=== PATIENT | male | born 1970 | race Caucasian/White ===

== ENCOUNTER 2017-11-04 09:53 | Inpatient (IN) | payer BC ==
--- OUTSIDE RECORDS SUMMARY | 2017-11-04 09:56 | XMS REPORT | Clinical Summary ---
:1970 Author Organization [facility] Address [address] [place] [address] Care Team Providers Name Role Phone Asked, No Pcp Primary Care Provider Unavailable Allergies Active Allergy Reactions Severity Noted Date Comments No Known Drug Allergies 12/23/2016 Current Medications Prescription Sig. Disp. Refills Start Date End Date Status esomeprazole (NexIUM) Take 1 capsule 30 capsule 11 11/14/2016 11/15/19 Active 40 MG (40 mg total) 18 capsuleIndications: by mouth Gastroesophageal daily. reflux disease without esophagitis esomeprazole (NexIUM) Take 30 mg by 11/04/19 Discontinued 20 MG capsule mouth every 17 morning. betamethasone Apply 1 07/23/2016 11/06/19 Discontinued dipropionate topically as 17 (DIPROLENE) 0.05 % needed. ointment traMADol (ULTRAM) 50 Take 50 mg by 0 08/19/2016 11/06/19 Discontinued mg tablet mouth as 17 needed. esomeprazole (NexIUM) Take 40 mg by 12/24/19 Discontinued 40 MG capsule mouth daily 17 before breakfast. aspirin (ECOTRIN) 325 Take 1 tablet 60 tablet 0 11/05/2016 12/06/19 MG enteric coated (325 mg total) 17 tablet by mouth 2 (two) times a day for 30 days. oxyCODone-acetaminoph Take 1 tablet 80 tablet 0 11/05/2016 11/27/19 en (PERCOCET) 5-325 by mouth every 17 mg per tablet 4 (four) hours as needed for moderate pain for up to 21 days. Max Daily Amount: 6 tablets oxyCODone (OxyCONTIN) Take 1 tablet 11/05/2016 11/16/19 10 mg tablet,oral (10 mg total) 17 only,ext.rel.12 hr ER by mouth every tablet 12 (twelve) hours for 10 days. Max Daily Amount: 20 mg Active Problems Problem Noted Date Status post total replacement of left hip 12/23/2016 Left hip pain 12/23/2016 Osteoarthritis of left hip 11/03/2016 Hip pain, left 10/03/2016 Hip pain, chronic 10/03/2016 Primary osteoarthritis of left hip 10/03/2016 Chronic pancreatitis 04/13/2016 Last Assessment & Plan: He has a history of pancreatitis with associated chronic pain, but no stigmata of chronic pancreatitis. Prior MRI and EUS was unrevealing. He does continue to have some intermittent LUQ pain. Will start tramadol for pain. Continue low fat diet Diverticulitis large intestine w/o perforation or abscess w/o bleeding 2015 Last Assessment & Plan: Mild uncomplicated diverticulitis on imaging. I explained that he should increase fiber in his diet. Further, he takes daily NSAIDS, which may be a contributing factor. Will start tramadol as an alternative for pain. He may benefit from low dose TCA in the future Encounters Date Type Specialty Care Team Description 10/02/2017 Office Visit Cardiology Cheng Camara Precordial pain ( Primary Dx); MD Mello Palpitations 09/18/2017 Telephone Cardiology Alphonse, Capo Ulloa RN (requesting earlier appointment for c/o chest pain) 07/07/2017 Hospital Radiology Charlie Cabral Status post total replacement of left hip; Encounter Kae LORENZO MD Left hip pain 07/07/2017 Ancillary Orders Orthopedic Surgery Charlie Cabral Status post total replacement of left hip; Kae LORENZO MD Left hip pain 07/05/2017 Lab Lab Charlie Cabral Left hip pain Kae LORENZO MD 07/05/2017 Office Visit Orthopedic Surgery Charlie Cabral Status post total replacement of left hip (Primary Dx); Kae LORENZO MD Left hip pain 07/05/2017 Procedure Pass Radiology 06/23/2017 [facility] Gastroenterology [place], Chronic hip pain, Encounter Jose Elias Quiroga MD unspecified laterality (Primary Dx) 06/23/2017 Anesthesia Event Gastroenterology Gaetano Haywood MD 06/23/2017 Procedure Pass Gastroenterology 06/23/2017 Surgery Gastroenterology [place], PANCREACTIC EUS Jose Elias Quiroga MD 06/06/2017 Telephone Gastroenterology Bryanna Ayon MA 06/06/2017 Telephone Gastroenterology Bryanna Ayon MA 06/02/2017 Telephone Gastroenterology Bryanna Ayon MA 06/01/2017 Lab Lab [place], Jose Elias Quiroga MD 06/01/2017 Lab Lab [place], Chronic pancreatitis, unspecified pancreatitis type; Jose Elias Quiroga MD Epigastric pain 06/01/2017 Office Visit Gastroenterology [place], Other chronic pancreatitis (Primary Dx); Jose Elias Quiroga MD Generalized abdominal pain; Gastroesophageal reflux disease, esophagitis presence not specified 06/01/2017 Orders Only Gastroenterology [place], Chronic pancreatitis, unspecified pancreatitis type (Primary Dx); ROBERTO Gould Epigastric pain 05/19/2017 Office Visit Orthopedic Surgery Charlie Cabral Status post total replacement of left hip (Primary Dx); Kae LORENZO MD Primary osteoarthritis of left hip 01/23/2017 Hospital Procedural Cardiology Cheng Camara Other chest pain Encounter MD Mello 01/23/2017 Office Visit Cardiology Cheng Camara Other chest pain MD Mello (Primary Dx) 12/23/2016 Office Visit Orthopedic Surgery Broderick Dunn Status post total replacement of left hip (Primary Dx); Left hip pain Charlie Cabral II, MD 12/02/2016 Telephone Gastroenterology Bryanna Ayon MA 11/18/2016 Office Visit Orthopedic Surgery Charlie Cabral Pain of left hip joint Kae LORENZO MD (Primary Dx) 11/14/2016 Telephone Gastroenterology Kate Garza MA 11/14/2016 Orders Only Gastroenterology George Garza MA reflux disease without esophagitis (Primary Dx) 11/03/2016 Hospital Orthopedic Surgery Charlie Cabral - Encounter Kae LORENZO MD 11/05/2016 11/03/2016 Procedure Pass Orthopedic Surgery 11/03/2016 Surgery Orthopedic Surgery Charlie Cabral HARDWARE REMOVAL WITH Kae LORENZO MD POSTERIOR TOTAL HIP ARTHROPLASTY 10/31/2016 Anesthesia Event Orthopedic Surgery Stephanie Fuchs, DIEGO after 11/03/2016 Family History Medical History Relation Name Comments Aneurysm Father Heart disease Father Heart failure Father No Known Problems Mother Relation Name Status Comments Brother Alive avm malformation Father Mother Alive Social History Tobacco Use Types Packs/Day Years Used Date Former Smoker Cigarettes 2.5 25 Quit: 2006 Smokeless Tobacco: Former User Alcohol Use Drinks/Week oz/Week Comments No Sex Assigned at Date Recorded Not on file Last Filed Vital Signs Vital Sign Reading Time Taken Blood Pressure 132/75 10/02/2017 11:46 AM CDT Pulse 67 10/02/2017 11:46 AM CDT Temperature 37 C (98.6 F) 06/23/2017 11:05 AM 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 Respiratory Rate 16 10/02/2017 11:46 AM CDT Oxygen Saturation 98% 06/23/2017 11:40 AM 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 Inhaled Oxygen Concentration - - Weight 94.3 kg (208 lb) 10/02/2017 11:46 AM CDT Height 167.6 cm (5' 6") 10/02/2017 11:46 AM CDT Body Mass Index 33.57 10/02/2017 11:46 AM CDT Plan of Treatment Date Type Specialty Care Team Description 11/17/2017 Office Visit Orthopedic Surgery Charlie Cabral II, MD [address] [id number] Health Maintenance Due Date Last Done Comments INFLUENZA VACCINE 01/31/2018 Implants Implanted Type 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 Research 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 Device Expiration Model / Identifier Date Serial / Lot Shell Actblr Sector W/ Gription 52mm [place] - [id number] Hip Joint Left: DEPUY 06/01/2026 [id number] / Implanted: Qty: 1 on 11/03/2016 by Charlie Cabral II, MD Implants Hip ORTHO-KNEES / [id number] Altrex Poly Acet 36mm X 52mm Neutral Liner - [id number] [id number] IMPLANT Left: DEPUY 07/02/2021 1221 36 [id number] / Implanted: Qty: 1 on 11/03/2016 by Charlie Cabral II, MD DEVICES Hip ORTHOPAEDICS, / INC [id number] [place] Hip System Femoral Stems Size 5 [place] Standard Offset 06/15 Taper - [id number] [id number] IMPLANT Left: DEPUY 08/30/2026 1570 01 110 / Implanted: Qty: 1 on 11/03/2016 by Charlie Cabral II, MD DEVICES Hip ORTHOPAED[employer] [id number] [place] Fracture System Biolox Delta Ceramic Femoral Heads Size 36 +1.5 Mm Articul/Delio 06/15 Taper Ceramic Femoral Heads - [id number] [id number] IMPLANT Left: DEPUY 08/30/2021 1365 36 310 / Implanted: Qty: 1 on 11/03/2016 by Charlie Cabral II, MD DEVICES Hip [employer]OP[employer] [id number] Procedures Procedure Name Priority Date/Time Associated Comments Diagnosis PANCREACTIC EUS 06/23/2017 10:00 Pancreatitis, AM 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 recurrent KS ARTHROCENTESIS Routine 06/13/2017 8:33 Status post total Results for this ASPIR&/INJ MAJOR AM 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 replacement of left procedure are in JT/BURSA W/O US hip the results section. ANESTHESIA INTUBATION Routine 11/03/2016 12:58 PM CDT Procedure Note - Kady Kinsey MD - 11/03/2016 12:13 PM CDT Airway Performed by: KADY KINSEY Authorized by: KADY KINSEY Location: OR Urgency: Elective Difficult Airway: No Anesthesiologist: KADY KINSEY Performed by: anesthesiologist Preoxygenated with 100% O2: Yes C-spine Precautions Maintained Throughout: Yes Mask Ventilation: Difficult mask (Long honeycutt) Final Airway Type: Endotracheal airway Final Endotracheal Airway: ETT Technique Used: Direct laryngoscopy Insertion Site: Oral Blade Type: Weir Laryngoscope Blade/Videolaryngoscope Blade Size: 2 ETT Size (mm): 8.0 Measured from: Lips ETT to Lips (cm): 22 Placement Verified by: CO2 detection, direct visualization and equal breath sounds Laryngoscopic view: Grade IIa - partial view of glottis Rapid Sequence Induction (RSI): No Modified RSI: Yes Number of Attempts at Approach: 1 Difficult mask ventilation. Patient with a long honeycutt. OPA and Tegaderms placed in the honeycutt to make a better mask seal but still difficult to mask. Intubated easily. Atraumatic. Teeth intact. HARDWARE REMOVAL WITH 11/03/2016 12:45 PM CDT LEFT HIP OSTEOARTHRITIS POSTERIOR TOTAL HIP M16.12 ARTHROPLASTY Case Notes EST 2 HRS, DEPUY, @1323 DR CABRAL CHG PROC AND EQUIPMENT 11/02/16TW Special Needs EST 2 HRS, DEPUY PEG BOARD, SYNTHES, DYNAMIC HIP SCREW SET KS AN SPINAL BLOCK POST-OP PAIN Routine 11/03/2016 11:44 AM CDT Procedure Note - Kady Kinsey MD - 11/03/2016 11:42 AM CDT Spinal Block Performed by: KADY KINSEY Authorized by: KADY KINSEY Patient Location: Pre-op Start Time: 11/03/2016 11:37 AM End Time: 11/03/2016 11:39 AM Reason for Block: at surgeon's request, post-op pain management Staff: Anesthesiologist: KADY KINSEY Performed by: Anesthesiologist patient identified, IV checked, site and side verified, risks and benefits discussed, procedure verified, surgical consent complete, patient position confirmed, monitors and equipment checked and pre-op evaluation complete TIme Out Performed: 11/03/2016 11:33 AM Spinal Block: Patient Position: Sitting Prep: ChloraPrep Monitoring: Blood pressure monitoring, continuous pulse oximetry and heart rate Approach: Midline Interspace: L4-5 Injection Technique: Single injection Needle: Needle Type: Quincke Needle Gauge: 22 G Catheter Type: Closed end Assessment: Coagulation status: Coagulation status verified Block assessment: No apparent complications and patient tolerated procedure well Notes: One pass. CSF aspirated before and after a painless injection. after 11/03/2016 Results Lipid panel (10/02/2017 12:09 PM) Component Value Ref Range Cholesterol, total 216 (H) <200 mg/dL HDL cholesterol 54 >40 mg/dL Triglycerides 68 <150 mg/dL LDL cholesterol calculated 146 (H) mg/dL (calc) Comment: Reference range: <100 Desirable range <100 mg/dL for patients with CHD or diabetes and <70 mg/dL for diabetic patients with known heart disease. LDL-C is now calculated using the Tino calculation, which is a validated novel method providing better accuracy than the Friedewald equation in the estimation of LDL-C. Christian DEAL et al. CRESCENCIO. 2013;310(19): 5746-1852 (http://education.[employer].com/faq/RJB022) Cholesterol/HDL ratio 4.0 <5.0 (calc) Non-HDL cholesterol 162 (H) <130 mg/dL (calc) Comment: For patients with diabetes plus 1 major ASCVD risk factor, treating to a non-HDL-C goal of <100 mg/dL (LDL-C of <70 mg/dL) is considered a therapeutic option. Specimen Performing Laboratory [facility] Narrative FASTING:YES FASTING: YES ECG 12 lead (10/02/2017 11:48 AM) Component Value Ref Range Ventricular rate 68 Atrial rate 68 KS interval 148 QRSD interval 72 QT interval 390 QTC interval 414 P axis 1 38 QRS axis 1 66 T wave axis 56 EKG impression Normal sinus rhythm-Early repolarization-Normal ECG-No previous ECGs available- Specimen Performing Laboratory [facility] MUSE [address] [place] [address] MRI Lower Extremity Joint Wo Contrast Left (07/07/2017 12:12 PM) Specimen Performing Laboratory [facility] [address] [place] [address] Narrative EXAMINATION:MRI LOWER EXTREMITY JOINT WO CONTRAST LEFT CLINICAL HISTORY:Z96.642 Presence of left artificial hip joint, M25.552 Pain in left hip, left hip pain TECHNIQUE: Multiplanar, multisequence MR imaging examination of the lefthip obtained without contrast. Metal suppression protocol utilized. COMPARISON:Radiograph, 07/05/2017 IMPRESSION: 1.Left hip arthroplasty appears satisfactory positioned. No joint effusion is identified. Visualized portions of the joint capsule appear intact. 2.No cystic masses or pseudotumors are identified. 3.The visualized gluteal tendons appear intact, and there is no evidence of bursitis. 4.Moderate fatty atrophy posteriorly of the vastus lateralis muscle belly partially visualized. Remaining visualized muscle groups are well-maintained. 5.Visualized portions of the sciatic nerves well-maintained. Distal colonic diverticulosis partially visualized. 6.Marrow signal show no evidence of acute fracture. [facility]-[id number] Procedure Note Interface, Radiology Results Incoming - 07/07/2017 12:28 PM 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 EXAMINATION: MRI LOWER EXTREMITY JOINT WO CONTRAST LEFT CLINICAL HISTORY: Z96.642 Presence of left artificial hip joint, M25.552 Pain in left hip, left hip pain TECHNIQUE: Multiplanar, multisequence MR imaging examination of the left hip obtained without contrast. Metal suppression protocol utilized. COMPARISON: Radiograph, 07/05/2017 IMPRESSION: 1. Left hip arthroplasty appears satisfactory positioned. No joint effusion is identified. Visualized portions of the joint capsule appear intact. 2. No cystic masses or pseudotumors are identified. 3. The visualized gluteal tendons appear intact, and there is no evidence of bursitis. 4. Moderate fatty atrophy posteriorly of the vastus lateralis muscle belly partially visualized. Remaining visualized muscle groups are well-maintained. 5. Visualized portions of the sciatic nerves well-maintained. Distal colonic diverticulosis partially visualized. 6. Marrow signal show no evidence of acute fracture. [facility]-[id number] Sedimentation rate (07/05/2017 11:17 AM) Component Value Ref Range Sedimentation rate 2 < OR=15 mm/h Specimen Performing Laboratory [facility] C-reactive protein (07/05/2017 11:17 AM) Component Value Ref Range CRP 2.5 <8.0 mg/L Specimen Performing Laboratory [facility] Large Joint Arthrocentesis (06/13/2017 8:33 AM) Yaneth Cabral II, MD 06/13/20178:33 AM Large Joint Arthrocentesis Supporting Documentation Indications: pain Procedure Details Ultrasound guided: no Platelet Rich Plasma Used: no PRP UsedLocation: hip - L greater trochanteric bursa Left side: Needle size: 25 G Approach: lateral Left hip medications administered: 3 mL lidocaine 10 mg/mL (1 %); 6 mg betamethasone acetate & sodium phosphate 6 mg/mL Patient tolerance: patient tolerated the procedure well with no immediate complications Pancreatic elastase, fecal (06/01/2017 10:32 AM) Component Value Ref Range Pancreatic Elastase-1 TNP Comment: * Test not performed.* * No suitable specimen received. * Specimen Performing Laboratory [facility] CBC with platelet and differential (06/01/2017 10:32 AM)Only the most recent of3 resultswithin the time period is included. Component Value Ref Range WBC 7.7 3.8 - 10.8 Thousand/uL RBC 5.01 4.20 - 5.80 Million/uL HGB 15.0 13.2 - 17.1 g/dL HCT 44.8 38.5 - 50.0 % MCV 89.4 80.0 - 100.0 fL MCH 29.9 27.0 - 33.0 pg MCHC 33.5 32.0 - 36.0 g/dL RDW 13.0 11.0 - 15.0 % Platelet count 226 140 - 400 Thousand/uL MPV 10.9 7.5 - 12.5 fL Neutrophils, absolute 4,289 1,500 - 7,800 cells/uL Lymphocytes, absolute 2,633 850 - 3,900 cells/uL Monocytes, absolute 554 200 - 950 cells/uL Eosinophils, absolute 185 15 - 500 cells/uL Basophils, absolute 39 0 - 200 cells/uL Neutrophils 55.7 % Lymphocytes 34.2 % Monocytes 7.2 % Eosinophils 2.4 % Basophils + RC 0.5 % Specimen Performing Laboratory [facility] Lipase level (06/01/2017 10:32 AM) Component Value Ref Range Lipase 43 7 - 60 U/L Specimen Performing Laboratory [facility] Amylase level (06/01/2017 10:32 AM) Component Value Ref Range Amylase 38 21 - 101 U/L Specimen Performing Laboratory [facility] Comprehensive metabolic panel (06/01/2017 10:32 AM) Component Value Ref Range Glucose 99 65 - 99 mg/dL Comment: Fasting reference interval BUN, whole blood 14 7 - 25 mg/dL Creatinine 0.95 0.60 - 1.35 mg/dL EGFR Non-Afr. Egyptian 94 > OR=60 mL/min/1.73m2 EGFR 109 > OR=60 mL/min/1.73m2 BUN/creatinine ratio NOT APPLICABLE 6 - 22 (calc) Sodium 144 135 - 146 mmol/L Potassium 4.7 3.5 - 5.3 mmol/L Chloride 107 98 - 110 mmol/L CO2 29 20 - 31 mmol/L Calcium 9.8 8.6 - 10.3 mg/dL Protein 7.2 6.1 - 8.1 g/dL Albumin, S 4.3 3.6 - 5.1 g/dL Globulin, total 2.9 1.9 - 3.7 g/dL (calc) Albumin/globulin ratio 1.5 1.0 - 2.5 (calc) Total bilirubin 0.6 0.2 - 1.2 mg/dL Alkaline phosphatase 60 40 - 115 U/L AST 24 10 - 40 U/L ALT 27 9 - 46 U/L Specimen Performing Laboratory [facility] XR Hip 2-3 View Left (05/19/2017 3:57 PM)Only the most recent of3 resultswithin the time period is included. Specimen Performing Laboratory [facility] [address] [place] [address] Narrative Standard components spanning a screw holes which had begun to fill in significantly from a lateral sideplate and cross screws.No evidence of subsidence, loosening. Cv cta coronary arteries w contrast (01/23/2017 3:09 PM) Specimen Performing Laboratory [facility] [address] [place] [address] Narrative Nuclear Cardiology and Cardiac CT [address] [place] [address] CTA Coronary Arteries Report Pat.Name:PABLO HASTINGS Pat.ID:[id number] St.Date: 01/23/2017 Refer.MD:CHENG CAMARA MD Exam Time: 3:09:00 PMStudy Type:CTA Coronary Arteries Height:66inBSA: 1.94 m2 DOBAge:1970,46YSex: MALE BP:119/64 Nuclear Tech:FABIAN Agee(N)(CT) CPT - 4: CCTA w Thoracic Aorta (NonCongenital) [id number] Nuclear Event ID:[id number] Order ID:[id number] Reason for Study:Chest Pain Procedures:CT Prospective (phases) SUMMARY: Technique: IV contrast was administered and sequential 0.[address] cuts [facility]. Post-processing and 3D reconstruction were done using the [employer] workstation. Interactive image viewing and volumetric display and analysis were also performed. 3D coronary artery calcium scoring was done in accordance with a standardized protocol. CTA RESULTS Left Main: A normal sized5.2 mm artery which arises normally from the left sinus of Valsalva and divides into the left anterior descending and circumflex coronary arteries. No significant atherosclerotic plaque is present. Left anterior descending (LAD): A normal sized 4.1mm artery which wraps around the apex and gives off two diagonal branches. No significant atherosclerotic plaque is present. The first diagonal is a 2.6 mm trifurcating artery which has no significant atherosclerotic plaque. The second diagonal is a 1.5 mm artery which has no significant atherosclerotic plaque. Left circumflex: A normal sized 4.0 mm dominant artery which gives off two major obtuse marginal arteries before becoming the posterior descending artery. No significant atherosclerotic plaque is present. The first obtuse marginal is a 2.4 mm artery which has no significant atherosclerotic plaque. The second obtuse marginal is a 2.2 mm artery which has no significant atherosclerotic plaque. The posterior descending is a 2.5 mm artery which has no significant atherosclerotic plaque. Right coronary artery: A normal sized 2.8 mm non-dominant artery which arises normally from the right sinus of Valsalva and gives off several right ventricular branches.No significant atherosclerotic plaque is present. Ramus: None. Stents: None. Bypass Grafts: None. Pulmonary Arteries: Normal pulmonary artery sizes with no proximal thrombus identified. Left Atrial and Pulmonary Vein(PV) Dimensions: Left atrial size (A-P diameter) 3.2 cm. Normal PV anatomy Left superior PV17 mm. Left inferior PV17 mm. Right superior PV17 mm. Right inferior PV16 mm. There is no evidence of the left atrial appendage clot. Left Ventricular Valve Morphology/Function: LV septal wall thickness 10.0 mm. Aortic valve is tri-leaflet and there is no evidence of regurgitation. Mitral valve is normal without significant stenosis. Thoracic Aortic Dimensions: No aortic aneurysm or dissection is seen. Aortic root: 3.7 cm. Sinotubular junction 2.8 cm. Mid ascending thoracic aorta 3.3 cm. Descending thoracic aorta 2.2 cm. Pericardium: No pericardial effusion or pericardial thickening. Non-Cardiac Findings: Several small simple liver cysts. CONCLUSION CT coronary angiography shows no significant coronary artery atherosclerosis or coronary artery stenosis. Normal PV anatomy. There is no evidence of left atrial appendage thrombus. STUDY QUALITY The study quality is excellent. COMMENTS: None. The above report was based on a dedicated Cardiovascular CTA Protocol and interpreted by a Delivery Table Feeder.Should a more comprehensive assessment of non-cardiovascular findings be desired, please consult a radiologist.These images are available in the [facility] [employer] PACS system. Signed 01/23/2017 04:49 PM Cheng Camara MD Procedure Note Interface, Radiology Results In - 01/23/2017 4:49 PM CDT Nuclear Cardiology and Cardiac CT [address], [address], [place] [address] CTA Coronary Arteries Report Pat.Name: PABLO HASTINGS.ID: [id number] .Date: 01/23/2017 Refer.MD: CHENG CAMARA MD Exam Time: 3:09:00 PM Study Type:CTA Coronary Arteries Height: 66in BSA: 1.94 m2 Age: 4 1970,46Y Sex: MALE BP: 119/64 Nuclear Tech:FABIAN Agee(N)(CT) CPT - 4: CCTA w Thoracic Aorta (NonCongenital) [id number] Nuclear Event ID:[id number] Order ID: [id number] Reason for Study:Chest Pain Procedures:CT Prospective (phases) SUMMARY: Technique: IV contrast was administered and sequential 0.[address] cuts were obtained through the chest using the Siemens Somatom Force CT scanner. Post-processing and 3D reconstruction were done using the [employer] workstation. Interactive image viewing and volumetric display and analysis were also performed. 3D coronary artery calcium scoring was done in accordance with a standardized protocol. CTA RESULTS Left Main: A normal sized 5.2 mm artery which arises normally from the left sinus of Valsalva and divides into the left anterior descending and circumflex coronary arteries. No significant atherosclerotic plaque is present. Left anterior descending (LAD): A normal sized 4.1mm artery which wraps around the apex and gives off two diagonal branches. No significant atherosclerotic plaque is present. The first diagonal is a 2.6 mm trifurcating artery which has no significant atherosclerotic plaque. The second diagonal is a 1.5 mm artery which has no significant atherosclerotic plaque. Left circumflex: A normal sized 4.0 mm dominant artery which gives off two major obtuse marginal arteries before becoming the posterior descending artery. No significant atherosclerotic plaque is present. The first obtuse marginal is a 2.4 mm artery which has no significant atherosclerotic plaque. The second obtuse marginal is a 2.2 mm artery which has no significant atherosclerotic plaque. The posterior descending is a 2.5 mm artery which has no significant atherosclerotic plaque. Right coronary artery: A normal sized 2.8 mm non-dominant artery which arises normally from the right sinus of Valsalva and gives off several right ventricular branches. No significant atherosclerotic plaque is present. Ramus: None. Stents: None. Bypass Grafts: None. Pulmonary Arteries: Normal pulmonary artery sizes with no proximal thrombus identified. Left Atrial and Pulmonary Vein (PV) Dimensions: Left atrial size (A-P diameter) 3.2 cm. Normal PV anatomy Left superior PV17 mm. Left inferior PV17 mm. Right superior PV17 mm. Right inferior PV16 mm. There is no evidence of the left atrial appendage clot. Left Ventricular Valve Morphology/Function: LV septal wall thickness 10.0 mm. Aortic valve is tri-leaflet and there is no evidence of regurgitation. Mitral valve is normal without significant stenosis. Thoracic Aortic Dimensions: No aortic aneurysm or dissection is seen. Aortic root: 3.7 cm. Sinotubular junction 2.8 cm. Mid ascending thoracic aorta 3.3 cm. Descending thoracic aorta 2.2 cm. Pericardium: No pericardial effusion or pericardial thickening. Non-Cardiac Findings: Several small simple liver cysts. CONCLUSION CT coronary angiography shows no significant coronary artery atherosclerosis or coronary artery stenosis. Normal PV anatomy. There is no evidence of left atrial appendage thrombus. STUDY QUALITY The study quality is excellent. COMMENTS: None. The above report was based on a dedicated Cardiovascular CTA Protocol and interpreted by a Delivery Table Feeder. Should a more comprehensive assessment of non-cardiovascular findings be desired, please consult a radiologist. These images are available in the [facility] Smart [employer] PACS system. Signed 01/23/2017 04:49 PM Cheng Camara MD Estimated GFR (01/23/2017 3:01 PM)Only the most recent of2 resultswithin the time period is included. Component Value Ref Range GFR Non Af Amer >90 mL/min/1.73 m2 GFR Af Amer >90 mL/min/1.73 m2 Comment: Chronic kidney disease: <60 mL/min/1.73m2 Kidney failure: <15 mL/min/1.73m2 The estimated GFR is calculated from the IDMS-traceable Modification of Diet in Renal Disease Equation. The accuracy of the calculation is poor when the creatinine is normal. Calculated values >90 mL/min/1.73m2 are not reported. This equation has not been validated in children (<18 years), women, the elderly (>70 years), or ethnic groups other than Caucasians and Americans. Specimen Performing Laboratory Plasma specimen [facility] DEPARTMENT OF PATHOLOGY AND GENOMIC MEDICINE [address] [place] [id number] Creatinine level (01/23/2017 3:01 PM) Component Value Ref Range Creatinine 0.8Comment: Testing performed on the ISTAT instrument by 0.7 - 1.2 mg/dL RN Tech [id number] Specimen Performing Laboratory Plasma specimen [facility] DEPARTMENT OF PATHOLOGY AND GENOMIC MEDICINE [address] [place] [id number] Basic metabolic panel (11/04/2016 4:00 AM) Component Value Ref Range Sodium 141 135 - 148 mEq/L Potassium 4.3 3.5 - 5.0 mEq/L Chloride 103 98 - 112 mEq/L CO2 24 24 - 31 mEq/L Anion gap 14 7 - 15 mEq/L Comment: Starting from October , anion gap calculation no longer incorporates potassium. Please note the change. BUN 17 6 - 20 mg/dL Creatinine 0.8 0.7 - 1.2 mg/dL Glucose 147 (H) 65 - 99 mg/dL Calcium 8.3 8.3 - 10.2 mg/dL Specimen Performing Laboratory Plasma specimen [facility] DEPARTMENT OF PATHOLOGY AND [address] [address] XR Pelvis 1 Or 2 Vw (11/03/2016 4:23 PM)Only the most recent of2 resultswithin the time period is included. Specimen Performing Laboratory [facility] [address] [place] [id number] Narrative EXAMINATION:XR PELVIS 1 OR 2 VW CLINICAL HISTORY:Post operative COMPARISON:November 03, 2016 at 1443 hours TECHNIQUE: A single portable view of the pelvis was performed in the AP projection. FINDINGS: Satisfactory placement of a bipolar left hip arthroplasty is demonstrated with congruence of the prosthesis components and anatomic alignment. A soft tissue drainage catheter is seen about the hip. Postoperative air is noted in the soft tissues about the hip. IMPRESSION: Satisfactory ORIF of the hip. Note is made of slight thinning of the lateral cortex of the subtrochanteric diaphysis is noted. [id number] Procedure Note Interface, Radiology Results Incoming - 11/03/2016 4:31 PM CDT EXAMINATION: XR PELVIS 1 OR 2 VW CLINICAL HISTORY: Post operative COMPARISON: November 03, 2016 at 1443 hours TECHNIQUE: A single portable view of the pelvis was performed in the AP projection. FINDINGS: Satisfactory placement of a bipolar left hip arthroplasty is demonstrated with congruence of the prosthesis components and anatomic alignment. A soft tissue drainage catheter is seen about the hip. Postoperative air is noted in the soft tissues about the hip. IMPRESSION: Satisfactory ORIF of the hip. Note is made of slight thinning of the lateral cortex of the subtrochanteric diaphysis is noted. [facility]-[id number] POC glucose (11/03/2016 3:59 PM)Only the most recent of2 resultswithin the time period is included. Component Value Ref Range POC glucose 117 (H) 65 - 99 mg/dL Comment: [facility] Notified RN Meter ID: [id number] Employment Law Attorney: Norman Kern Specimen Performing Laboratory [facility] DEPARTMENT OF PATHOLOGY AND GENOMIC MEDICINE [address] [place] [id number] Surgical pathology request (11/03/2016 3:35 PM) Component Value Ref Range Surgical pathology report See link below for PDF Lab Report Specimen Performing Laboratory [facility] DEPARTMENT OF PATHOLOGY AND GENOMIC MEDICINE [address] [place] [id number] after 11/03/2016 Insurance Payer Benefit Plan / Group Subscriber ID Type Phone Address BCBS BCBS CHOICE PPO/FEDERAL EMPL PPO xxxxxxxxxxxx PPO Home: [address] [phone] [place] [phone] SANDEEP HASTINGS Personal/Family Self 1970 Home: [address] [facility] [phone] [place] [phone]
[2017-11-04] MEDS ORDERED: MORPHINE 4 MG/ML SYR ONE ×2 (10:34→12:22)
[2017-11-04] MEDS ORDERED: ONDANSETRON 4 MG/2 ML VIAL ONE ×2 (10:34→14:27)
[2017-11-04] MEDS ORDERED: NA CHLORIDE 0.9% 1,000 ML ONE ×2 (10:34→12:59)
[2017-11-04 11:07] LABS: Absolute Lymphocytes (CBC) 1.6 K/uL (0.7-4.9); Absolute Monocytes 1.7 K/uL (0.1-1.3); Absolute Neutrophil 11.5 K/uL (1.8-8.0); Basophils % 0.3 % (0-1.3); Hematocrit 45.8 % (39.6-49.0); Lymphocytes % 10.7 % (15.3-44.8); MCH 30.3 pg (27.0-35.0); MCV 92.1 fL (80-100); MPV 8.6 fL (7.6-11.3); Monocytes % 11.6 % (3.3-12.3); RBC Red Blood Cell Count 4.97 M/uL (4.33-5.43)
[2017-11-04 11:12] LABS: Urine Blood NEGATIVE (NEG); Urine Glucose NEGATIVE (NEG); Urine Protein TRACE (NEG)
[2017-11-04 11:13] LABS: Bicarbonate 28 mEq/L (21-31); Glucose Level 93 mg/dL (65-120); Potassium 3.8 mEq/L (3.6-5.0); Sodium Level 135 mEq/L (135-145)
[2017-11-04 11:14] LABS: BUN Blood Urea Nitrogen 12 mg/dL (6-20)
--- NOTE | 2017-11-04 12:26 | RAD REPORT ---
EXAM DESCRIPTION: CT - Abdomen Pelvis W Contrast - 11/04/2017 11:45 am CLINICAL HISTORY: Abdominal pain/lower abdominal pain COMPARISON: 2015 TECHNIQUE: Computed axial tomography of the abdomen pelvis was obtained. 100 cc Isovue-300 was admin istered intravenously. Oral contrast was not requested which limits evaluation of bowel. All CT scans are performed using dose optimization technique as appropriate and may include automated exposure control or mA/KV adjustment according to patient size. FINDINGS: Small hepatic cysts are present. The gallbladder has been removed. Spleen, pancreas, adrenal and kidneys appear unremarkable. Mild to moderate stranding is present adjacent to the sigmoid colon. Small diverticulum is seen. Free air is not noted. An abscess is not seen. Small amount of ascites is present. Small umbilical hernia is noted. IMPRESSION: Mild to moderate sigmoid diverticulitis
--- NOTE | 2017-11-04 12:46 | ER ---
Nurse's Notes [facility] Name: Damian Lee Age: 46 yrs Sex: Male : 1970 Arrival Date: 11/04/2017 Time: 09:54 Bed 19 Private MD: Diagnosis: Diverticulitis of intestine, part unspecified, without perforation or abscess without bleeding Presentation: 11/04 10:15 Presenting complaint: Patient states: "I've had diverticulitis before and I feel the aa5 same way I did when I had it". Pt c/o lower abd pain. Pt denies N/V/D, denies blood in stool. Transition of care: patient was not received from another setting of care. Onset of symptoms was November 02, 2017. Initial Sepsis Screen: Does the patient meet any 2 criteria? No. Patient's initial sepsis screen is negative. Does the patient have a suspected source of infection? No. Patient's initial sepsis screen is negative. Care prior to arrival: None. 10:15 Method Of Arrival: Ambulatory aa5 10:15 Acuity: SAMI 3 aa5 Historical: - Allergies: 10:17 No Known Allergies; aa5 - PMHx: 10:17 High Cholesterol; aa5 - PSHx: 10:17 Cholecystectomy; pancreatic stent; left hip surgery; aa5 - Immunization history:: Adult Immunizations unknown. - Social history:: Smoking status: Patient/guardian denies using tobacco. Screenin:45 Abuse screen: Denies threats or abuse. Denies injuries from another. Nutritional jl7 screening: No deficits noted. Tuberculosis screening: No symptoms or risk factors identified. Fall Risk IV access (20 points). Assessment: 10:30 General: Appears in no apparent distress. uncomfortable, Behavior is calm, cooperative, jl7 appropriate for age. Pain: Complains of pain in left lower quadrant Pain does not radiate. Pain currently is 7 out of 10 on a pain scale. Quality of pain is described as squeezing, Pain began 1 day ago. Is continuous. Neuro: Level of Consciousness is awake, alert, obeys commands, Oriented to person, place, time, situation. Cardiovascular: Patient's skin is warm and dry. Respiratory: Airway is patent Respiratory effort is even, unlabored, Respiratory pattern is regular, symmetrical. GI: Abdomen is round non-distended. : No signs and/or symptoms were reported regarding the genitourinary system. EENT: No signs and/or symptoms were reported regarding the EENT system. Derm: Skin is pink, warm \\T\\ dry. Musculoskeletal: No signs and/or symptoms reported regarding the musculoskeletal system. 11:24 Reassessment: Pt reports decreased pain at this time, rated 5/10. jl7 12:20 Reassessment: Pt c/o of increased pain, rated 7/1, requesting pain meds at this time. jl7 Provider notified, see MAR for orders. 13:20 Reassessment: Patient and/or family updated on plan of care and expected duration. Pain jl7 level reassessed. Patient is alert, oriented x 3, equal unlabored respirations, skin warm/dry/pink. 13:20 Reassessment: Pt reports nausea prior to medication administration. Provider notified, jl7 see MAR for orders. 14:20 Reassessment: pt reports "The pain is getting pretty bad." Provider notified, see MAR jl7 for orders. Vital Signs: 10:17 BP 117 / 78; Pulse 88; Resp 16 S; Temp 98.7(TE); Pulse Ox 98% on R/A; Weight 88.45 kg aa5 (R); Height 5 ft. 6 in. (167.64 cm) (R); 10:45 BP 116 / 66; Pulse 80; Resp 16; Pulse Ox 98% ; Pain 7/10; jl7 11:25 BP 115 / 68; Pulse 82; Resp 16; Pulse Ox 100% ; Pain 5/10; jl7 12:20 BP 107 / 67; Pulse 77; Resp 16; Pulse Ox 96% ; Pain 7/10; jl7 13:20 BP 117 / 71; Pulse 76; Resp 16; Pulse Ox 98% ; jl7 14:20 BP 120 / 70; Pulse 78; Resp 16; Pulse Ox 99% ; Pain 7/10; jl7 10:17 Body Mass Index 31.47 (88.45 kg, 167.64 cm) aa5 ED Course: 09:54 Patient arrived in ED. sb2 10:15 Leila Cardona FNP-C [facility] kb 10:15 Ashkan Greenwood MD is Attending Physician. kb 10:16 Triage completed. aa5 10:16 Arm band placed on. aa5 10:28 Radiology exam delayed due to lab results not completed at this time. (BUN/Creatinine). vr 10:29 Linden Lyman, RN is Primary Nurse. jl7 10:45 Patient has correct armband on for positive identification. Bed in low position. Call [facility] light in reach. Side rails up X 1. Pulse ox on. NIBP on. Warm blanket given. 10:45 Initial lab(s) drawn, by me, sent to lab. Inserted saline lock: 20 gauge in right jl7 antecubital area, using aseptic technique. Blood collected. 11:45 CT Abd/Pelvis - W/Contrast In Process Unspecified. EDMS 11:46 CT completed. Patient tolerated procedure well. Patient moved back from CT. bq 12:46 Demetri Evans DO is Hospitalizing Provider. kb 14:47 No provider procedures requiring assistance completed. Patient admitted, IV remains in jl7 place. intact, No redness/swelling at site. Administered Medications: 10:52 Drug: NS 0.9% 1000 ml Route: IV; Rate: 1000 ml; Site: right antecubital; jl7 12:00 Follow up: IV Status: Completed infusion jl7 10:53 Drug: Zofran 4 mg Route: IVP; Site: right antecubital; jl7 11:24 Follow up: Response: No adverse reaction; Nausea is decreased jl7 10:55 Drug: morphine 4 mg Route: IVP; Site: right antecubital; jl7 11:24 Follow up: Response: No adverse reaction; Pain is decreased jl7 12:25 Drug: morphine 4 mg Route: IVP; Site: right antecubital; jl7 13:00 Follow up: Response: No adverse reaction; Pain is decreased jl7 12:45 CANCELLED (Duplicate Order): NS 0.9% 1000 ml IV at 125 ml/hr continuous kb 13:05 Drug: NS 0.9% 1000 ml Route: IV; Rate: 100 ml/hr; Site: right antecubital; jl7 13:06 Drug: Cipro 400 mg Volume: 200 ml; Route: IVPB; Infused Over: 60 mins; Site: right jl7 antecubital; 14:10 Follow up: Response: No adverse reaction; IV Status: Completed infusion jl7 13:07 Drug: Flagyl 500 mg Volume: 100 ml; Route: IVPB; Rate: 200 ml/hr; Infused Over: 30 jl7 mins; Site: right antecubital; 13:45 Follow up: IV Status: Completed infusion jl7 14:19 Drug: fentaNYL (PF) 50 mcg Route: IVP; Site: right antecubital; jl7 14:36 Follow up: Response: No adverse reaction; Pain is decreased jl7 14:25 Drug: Zofran 4 mg Route: IVP; Site: right antecubital; jl7 14:36 Follow up: Response: No adverse reaction; Nausea is decreased jl7 Outcome: 12:46 Decision to Hospitalize by Provider. kb 14:47 Admitted to Tele accompanied by tech, via wheelchair, room 217, with chart, Report jl7 called to MAT [place] 14:47 Condition: stable 14:47 Discharge instructions given to patient, Instructed on the need for admit, Demonstrated understanding of instructions. 15:09 Patient left the ED. jl7 Signatures: Dispatcher [employer] EDMS Leila Cardona, ADRI-C CONCR[employer]E [employer]-CkJaney Benitez Audri, RN RN aa5 Alisia Perez Jahala, RN RN jl7 Ansley Barajas sb2 Corrections: (The following items were deleted from the chart) 10:18 10:17 BP 117 / 78; Pulse 88bpm; Resp 16bpm; Spontaneous; Pulse Ox 98% RA; Temp 98.7F aa5 Temporal; aa5 14:35 14:00 Zofran 4 mg IVP in right antecubital jl7 jl7
--- NOTE | 2017-11-04 12:47 | EDPHYS ---
Physician Documentation [facility] Name: Damian Lee Age: 46 yrs Sex: Male : 1970 Arrival Date: 11/04/2017 Time: 09:54 Bed 19 Private MD: ED Physician Ashkan Greenwood HPI: 11/04 10:21 This 46 yrs old Male presents to ER via Ambulatory with complaints of kb DIVERTICULITIS. 10:21 The patient presents with abdominal pain in the left lower quadrant. Onset: The kb symptoms/episode began/occurred yesterday. The symptoms do not radiate. Associated signs and symptoms: Pertinent positives: nausea. The symptoms are described as achy. The symptoms are described as constant. Modifying factors: The symptoms are alleviated by nothing, the symptoms are aggravated by pressure. Severity of pain: At its worst the pain was moderate in the emergency department the pain is unchanged. The patient has experienced similar episodes in the past, a few times, and the symptoms today are exactly the same, to previous diverticulitis. The patient has not recently seen a physician. Historical: - Allergies: 10:17 No Known Allergies; aa5 - PMHx: 10:17 High Cholesterol; aa5 - PSHx: 10:17 Cholecystectomy; pancreatic stent; left hip surgery; aa5 - Immunization history:: Adult Immunizations unknown. - Social history:: Smoking status: Patient/guardian denies using tobacco. ROS: 10:21 Constitutional: Negative for fever, chills, and weight loss, Cardiovascular: Negative kb for chest pain, palpitations, and edema, Respiratory: Negative for shortness of breath, cough, wheezing, and pleuritic chest pain, Back: Negative for injury and pain, : Negative for injury, bleeding, discharge, and swelling, MS/Extremity: Negative for injury and deformity, Skin: Negative for injury, rash, and discoloration, Neuro: Negative for headache, weakness, numbness, tingling, and seizure. 10:21 Abdomen/GI: Positive for abdominal pain, nausea, Negative for vomiting, diarrhea, constipation, abdominal cramps, abdominal distension, anorexia. Exam: 10:20 Constitutional: This is a well developed, well nourished patient who is awake, alert, kb and in no acute distress. Head/Face: Normocephalic, atraumatic. Neck: Trachea midline, no thyromegaly or masses palpated, and no cervical lymphadenopathy. Supple, full range of motion without nuchal rigidity, or vertebral point tenderness. No Meningismus. Chest/axilla: Normal chest wall appearance and motion. Nontender with no deformity. No lesions are appreciated. Cardiovascular: Regular rate and rhythm with a normal S1 and S2. No gallops, murmurs, or rubs. Normal PMI, no JVD. No pulse deficits. Respiratory: Lungs have equal breath sounds bilaterally, clear to auscultation and percussion. No rales, rhonchi or wheezes noted. No increased work of breathing, no retractions or nasal flaring. Back: No spinal tenderness. No costovertebral tenderness. Full range of motion. Skin: Warm, dry with normal turgor. Normal color with no rashes, no lesions, and no evidence of cellulitis. MS/ Extremity: Pulses equal, no cyanosis. Neurovascular intact. Full, normal range of motion. Neuro: Awake and alert, GCS 15, oriented to person, place, time, and situation. Cranial nerves II-XII grossly intact. Motor strength 5/5 in all extremities. Sensory grossly intact. Cerebellar exam normal. Normal gait. 10:20 Abdomen/GI: Inspection: abdomen appears normal, Bowel sounds: normal, in all quadrants, Palpation: soft, in all quadrants, mild abdominal tenderness, in all quadrants, moderate abdominal tenderness, in the left lower quadrant. Vital Signs: 10:17 BP 117 / 78; Pulse 88; Resp 16 S; Temp 98.7(TE); Pulse Ox 98% on R/A; Weight 88.45 kg aa5 (R); Height 5 ft. 6 in. (167.64 cm) (R); 10:45 BP 116 / 66; Pulse 80; Resp 16; Pulse Ox 98% ; Pain 7/10; jl7 11:25 BP 115 / 68; Pulse 82; Resp 16; Pulse Ox 100% ; Pain 5/10; jl7 12:20 BP 107 / 67; Pulse 77; Resp 16; Pulse Ox 96% ; Pain 7/10; jl7 13:20 BP 117 / 71; Pulse 76; Resp 16; Pulse Ox 98% ; jl7 14:20 BP 120 / 70; Pulse 78; Resp 16; Pulse Ox 99% ; Pain 7/10; jl7 10:17 Body Mass Index 31.47 (88.45 kg, 167.64 cm) aa5 MDM: 10:18 Patient medically screened. 10:20 Data reviewed: vital signs, nurses notes. Data interpreted: Pulse oximetry: on room air kb is 98 %. Interpretation: normal. 12:35 Counseling: I had a detailed discussion with the patient and/or guardian regarding: the historical points, exam findings, and any diagnostic results supporting the discharge/admit diagnosis, lab results, radiology results, the need for further work-up and treatment in the hospital. 12:45 Physician consultation: was contacted at 12:45, regarding admission, to the medical/surgical unit. patient's condition, and will see patient in ED, shortly, Dr Cintron. 11/04 10:20 Order name: Basic Metabolic Panel; Complete Time: 11:18 kb 11/04 10:20 Order name: CBC with Diff; Complete Time: 11:13 kb 11/04 10:20 Order name: Creatinine for Radiology; Complete Time: 11:18 kb 11/04 10:20 Order name: CT Abd/Pelvis - W/Contrast; Complete Time: 12:29 kb 11/04 11:02 Order name: Urine Dipstick--Ancillary (enter results); Complete Time: 11:13 eb 11/04 10:20 Order name: IV Saline Lock; Complete Time: 11:03 kb 11/04 10:20 Order name: Labs collected and sent; Complete Time: 11:03 kb 11/04 10:20 Order name: Urine Dipstick-Ancillary (obtain specimen); Complete Time: 11:03 kb Administered Medications: 10:52 Drug: NS 0.9% 1000 ml Route: IV; Rate: 1000 ml; Site: right antecubital; jl7 12:00 Follow up: IV Status: Completed infusion jl7 10:53 Drug: Zofran 4 mg Route: IVP; Site: right antecubital; jl7 11:24 Follow up: Response: No adverse reaction; Nausea is decreased jl7 10:55 Drug: morphine 4 mg Route: IVP; Site: right antecubital; jl7 11:24 Follow up: Response: No adverse reaction; Pain is decreased jl7 12:25 Drug: morphine 4 mg Route: IVP; Site: right antecubital; jl7 13:00 Follow up: Response: No adverse reaction; Pain is decreased jl7 12:45 CANCELLED (Duplicate Order): NS 0.9% 1000 ml IV at 125 ml/hr continuous kb 13:05 Drug: NS 0.9% 1000 ml Route: IV; Rate: 100 ml/hr; Site: right antecubital; jl7 13:06 Drug: Cipro 400 mg Volume: 200 ml; Route: IVPB; Infused Over: 60 mins; Site: right jl7 antecubital; 14:10 Follow up: Response: No adverse reaction; IV Status: Completed infusion jl7 13:07 Drug: Flagyl 500 mg Volume: 100 ml; Route: IVPB; Rate: 200 ml/hr; Infused Over: 30 jl7 mins; Site: right antecubital; 13:45 Follow up: IV Status: Completed infusion jl7 14:19 Drug: fentaNYL (PF) 50 mcg Route: IVP; Site: right antecubital; jl7 14:36 Follow up: Response: No adverse reaction; Pain is decreased jl7 14:25 Drug: Zofran 4 mg Route: IVP; Site: right antecubital; jl7 14:36 Follow up: Response: No adverse reaction; Nausea is decreased jl7 Disposition: 18:09 Co-signature as Attending Physician, Ashkan Greenwood MD. rn Disposition: 11/04/17 12:46 Hospitalization ordered by Demetri Evans for Inpatient Admission. Preliminary diagnosis is Diverticulitis of intestine, part unspecified, without perforation or abscess without bleeding. - Bed requested for Telemetry/MedSurg (Inpatient). - Status is Inpatient Admission. jl7 - Condition is Stable. - Problem is new. - Symptoms are unchanged. UTI on Admission? No Signatures: Dispatcher [employer] EDTN Leila Cardona, [employer]C [employer]-Ckb Ashkan Greenwood MD MD rn Calderon, Audri RN RN aa5 Linden Lyman RN RN jl7 Stacey Burgos Corrections: (The following items were deleted from the chart) 12:45 12:45 NS 0.9% 1000 ml IV at 125 ml/hr continuous ordered. kb kb 12:47 12:46 Hospitalization Ordered by Demetri Evans DO for Inpatient Admission. Preliminary eb diagnosis is Diverticulitis of intestine, part unspecified, without perforation or abscess without bleeding. Bed requested for Telemetry/MedSurg (Inpatient). Status is Inpatient Admission. Condition is Stable. Problem is new. Symptoms are unchanged. UTI on Admission? No. kb 12:47 12:47 11/04/2017 12:46 Hospitalization Ordered by Demetri Evans DO for Inpatient eb Admission. Preliminary diagnosis is Diverticulitis of intestine, part unspecified, without perforation or abscess without bleeding. Bed requested for Telemetry/MedSurg (Inpatient). Status is Inpatient Admission. Condition is Stable. Problem is new. Symptoms are unchanged. UTI on Admission? No. eb 13:46 12:47 11/04/2017 12:46 Hospitalization Ordered by Demetri Evans DO for Inpatient eb Admission. Preliminary diagnosis is Diverticulitis of intestine, part unspecified, without perforation or abscess without bleeding. Bed requested for Telemetry/MedSurg (Inpatient). Status is Inpatient Admission. Condition is Stable. Problem is new. Symptoms are unchanged. UTI on Admission? No. eb 15:09 13:46 11/04/2017 12:46 Hospitalization Ordered by Demetri Evans DO for Inpatient jl7 Admission. Preliminary diagnosis is Diverticulitis of intestine, part unspecified, without perforation or abscess without bleeding. Bed requested for Telemetry/MedSurg (Inpatient). Status is Inpatient Admission. Condition is Stable. Problem is new. Symptoms are unchanged. UTI on Admission? No. eb
[2017-11-04] MEDS ORDERED: METRONIDAZOLE 500mg IVPB 500 MG/100 ML BAG IV ONE (12:59)
[2017-11-04] MEDS ORDERED: CIPROFLOXACIN 400mg IV 400 MG/200 ML BAG IV ONE (12:59)
[2017-11-04] MEDS ORDERED: FENTANYL CITR 100 MCG/2 ML ONE (14:17)
[2017-11-04] MEDS ORDERED: ACETAMINOPHEN 500 MG TAB PO PRN (14:59)
[2017-11-04] MEDS ORDERED: Morphine 2 MG/2 ML SYR IV PRN (14:59)
[2017-11-04 15:20] VITALS: O2SAT 99
[2017-11-04 15:40] VITALS: BMI 31.4
[2017-11-04] MEDS: METRONIDAZOLE 500mg IVPB 500 MG/100 ML BAG IV SCH (17:01)
[2017-11-04] MEDS: NA CHLORIDE 0.9% 1,000 ML IV SCH (17:01)
[2017-11-04] MEDS: ENOXAPARIN 40 MG/0.4 ML SQ SCH (17:02)
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
[2017-11-04] MEDS: FENTANYL CITR 100 MCG/2 ML IV PRN ×2 (18:23→22:16)
[2017-11-04] MEDS: CIPROFLOXACIN 400mg IV 400 MG/200 ML BAG IV SCH (20:04)
[2017-11-04] MEDS: ONDANSETRON 4 MG/2 ML VIAL IV PRN (22:19)
[2017-11-05] MEDS: METRONIDAZOLE 500mg IVPB 500 MG/100 ML BAG IV SCH ×3 (00:20→17:41)
[2017-11-05] MEDS: NA CHLORIDE 0.9% 1,000 ML IV SCH ×3 (00:21→20:41)
[2017-11-05] MEDS: FENTANYL CITR 100 MCG/2 ML IV PRN ×4 (04:13→23:39)
[2017-11-05 06:00] LABS: Absolute Lymphocytes (CBC) 1.6 K/uL (0.7-4.9); Absolute Monocytes 1.3 K/uL (0.1-1.3); Absolute Neutrophil 7.1 K/uL (1.8-8.0); Basophils % 0.3 % (0-1.3); Eosinophils % 1.3 % (0-4.4); Lymphocytes % 16.2 % (15.3-44.8); MCH 31.6 pg (27.0-35.0); MCV 91.5 fL (80-100); MPV 8.8 fL (7.6-11.3); Monocytes % 12.7 % (3.3-12.3); RBC Red Blood Cell Count 4.59 M/uL (4.33-5.43)
[2017-11-05 06:06] LABS: Bilirubin Total 0.7 mg/dL (0.3-1.2); Potassium 3.9 mEq/L (3.6-5.0); Protein, Total 5.5 g/dL (6.0-8.3)
[2017-11-05 06:53] LABS: Urine Appearance CLEAR; Urine Bilirubin NEGATIVE (NEG); Urine Blood NEGATIVE (NEG); Urine Color YELLOW; Urine Glucose NEGATIVE (NEG); Urine Protein NEGATIVE (NEG); Urine Specific Gravity 1.015 (1.005-1.030); Urine Urobilinogen 0.2 mg/dL (0.2-1.0)
[2017-11-05 06:54] LABS: Urine Microscopic Reflex NO UMIC
[2017-11-05] MEDS ORDERED: HOME MED 1 EA UNK (Esomeprazole Mag Trihydrate [Nexium] 40 MG) PO SCH (09:00)
[2017-11-05] MEDS: ASPIRIN EC 81 MG TAB PO SCH (09:04)
[2017-11-05] MEDS: PANTOPRAZOLE 40MG TABLET PO SCH (09:04)
[2017-11-05] MEDS: ENOXAPARIN 40 MG/0.4 ML SQ SCH (09:04)
[2017-11-05] MEDS: CIPROFLOXACIN 400mg IV 400 MG/200 ML BAG IV SCH ×2 (09:05→20:38)
[2017-11-05] MEDS: ONDANSETRON 4 MG/2 ML VIAL IV PRN ×2 (09:16→22:36)
--- NOTE | 2017-11-05 13:32 | P.PN ---
Subjective Date of Service: 11/05/17 Chief Complaint: abdominal pain Subjective: Improving Review of Systems 10-point ROS is otherwise unremarkable Physical Examination - Vital Signs Temperature: 98.1 F Blood Pressure: 124/57 Pulse: 72 Respirations: 18 Pulse Ox (%): 97 - Physical Exam General: Alert, In no apparent distress, Oriented x3 HEENT: Atraumatic, Normocephalic, PERRLA Respiratory: Clear to auscultation bilaterally, Normal air movement Cardiovascular: No edema, Normal pulses, Regular rate/rhythm, Normal S1 S2 Gastrointestinal: Normal bowel sounds, Soft and benign, Non-distended, W/out hepatosplenomegaly, No ascites, No tenderness, No masses, No rebound, No guarding Musculoskeletal: No clubbing, No swelling, No contractures, No erythema, No tenderness, No warmth Assessment And Plan - Current Problems (Diagnosis) (1) Acute diverticulitis Current Visit: Yes Status: Acute Plan: symptom improving continue IV hydration clear liquid diet continue on IV metronidazole + ciprofloxacin pain control with IV fentanyl, will add po norco at this time anti emetics prn Discharge Plan: Home Plan to discharge in: 24 Hours Physician Review: Patient Assessed, Agree with Above Assessment and Plan Time Spent Managing PTS Care (In Minutes): 25
[2017-11-06] MEDS: METRONIDAZOLE 500mg IVPB 500 MG/100 ML BAG IV SCH ×3 (00:35→16:27)
[2017-11-06] MEDS: NA CHLORIDE 0.9% 1,000 ML IV SCH ×2 (05:56→16:27)
[2017-11-06] MEDS: ASPIRIN EC 81 MG TAB PO SCH (09:10)
[2017-11-06] MEDS: ENOXAPARIN 40 MG/0.4 ML SQ SCH (09:10)
[2017-11-06] MEDS: PANTOPRAZOLE 40MG TABLET PO SCH (09:10)
[2017-11-06] MEDS: CIPROFLOXACIN 400mg IV 400 MG/200 ML BAG IV SCH ×2 (09:10→20:53)
[2017-11-06] MEDS: FENTANYL CITR 100 MCG/2 ML IV PRN ×2 (09:14→13:37)
[2017-11-06] MEDS: ONDANSETRON 4 MG/2 ML VIAL IV PRN (12:50)
[2017-11-06] MEDS ORDERED: ONDANSETRON 4 MG/2 ML VIAL IV PRN (16:34)
--- NOTE | 2017-11-06 17:27 | P.PN ---
Subjective Date of Service: 11/06/17 Primary Care Provider: Dr. Chatman Chief Complaint: abdominal pain Subjective: Improving (Patient appears improved. Less nausea and vomiting. No significant abdominal pain.) Physical Examination - Vital Signs Temperature: 98.0 F Blood Pressure: 120/63 Pulse: 64 Respirations: 16 Pulse Ox (%): 99 - Physical Exam General: Alert, In no apparent distress, Oriented x3, Cooperative HEENT: Atraumatic Neck: Supple Respiratory: Clear to auscultation bilaterally, Normal air movement Cardiovascular: Normal pulses, Regular rate/rhythm Gastrointestinal: Normal bowel sounds, Soft and benign, Non-distended, No masses , No rebound, No guarding, Tenderness (Minimal pain to the left side.) Musculoskeletal: No erythema, No tenderness, No warmth Integumentary: No tenderness/swelling, No erythema, No warmth, No cyanosis Neurological: Normal speech, Normal strength at 5/5 x4 extr, Normal tone, Normal affect Lymphatics: No axilla or inguinal lymphadenopathy - Studies Medications List Reviewed: Yes Assessment & Plan - Problems (Diagnosis) (1) Diverticulitis Current Visit: Yes Status: Acute Plan: CT scan reviewed. Overall improved. Will advance diet. Will continue with IV antibiotic therapy. Will ambulate patient. Anticipate possible discharge tomorrow if improved. Will recheck lab in the morning. (2) Abdominal pain Current Visit: Yes Status: Acute Plan: Continue with above plan of care. Qualifiers: Abdominal location: left lower quadrant Qualified Code(s): R10.32 - Left lower quadrant pain (3) Nausea and vomiting Current Visit: Yes Status: Acute Plan: Continue with medication. Qualifiers: Vomiting type: unspecified Vomiting Intractability: unspecified Qualified Code(s): R11.2 - Nausea with vomiting, unspecified Discharge Plan: Home Plan to discharge in: 24 Hours Time Spent Managing Pts Care (In Minutes): 55
[2017-11-07] MEDS: METRONIDAZOLE 500mg IVPB 500 MG/100 ML BAG IV SCH ×2 (00:59→08:17)
[2017-11-07] MEDS: NA CHLORIDE 0.9% 1,000 ML IV SCH (03:00)
[2017-11-07 05:07] LABS: Absolute Lymphocytes (CBC) 1.9 K/uL (0.7-4.9); Absolute Monocytes 1.1 K/uL (0.1-1.3); Absolute Neutrophil 5.6 K/uL (1.8-8.0); Basophils % 0.8 % (0-1.3); Eosinophils % 2.7 % (0-4.4); Hematocrit 46.6 % (39.6-49.0); Lymphocytes % 21.2 % (15.3-44.8); MCH 30.2 pg (27.0-35.0); MCV 92.7 fL (80-100); MPV 9.1 fL (7.6-11.3); Monocytes % 12.8 % (3.3-12.3); RBC Red Blood Cell Count 5.02 M/uL (4.33-5.43)
[2017-11-07 05:22] LABS: Magnesium 1.8 mg/dL (1.8-2.5); Potassium 4.4 mEq/L (3.6-5.0)
[2017-11-07] MEDS: PANTOPRAZOLE 40MG TABLET PO SCH (08:17)
[2017-11-07] MEDS: ASPIRIN EC 81 MG TAB PO SCH (08:17)
[2017-11-07] MEDS: ENOXAPARIN 40 MG/0.4 ML SQ SCH (08:17)
[2017-11-07 08:31] VITALS: BP 120/56; TEMP 97.7
[2017-11-07] MEDS: CIPROFLOXACIN 400mg IV 400 MG/200 ML BAG IV SCH (09:00)
--- NOTE | 2017-11-07 09:43 | P.DS ---
Admission Date: 11/04/17 Discharge Date: 11/07/17 Primary Care Provider: Dr. Chatman Disposition: ROUTINE DISCHARGE Discharge Condition: GOOD Reason for Admission: abdominal pain Procedures: CT Scan: FINDINGS: Small hepatic cysts are present. The gallbladder has been removed. Spleen, pancreas, adrenal and kidneys appear unremarkable. Mild to moderate stranding is present adjacent to the sigmoid colon. Small diverticulum is seen. Free air is not noted. An abscess is not seen. Small amount of ascites is present. Small umbilical hernia is noted. IMPRESSION: Mild to moderate sigmoid diverticulitis - Problems (1) Diverticulitis Current Visit: Yes Status: Acute (2) Abdominal pain Current Visit: Yes Status: Acute Qualifiers: Abdominal location: left lower quadrant Qualified Code(s): R10.32 - Left lower quadrant pain (3) Nausea and vomiting Current Visit: Yes Status: Acute Qualifiers: Vomiting type: unspecified Vomiting Intractability: unspecified Qualified Code(s): R11.2 - Nausea with vomiting, unspecified (4) GERD (gastroesophageal reflux disease) Current Visit: Yes Status: Chronic Qualifiers: Esophagitis presence: esophagitis presence not specified Qualified Code(s) : K21.9 - Gastro-esophageal reflux disease without esophagitis Brief History of Present Illness: 46 yo CM presented to the ER with abdominal pain, nausea and vomiting. Patient was evaluated in the ER and founbd to have sigmoid diverticulitis. He was admitted for treatment. Hospital Course: Patient presented with abdominal pain. Patient found to have sigmoid diverticulitis. Patient with history diverticulitis in the past. The patient was treated with IV antibiotic therapy. His condition improved. Patient was able to tolerate his diet at discharge. Patient without any significant abdominal pain, nausea or vomiting at discharge. At discharge he will continue with Cipro 500 mg 1 pill twice daily and Flagyl 5 mg 1 pill 3 times a day for 7 more days. Recommendation is for the patient to follow up with GI in 2-4 weeks. Patient will require colonoscopy in 4-6 weeks. Education on diverticulitis will be provided. Patient will continue with a diverticular diet. Patient has GERD. Patient will continue with Nexium as prescribed. Vital Signs/Physical Exam: Temp Pulse Resp BP Pulse Ox 97.7 F 74 16 120/56 L 98 11/07/17 08:00 11/07/17 08:00 11/07/17 08:00 11/07/17 08:00 11/07/17 08:00 General: Alert, In no apparent distress, Oriented x3, Cooperative HEENT: Atraumatic, Normocephalic, PERRLA, Mucous membr. moist/pink Neck: Supple, No Thyromegaly Respiratory: Clear to auscultation bilaterally, Normal air movement Cardiovascular: Normal pulses, Regular rate/rhythm Gastrointestinal: Normal bowel sounds, Soft and benign, Non-distended, No tenderness, No masses, No rebound, No guarding Musculoskeletal: No erythema, No tenderness, No warmth Integumentary: No tenderness/swelling, No erythema, No warmth, No cyanosis Neurological: Normal speech, Normal strength at 5/5 x4 extr, Normal tone, Normal affect Lymphatics: No axilla or inguinal lymphadenopathy Laboratory Data at Discharge: WBC 9.0 K/uL (4.3-10.9) 11/07/17 04:16 Hgb 15.2 g/dL (13.6-17.9) 11/07/17 04:16 Hct 46.6 % (39.6-49.0) 11/07/17 04:16 Plt Count 221 K/uL (152-406) 11/07/17 04:16 Sodium 142 mEq/L (135-145) 11/07/17 04:16 Potassium 4.4 mEq/L (3.6-5.0) 11/07/17 04:16 BUN 5 mg/dL (6-20) L 11/07/17 04:16 Creatinine 1.00 mg/dL (0.61-1.24) 11/07/17 04:16 Glucose 98 mg/dL (65-120) 11/07/17 04:16 Magnesium 1.8 mg/dL (1.8-2.5) 11/07/17 04:16 Total Bilirubin 0.7 mg/dL (0.3-1.2) 11/05/17 05:00 AST 23 IU/L (10-42) 11/05/17 05:00 ALT 18 IU/L (10-60) 11/05/17 05:00 Alkaline Phosphatase 39 IU/L (42-121) L 11/05/17 05:00 Home Medications: Aspirin [Aspir-Low] 81 mg PO DAILY 04/16/16 Esomeprazole Mag Trihydrate [Nexium] 40 mg PO DAILY 04/16/16 Ondansetron HCl [Zofran] 4 mg PO QID PRN #20 tablet 04/18/16 Ciprofloxacin HCl [Cipro 500 MG Tablet] 500 mg PO BID #14 tab 11/07/17 Metronidazole [Flagyl] 500 mg PO Q8H #21 tablet 11/07/17 New Medications: Ciprofloxacin HCl [Cipro 500 MG Tablet] 500 mg PO BID #14 tab Metronidazole [Flagyl] 500 mg PO Q8H #21 tablet Patient Discharge Instructions: 1. Patient will need a follow up with his PCP in 1 week to follow up this hospitalization. 2. Patient presented with abdominal pain. Patient found to have sigmoid diverticulitis. Patient with history diverticulitis in the past. Patient was treated. At discharge he is without any significant pain, nausea or vomiting. He is tolerating his diet. At discharge he will continue with Cipro 500 mg 1 pill twice daily and Flagyl 5 mg 1 pill 3 times a day for 7 more days. Recommendation is for the patient to follow up with GI in 2-4 weeks. Patient will require colonoscopy in 4-6 weeks. Education on diverticulitis will be provided. Patient will continue with a diverticular diet. 3. Patient has GERD. Patient will continue with Nexium as prescribed. Diet: Diverticular diet Activity: Ad alfred Time spent managing pt's care (in minutes): 55
== END 2017-11-07 11:27 | disposition home or self-care (01) | DRG 392 ==
LOC: ER 09:53 → ERHOLD 12:47 → 2ND 14:27
PROVIDERS: ADMIT Internal Medicine; ATTEND Internal Medicine
DX: K57.32 Diverticulitis of large intestine without perforation or abscess without bleeding (principal); K21.9 Gastro-esophageal reflux disease without esophagitis
CPT/HCPCS: 36415; 74177; 80048; 80053; 81003; 83735; 85025; 87493; 96361; 96365; 96375; 99285; J0744; J1650; J2405; J3010; J7030; Q9967

== ENCOUNTER 2018-02-04 14:14 | Emergency (ER) | payer BC ==
--- OUTSIDE RECORDS SUMMARY | 2018-02-04 14:17 | XMS REPORT | Clinical Summary ---
:1970 Author Organization [facility] Address [address] [place] [address] Care Team Providers Name Role Phone Asked, No Pcp Primary Care Provider Unavailable Allergies Active Allergy Reactions Severity Noted Date Comments No Known Drug Allergies 12/23/2016 Current Medications Prescription Sig. Disp. Refills Start Date End Date Status esomeprazole (NexIUM) Take 1 capsule 30 capsule 11 11/14/2016 11/14/2017 40 MG (40 mg total) capsuleIndications: by mouth Gastroesophageal reflux daily. disease without esophagitis Active Problems Problem Noted Date Status post [...] Care Team Description 10/02/2017 Office Visit Cardiology [place], Precordial pain (Primary Dx); Jose Shaffer MD 09/18/2017 Telephone Cardiology Alphonse, Capo (requesting MAT Ulloa earlier appointment for c/o chest pain) 07/07/2017 Hospital Encounter Radiology AshleyCharlie salcedo Status post total replacement of left hip; Kae LORENZO MD Left hip pain 07/07/2017 Ancillary Orders Orthopedic Surgery Ashley, Charlie Status post total replacement of left hip; Kae LORENZO MD Left hip pain 07/05/2017 Lab Lab Ashley Charlie Left hip pain Kae LORENZO MD 07/05/2017 Office Visit Orthopedic Surgery Ashley, Charlie Status post total replacement of left hip (Primary Dx); Kae LORENZO MD Left hip pain 07/05/2017 Procedure Pass Radiology 06/23/2017 Hospital Encounter Gastroenterology [place], Chronic hip pain, Jose Elias Quiroga MD unspecified laterality (Primary Dx) 06/23/2017 Anesthesia Event Gastroenterology Gaetano Haywood MD 06/23/2017 Procedure Pass Gastroenterology 06/23/2017 Surgery Gastroenterology [place], PANCREACTIC EUS Jose Elias Quiroga MD 06/06/2017 Telephone Gastroenterology Bryanna Ayon MA 06/06/2017 Telephone Gastroenterology Bryanna Ayon MA 06/02/2017 Telephone Gastroenterology Bryanna Ayon MA 06/01/2017 Lab Lab Jose Elias Yates MD 06/01/2017 Lab Lab [place] Chronic pancreatitis, unspecified pancreatitis type; Jose Elias Quiroga MD Epigastric pain 06/01/2017 Office Visit Gastroenterology [place], Other chronic pancreatitis (Primary Dx); Jose Elias Quiroga MD Generalized abdominal pain; Gastroesophageal reflux disease, esophagitis presence not specified 06/01/2017 Orders Only Gastroenterology [place], Chronic pancreatitis, unspecified pancreatitis type (Primary Dx); ROBERTO Gould Epigastric pain 05/19/2017 Office Visit Orthopedic Surgery Ashley Charlie Status post total replacement of left hip (Primary Dx); Kae LORENZO MD Primary osteoarthritis of left hip after 02/03/2017 Family History Medical History Relation Name Comments [...] 37 C (98.6 F) 06/23/2017 11:05 AM HAIR COLORIST Respiratory Rate 16 10/02/2017 11:46 AM CDT Oxygen Saturation 98% 06/23/2017 11:40 AM HAIR COLORIST Inhaled Oxygen Concentration - - Weight 94.3 kg (208 lb) 10/02/2017 11:46 AM CDT Height 167.6 cm (5' 6") 10/02/2017 11:46 AM CDT Body Mass Index 33.57 10/02/2017 11:46 AM CDT Plan of Treatment Health Maintenance Due Date Last Done Comments INFLUENZA VACCINE 01/31/2018 Implants Implanted Type 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 Device Expiration Model / Identifier Date Serial / Lot Shell Actblr Sector W/ Gription 52mm [place] - [id number] Hip Joint Left: DEPUY 06/01/2026 [id number] / Implanted: Qty: 1 on 11/03/2016 by Charlie Ramirez II, MD Implants Hip ORTHO-KNEES / [id number] Altrex Poly Acet 36mm X 52mm Neutral Liner - [id number] [id number] IMPLANT Left: DEPUY 07/02/2021 [id number] 36 052 / Implanted: Qty: 1 on 11/03/2016 by Charlie Ramirez II, MD DEVICES Hip ORTHOPAEDICS, / INC [id number] [place] Hip System Femoral Stems Size 5 [place] Standard Offset 06/15 Taper - [id number] [id number] IMPLANT Left: DEPUY 08/30/2026 1570 01 110 / Implanted: Qty: 1 on 11/03/2016 by Charlie Ramirez II, MD DEVICES Hip ORTHOPAEDICS, / INC [id number] [place] Fracture System Biolox Delta Ceramic Femoral Heads Size 36 +1.5 Mm Articul/Delio 14 Taper Ceramic Femoral Heads - [id number] [id number] IMPLANT Left: DEPUY 08/30/2021 1365 36 310 / Implanted: Qty: 1 on 11/03/2016 by Charlie Ramirez II, MD DEVICES Hip ORTHOPAED[employer] [id number] Procedures Procedure Name Priority Date/Time Associated Diagnosis Comments LIPID PANEL Routine 10/02/2017 12:09 Precordial pain Results for this PM CDT Palpitations procedure are in the results section. ECG 12-LEAD Routine 10/02/2017 11:48 Precordial pain Results for this AM CDT procedure are in the results section. MRI LOWER EXTREMITY Routine 07/07/2017 12:12 Status post total Results for this JOINT WO CONTRAST LEFT PM HAIR COLORIST replacement of left procedure are in hip the results Left hip pain section. C-REACTIVE PROTEIN Routine 07/05/2017 11:17 Left hip pain Results for this AM HAIR COLORIST procedure are in the results section. SEDIMENTATION RATE Routine 07/05/2017 11:17 Left hip pain Results for this AM HAIR COLORIST procedure are in the results section. US UPPER GI TRACT, 06/23/2017 10:00 Pancreatitis, ENDOSCOPIC AM HAIR COLORIST recurrent AL ARTHROCENTESIS Routine 06/13/2017 8:33 Status post total Results for this ASPIR&/INJ MAJOR AM HAIR COLORIST replacement of left procedure are in JT/BURSA W/O US hip the results section. COMPREHENSIVE Routine 06/01/2017 10:32 Chronic pancreatitis, Results for this METABOLIC PANEL AM HAIR COLORIST unspecified procedure are in pancreatitis type the results Epigastric pain section. CBC WITH PLATELET AND Routine 06/01/2017 10:32 Chronic pancreatitis, Results for this DIFFERENTIAL AM HAIR COLORIST unspecified procedure are in pancreatitis type the results Epigastric pain section. LIPASE LEVEL Routine 06/01/2017 10:32 Chronic pancreatitis, Results for this AM HAIR COLORIST unspecified procedure are in pancreatitis type the results Epigastric pain section. AMYLASE LEVEL Routine 06/01/2017 10:32 Chronic pancreatitis, Results for this AM HAIR COLORIST unspecified procedure are in pancreatitis type the results Epigastric pain section. PANCREATIC ELASTASE, Routine 06/01/2017 10:32 Chronic pancreatitis, Results for this FECAL AM HAIR COLORIST unspecified procedure are in pancreatitis type the results Epigastric pain section. XR HIP 2-3 VIEWS LEFT Routine 05/19/2017 3:57 Status post total Results for this PM HAIR COLORIST replacement of left procedure are in hip the results Primary section. osteoarthritis of left hip after 02/03/2017 Results Lipid panel (10/02/2017 12:09 PM) Cholesterol, total 216 (H) <200 mg/dL [facility] [place] HDL cholesterol 54 >40 mg/dL [facility] [place] Triglycerides 68 <150 mg/dL [facility] [place] LDL cholesterol 146 (H) mg/dL (calc) [facility] calculated Comment: [place] Reference range: <100 Desirable range <100 mg/dL for patients with CHD or diabetes and <70 mg/dL for diabetic patients with known heart disease. LDL-C is now calculated using the Tino calculation, which is a validated novel method providing better accuracy than the Friedewald equation in the estimation of LDL-C. Christian DEAL et al. CRESCENCIO. 2013;310(19): 0012-4131 (http://education.ShinyByte/faq/LCM992) Cholesterol/HDL ratio 4.0 <5.0 (calc) [facility] [place] Non-HDL cholesterol 162 (H) <130 mg/dL [facility] Comment: (calc) [place] For patients with diabetes plus 1 major ASCVD risk factor, treating to a non-HDL-C goal of <100 mg/dL (LDL-C of <70 mg/dL) is considered a therapeutic option. Specimen Blood Narrative Performed At FASTING:YES [facility] FASTING: YES Resulting Agency Comment Performing Organization Information: Site ID: [id number] Name: [facility] Address: [address] [place] [phone] Director: Ai Warren MD Performing Organization Address [facility] Phone Number [employer] [place] [phone] ECG 12 lead (10/02/2017 11:48 AM) Ventricular rate 68 [facility] Atrial rate 68 [facility] AL interval 148 [facility] QRSD interval 72 [facility] QT interval 390 [facility] QTC interval 414 [facility] P axis 1 38 [facility] QRS axis 1 66 [facility] T wave axis 56 [facility] EKG impression Normal sinus rhythm-Early H MUSE repolarization-Normal ECG-No previous ECGs available- Performing Organization Address [facility]ori Phone Number [employer] [address] [place] [address] MRI Lower Extremity Joint Wo Contrast Left (07/07/2017 12:12 PM) Narrative Performed At EXAMINATION:MRI LOWER EXTREMITY JOINT WO CONTRAST LEFT [facility] CLINICAL HISTORY:Z96.642 Presence of left artificial hip [...] signal show no evidence of acute fracture. [id number] Procedure Note Interface, Radiology Results Incoming - 07/07/2017 12:28 PM HAIR COLORIST EXAMINATION: MRI LOWER EXTREMITY JOINT WO CONTRAST [...] signal show no evidence of acute fracture. [facility]-[id number] Performing Organization Address City/State/Zipcode Phone Number [facility] [address] [place] [address] Sedimentation rate (07/05/2017 11:17 AM) Sedimentation rate 2 < OR=15 mm/h [facility] [place] Specimen Blood Resulting Agency Comment Performing Organization Information: Site ID: [id number] Name: [facility] Address: [address] [place] [phone] Director: Ai Warren MD Performing Organization Address City/State/Zipcode Phone Number [employer] [address] [place] [address] C-reactive protein (07/05/2017 11:17 AM) CRP 2.5 <8.0 mg/L [facility] [place] Specimen Blood Resulting Agency Comment Performing Organization Information: Site ID: RGA [facility]: [facility] Address: [address] [place] [phone] Director: Ai Warren MD Performing Organization Address [facility]ercori Phone Number [employer] [address] [address] Large Joint Arthrocentesis (06/13/2017 8:33 AM) Narrative Performed At Charlie Ramirez II, MD 06/13/20178:33 AM Large Joint Arthrocentesis [...] complications Pancreatic elastase, fecal (06/01/2017 10:32 AM) Pancreatic Elastase-1 TNP [facility] Comment: [facility] * Test not performed.* * No suitable specimen received. * Specimen Stool Resulting Agency Comment Performing Organization Information: Site ID: [id number] Name: [employer] [employer] [facility], Address: [address] [place] [phone] Director: Jeovany Mackay MD,PhD Performing Organization Address [facility]/Zipcode Phone Number [employer] [address] [place] [address] [facility] CBC with platelet and differential (06/01/2017 10:32 AM) WBC 7.7 3.8 - 10.8 Thousand/uL [facility] [place] RBC 5.01 4.20 - 5.80 Million/uL [facility] [place] HGB 15.0 13.2 - 17.1 g/dL [facility] [place] HCT 44.8 38.5 - 50.0 % [facility] [place] MCV 89.4 80.0 - 100.0 fL [facility] [place] MCH 29.9 27.0 - 33.0 pg [facility] [place] MCHC 33.5 32.0 - 36.0 g/dL [facility] [place] RDW 13.0 11.0 - 15.0 % [facility] [place] Platelet count 226 140 - 400 Thousand/uL [facility] [employer] [place] MPV 10.9 7.5 - 12.5 fL [facility] [place] Neutrophils, absolute 4,289 1,500 - 7,800 cells/uL [facility] [place] Lymphocytes, absolute 2,633 850 - 3,900 cells/uL [facility] [place] Monocytes, absolute 554 200 - 950 cells/uL [facility] [place] Eosinophils, absolute 185 15 - 500 cells/uL [facility] [place] Basophils, absolute 39 0 - 200 cells/uL [facility] [place] Neutrophils 55.7 % [facility] [place] Lymphocytes 34.2 % [facility] [place] Monocytes 7.2 % [facility] [place] Eosinophils 2.4 % [facility] [place] Basophils + RC 0.5 % [facility] [place] Specimen Blood Resulting Agency Comment Performing Organization Information: Site ID: [id number] Name: [facility] Address: [address] [place] [phone] Director: Ai Warren MD Performing Organization Address [facility] Centercode Phone Number [employer] [address] [address] Lipase level (06/01/2017 10:32 AM) Lipase 43 7 - 60 U/L [facility] [place] Specimen Blood Resulting Agency Comment Performing Organization Information: Site ID: [facility] Name: [facility] Address: [address] [place] [phone] Director: Ai Warren MD Performing Organization Address [facility] Centercode Phone Number [employer] [address] [address] Amylase level (06/01/2017 10:32 AM) Amylase 38 21 - 101 U/L [facility] [place] Specimen Blood Resulting Agency Comment Performing Organization Information: Site ID: [id number] Name: [facility] Address: [address] [place] [phone] Director: Ai Warren MD Performing Organization Address City/[facility]/Zipcode Phone Number [employer] [place] [address] [place] [address] [phone] Comprehensive metabolic panel (06/01/2017 10:32 AM) Glucose 99 65 - 99 mg/dL [facility] Comment: [place] Fasting reference interval BUN, whole blood 14 7 - 25 mg/dL [facility] [place] Creatinine 0.95 0.60 - 1.35 mg/dL [facility] [place] EGFR Non-Afr. Nicaraguan 94 > OR=60 [facility] mL/min/1.73m2 [place] EGFR 109 > OR=60 [facility] mL/min/1.73m2 [place] BUN/creatinine ratio NOT APPLICABLE 6 - 22 (calc) [facility] [place] Sodium 144 135 - 146 mmol/L [facility] [place] Potassium 4.7 3.5 - 5.3 mmol/L [facility] [place] Chloride 107 98 - 110 mmol/L [facility] [place] CO2 29 20 - 31 mmol/L [facility] [place] Calcium 9.8 8.6 - 10.3 mg/dL [facility] [place] Protein 7.2 6.1 - 8.1 g/dL [facility] [place] Albumin, S 4.3 3.6 - 5.1 g/dL [facility] [place] Globulin, total 2.9 1.9 - 3.7 g/dL [facility] (calc) [place] Albumin/globulin ratio 1.5 1.0 - 2.5 (calc) [facility] [place] Total bilirubin 0.6 0.2 - 1.2 mg/dL [facility] [place] Alkaline phosphatase 60 40 - 115 U/L [facility] [place] AST 24 10 - 40 U/L [facility] [place] ALT 27 9 - 46 U/L [facility] [place] Specimen Blood Resulting Agency Comment Performing Organization Information: Site ID: [id number] Name: [facility] Address: [address] [place] [phone] Director: Ai Warren MD Performing Organization Address City/[facility]/Zipcode Phone Number [employer] [place] [address] [place] [phone] XR Hip 2-3 View Left (05/19/2017 3:57 PM) Narrative Performed At Standard components spanning a screw holes which had begun to fill in [facility] significantly from a lateral sideplate and cross screws.No evidence of subsidence, loosening. Performing Organization Address City/State/[facility]ori Phone Number [facility] [address] [place] [address] after 02/03/2017 Insurance Payer Benefit Plan / Group Subscriber ID Type Phone Address BCBS BCBS CHOICE PPO/FEDERAL EMPL PPO xxxxxxxxxxxx PPO Home: [address] [phone] [place] [phone] SANDEEP LEE Personal/Family Self 1970 Home: [address] [facility] [phone] [place] [phone]
--- OUTSIDE RECORDS SUMMARY | 2018-02-04 14:18 | XMS REPORT | Summary of Care ---
:1970 Author Organization [facility] Address [id number] [place] [phone]- Encounter HQ Babarr_norma(FIN) [id number] Date(s): 08/21/16 - 08/23/16 [facility] [id number] [place] [phone] Discharge Disposition: Home or Self Care Attending Physician: Enriqueta Mascorro MD Admitting Physician: Enriqueta Mascorro MD Vital Signs Most recent to oldest 1 2 3 [Reference Range]: Height 167.64 cm (08/17/16 9:14 PM) Temperature Oral [96.4-99.1 98.0 DegF 97.9 DegF 98.1 DegF DegF] (08/23/16 8:06 AM) (08/23/16 4:23 AM) (08/23/16 12:11 AM) Blood Pressure [90-140/60-90 103/68 mmHg 100/62 mmHg 108/71 mmHg mmHg] (08/23/16 8:06 AM) (08/23/16 4:23 AM) (08/23/16 12:11 AM) Respiratory Rate [14-20 BRMIN] 16 BRMIN 16 BRMIN 16 BRMIN (08/23/16 8:06 AM) (08/23/16 4:23 AM) (08/23/16 12:11 AM) Peripheral Pulse Rate [60-100 55 bpm 57 bpm 64 bpm bpm] *LOW* *LOW* (08/23/16 12:11 AM) (08/23/16 8:06 AM) (08/23/16 4:23 AM) Weight 84.727 kg (08/17/16 9:14 PM) Body Mass Index 30.15 m2 (08/17/16 9:14 PM) Problem List Condition Effective Dates Status Health Status Informant Chronic pancreatitis(Confirmed) Resolved Diverticulitis(Confirmed) Resolved Hyperlipidemia(Confirmed) Resolved Allergies, Adverse Reactions, Alerts Substance Reaction Severity Status NKDA NKA Active NKA Medications acetaminophen 650 mg, 2 tab, Route: PO, Drug form: TAB, Q4H, kg, PRN Pain 1-3/Temp > 100.4 F, Start date: 08/17/16 20:23:00 LAUNDRY TECH, Duration: 30 day, Stop date: 09/16/16 20:22: 00 CDT Notes: Do not exceed 4 gm/day. (Same as: Tylenol) Start Date: 08/17/16 Stop Date: 08/23/16 Status: Discontinuedaspirin 81 mg, 1 tab, Route: PO, Drug form: ECTAB, Q24H, kg, Start date: 08/17/16 21:00: 00 LAUNDRY TECH, Duration: 30day, Stop date: 09/15/16 21:00:00 CDT Notes: Do not crush or chew.(Same As: Ecotrin) Start Date: 08/17/16 Stop Date: 08/23/16 Status: DiscontinuedAtivan 4 mg, 2 mL, Route: IV, Drug form: INJ, ONCE, Dosing Weight 84.727, kg, PRN Procedure, Priority: STAT, Start date: 08/19/16 15:20:00 LAUNDRY TECH Notes: (Same as: Ativan) Start Date: 08/19/16 Stop Date: 08/19/16 Status: CompletedAtivan 2 mg, 1 mL, Route: IVP, Drug form: INJ, ONCE, Dosing Weight 84.727, kg, PRN Anxiety, Start date: 08/18/16 10:55:00 LAUNDRY TECH Notes: (Same as: Ativan) Start Date: 08/18/16 Stop Date: 08/18/16 Status: CompletedAtivan 4 mg, 2 mL, Route: IVP, Drug form: INJ, ONCE, Dosing Weight 84.727, kg, PRN Anxiety, Start date: 08/20/16 12:21:00 LAUNDRY TECH Notes: (Same as: Ativan) Start Date: 08/20/16 Stop Date: 08/20/16 Status: Completedesomeprazole 40 mg, Route: PO, Drug form: ECCAP, Daily, Dosing Weight 84.727, kg, Start date : 08/18/16 9:00:00 LAUNDRY TECH, Duration: 30 day, Stop date: 09/16/16 9:00:00 CDT Start Date: 08/18/16 Stop Date: 08/18/16 Status: Deletedesomeprazole 40 mg oral delayed release capsule 40 mg=1 cap, PO, Daily, # 30 cap, 0 Refill(s) Start Date: 08/17/16 Status: OrderedketOROLAC 15 mg/mL injectable solution 15 mg, 1 mL, Route: IVP, Drug form: INJ, ONCE, Dosing Weight 84.727, kg, Start date: 08/22/16 11:32:00 LAUNDRY TECH, Stop date: 08/22/16 11:32:00 LAUNDRY TECH Notes: (Same as:Toradol) IV bolus must be given >15 seconds. Give IM administration slowly and deeply into the muscle. Not for use > 4 days. Start Date: 08/22/16 Stop Date: 08/22/16 Status: CompletedketOROLAC 15 mg/mL injectable solution 15 mg, 1 mL, Route: IM, Drug form: INJ, ONCE, Dosing Weight 84.727, kg, Priority : NOW, Start date: 08/21/16 14:54:00 LAUNDRY TECH, Stop date: 08/21/16 14:54:00 LAUNDRY TECH Notes: (Same as:Toradol) IV bolus must be given >15 seconds. Give IM administration slowly and deeply into the muscle. Not for use > 4 days. Start Date: 08/21/16 Stop Date: 08/21/16 Status: Completedmorphine Sulfate 2 mg, 1 mL, Route: IVP, Drug form: INJ, ONCE, Dosing Weight 84.727, kg, Start date: 08/22/16 20:57:00 LAUNDRY TECH, Stop date: 08/22/16 20:57:00 LAUNDRY TECH Notes: (Same as:MORPhine Sulfate) Start Date: 08/22/16 Stop Date: 08/22/16 Status: Completedondansetron 4 mg, 2 mL, Route: IVP, Drug form: INJ, Q6H, kg, PRN Nausea & Vomiting, Start date: 08/17/16 20:23:00 LAUNDRY TECH, Duration: 30 day, Stop date: 09/16/16 20:22: 00 CDT Notes: (Same as: Zofran) MEDICATION WASTE Product Size: 4 mgProduct Wasted: ___ mg Start Date: 08/17/16 Stop Date: 08/23/16 Status: DiscontinuedProtonix 40 mg, 1 tab, Route: PO, Drug form: ECTAB, Daily, Start date: 08/18/16 9:00:00 LAUNDRY TECH, Duration: 30 day, Stop date: 09/16/16 9:00:00 CDT Notes: Tablet should not be chewed or crushed.(Same as: Protonix) Start Date: 08/18/16 Stop Date: 08/23/16 Status: Discontinuedsodium chloride 0.9% 1000 ml INJ 1,000 mL 1,000 mL, Rate: 100 ml/hr, Infuse over: 10 hr, Route: IV, Total Volume: 1,000, Start date: 08/17/16 20:28:00 LAUNDRY TECH, Duration: 30 day, Stop date: 09/16/16 20:27: 00 CDT Start Date: 08/17/16 Stop Date: 08/23/16 Status: Discontinuedtramadol 50 mg oral tablet 50 mg=1 tab, PO, Q8H, PRN Pain, # 60 tab, 0 Refill(s) Start Date: 08/17/16 Stop Date: 09/06/16 Status: Orderedtramadol 50 mg oral tablet 50 mg, 1 tab, Route: PO, Drug form: TAB, Q8H, Dosing Weight 84.727, kg, PRN Pain Score 4-6, Start date: 08/18/16 2:40:00 LAUNDRY TECH, Duration: 30 day, Stop date: 09/17/16 2:39:00 CDT Notes: Not to exceed 400mg/day. (Same As: Ultram) Start Date: 08/18/16 Stop Date: 08/23/16 Status: DiscontinuedTylenol with Codeine #3 oral tablet 1 tab, Route: PO, Drug Form: TAB, kg, Q4H, PRN Pain Score 4-6, Start date: 08/17 20:23:00 LAUNDRY TECH, Duration: 30 day, Stop date: 09/16/16 20:22:00 CDT Notes: Do not exceed 4gm/day of acetaminophen. (Same as: Tylenol with Codeine # 3) Start Date: 08/17/16 Stop Date: 08/23/16 Status: DiscontinuedVitamin B-12 100 mcg oral tablet 100 microgram=1 tab, PO, Daily, # 30 tab, 0 Refill(s) Start Date: 08/20/16 Status: OrderedVitamin B12 1,000 microgram, 1 mL, Route: IM, Drug form: INJ, ONCE, Dosing Weight 84.727, kg , Priority: STAT, Start date: 08/20/16 8:38:00 LAUNDRY TECH, Stop date: 08/20/16 8:38:00 LAUNDRY TECH Notes: (Same As: Vitamin B12) Start Date: 08/20/16 Stop Date: 08/20/16 Status: Completed Results ELECTROLYTES Most recent to oldest [Reference Range]: 1 2 3 Sodium Lvl [135-145 mEq/L] 144 mEq/L (08/19/16 3:07 PM) Potassium Lvl [3.5-5.1 mEq/L] 3.9 mEq/L (08/19/16 3:07 PM) Chloride Lvl [95-109 mEq/L] 110 mEq/L *HI* (08/19/16 3:07 PM) CO2 [24-32 mEq/L] 30 mEq/L (08/19/16 3:07 PM) AGAP [10.0-20.0 mEq/L] 7.9 mEq/L *LOW* (08/19/16 3:07 PM) CHEM PANEL Most recent to oldest [Reference Range]: 1 2 3 Creatinine Lvl [0.50-1.40 mg/dL] 0.88 mg/dL (08/19/16 3:07 PM) eGFR 102 mL/min/1.73m2 1 *NA* (08/19/16 3:07 PM) BUN [7-22 mg/dL] 8 mg/dL (08/19/16 3:07 PM) Glucose Lvl [70-99 mg/dL] 92 mg/dL (08/19/16 3:07 PM) Calcium Lvl [8.5-10.5 mg/dL] 8.2 mg/dL *LOW* (08/19/16 3:07 PM) Ammonia [<=45.0 uMol/L] 17.0 uMol/L (08/19/16 3:07 PM) 1Result Comment: The eGFR is calculated using the CKD-EPI formula. In most young , healthy individualsthe eGFR will be >90 mL/min/1.73m2. The eGFR declines with age. An eGFR of 60-89 may be normal in some populations, particularly the elderly, for whom the CKD-EPI formula has not been extensively validated. Use of the eGFR is not recommended in the following populations: Individuals with unstable creatinine concentrations, including patients and those with serious co-morbid conditions. Patients with extremes in muscle mass or diet. The data above are obtained from the National Kidney Disease Education Program ( NKDEP) which additionally recommends that when the eGFR is used in patients with extremes of body mass index for purposesof drug dosing, the eGFR should be multiplied by the estimated BMI.CARDIAC ENZYMES Most recent to oldest 1 2 3 [Reference Range]: Total CK [12-191 unit/L] 161 unit/L 200 unit/L 185 unit/L (08/18/16 7:07 AM) *HI* (08/17/16 9:19 PM) (08/18/16 1:13 AM) CK MB [0.5-3.6 ng/mL] 2.4 ng/mL 2.9 ng/mL 2.9 ng/mL (08/18/16 7:07 AM) (08/18/16 1:13 AM) (08/17/16 9:19 PM) CK MB Index [0.0-2.5] 1.5 1.4 1.6 (08/18/16 7:07 AM) (08/18/16 1:13 AM) (08/17/16 9:19 PM) Troponin-I [0.00-0.40 ng/mL] <0.02 ng/mL <0.02 ng/mL <0.02 ng/mL (08/18/16 7:07 AM) (08/18/16 1:13 AM) (08/17/16 9:19 PM) SPECIAL CHEMISTRY Most recent to oldest [Reference Range]: 1 2 3 Hgb A1C [<=5.6 %] 5.6 % (08/20/16 2:12 PM) ANEMIA STUDY Most recent to oldest [Reference Range]: 1 2 3 Vitamin B12 Lvl [254-1320 pg/mL] 297 pg/mL (08/19/16 4:05 AM) Folate Lvl [>=3.0 ng/mL] 12.3 ng/mL (08/20/16 2:12 PM) METAL Most recent to oldest [Reference Range]: 1 2 3 Copper Lvl [72-166 ug/dl] 86 ug/dl 1 *NA* (08/20/16 2:12 PM) 1Result Comment: Detection Limit=5 Performed At: [facility] [id number] Lopezobey Mead MD Ph:[id number] FLUIDS Most recent to oldest [Reference Range]: 1 2 3 Glucose CSF [45-80 mg/dL] 49 mg/dL (08/22/16 1:05 PM) Protein CSF [15-45 mg/dL] 51 mg/dL *HI* (08/22/16 1:05 PM) LDH CSF 27 unit/L *NA* (08/22/16 1:05 PM) Tube Num CSF 3 *NA* (08/22/16 1:05 PM) Color CSF [Colorless] Colorless (08/22/16 1:05 PM) Clarity CSF [Clear] Clear (08/22/16 1:05 PM) Supernat CSF [Colorless] Colorless (08/22/16 1:05 PM) RBC CSF [0-0 /mm3] 643 /mm3 *HI* (08/22/16 1:05 PM) WBC CSF [0-5 /mm3] 1 /mm3 (08/22/16 1:05 PM) IMMUNOLOGY Most recent to oldest [Reference 1 2 3 Range]: Treponemal Scr [Non Reactive] Non Reactive *NA* (08/20/16 2:12 PM) RPR [Non Reactive] Non Reactive (08/19/16 3:07 PM) VDRL Scr CSF [Non Reactive] Non Reactive (08/22/16 1:05 PM) KADY [Negative] Negative (08/20/16 2:12 PM) HIV 1/2 Ab [Negative] Negative *NA* (08/19/16 3:07 PM) Homocyst Tot [3.7-13.9 uMol/L] 5.3 uMol/L (08/20/16 2:12 PM) ACHr Binding Ab [0.00-0.24 nMol/L] <0.03 nMol/L 1 *NA* (08/20/16 2:12 PM) ACHr Block Ab [0-25 %] 16 % 2 *NA* (08/20/16 2:12 PM) ACHr Mod Ab [0-20 %] <12 % 3 *NA* (08/20/16 2:12 PM) Albumin % [55.8-66.1 REL %] 61.2 REL % (08/20/16 2:12 PM) Alpha 1 % [2.8-4.9 REL %] 3.6 REL % (08/20/16 2:12 PM) Alpha 2 % [7.0-11.9 REL %] 8.2 REL % (08/20/16 2:12 PM) Beta % [7.8-13.7 REL %] 11.5 REL % (08/20/16 2:12 PM) Gamma % [11.1-18.7 REL %] 15.5 REL % (08/20/16 2:12 PM) Albumin (SPE) [3.57-5.55 g/dL] 4.22 g/dL (08/20/16 2:12 PM) Alpha 1 Glob [0.18-0.41 g/dL] 0.25 g/dL (08/20/16 2:12 PM) Alpha 2 Glob [0.45-1.00 g/dL] 0.57 g/dL (08/20/16 2:12 PM) Beta Glob [0.50-1.15 g/dL] 0.79 g/dL (08/20/16 2:12 PM) Gamma Glob [0.71-1.57 g/dL] 1.07 g/dL (08/20/16 2:12 PM) Tot Prot (SPE) [6.4-8.4 g/dL] 6.9 g/dL (08/20/16 2:12 PM) SPE Interp Total protein and serum albumin levels are within reference ranges. All globulin fractions are present in a normal distribution. No monoclonal proteins are identified. Serum capillary electrophoresis is without significant abnormalities. Interpretation performed at [facility]. *NA* (08/20/16 2:12 PM) IgG Lvl CSF [2.0-4.0 mg/dL] 3.5 mg/dL (08/22/16 1:05 PM) IgG (CPE) [694-1618 mg/dL] 1020 mg/dL (08/22/16 1:05 PM) Alb CSF (CPE) [14.0-25.0 mg/dL] 33.4 mg/dL *HI* (08/22/16 1:05 PM) Alb (CPE) [3400.0-5000.0 mg/dL] 4100.0 mg/dL (08/22/16 1:05 PM) IgG Index [0.3-0.7 mg/dL] 0.4 mg/dL (08/22/16 1:05 PM) PE Interp CSF CSF protein electrophoresis did not reveal evidence of an oligoclonal process in the MEDICAL DEVICE. The CSF IgG index is within the reference range indicating that there is no elevation in intracerebral IgG synt hesis. The CSF/serum albumin ratio is elevated that is most likely due to blood admixture to CSF specimen (the CSF RBC count is 643/ mm3). The electronic medical record has been reviewed for relevant history. I have personally reviewed the test results and concur with the resident's interpretation. CPT: 25022-FS *NA* (08/22/16 1:05 PM) Description CSF The gel demonstrates appropriate resolution of the main protein bands. The gamma region shows continuous distribution of proteins both in the CSF and in the serum. No oligoclonal bands are detected. *NA* (08/22/16 1:05 PM) 1Result Comment: Negative: 0.00 - 0.24 Borderline: 0.25 - 0.40 Positive: > 0.40 Performed At: [facility] [id number] John Mead MD Ph:[phone] Comment: Negative: 0 - 25 Borderline: 26 - 30 Positive: >30 Results for this test are for research purposes only by the assay's manager country. The performance characteristics of this product have not been established. Results should not be used as a diagnostic procedure without confirmation of the diagnosis by another medically established diagnostic product or procedure. Performed At: [facility] [id number] John Mead MD Ph:[phone] Comment: Negative: <21 Equivocal: 21 - 25 Positive: >25 The assay is linear between values of 12 and 64. Those <12 and >64 are reported as such. No single value for ACR-modulating antibody should be used as a sole basis for diagnosis or response to therapy. Performed At: [address] [id number] John Mead MD Ph:[phone] Most recent to oldest [Reference Range]: 1 2 3 WBC [3.7-10.4 K/CMM] 6.5 K/CMM (08/19/16 3:07 PM) RBC [4.70-6.10 M/CMM] 4.76 M/CMM (08/19/16 3:07 PM) Hgb [14.0-18.0 g/dL] 14.8 g/dL (08/19/16 3:07 PM) Hct [42.0-54.0 %] 42.8 % (08/19/16 3:07 PM) MCV [80.0-94.0 fL] 89.8 fL (08/19/16 3:07 PM) MCH [27.0-31.0 pg] 31.2 pg *HI* (08/19/16 3:07 PM) MCHC [32.0-36.0 g/dL] 34.7 g/dL (08/19/16 3:07 PM) RDW [11.5-14.5 %] 14.5 % (08/19/16 3:07 PM) Platelet [133-450 K/CMM] 191 K/CMM (08/19/16 3:07 PM) MPV [7.4-10.4 fL] 8.5 fL (08/19/16 3:07 PM) Segs [45.0-75.0 %] 55.4 % (08/19/16 3:07 PM) Lymphocytes [20.0-40.0 %] 32.7 % (08/19/16 3:07 PM) Monocytes [2.0-12.0 %] 9.1 % (08/19/16 3:07 PM) Eosinophils [0.0-4.0 %] 2.2 % (08/19/16 3:07 PM) Basophils [0.0-1.0 %] 0.6 % (08/19/16 3:07 PM) Segs-Bands # [1.5-8.1 K/CMM] 3.6 K/CMM (08/19/16 3:07 PM) Lymphocytes # [1.0-5.5 K/CMM] 2.1 K/CMM (08/19/16 3:07 PM) Monocytes # [0.0-0.8 K/CMM] 0.6 K/CMM (08/19/16 3:07 PM) Eosinophils # [0.0-0.5 K/CMM] 0.1 K/CMM (08/19/16 3:07 PM) PT [12.0-14.7 seconds] 12.4 seconds (08/22/16 3:53 AM) INR [0.85-1.17] 0.91 (08/22/16 3:53 AM) PTT [22.9-35.8 seconds] 30.5 seconds (08/22/16 3:53 AM) FUNGAL - SEROLOGY Most recent to oldest [Reference Range]: 1 2 3 Crypto Ag CSF [Negative] Negative (08/22/16 1:05 PM) VIRAL - SEROLOGY Most recent to oldest [Reference Range]: 1 2 3 Enterovirus PCR CSF [Negative] Negative (08/22/16 1:05 PM) Immunizations No data available for this section Procedures Procedure Date Related Diagnosis Body Site Amputation of finger Appendectomy Arthroscopic primary reduction and fixation of fracture of neck of femur using dynamic hip screw Cholecystectomy Complete excision of salivary gland Social History Social History Type Response Substance Abuse Use: Past. Type: Amphetamines. Recreational Drug Route: Inhaled, Intravenous, Oral. Alcohol Past, Type Beer, Wine, Liquor. Frequency: Daily. Smoking Status Former smoker; Type: Cigarettes; Tobacco use per day: 40; Number of years: 25; Exposure to Tobacco Smoke None; Cigarette Smoking Last 365 Days No; Reg Smoking Cessation Counseling Yes Assessment and Plan Extracted from: Title: Teleneurology Progress Note Author: Carmelo Abarca MD Date: 08/23/16 TELENEUROLOGY PROGRESS NOTE Brief HPI: Patient is a 45 yr old with a past medical history sig for chronic pancreatitis, HLD who p/w 2 week hx of fatigue, slurring of speech and dizziness , told to report to ED, work up thus far neg with neg MRI, carotid u/s and TTE. WHile PT was walking with Physical therapy noted to have some gait ataxia, hence neurology was consulted. He notes that ~2weeks ago he developed gait was wobbly, felt weak ev erwhere, no fevers or chilles, did fall a few times but no head trauma. He had a sig BRAVO a week ago but not significally, no nausea or vomiting. NO recent travel or vomiting. SUBJECTIVE: No sig issues overnight He feels much better today OBJECTIVE: MEDICATIONS: Scheduled Meds (2): 08/17/16 21:00 aspirin 81 mg PO Q24H 08/18/16 9:00 pantoprazole (Protonix) 40 mg PO Daily Unscheduled Meds: None PRN Meds (4): 08/17/16 20:23 acetaminophen-codeine (Tylenol with Codeine #3 oral tablet) 1 tab PO Q4H 08/17/16 20:23 acetaminophen 650 mg PO Q4H 08/17/16 20:23 ondansetron 4 mg IVP Q6H 08/18/16 2:40 tramadol (tramadol 50 mg oral tablet) 50 mg PO Q8H One Time Meds (1): 08/20/16 8:38 (Completed) cyanocobalamin (Vitamin B12) 1,000 microgram IM ONCE Continuous Infusions (1): 08/17/16 20:28 sodium chloride 0.9% 1000 ml INJ 1 PHYSICAL EXAM: Vitals Tmp(F) Tmp(C) Ttype BP MAP Pulse RR SpO2 FIO2 ETCO2 08/23 08:06 98.0 36.67 oral 103/68 80 55 16 96 --- --- 08/23 04:23 97.9 36.61 oral 100/62 75 57 16 96 --- --- 08/23 00:11 98.1 36.72 oral 108/71 83 64 16 96 --- --- 08/22 20:27 98.5 36.94 oral 118/75 89 59 16 96 --- --- 08/22 15:29 97.8 36.56 oral 116/72 86 53 16 97 --- --- 24 Hr Tmax: 98.5F (36.94c) at 08/22 20:27 24 Hr Tmin: 97.8F (36.56c) at 15:29 36 Hr Tmax: 98.5F (36.94c) at 08/22 20:27 36 Hr Tmin: 97.8F (36.56c) at 15:29 Vital Signs are the last 5 in the past 48 hours. Weights are the last 5 in 60 days, plus initial. GENERAL: NAD NEURO: AAO x 3 , speech is fluent, able to repeat, follow commands and name, speech slightly dysarthric EOMI, VFFTC, Fac sym, no nystagmus Motor - RUE 5/5 RLE 5/5 LUE 4+/5 LLE 4-/5 Sensation- decreased on left Coordination: questioable left FTN ataxia? Gait: cautious wide based, can stand without issues. +ve romberg, cannot do tandem walk LABS: 08/22 1305 Glucose CSF 49 Protein CSF 51 H Tube Num CSF 3 Color CSF Colorless Clarity CSF Clear Supernat CSF Colorless WBC CSF 1 RBC CSF 643 H LDH CSF 27 Enterovirus PCR CSF Negative 08/22 0353 PT 12.4 INR 0.91 PTT 30.5 08/20 1412 Copper Lvl 86 KADY Negative WORK-UP: Brain MRI: Unremarkable noncontrast MRI of the brain. Brain MRI w/o Contrast: 1. Mild to moderate motion artifact. 2. Mild diffuse cerebral atrophy. 3. No abnormal enhancement or focal lesion. MRA of head and neck: 1. Mild to moderate motion artifact. 2. No significant carotid artery or vertebral artery stenosis is suspected after accounting for limitations. Follow-up CTA could be obtained if clinically indicated. 1. Mild peripheral vascular irregularity and attenuation throughout the [place] likely related to a combination of small vessel occlusive change and artifact. 2. Small 1.5 cm aneurysm suspected projecting inferiorly from the distal supraclinoid portion of the left internal carotid artery. 3. Small focal step-off within the mid to distal basilar artery most likely represents motion artifact although aneurysm is difficult to exclude with certainty. Follow-up CTA is recommended for better characterization. C-Spinal MRI: 1. Degenerative changes of the cervical spine with severe left facet arthrosis and severe left neural foraminal narrowing at C2-C3. 2. C3-C4 mild left neural foraminal narrowing. 3. No significant spinal canal stenosis throughout the cervical spine. Caortid US: 1. RIGHT: ICA stenosis <50% by velocity criteria. 1. LEFT: ICA stenosis <50% by velocity criteria. TTE: 1) Global left ventricular wall motion and contractility are within normal limits. 2) The LV ejection fraction is estimated at 55%-60%. 3) Normal left ventricular diastolic filling is observed. ASSESSMENT: 45 y/o WM hx of psoriasis/Pancreatitis/remote hx of durg and alcohol abuse who presents with subacute generalized weakness/Ataxia. Etiology undetermined at this time RECOMMENDATIONS: --Laboratory work up thus far negative, LP also unremarkable, stable to be d/c with outpatient follow up --will sign off at this time, please call with ? Refer to Dr. Charlie Mercedes For Follow Up [facility] Neurology [id number] [facility] [place] [address] Thank you for allowing me to participate in the care of this patient. Please feel free to call with questions. Carmelo Abarca MD [facility] Call Center: [phone] Extracted from: Title: Teleneurology Consultation--ROUTINE Author: Carmelo Abarca MD Date: TELEMEDICINE NEUROLOGY - ROUTINE CONSULTATION Date of Consult: 08/19/16 CC: Gait Ataxia HISTORY OF PRESENT ILLNESS: Patient is a 45 yr old with a past medical history sig for chronic pancreatitis, HLD who p/w 2 week hx of fatigue, slurring of speech and dizziness , told to report to ED, work up thus far neg with neg MRI, carotid u/s and TTE. WHile PT was walking with Physical therapy noted to have some gait ataxia, hence neurology was consulted. He notes that ~2weeks ago he developed gait was wobbly, felt weak ev erwhere, no fevers or chilles, did fall a few times but no head trauma. He had a sig BRAVO a week ago but not significally, no nausea or vomiting. NO recent travel or vomiting. 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 Slurring of speech comes and goes and pt feels that he feels his memory is off and has word finding difficulty. PAST MEDICAL HISTORY: as above PAST SURGICAL HISTORY: [place] SOCIAL HISTORY: prior etoh,smoking and drugs nothing active HOME MEDS: Nexium Tramadol IN-PATIENT MEDS: Scheduled Meds (2): 08/17/16 21:00 aspirin 81 mg PO Q24H 08/18/16 9:00 pantoprazole (Protonix) 40 mg PO Daily Unscheduled Meds: None PRN Meds (4): 08/17/16 20:23 acetaminophen-codeine (Tylenol with Codeine #3 oral tablet) 1 tab PO Q4H 08/17/16 20:23 acetaminophen 650 mg PO Q4H 08/17/16 20:23 ondansetron 4 mg IVP Q6H 08/18/16 2:40 tramadol (tramadol 50 mg oral tablet) 50 mg PO Q8H One Time Meds: None Continuous Infusions (1): 08/17/16 20:28 sodium chloride 0.9% 1000 ml PHYSICAL EXAM: Vitals Tmp(F) Tmp(C) Ttype BP MAP Pulse RR SpO2 FIO2 ETCO2 08/19 08:30 98.1 36.72 oral 118/75 89 59 18 96 --- --- 08/19 03:56 98.1 36.72 oral 113/73 --- 59 18 96 --- --- 08/18 22:43 98.2 36.78 oral 105/67 --- 80 18 96 --- --- 08/18 19:00 97.5 36.39 oral 106/72 --- 72 18 96 --- --- 08/18 14:52 98.2 36.78 oral 114/69 --- 63 -- 97 --- --- 24 Hr Tmax: 98.2F (36.78c) at 08/18 22:43 24 Hr Tmin: 97.5F (36.39c) at 19:00 36 Hr Tmax: 98.2F (36.78c) at 08/18 22:43 36 Hr Tmin: 97.5F (36.39c) at 19:00 Vital Signs are the last 5 in the past 48 hours. Weights are the last 5 in 60 days, plus initial. NEURO: AAO x 3 , speech is fluent, able to repeat, follow commands and name EOMI, VFFTC, Face=, sensation intact, no nystagmus Motor - RUE 5/5 RLE 5/5 LUE 5/5 LLE 5/5--mild tremors in UE when arms extended , ? asterexis Sensation- intact to light touch Coordination: Normal FTN , no obvious limb ataxia Gait: cautious but not ataxic, can stand without issues. LABS: 36hr Labs 08/19 0405 TSH 0.713 08/18 0707 Total CK 161 CK MB 2.4 CK MB Index 1.5 Troponin-I <0.02 08/18 0113 Troponin-I <0.02 Total CK 200 H CK MB 2.9 CK MB Index 1.4 08/17 2119 Total CK 185 CK MB 2.9 CK MB Index 1.6 Vitamin B12 Lvl 297 DIAGNOSTIC TESTS: MRI Brain: normal Carotid U/S: neg TTE: unremarkable ASSESSMENT: 45 yr old p/w fatigue, and generalized weakness, and gait ataxic. PLAN --mri-c spine w/o contrast. --check rpr, ammonia level, cbc, check chem 7 , UA --replete b12 --if work up neg, then can d/c tomorrow with outpatient follow up Thank you for allowing me to participate in the care of this patient. Please feel free to call with questions. Carmelo Abarca MD [employer] [facility] Call Center: [phone] Extracted from: Title: Clinical Document Author: Jose Bello MD Date: 08/17/16 History and Physical Attending: Mary Guerrero MD Service: Internal Medicine Code status: None Specified=FULL CODE Reason for Admission: CP Working DRG: None Documented Isolation: None Documented Consulting Physicians: (none on file) CC: Feeling awful HPI: This is a 45-year-old man with above past medical history presents from [facility] with 2 week history of generalized weakness, fatigue, and slurred speech. Symptoms have been getting progressively worse. He has had dizziness and lightheadedness but no vertigo. Denies any numbness/tingling. Patient was supposed to see his bi analyst but his bi analyst recommended he go to the ER since sympt oms were worsening and he cannot be seen sooner in the office. Patient has sharp left-sided chest pain which has been ongoing for the past couple years, no recent change. He had a pharmacologic stress test about 4 months ago at [facility]. PMHx: Chronic pancreatitis Hyperlipidemia (no longer requiring medication) PSHx: Appendectomy Cholecystectomy FHx: multiple members on both side of the family with CAD SHx: Former alcohol, tobacco, polysubstance use, quit in 2006 Meds: See medicine reconciliation Medication List Active Medications No Active Medications Found Medications Inactivated in the Last 72 Hours No medications found. Allergies: NKDA ROS: See HPI. All other systems reviewed by myself are negative unless noted above. Physical Exam: Vitals Tmp(F) Pulse BP RR SpO2 FIO2 (no data in last 48 hours) 24 Hr Tmax: No Data Available Vital Signs are the last 5 in the past 48 hours. General: NAD, nontoxic appearing HEENT: NCAT, PERRL, MMM, oropharynx is clear, no LAD, no thyromegaly, no facial droop Cardiovascular: RRR, S1S2, no murmurs/rubs/gallops, 2+ bilateral carotid pulses Respiratory: good respiratory effort, CTAB Abdomen: soft, +BS, NT/ND Extremities: no b/l LE edema Skin: inspection of entire body (excluding genital and sacral/buttock regions) is unremarkable, head and 4 extremities palpated and unremarkable Neurologic: AAOx3, comprehension and speech intact, CN III-XII intact, sensation is intact and symmetric to light touch in all extremities, bilateral rapid alternating movement/ finger to nose/heel to pickering intact Musculoskeletal: 5 out of 5 strength in all extremities Psych: appropriate affect Rectal/: deferred Labs (outside ER): CBC is unremarkable CMP is unremarkable UA is unremarkable Influenza A and B negative Micro: none Imaging (outside ER): CXR: No acute cardiopulmonary abnormality CT brain: No acute intracranial abnormality EKG: Sinus bradycardia, no major ST abnormalities I reviewed all resulted labs, radiology, and any old records that are pertinent. Assessment and Plan: This is a 45-year-old man who presents with progressively worsening generalized weakness, fatigue, lightheadedness/dizziness. CT brain negative and he does not have any other focal neurologic symptoms. He was bradycardic at [facility] which may be the cause of his symptoms. #Possible symptomatic bradycardia: Cardiology consult, aspirin, trend cardiac enzymes, EKG reviewed, telemetry; will also obtain orthostatics in case this is a volume depletion issue Prophylaxis: SCDs Diet: heart healthy
--- OUTSIDE RECORDS SUMMARY | 2018-02-04 14:18 | XMS REPORT | Continuity of Care Document ---
:1970 Author Organization Interface Problems Problem Status Onset Classification Date Comments Source Date Reported GENERALIZED Active 08/17/19 [facility] WEAKNESS, FATIGUE 17 Charanjit CP Active 08/17/19 [facility] [place] GENERALIZED Active 08/17/19 [facility] WEAKNESS, 17 [place] FATIGUE, ATAXIA GENERALIZED Active 08/17/19 [facility] WEAKNESS, 17 [place] FATIGUE, ATAXIA Chronic Resolved Problem 09/08/2016 [facility] pancreatitis Chloé,M H Chloé Diverticulitis Resolved Problem 09/08/2016 [facility] ChloéM H Chloé Hyperlipidemia Resolved Problem 09/08/2016 [facility] Chloé,M H Chloé WEAKNESS Active [facility] [place] OTHER FATIGUE Active [facility] Charanjit ATAXIA, Active [facility] UNSPECIFIED Charanjit Medications Medication Details Route Status Patient Ordering Order Source Instructions Provider Date Morphine 2 mg, 1 mL, Inactive 08/23/ MH Route: IVP, Drug 2016 [place] form: INJ, ONCE, Dosing Weight 84.727, kg, Start date: 08/22/16 20:57:00 DRUGLESS DOCTOR, Stop date: 08/22/16 20:57:00 CSTNotes: (Same as:MORPhine Sulfate) ketOROLAC 15 15 mg, 1 mL, Inactive MH mg/mL Route: IVP, Drug 2016 [place] injectable form: INJ, ONCE, solution Dosing Weight 84.727, kg, Start date: 08/22/16 11:32:00 DRUGLESS DOCTOR, Stop date: 08/22/16 11:32:00 CSTNotes: (Same as:Toradol) IV bolus must be given >15 seconds. Give IM administration slowly and deeply into the muscle. Not for use > 4 days. ketOROLAC 15 15 mg, 1 mL, Inactive 08/21/ MH mg/mL Route: IM, Drug 2016 [place] injectable form: INJ, ONCE, solution Dosing Weight 84.727, kg, Priority: NOW, Start date: 08/21/16 14:54:00 DRUGLESS DOCTOR, Stop date: 08/21/16 14:54:00 CSTNotes: (Same as:Toradol) IV bolus must be given >15 seconds. Give IM administration slowly and deeply into the muscle. Not for use > 4 days. Ativan 4 mg, 2 mL, Inactive Route: IVP, Drug 2016 [place] form: INJ, ONCE, Dosing Weight 84.727, kg, PRN Anxiety, Start date: 08/20/16 12:21:00 CSTNotes: (Same as: Ativan) Vitamin B-12 100 microgram=1 Active 100 mcg oral tab, PO, Daily, 2016 [place] tablet # 30 tab, 0 Refill(s) Vitamin B12 1,000 microgram, Inactive 1 mL, Route: IM, 2016 [place] Drug form: INJ, ONCE, Dosing Weight 84.727, kg, Priority: STAT, Start date: 08/20/16 8:38:00 DRUGLESS DOCTOR, Stop date: 08/20/16 8:38:00 CSTNotes: (Same As: Vitamin B12) Ativan 4 mg, 2 mL, Inactive Route: IV, Drug 2016 [place] form: INJ, ONCE, Dosing Weight 84.727, kg, PRN Procedure, Priority: STAT, Start date: 08/19/16 15:20:00 CSTNotes: (Same as: Ativan) Ativan 2 mg, 1 mL, Inactive Route: IVP, Drug 2016 [place] form: INJ, ONCE, Dosing Weight 84.727, kg, PRN Anxiety, Start date: 08/18/16 10:55:00 CSTNotes: (Same as: Ativan) Protonix 40 mg, 1 tab, No Longer Route: PO, Drug Active 2016 [place] form: ECTAB, Daily, Start date: 08/18/16 9:00:00 DRUGLESS DOCTOR, Duration: 30 day, Stop date: 09/16/16 9:00:00 CDTNotes: Tablet should not be chewed or crushed. (Same as: Protonix) Esomeprazole 40 mg, Route: Inactive PO, Drug form: 2016 [place] ECCAP, Daily, Dosing Weight 84.727, kg, Start date: 08/18/16 9:00:00 DRUGLESS DOCTOR, Duration: 30 day, Stop date: 09/16/16 9:00:00 CDT tramadol 50 mg, 1 tab, No Longer hydrochloride Route: PO, Drug Active 2016 [place] 50 MG Oral form: TAB, Q8H, Tablet Dosing Weight 84.727, kg, PRN Pain Score 4-6, Start date: 08/18/16 2:40:00 DRUGLESS DOCTOR, Duration: 30 day, Stop date: 09/17/16 2:39:00 CDTNotes: Not to exceed 400mg/day. (Same As: Ultram) tramadol 50 mg=1 tab, PO, Active hydrochloride Q8H, PRN Pain, # 2017 [place] 50 MG Oral 60 tab, 0 Tablet Refill(s) Esomeprazole 40 40 mg=1 cap, PO, Active MG Enteric Daily, # 30 cap, 2017 [place] Coated Capsule 0 Refill(s) Aspirin 81 mg, 1 tab, No Longer Route: PO, Drug Active 2016 [place] form: ECTAB, Q24H, kg, Start date: 08/17/16 21:00:00 DRUGLESS DOCTOR, Duration: 30 day, Stop date: 09/15/16 21:00:00 CDTNotes: Do not crush or chew. (Same As: Ecotrin) sodium chloride 1,000 mL, Rate: No Longer 0.9% 1000 ml 100 ml/hr, Active 2016 [place] INJ 1,000 mL Infuse over: 10 hr, Route: IV, Total Volume: 1,000, Start date: 08/17/16 20:28:00 DRUGLESS DOCTOR, Duration: 30 day, Stop date: 09/16/16 20:27:00 CDT Ondansetron 4 mg, 2 mL, No Longer Route: IVP, Drug Active 2016 [place] form: INJ, Q6H, kg, PRN Nausea & Vomiting, Start date: 08/17/16 20:23:00 DRUGLESS DOCTOR, Duration: 30 day, Stop date: 09/16/16 20:22:00 CDTNotes: (Same as: Zofran) MEDICATION WASTE Product Size: 4 mg Product Wasted: ___ mg Acetaminophen 650 mg, 2 tab, No Longer Route: PO, Drug Active 2016 [place] form: TAB, Q4H, kg, PRN Pain 1-3/Temp > 100.4 F, Start date: 08/17/16 20:23:00 DRUGLESS DOCTOR, Duration: 30 day, Stop date: 09/16/16 20:22:00 CDTNotes: Do not exceed 4 gm/day. (Same as: Tylenol) Acetaminophen 1 tab, Route: No Longer 300 MG / PO, Drug Form: Active 2016 [place] Codeine TAB, kg, Q4H, Phosphate 30 MG PRN Pain Score Oral Tablet 4-6, Start date: [Tylenol with 08/17/16 Codeine #3] 20:23:00 DRUGLESS DOCTOR, Duration: 30 day, Stop date: 09/16/16 20:22:00 CDTNotes: Do not exceed 4gm/day of acetaminophen. (Same as: Tylenol with Codeine # 3) Allergies, Adverse Reactions, Alerts Substance Category Reaction Severity Reaction Status Date Comments Source type Reported NKDA Assertion NKA, NKA Drug Active [facility] allergy [place] Immunizations Immunization Date Given Site Status Last Updated Comments Source Results Order Name Results Value Reference Date Interpretation Comments Source Range Brain/Neck Brain/Neck CTA NECK AND BRAIN WITH CONTRAST 09/05 - [facility] CTA CTA /2016 - [place] INDICATION: Gait disturbance ct dose dlp 599.17 Read by: Rashawn Choi MD Dictated Date/time: 09/05/16 16:07 Electronically Signed by: Rashawn Choi MD 09/05/16 16:23 FINAL REPORT COMPARISON: MRA neck and brain 08/20/2016 TECHNIQUE: CTA of the neck and brain was performed after administration of intravenous contrast. Coronal, sagittal, and 3-D reformatted images were utilized. DISCUSSION: CTA NECK: Measurement of potential stenosis is performed according to NASCET criteria. The bilateral common carotid arteries, bifurcations, and internal carotid arteries appear widely patent. There is no measurable stenosis of the bilateral ICAs. The bilateral vertebral arteries are patent. CTA BRAIN: The bilateral internal carotid arteries are patent. The bilateral anterior and middle cerebral arteries are patent. The vertebrobasilar arteries and bilateral posterior cerebral arteries are patent. Normal variant anatomy: An anterior communicating artery is present. A hypoplastic posterior communicating artery is present on the right side. No aneurysms or vascular malformations are identified. IMPRESSION: Stenosis of the extracranial internal carotid arteries is categorized and reported according to NASCET criteria: Less than 50% stenosis (0-49%) 50-69% stenosis Greater than 70% stenosis (including 70-99%) 1. Less than 50% stenosis of the bilateral extracranial internal carotid arteries. The bilateral vertebral arteries are patent. 2. Unremarkable CTA of the [place]. No cerebral aneurysms are identified. The aneurysms described in the preceding MRA, were probably artifactual, related to extensive motion artifact in that study. SL:16 BODY FLUIDS RBC CSF 643 /mm3 0 - 03 08/22 [place] BODY FLUIDS Color CSF Colorless Colorless 08/22 [place] (08/22/16 1:05 PM) BODY FLUIDS WBC CSF 1 /mm3 0 - 53 08/22 [place] BODY FLUIDS Clarity CSF Clear Clear 08/22 [place] (08/22/16 1:05 PM) BODY FLUIDS Supernat CSF Colorless Colorless 08/22 [place] (08/22/16 1:05 PM) BODY FLUIDS Tube Num CSF 3 08/22 [place] BODY FLUIDS LDH CSF 27 unit/L 08/22 [place] BODY FLUIDS Protein CSF 51 mg/dL 15 - 45 08/22 [place] BODY FLUIDS Glucose CSF 49 mg/dL 45 - 80 08/22 [place] FUNGAL - Crypto Ag Negative Negative 08/22 SEROLOGY CSF [place] (08/22/16 1:05 PM) IMMUNOLOGY VDRL Scr CSF Non Reactive Non 08/22 Reactive [place] (08/22/16 1:05 PM) IMMUNOLOGY Alb (CPE) 4100.0 3400.0 - 08/22 mg/dL 5000.0 [place] IMMUNOLOGY IgG Lvl CSF 3.5 mg/dL 2.0 - 4.0 08/22 [place] IMMUNOLOGY IgG Index 0.4 mg/dL 0.3 - 0.7 08/22 [place] IMMUNOLOGY IgG (CPE) 1020 mg/dL 694 - 1618 08/22 [place] IMMUNOLOGY Alb CSF 33.4 mg/dL 14.0 - 08/22 MH (CPE) 25.0 [place] IMMUNOLOGY Description The gel 08/22 CSF demonstrat [place] es appropriat e resolution of the main protein bands. The gamma region shows continuous distributi on of proteins both in the CSF and in the serum. No oligoclona l bands are detected. IMMUNOLOGY PE Interp CSF 08/22 CSF protein /2016 [place] electropho resis did not reveal evidence of an oligoclona l process in the SIGHTER. The CSF IgG index is within the reference range indicating that there is no elevation in intracereb ral IgG synthesis. The CSF/serum albumin ratio is elevated that is most likely due to blood admixture to CSF specimen (the CSF RBC count is 643/ mm3). The electronic medical record has been reviewed for relevant history.I have personally reviewed the test results and concur with the resident's interpreta tion.CPT: 57520-CJ VIRAL - Enterovirus Negative Negative 08/22 SEROLOGY PCR [place] (08/22/16 1:05 PM) Spine Spine lumbar Patient Name: PABLO HASTINGS 08/22 - [facility] lumbar puncture w - Charanjit puncture w fluoro DX : 1970; Age: 45 years y/o Male fluoro DX MR: [id number] Read by: Fredi Mayo MD Dictated Date/time: 08/22/16 13:32 Electronically Signed by: Fredi Mayo MD 08/22/16 13:36 FINAL REPORT PROCEDURE: Fluoroscopically guided lumbar puncture. PHYSICIAN PROVIDING SERVICE: Fredi Mayo M.D. HISTORY: 72-year-old male with slurred speech, dizziness, and gait ataxia. Memory changes. CONSENT: The procedure, risks, benefits and alternatives were discussed with the patient and written informed consent was obtained. TECHNIQUE: Preliminary fluoroscopy of the lumbar region was performed. A suitable location at L4-L5 was chosen. A generous portion of the lumbar region was prepped with Betadine and draped. The procedure was performed under local anesthesia utilizing 1% lidocaine. A 20-gauge spinal needle was advanced into the l umbar spinal canal under fluoroscopic guidance at the L4-L5 level. An opening pressure was measured. The opening pressure was estimated to be 15 centimeters of water. This was estimated by adding the l evel of the manometry tube reading to the length of the needle. Next, 4 tubes of clear CSF were withdrawn (approximately 25 mL of CSF total). The samples were sent to the laboratory. The needle was then removed without difficulty. The fluoroscopy time was: 0.9 minutes. Dose, 36.2 mGy The patient tolerated the procedure well and suffered no immediate complications. IMPRESSION: Fluoroscopically guided lumbar puncture. SL: [id number] HEMATOLOGY aPTT 30.5 s 22.9 - 08/22 MH 35.8 /2017 [place] HEMATOLOGY PROTIME 12.4 s 12.0 - 08/22 MH 14.7 /2016 [place] HEMATOLOGY INR 0.91 0.85 - 08/22 MH 1.17 [place] ANEMIA Folate Lvl 12.3 ng/mL >=3.0 08/20 STUDY ng/mL /2016 [place] IMMUNOLOGY KADY Negative Negative 08/20 [place] (08/20/16 2:12 PM) IMMUNOLOGY Homocyst Tot 5.3 umol/L 3.7 - 13.9 08/20 [place] IMMUNOLOGY ACHr Mod Ab null 0 - 20 08/20 Result Comment: Negative: <21 MH Equivocal: 21 - 25 [place] Positive: >25 The assay is linear between values of 12 and 64. Those <12 and >64 are reported as such. No single value for ACR-modulating antibody should be used as a sole basis for diagnosis or response to therapy. Performed At: [address] [id number] John Mead MD Ph:[phone] IMMUNOLOGY ACHr Block 16 % 0 - 25 08/20 Result Comment: Negative: 0 - 25 MH Ab /2016 Borderline: 26 - 30 [place] Positive: >30 Results for this test are for research purposes only by the assay's assistant program manager. The performance characteristics of this product have not been established. Results should not be used as a diagnostic procedure without confirmation of the diagnosis by another medically established diagnostic product or procedure. Performed At: [address] [id number] John Mead MD Ph:[phone] IMMUNOLOGY ACHr Binding null 0.00 - 08/20 Result Comment: Negative: 0.00 - 0.24 MH Ab 0.24 Borderline: 0.25 - 0.40 [place] Positive: > 0.40 Performed At: [address] [id number] John Mead MD Ph:[phone] IMMUNOLOGY Beta % 11.5 REL % 7.8 - 13.7 02 MH /2016 [place] IMMUNOLOGY Alpha 1 % 3.6 REL % 2.8 - 4.9 02 MH /2016 [place] IMMUNOLOGY Alpha 2 % 8.2 REL % 7.0 - 11.9 08/20 MH /2016 [place] IMMUNOLOGY Alpha 2 Glob 0.57 g/dL 0.45 - 02 MH 1.00 [place] IMMUNOLOGY Alpha 1 Glob 0.25 g/dL 0.18 - 02 MH 0.41 /2017 [place] IMMUNOLOGY Albumin 4.22 g/dL 3.57 - 02 MH (SPE) 5.55 /2017 [place] IMMUNOLOGY Gamma % 15.5 REL % 11.1 - 02 MH 18.7 /2016 [place] IMMUNOLOGY Tot Prot 6.9 g/dL 6.4 - 8.4 08/20 MH (SPE) /2016 [place] IMMUNOLOGY Gamma Glob 1.07 g/dL 0.71 - 08/20 MH 1.57 [place] IMMUNOLOGY Beta Glob 0.79 g/dL 0.50 - 08/20 MH 1.15 [place] IMMUNOLOGY SPE Interp Total 08/20 MH protein /2016 [place] and serum albumin levels are within reference ranges. All globulin fractions are present in a normal distributi on. No monoclonal proteins are identified . Serum capillary electropho resis is without significan t abnormalit ies.Interp retation performed at [facility]. IMMUNOLOGY Albumin % 61.2 REL % 55.8 - 08/20 MH 66.1 [place] IMMUNOLOGY Treponemal Non Reactive Non 08/20 Scr Reactive [place] *NA* (08/20/16 2:12 PM) METAL Copper Lvl 86 ug/dl 72 - 166 08/20 Result Comment: Detection Limit=5 Performed At: [facility] [address] [id number] John Mead MD Ph:[phone] SPECIAL Hgb A1C 5.6 % <=5.6 % 08/20 CHEMISTRY [place] Brain w/wo Brain w/wo Patient Name: PABLO HASTINGS 08/20 - [facility] contrast contrast MRI /2016 - [place] MRI : 1970; Age: 45 years y/o Male MR: [id number] Read by: Xavier Britt MD Dictated Date/time: 08/20/16 15:40 Electronically Signed by: Xavier Britt MD 08/20/16 15:47 FINAL REPORT Study: Brain w/wo contrast MRI 08/20/2016 12:17 PM DRUGLESS DOCTOR Ordering Physician: Mary Guerrero MD Clinical Indication: Absent reflexes. Generalized weakness. Comparison: None TECHNIQUE: TECHNIQUE: Precontrast and postcontrast MRI of the brain was performed on a 1.5 Angela magnet in order to complement the recent precontrast examination. Contrast: Omniscan 16 mL FINDINGS: Mild to moderate motion artifact. Mild diffuse age-appropriate cerebral atrophy is present similar to the precontrast images. The postcontrast images demonstrate no abnormal enhancement. IMPRESSION: 1. Mild to moderate motion artifact. 2. Mild diffuse cerebral atrophy. 3. No abnormal enhancement or focal lesion. SL: TPAINTER-PC Brain wo Brain wo Study: Brain wo contrast MRA 08/20/2016 12:23 PM DRUGLESS DOCTOR - [facility] contrast contrast MRA /2016 - [place] MRA Patient Name: PABLO HASTINGS MR: [id number] Read by: Xavier Britt MD Dictated Date/time: 08/20/16 15:47 : 1970; Age: 45 years y/o Male Electronically Signed by: Xavier Britt MD 08/20/16 15:56 FINAL REPORT Ordering Physician: Mary Guerrero MD Clinical Indication: Generalized weakness. Absent reflexes. Comparison: None Technique: Magnetic resonance angiography of the [place] was performed without contrast. Three-dimensional rotational images were also prepared. FINDINGS: 1. Mild to moderate motion artifact. 2. Mild peripheral vascular attenuation and irregularity throughout the [place] likely represents a combination of motion artifact and small vessel occlusive change. ANTERIOR CIRCULATION: INTERNAL CAROTID ARTERIES: No focal stenosis. A tiny 1.5 mm inferiorly projecting aneurysm is suspected involving the distal supraclinoid portion of the left internal carotid artery. MIDDLE CEREBRAL ARTERIES: No focal stenosis or aneurysm in the M1 and M2 segments. The peripheral MCA branches appear normal. ANTERIOR CEREBRAL ARTERIES: No focal stenosis or aneurysm. Normal anterior communicating artery. POSTERIOR CIRCULATION: VERTEBROBASILAR SYSTEM: No focal stenosis in the basilar artery. A focal step-off within the mid to distal basilar artery most likely represents motion artifact although an aneurysm is difficult to exclude certainty. POSTERIOR CEREBRAL ARTERIES: No focal stenosis or aneurysm. SUPERIOR CEREBELLAR ARTERIES: Normal in appearance. AICA: Normal in appearance. PICA: Normal in appearance. IMPRESSION: 1. Mild peripheral vascular irregularity and attenuation throughout the [place] likely related to a combination [...] Follow-up CTA is recommended for better characterization. Neck wo Neck wo Study: Neck wo contrast MRA 08/20/2016 12:17 PM DRUGLESS DOCTOR 08/20 - [facility] contrast contrast MRA /2016 - [place] MRA Patient Name: PABLO HASTINGS MR: [id number] Read by: Xavier Britt MD Dictated Date/time: 08/20/16 15:35 : 1970; Age: 45 years y/o Male Electronically Signed by: Xavier Britt MD 08/20/16 15:40 FINAL REPORT Ordering Physician: Mary Guerrero MD Clinical Indication: Generalized weakness. Headache. Follow-up carotid ultrasound. Comparison: None TECHNIQUE: Magnetic resonance angiography of the neck was performed without contrast. Three-dimensional rotational images were also prepared. MRA NECK Mild to moderate motion artifact. Aortic arch and great vessel origins: Not visualized. Brachiocephalic trunk: Not visualized. Subclavian arteries: Poorly visualized. Right carotid artery: No significant stenosis within the right common carotid artery. Decreased signal seen at the origin of the right internal carotid artery most likely representing flow artifact and motion artifact. The extracranial portion of the right internal carotid artery is normal. Left carotid artery: No significant stenosis within the left common carotid artery. Decreased signal seen at the origin of the left internal carotid artery most likely representing flow artifact and mot ion artifact. The extracranial portion of the left internal carotid artery is normal. Vertebral arteries: The origins are never well-visualized. The visualized portions of the remaining vertebral arteries are normal after accounting for artifact present. Any reported ICA stenosis directly references the distal internal carotid diameter as the denominator for stenosis measurement. IMPRESSION: 1. Mild to moderate motion artifact. 2. No significant carotid artery or vertebral artery stenosis is suspected after accounting for limitations. Follow-up CTA could be obtained if clinically indicated. SL: TPAINTER- CHEM PANEL Ammonia 17.0 <=45.0 08/19 umol/L uMol/L /2016 [place] ELECTROLYTE AGAP 7.9 meq/L 10.0 - 08/19 S 20.0 [place] ELECTROLYTE eGFR 102 08/19 Result Comment: The eGFR is calculated using the CKD-EPI formula. In most young, healthy individuals the eGFR will be > 90 mL/min/1.73m2. The eGFR declines with age. An eGFR of 60-89 may be normal in S mL/min/1.7 /2016 some populations, particularly the elderly, for whom the CKD-EPI formula has not been extensively validated. Use of the eGFR is not recommended in the following populations: [address] Individuals with unstable creatinine concentrations, including patients and those with serious co-morbid conditions. Patients with extremes in muscle mass or diet. The data above are obtained from the National Kidney Disease Education Program (NKDEP) which additionally recommends that when the eGFR is used in patients with extremes of body mass index for purposes of drug dosing, the eGFR should be multiplied by the estimated BMI. ELECTROLYTE Calcium Lvl 8.2 mg/dL 8.5 - 10.5 08/19 S [place] ELECTROLYTE CO2 30 meq/L 24 - 32 08/19 S [place] ELECTROLYTE Potassium 3.9 meq/L 3.5 - 5.1 08/19 S Lvl [place] ELECTROLYTE Creatinine 0.88 mg/dL 0.50 - 08/19 S Lvl 1.40 [place] ELECTROLYTE BUN 8 mg/dL 7 - 22 08/19 S [place] ELECTROLYTE Glucose Lvl 92 mg/dL 70 - 99 08/19 S [place] ELECTROLYTE Chloride Lvl 110 meq/L 95 - 109 08/19 S [place] ELECTROLYTE Sodium Lvl 144 meq/L 135 - 145 08/19 S [place] HEMATOLOGY Platelet 191 K/CMM 133 - 450 08/19 [place] HEMATOLOGY RDW 14.5 % 11.5 - 08/19 MH 14.5 [place] HEMATOLOGY MCHC 34.7 g/dL 32.0 - 08/19 MH 36.0 [place] HEMATOLOGY MCH 31.2 pg 27.0 - 08/19 MH 31.0 [place] HEMATOLOGY MCV 89.8 fL 80.0 - 08/19 MH 94.0 [place] HEMATOLOGY Hct 42.8 % 42.0 - 08/19 MH 54.0 [place] HEMATOLOGY Hgb 14.8 g/dL 14.0 - 08/19 MH 18.0 [place] HEMATOLOGY RBC X 10x6 4.76 M/CMM 4.70 - 08/19 MH 6.10 [place] HEMATOLOGY WBC X 10x3 6.5 K/CMM 3.7 - 10.4 08/19 [place] HEMATOLOGY MPV 8.5 fL 7.4 - 10.4 08/19 [place] HEMATOLOGY Segs 55.4 % 45.0 - 08/19 MH 75.0 [place] HEMATOLOGY Segs-Bands # 3.6 K/CMM 1.5 - 8.1 08/19 [place] HEMATOLOGY Basophils 0.6 % 0.0 - 1.0 08/19 [place] HEMATOLOGY Eosinophils 2.2 % 0.0 - 4.0 08/19 [place] HEMATOLOGY Monocytes 9.1 % 2.0 - 12.0 08/19 [place] HEMATOLOGY Lymphocytes 32.7 % 20.0 - 08/19 MH 40.0 [place] HEMATOLOGY Eosinophils 0.1 K/CMM 0.0 - 0.5 08/19 [place] HEMATOLOGY Monocytes # 0.6 K/CMM 0.0 - 0.8 08/19 [place] HEMATOLOGY Lymphocytes 2.1 K/CMM 1.0 - 5.5 08/19 [place] IMMUNOLOGY HIV 1/2 Ab Negative Negative 08/19 [place] *NA* (08/19/16 3:07 PM) IMMUNOLOGY RPR Non Reactive Non 08/19 MH Reactive [place] (08/19/16 3:07 PM) Spine Spine Study: Spine cervical wo contrast MRI 08/19 - [facility] cervical wo cervical wo - [place] contrast contrast MRI MRI Clinical Indication: Weakness Read by: Kimani Cortés MD Dictated Date/time: 08/20/16 08:09 Electronically Signed by: Kimani Cortés MD 08/20/16 08:12 FINAL REPORT Comparison: None TECHNIQUE: Multiplanar, multisequence magnetic resonance imaging of the cervical spine was performed without the administration of intravenous gadolinium contrast. FINDINGS: There is normal alignment of the cervical spine. No focal marrow signal abnormality is present. The prevertebral soft tissues, atlanto-dental interspace , and craniocervical junction are within normal li mits. The visualized brainstem region is unremarkable. The cervical spinal cord is normal in size and signal. The discs are desiccated throughout the cervical spine. DISC SPACES: C2-C3: Negative for significant disc bulge or protrusion. Severe left facet arthrosis is seen. There is severe left neural foraminal narrowing without spinal canal stenosis. C3-C4: Small circumferential disc osteophyte complex is seen. Mild left facet arthrosis is present. There is mild left neural foraminal narrowing without spinal canal stenosis. C4-C5: Negative for significant disc bulge or protrusion. Facets are intact. There is no spinal canal stenosis or neural foraminal narrowing. C5-C6: Small circumferential disc osteophyte complex is seen. Facets are intact. There is no spinal canal stenosis or neural foraminal narrowing. C6-C7: 3 mm diffuse disc bulge is seen. Facets are intact. There is no spinal canal stenosis or neural foraminal narrowing. C7-T1: Negative for significant disc bulge or protrusion. Mild left facet arthrosis is seen. There is no spinal canal stenosis or neural foraminal narrowing. IMPRESSION: 1. Degenerative changes of the cervical spine with severe left facet arthrosis and severe left neural foraminal narrowing at C2-C3. 2. C3-C4 mild left neural foraminal narrowing. 3. No significant spinal canal stenosis throughout the cervical spine. SL: [id number] ANEMIA Vitamin B12 297 pg/mL 254 - 1320 08/19 STUDY Lvl /2017 [place] CARDIAC CK MB 2.4 ng/mL 0.5 - 3.6 08/18 ENZYMES /2016 [place] CARDIAC Troponin-I null 0.00 - 08/18 MH ENZYMES 0.40 /2017 [place] CARDIAC Total CK 161 unit/L 12 - 191 08/18 ENZYMES /2016 [place] CARDIAC CK-MB INDEX 1.5 0.0 - 2.5 08/18 ENZYMES /2016 [place] Brain wo Brain wo Patient Name: PABLO HASTINGS 08/18 - [facility] contrast contrast MRI /2016 - [place] MRI : 1970; Age: 45 years y/o Male MR: [id number] Read by: Diego Galicia MD Dictated Date/time: 08/18/16 13:56 Electronically Signed by: Diego Galicia MD 08/18/16 14:01 FINAL REPORT Study: Brain wo contrast MRI 08/18/2016 10:13 AM DRUGLESS DOCTOR Ordering Physician: Mary Guerrero MD Clinical Indication: Altered mental status; Comparison: None TECHNIQUE: Multiplanar MRI of the brain is performed on a 1.5 Angela magnet. Contrast: None. FINDINGS: BRAIN PARENCHYMA: No abnormal signal identified on diffusion-weighted imaging to suggest an acute infarction. No abnormal areas of signal intensity identified about the brain. No extra-axial fluid collection, mass effect or shift. CEREBELLOPONTINE REGIONS AND SKULL BASE: The craniocervical junction, skull base and pituitary gland are unremarkable. Cerebellar pontine angles unremarkable bilaterally. VENTRICLES: The ventricles and sulci are within normal limits for the patient's age. VESSELS: Normal flow voids identified in the major vessels at the base of the brain. ORBITS, VISUALIZED PARANASAL SINUSES AND MASTOIDS: The visualized orbits and paranasal sinuses are unremarkable. The mastoid air cells are clear. IMPRESSION: Unremarkable noncontrast MRI of the brain. SL: [id number] Carotid Carotid Patient Name: PABLO HASTINGS 08/18 - [facility] artery artery /2016 - Charanjit Doppler Doppler : 1970; Age: 45 years Male bilat US bilat US MR: [id number] Read by: Edenilson Davila MD Dictated Date/time: 08/18/16 12:58 Electronically Signed by: Edenilson Davila MD 08/18/16 13:01 FINAL REPORT Study: Carotid artery Doppler bilat US 08/18/2016 10:02 AM [facility]UGLESS DOCTOR Clinical Indication: Carotid artery stenosis or occl wo/ stroke. Lightheadedness. COMPARISON: None TECHNIQUE: Rajput-scale, color Doppler and spectral Doppler of the carotid arteries was performed. Any reported ICA stenoses indirectly reference the distal internal carotid diameter as the denominator for the sten osis measurement, utilizing consensus panel criteria. FINDINGS: RIGHT: No significant plaque. ICA PSV 106 cm/sec CCA PSV 89 cm/sec ICA/CCA ratio 1.19 Vertebral flow is antegrade. External carotid artery is patent. LEFT: No significant plaque. ICA PSV 120 cm/sec CCA PSV 126 cm/sec ICA/CCA ratio 0.95 Vertebral flow is antegrade. External carotid artery is patent. IMPRESSION: 1. RIGHT: ICA stenosis <50% by velocity criteria. 1. LEFT: ICA stenosis <50% by velocity criteria. Consensus panel Doppler US criteria for diagnosis of ICA stenosis: Stenosis (%) ICA PSV (cm/sec) ICA/CCA ratio -- <50 <125 <2.0 50-69 125-230 2.0-4.0 >70 but less than >230 >4.0 near occlusion Near occlusion High, low, or Variable undetectable SL: MAGALY CARDIAC CK MB 2.9 ng/mL 0.5 - 3.6 08/18 [facility] [place] CARDIAC Troponin-I null 0.00 - 08/18 ENZYMES 0.40 [place] CARDIAC Total CK 200 unit/L 08/18 [facility] [place] CARDIAC CK-MB INDEX 1.4 0.0 - 2.5 08/18 EN[facility] [place] CARDIAC CK MB 2.9 ng/mL 0.5 - 3.6 08/18 EN[facility] [place] CARDIAC Troponin-I null 0.00 - 08/18 ENZYMES 0.40 [place] CARDIAC Total CK 185 unit/L 12 - 08/18 ENZYM[facility] [place] CARDIAC CK-MB INDEX 1.6 0.0 - 2.5 08/18 [facility] [place] Vital Signs Vital Sign Value Date Comments Source Heart Rate 55 08/23/2016 [facility] Respitory Rate 16 08/23/2016 [facility] Systolic (mm Hg) 103 08/23/2016 [facility] Diastolic (mm Hg) 68 08/23/2016 [facility] Temperature Oral (F) 98.0 F 08/23/2016 [facility] Systolic (mm Hg) 100 08/23/2016 [facility] Diastolic (mm Hg) 62 08/23/2016 [facility] Heart Rate 57 08/23/2016 [facility] Temperature Oral (F) 97.9 F 08/23/2016 [facility] Respitory Rate 16 08/23/2016 [facility] Heart Rate 64 08/23/2016 [facility] Temperature Oral (F) 98.1 F 08/23/2016 [facility] Systolic (mm Hg) 108 08/23/2016 [facility] Diastolic (mm Hg) 71 08/23/2016 [facility] Respitory Rate 16 08/23/2016 [facility] BMI Calculated 30.15 08/18/2016 [facility] Weight 84.727 08/18/2016 [facility] Height 167.64 cm 08/18/2016 [facility] Encounters Location Location Encounter Encounter Reason Attending ADM DC Status Source Details Type Number For Provider Date Date Visit [facility] Inpatient [id number] Enriqueta 08/21 08/23 Charanjit Mascorro /2016 [facility] [id number] Angela Chris 09/05 09/06 [facility]2016 [facility] Procedures Procedure Code Date Perfomer Comments Source [facility] of [id number] [id number] [facility] Arthroscopic primary [id number] [facility] reduction and [place] fixation of fracture of neck of femur using dynamic hip screw Cholecystectomy [id number] [facility] Complete excision of [id number] [facility] salivary gland [place] Amputation of finger [id number] [facility] Appendectomy [id number] [facility] Arthroscopic primary [id number] [facility] reduction and fixation of fracture of neck of femur using dynamic hip screw Cholecystectomy [id number] [facility] Complete excision of [id number] [facility] salivary gland
--- OUTSIDE RECORDS SUMMARY | 2018-02-04 14:18 | XMS REPORT | Summary of Care ---
:1970 Author Organization [facility] [place] Address [address], [place] [address]- Encounter HQ Devinntr_norma(FIN) [id number] Date(s): 09/05/16 - 09/05/16 [facility] [address], [address] [place] [address]- [phone] Discharge Disposition: Home or Self Care Attending Physician: Angela Perez MD Vital Signs No data available for this section Problem List Condition Effective Dates Status Health Status Informant Chronic pancreatitis(Confirmed) Resolved Diverticulitis(Confirmed) Resolved Hyperlipidemia(Confirmed) Resolved Allergies, Adverse Reactions, Alerts Substance Reaction Severity Status NKDA NKA Active NKA Medications No data available for this section Results No data available for this section Immunizations No data available for this section [...] Smoking Cessation Counseling Yes Assessment and Plan No data available for this section
[2018-02-04] MEDS ORDERED: ONDANSETRON 4 MG/2 ML VIAL ONE (15:01)
[2018-02-04] MEDS ORDERED: NA CHLORIDE 0.9% 1,000 ML ONE (15:01)
[2018-02-04] MEDS ORDERED: METRONIDAZOLE 500mg IVPB 500 MG/100 ML BAG IV ONE (15:09)
[2018-02-04] MEDS ORDERED: HYDROMORPHONE HCL 1 MG/ML INJ ONE ×2 (15:09→17:29)
[2018-02-04 15:11] LABS: Absolute Lymphocytes (CBC) 1.6 K/uL (0.7-4.9); Absolute Monocytes 1.3 K/uL (0.1-1.3); Absolute Neutrophil 8.5 K/uL (1.8-8.0); Basophils % 0.4 % (0-1.3); Eosinophils % 1.2 % (0-4.4); Hematocrit 49.1 % (39.6-49.0); Lymphocytes % 14.1 % (15.3-44.8); MCH 29.7 pg (27.0-35.0); MCV 89.9 fL (80-100); MPV 9.3 fL (7.6-11.3); Monocytes % 11.3 % (3.3-12.3); RBC Red Blood Cell Count 5.46 M/uL (4.33-5.43)
[2018-02-04 15:23] LABS: Albumin 3.3 g/dL (3.4-5.0); Bilirubin Direct 0.2 mg/dL (0-0.2); Bilirubin Total 0.7 mg/dL (0.2-1.0); Potassium 3.8 mmol/L (3.5-5.1); Protein, Total 6.4 g/dL (6.4-8.2)
[2018-02-04 16:19] LABS: Urine Blood NEGATIVE (NEG); Urine Glucose NEGATIVE (NEG); Urine Protein NEGATIVE (NEG); Urine pH 6.5 (5.0-7.0)
[2018-02-04 16:26] LABS: Urine Bacteria <20 /HPF (NONE SEEN); Urine Culture Reflex Order NOT NEEDED; Urine RBC <5 /HPF (NONE SEEN)
--- NOTE | 2018-02-04 16:51 | RAD REPORT ---
EXAM DESCRIPTION: CT - Abdomen Pelvis W Contrast - 02/04/2018 4:43 pm CLINICAL HISTORY: Abdominal pain. For 3 days. Nausea COMPARISON: October 2017 TECHNIQUE: Computed axial tomography of the abdomen and pelvis was obtained. 100 cc Isovue-300 is ad ministered intravenously. Oral contrast was given. All CT scans are performed using dose optimization technique as appropriate and may include automated exposure control or mA/KV adjustment according to patient size. FINDINGS: Small hepatic cysts are present. The gallbladder has been removed Spleen, pancreas, adrenals and kidneys appear unremarkable. Diverticula stem from the colon. Mild stranding is present adjacent to the sigmoid colon. An abscess is not noted. Small left inguinal hernia contains fat. A small umbilical hernia is present IMPRESSION: Mild sigmoid diverticulitis
--- NOTE | 2018-02-04 17:09 | ER ---
Nurse's Notes [facility] Name: Damian Lee Age: 47 yrs Sex: Male : 1970 Arrival Date: 02/04/2018 Time: 14:17 Bed 30 Private MD: Diagnosis: Abdominal tenderness;Diverticular disease of intestine;Diverticulitis of large intestine without perforation or abscess without bleeding-mild sigmoid Presentation: 02/04 14:18 Presenting complaint: Patient states: Abdominal pain for the past 3 days. He spoke with aj1 his doctor and got a Rx for antibiotics but the pain has only got worse. Reports nausea. Denies V/D. Denies fever. Transition of care: patient was not received from another setting of care. Onset of symptoms was February 01, 2018. Risk Assessment: Do you want to hurt yourself or someone else? Patient reports no desire to harm self or others. Initial Sepsis Screen: Does the patient meet any 2 criteria? No. Patient's initial sepsis screen is negative. Does the patient have a suspected source of infection? No. Patient's initial sepsis screen is negative. Care prior to arrival: None. 14:18 Method Of Arrival: [place] [facility] [place] 14:18 Acuity: SAMI 3 aj1 Triage Assessment: 14:22 General: Appears in no apparent distress. uncomfortable, Behavior is calm, cooperative, aj1 appropriate for age. Pain: Complains of pain in suprapubic area and right lower quadrant Pain does not radiate. Pain currently is 10 out of 10 on a pain scale. Neuro: Level of Consciousness is awake, alert, obeys commands. Cardiovascular: Patient's skin is warm and dry. Respiratory: Airway is patent Respiratory effort is even, unlabored, Respiratory pattern is regular, symmetrical. GI: Abdomen is non-distended, Reports lower abdominal pain, nausea, Patient currently denies diarrhea, vomiting. Historical: - Allergies: 14:22 No Known Allergies; aj1 - Home Meds: 14:22 Nexium 40 mg Oral cpDR 1 cap once daily [Active]; aj1 - PMHx: 14:22 High Cholesterol; Diverticulitis; chronic pancreatitis; aj1 - PSHx: 14:22 Cholecystectomy; Appendectomy; saliva gland surgery; left hip replacement; aj1 - Immunization history:: Flu vaccine status is unknown. - Social history:: Smoking status: Patient/guardian denies using tobacco. - Ebola Screening: : Patient denies travel to an Ebola-affected area in the 21 days before illness onset. - Family history:: not pertinent. Screenin:49 Abuse screen: Denies threats or abuse. Denies injuries from another. Nutritional ch screening: No deficits noted. Tuberculosis screening: No symptoms or risk factors identified. Fall Risk None identified. Assessment: 14:49 Reassessment: Patient appears in no apparent distress at this time. Patient and/or ch family updated on plan of care and expected duration. Pain level reassessed. Patient is alert, oriented x 3, equal unlabored respirations, skin warm/dry/pink. General: Appears in no apparent distress. uncomfortable. Pain: Complains of pain in suprapubic area, right lower quadrant and left lower quadrant Pain currently is 9 out of 10 on a pain scale. Pain began gradually. Neuro: No deficits noted. Cardiovascular: No deficits noted. Respiratory: Airway is patent Respiratory effort is even, unlabored, Breath sounds are clear bilaterally. GI: Abdomen is round non-distended, Bowel sounds present X 4 quads. hyperactive in abdomen diffusely Abd is soft X 4 quads Abdomen is tender to palpation in right lower quadrant, left lower quadrant and abdomen diffusely Reports lower abdominal pain, constipation, diarrhea, nausea. : No signs and/or symptoms were reported regarding the genitourinary system. Derm: Skin is pink, warm \T\ dry. 17:08 Reassessment: Patient appears in no apparent distress at this time. Patient and/or mg2 family updated on plan of care and expected duration. Pain level reassessed. Patient is alert, oriented x 3, equal unlabored respirations, skin warm/dry/pink. 17:29 Reassessment: patient is for discharge but he is still on antibiotic. mg2 Vital Signs: 14:22 BP 117 / 84; Pulse 80; Resp 18; Temp 98.6; Pulse Ox 95% on R/A; Weight 88.45 kg (R); aj1 Height 5 ft. 6 in. (167.64 cm) (R); Pain 10/10; 15:34 BP 117 / 71; Pulse 68; Resp 18; Pulse Ox 100% on R/A; mg2 17:07 BP 119 / 64; Pulse 62; Resp 18; Pulse Ox 100% on R/A; Pain 3/10; mg2 14:22 Body Mass Index 31.47 (88.45 kg, 167.64 cm) aj1 ED Course: 14:17 Patient arrived in ED. mr 14:20 Triage completed. aj1 14:22 Arm band placed on Patient placed in an exam room. aj1 14:38 Bryanna Fernandez, MAT is Primary Nurse. ch 14:43 Malachi Rosenberg MD is Attending Physician. don 14:49 Patient has correct armband on for positive identification. Placed in gown. Bed in low ch position. Call light in reach. Side rails up X 1. Adult w/ patient. Pulse ox on. NIBP on. Warm blanket given. 14:49 No provider procedures requiring assistance completed. Inserted saline lock: 18 gauge ch in left forearm, using aseptic technique. Blood collected. 16:42 CT completed. Patient moved to CT via wheelchair. Patient moved back from CT. cw1 16:43 CT Abd/Pelvis - W/Contrast In Process Unspecified. EDMS 17:08 Elissa Gilman MD is Referral Physician. don 17:55 IV discontinued, intact, bleeding controlled, No redness/swelling at site. Pressure mg2 dressing applied. Administered Medications: 15:02 Drug: NS 0.9% 1000 ml Route: IV; Rate: 1 bolus; Site: left forearm; lp1 17:57 Follow up: Response: No adverse reaction; IV Status: Completed infusion mg2 15:02 Drug: Zofran 4 mg Route: IVP; Site: left forearm; lp1 17:57 Follow up: Response: No adverse reaction; Marked relief of symptoms mg2 15:11 Drug: Dilaudid 1 mg Route: IVP; Site: left forearm; mg2 17:56 Follow up: Response: No adverse reaction; Marked relief of symptoms mg2 15:12 Drug: Flagyl 500 mg Volume: 100 ml; Route: IVPB; Rate: 200 ml/hr; Infused Over: 30 mg2 mins; Site: left forearm; 17:56 Follow up: Response: No adverse reaction; IV Status: Completed infusion mg2 15:43 Drug: LevaQUIN 750 mg Volume: 150 ml; Route: IVPB; Infused Over: 90 mins; Site: left mg2 forearm; 17:57 Follow up: Response: No adverse reaction; IV Status: Completed infusion mg2 17:22 Drug: Rocephin - (cefTRIAXone) 1 grams Route: IVPB; Infused Over: 30 mins; Site: left mg2 forearm; 17:56 Follow up: Response: No adverse reaction; IV Status: Completed infusion mg2 17:28 Drug: Dilaudid 1 mg Route: IVP; Site: left forearm; mg2 17:56 Follow up: Response: No adverse reaction; Marked relief of symptoms mg2 Outcome: 17:08 Discharge ordered by . don 17:55 Discharged to home ambulatory, with family. mg2 17:55 Condition: good 17:55 Discharge instructions given to patient, family, Instructed on discharge instructions, follow up and referral plans. medication usage, Demonstrated understanding of instructions, follow-up care, medications, Prescriptions given X 4. 17:57 Patient left the ED. mg2 Signatures: Dispatcher [employer] EDBryanna Bello, MAT RN Zulma Sands RN RN aj1 Malachi Rosenberg MD MD cha Rivera, Maria mr Ryder, Anita cw1 Sheila Ayon RN RN lp1 Jamie James RN RN mg2
--- NOTE | 2018-02-04 17:09 | EDPHYS ---
Physician Documentation [facility] Name: Damian Lee Age: 47 yrs Sex: Male : 1970 Arrival Date: 02/04/2018 Time: 14:17 Bed 30 Private MD: ED Physician Malachi Rosenberg HPI: 02/04 15:12 This 47 yrs old Male presents to ER via Ambulatory with complaints of don Abdominal Pain. 15:12 The patient presents with abdominal pain in the lower abdomen. Onset: The don symptoms/episode began/occurred 3 day(s) ago. The symptoms do not radiate. Associated signs and symptoms: none. The symptoms are described as crampy, sharp. Modifying factors: The symptoms are alleviated by nothing, the symptoms are aggravated by. Severity of pain: At its worst the pain was mild moderate in the emergency department the pain is unchanged. The patient has experienced similar episodes in the past, a few times. Historical: - Allergies: 14:22 No Known Allergies; aj1 - Home Meds: 14:22 Nexium 40 mg Oral cpDR 1 cap once daily [Active]; aj1 - PMHx: 14:22 High Cholesterol; Diverticulitis; chronic pancreatitis; aj1 - PSHx: 14:22 Cholecystectomy; Appendectomy; saliva gland surgery; left hip replacement; aj1 - Immunization history:: Flu vaccine status is unknown. - Social history:: Smoking status: Patient/guardian denies using tobacco. - Ebola Screening: : Patient denies travel to an Ebola-affected area in the 21 days before illness onset. - Family history:: not pertinent. ROS: 15:12 Constitutional: Negative for fever, chills, and weight loss, Eyes: Negative for injury, don pain, redness, and discharge, ENT: Negative for injury, pain, and discharge, Neck: Negative for injury, pain, and swelling, Cardiovascular: Negative for chest pain, palpitations, and edema, Respiratory: Negative for shortness of breath, cough, wheezing, and pleuritic chest pain, Back: Negative for injury and pain, : Negative for injury, bleeding, discharge, and swelling, MS/Extremity: Negative for injury and deformity, Skin: Negative for injury, rash, and discoloration, Neuro: Negative for headache, weakness, numbness, tingling, and seizure, Psych: Negative for depression, anxiety, suicide ideation, homicidal ideation, and hallucinations, Allergy/Immunology: Negative for hives, rash, and allergies, Endocrine: Negative for neck swelling, polydipsia, polyuria, polyphagia, and marked weight changes, Hematologic/Lymphatic: Negative for swollen nodes, abnormal bleeding, and unusual bruising. 15:12 Abdomen/GI: Positive for abdominal pain, of the right lower quadrant and left lower quadrant. Exam: 15:12 Constitutional: This is a well developed, well nourished patient who is awake, alert, don and in no acute distress. Head/Face: Normocephalic, atraumatic. Eyes: Pupils equal round and reactive to light, extra-ocular motions intact. Lids and lashes normal. Conjunctiva and sclera are non-icteric and not injected. Cornea within normal limits. Periorbital areas with no swelling, redness, or edema. ENT: Nares patent. No nasal discharge, no septal abnormalities noted. Tympanic membranes are normal and external auditory canals are clear. Oropharynx with no redness, swelling, or masses, exudates, or evidence of obstruction, uvula midline. Mucous membranes moist. Neck: Trachea midline, no thyromegaly or masses palpated, and no cervical lymphadenopathy. Supple, full range of motion without nuchal rigidity, or vertebral point tenderness. No Meningismus. Chest/axilla: Normal chest wall appearance and motion. Nontender with no deformity. No lesions are appreciated. Cardiovascular: Regular rate and rhythm with a normal S1 and S2. No gallops, murmurs, or rubs. Normal PMI, no JVD. No pulse deficits. Respiratory: Lungs have equal breath sounds bilaterally, clear to auscultation and percussion. No rales, rhonchi or wheezes noted. No increased work of breathing, no retractions or nasal flaring. Back: No spinal tenderness. No costovertebral tenderness. Full range of motion. Male : Normal genitalia with no discharge or lesions. Skin: Warm, dry with normal turgor. Normal color with no rashes, no lesions, and no evidence of cellulitis. MS/ Extremity: Pulses equal, no cyanosis. Neurovascular intact. Full, normal range of motion. Neuro: Awake and alert, GCS 15, oriented to person, place, time, and situation. Cranial nerves II-XII grossly intact. Motor strength 5/5 in all extremities. Sensory grossly intact. Cerebellar exam normal. Normal gait. Psych: Awake, alert, with orientation to person, place and time. Behavior, mood, and affect are within normal limits. 15:12 Abdomen/GI: Inspection: abdomen appears normal, Bowel sounds: normal, Palpation: mild abdominal tenderness, moderate abdominal tenderness, in the suprapubic area, right lower quadrant and left lower quadrant, mass, is not appreciated, rebound tenderness, is not appreciated, voluntary guarding, is elicited in the suprapubic area and left lower quadrant. Vital Signs: 14:22 BP 117 / 84; Pulse 80; Resp 18; Temp 98.6; Pulse Ox 95% on R/A; Weight 88.45 kg (R); aj1 Height 5 ft. 6 in. (167.64 cm) (R); Pain 10/10; 15:34 BP 117 / 71; Pulse 68; Resp 18; Pulse Ox 100% on R/A; mg2 17:07 BP 119 / 64; Pulse 62; Resp 18; Pulse Ox 100% on R/A; Pain 3/10; mg2 14:22 Body Mass Index 31.47 (88.45 kg, 167.64 cm) aj1 MDM: 14:43 Patient medically screened. [facility] 15:12 Data reviewed: vital signs, nurses notes, lab test result(s), radiologic studies. [facility] 02/04 14:52 Order name: Amylase, Serum; Complete Time: 15:57 02/04 14:52 Order name: Basic Metabolic Panel; Complete Time: 15:57 02/04 14:52 Order name: CBC with Diff; Complete Time: 15:57 02/04 14:52 Order name: Creatinine for Radiology; Complete Time: 15:57 02/04 14:52 Order name: Hepatic Function; Complete Time: 15:57 02/04 14:52 Order name: Lipase; Complete Time: 15:57 02/04 14:52 Order name: Urine Microscopic Only; Complete Time: 16:46 02/04 14:58 Order name: CT Abd/Pelvis - W/Contrast; Complete Time: 17:07 02/04 16:11 Order name: Urine Dipstick--Ancillary (enter results); Complete Time: 16:46 02/04 14:52 Order name: IV Saline Lock; Complete Time: 14:58 02/04 14:52 Order name: Labs collected and sent; Complete Time: 14:58 02/04 14:52 Order name: Urine Dipstick-Ancillary (obtain specimen); Complete Time: 17:23 Administered Medications: 15:02 Drug: NS 0.9% 1000 ml Route: IV; Rate: 1 bolus; Site: left forearm; lp1 17:57 Follow up: Response: No adverse reaction; IV Status: Completed infusion mg2 15:02 Drug: Zofran 4 mg Route: IVP; Site: left forearm; lp1 17:57 Follow up: Response: No adverse reaction; Marked relief of symptoms mg2 15:11 Drug: Dilaudid 1 mg Route: IVP; Site: left forearm; mg2 17:56 Follow up: Response: No adverse reaction; Marked relief of symptoms mg2 15:12 Drug: Flagyl 500 mg Volume: 100 ml; Route: IVPB; Rate: 200 ml/hr; Infused Over: 30 mg2 mins; Site: left forearm; 17:56 Follow up: Response: No adverse reaction; IV Status: Completed infusion mg2 15:43 Drug: LevaQUIN 750 mg Volume: 150 ml; Route: IVPB; Infused Over: 90 mins; Site: [place] [facility] [place]; 17:57 Follow up: Response: No adverse reaction; IV Status: Completed infusion mg2 17:22 Drug: Rocephin - (cefTRIAXone) 1 grams Route: IVPB; Infused Over: 30 mins; Site[place] [facility] [place]; 17:56 Follow up: Response: No adverse reaction; IV Status: Completed infusion mg2 17:28 Drug: Dilaudid 1 mg Route: IVP; Site: left forearm; mg2 17:56 Follow up: Response: No adverse reaction; Marked relief of symptoms mg2 Disposition: 02/04/18 17:08 Discharged to Home. Impression: Abdominal tenderness, Diverticular disease of intestine, Diverticulitis of large intestine without perforation or abscess without bleeding - mild sigmoid. - Condition is Fair. - Discharge Instructions: Abdominal Pain, Adult, Diverticulitis, Diverticulitis, [id number], Abdominal Pain, Adult, [id number]. - Prescriptions for Bentyl 20 mg Oral Tablet - take 1 tablet by ORAL route every 6 hours As needed; 20 tablet. Flagyl 500 mg Oral Tablet - take 1 tablet by ORAL route 4 times per day for 10 days; 40 tablet. Levaquin 750 mg Oral Tablet - take 1 tablet by ORAL route once daily for 10 days; 10 tablet. Zofran 4 mg Oral Tablet - take 1 tablet by ORAL route every 12 hours As needed; 14 tablet. - Medication Reconciliation Form, Thank You Letter, Antibiotic Education, Prescription Opioid Use form. - Follow up: Private Physician; When: 2 - 3 days; Reason: Recheck today's complaints, Continuance of care, Re-evaluation by your physician. Follow up: Elissa Gilman; When: 2 - 3 days; Reason: Recheck today's complaints, Re-evaluation by your physician. - Problem is new. - Symptoms have improved. Signatures: Dispatcher [employer] EDMS Bryanna Fernandez, RN RN Zulma Sands RN RN aj1 Malachi Rosenberg MD MD cha Williams, Irene RN RN iw Sheila Ayon RN RN lp1 Jamie James RN RN mg2 Corrections: (The following items were deleted from the chart) 17:57 17:08 02/04/2018 17:08 Discharged to Home. Impression: Abdominal tenderness; mg2 Diverticular disease of intestine; Diverticulitis of large intestine without perforation or abscess without bleeding - mild sigmoid. Condition is Fair. Discharge Instructions: Abdominal Pain, Adult, Diverticulitis, Diverticulitis, [id number], Abdominal Pain, Adult, [id number]. Prescriptions for Bentyl 20 mg Oral Tablet - take 1 tablet by ORAL route every 6 hours As needed; 20 tablet, Flagyl 500 mg Oral Tablet - take 1 tablet by ORAL route 4 times per day for 10 days; 40 tablet, Levaquin 750 mg Oral Tablet - take 1 tablet by ORAL route once daily for 10 days; 10 tablet, Zofran 4 mg Oral Tablet - take 1 tablet by ORAL route every 12 hours As needed; 14 tablet. and Forms are Medication Reconciliation Form, Thank You Letter, Antibiotic Education, Prescription Opioid Use. Follow up: Private Physician; When: 2 - 3 days; Reason: Recheck today's complaints, Continuance of care, Re-evaluation by your physician. Follow up: Elissa Gilman; When: 2 - 3 days; Reason: Recheck today's complaints, Re-evaluation by your physician. Problem is new. Symptoms have improved. don
[2018-02-04] MEDS ORDERED: CEFTRIAXONE 1000 MG/VIAL ONE (17:20)
[2018-02-04 18:06] VITALS: TEMP 98.6
[2018-02-04 18:07] VITALS: O2SAT 100
[2018-02-04 18:08] VITALS: BP 119/64
== END 2018-02-04 17:57 | disposition home or self-care (01) ==
LOC: ER 14:14
DX: K57.32 Diverticulitis of large intestine without perforation or abscess without bleeding (principal)
CPT/HCPCS: 36415; 74177; 80048; 80076; 81003; 81015; 82150; 83690; 85025; 96361; 96365; 96366; 96367; 96368; 96375; 99284; J1170; J2405; J7030; Q9967

== ENCOUNTER 2018-05-19 17:34 | Observation (INO) | payer BC, SELFPAY ==
--- OUTSIDE RECORDS SUMMARY | 2018-05-19 17:36 | XMS REPORT | Clinical Summary ---
:1970 Author Organization [facility] Address [address] [place] [address] Care Team Providers Name Role Phone Asked, No Pcp Primary Care Provider Unavailable Allergies Active Allergy Reactions Severity Noted Date Comments No Known Drug Allergies 12/23/2016 Medications Medication Sig Dispensed Refills Start Date End Date Status esomeprazole [...] Care Team Description 10/02/2017 Office Visit Cardiology [place] Precordial pain (Primary Dx); Jose Shaffer MD 09/18/2017 Telephone Cardiology [place] (requesting MAT [place] earlier appointment for c/o chest pain) 07/07/2017 Hospital Encounter Radiology Charlie Ramirez Status post total replacement of left hip; Kae LORENZO MD Left hip pain 07/05/2017 Lab Lab Charlie Ramirez Left hip pain Kae LORENZO MD 07/05/2017 Office Visit Orthopedic Surgery Charlie Ramirez Status post total replacement of left hip (Primary Dx); Kae LORENZO MD Left hip pain 06/23/2017 Anesthesia Event Gastroenterology Gaetano Haywood MD 06/23/2017 Surgery Gastroenterology [place], PANCREACTIC EUS Jose Elisa Quiroga MD 06/23/2017 Hospital Encounter Gastroenterology [place], Chronic hip pain, Jose Elias Quiroga MD unspecified laterality (Primary Dx) 06/06/2017 Telephone Gastroenterology Bryanna Ayon MA 06/06/2017 [...] pain 05/19/2017 Office Visit Orthopedic Surgery Charlie Ramirez Status post total replacement of left hip (Primary Dx); Kae LORENZO MD Primary osteoarthritis of left hip after 05/18/2017 Family History Medical History Relation Name Comments [...] Assigned at Date Recorded Not on file Job Start Date Occupation Industry Not on file Not on file Not on file Travel History Travel Start Travel End No recent travel history available. Last Filed Vital Signs Vital Sign Reading Time Taken Blood Pressure 132/75 10/02/2017 11:46 AM CDT Pulse 67 10/02/2017 11:46 AM CDT Temperature 37 C (98.6 F) 06/23/2017 11:05 AM R DEVELOPER Respiratory Rate 16 10/02/2017 11:46 AM CDT Oxygen Saturation 98% 06/23/2017 11:40 AM R DEVELOPER Inhaled Oxygen Concentration - - Weight 94.3 kg (208 lb) 10/02/2017 11:46 AM CDT Height 167.6 cm (5' 6") 10/02/2017 11:46 AM CDT Body Mass Index 33.57 10/02/2017 11:46 AM CDT Plan of Treatment Health Maintenance Due Date Last Done Comments MMR VACCINES (1 of 1 - Standard 1969 series) VARICELLA VACCINES (1 of 2 - 2-dose 1981 adolescent series) INFLUENZA VACCINE 01/31/2018 HEPATITIS B VACCINES Aged Out No longer eligible based on patient's age to complete this topic IPV VACCINES Aged Out No longer eligible based on patient's age to complete this topic MENINGOCOCCAL VACCINE Aged Out No longer eligible based on patient's age to complete this topic Implants 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 Device Shelf Model / Identifier Expiration Serial / Lot Date Shell Actblr Sector W/ Gription 52mm [place] - [id number] Hip Joint Left: DEPUY 06/01/2026 [id number] / Implanted: Qty: 1 on 11/03/2016 by Charlie Ramirez II, MD Implants Hip ORTHO-KNEES / [id number] Altrex Poly Acet 36mm X 52mm Neutral Liner - [id number] IPM IMPLANT Left: DEPUY 07/02/2021 [id number] 36 052 / Implanted: Qty: 1 on 11/03/2016 by Charlie Ramirez II, MD DEVICES Hip ORTHOP[employer] [id number] [place] Hip System Femoral Stems Size 5 [place] Standard Offset 06/15 Taper - [id number] [id number] IMPLANT Left: DEPUY 08/30/2026 1570 01 110 / Implanted: Qty: 1 on 11/03/2016 by Charlie Ramirez II, MD DEVICES Hip ORTHOP[employer] [id number] [place] Fracture System Biolox Delta Ceramic Femoral Heads Size 36 +1.5 Mm Articul/Delio 06/15 Taper Ceramic Femoral Heads - [id number] [id number] IMPLANT Left: DEPUY 08/30/2021 1365 36 310 / Implanted: Qty: 1 on 11/03/2016 by Charlie Ramirez II, MD DEVICES Hip [employer]OP[employer] [id number] Procedures Procedure Name Priority Date/Time Associated Diagnosis Comments LIPID PANEL Routine 10/02/2017 12:09 Precordial pain Results for this PM CDT Palpitations procedure are in the results section. ECG 12-LEAD Routine 10/02/2017 11:48 Precordial pain Results for this AM CDT procedure are in the results section. MRI LOWER EXTREMITY Routine 07/07/2017 12:12 Status post total Results for this JOINT WO CONTRAST LEFT PM R DEVELOPER replacement of left procedure are in hip the results Left hip pain section. C-REACTIVE PROTEIN Routine 07/05/2017 11:17 Left hip pain Results for this AM R DEVELOPER procedure are in the results section. SEDIMENTATION RATE Routine 07/05/2017 11:17 Left hip pain Results for this AM R DEVELOPER procedure are in the results section. US UPPER GI TRACT, 06/23/2017 10:00 Pancreatitis, ENDOSCOPIC AM R DEVELOPER recurrent CA ARTHROCENTESIS Routine 06/13/2017 8:33 Status post total Results for this ASPIR&/INJ MAJOR AM R DEVELOPER replacement of left procedure are in JT/BURSA W/O US hip the results section. COMPREHENSIVE Routine 06/01/2017 10:32 Chronic pancreatitis, Results for this METABOLIC PANEL AM R DEVELOPER unspecified procedure are in pancreatitis type the results Epigastric pain section. CBC WITH PLATELET AND Routine 06/01/2017 10:32 Chronic pancreatitis, Results for this DIFFERENTIAL AM R DEVELOPER unspecified procedure are in pancreatitis type the results Epigastric pain section. LIPASE LEVEL Routine 06/01/2017 10:32 Chronic pancreatitis, Results for this AM R DEVELOPER unspecified procedure are in pancreatitis type the results Epigastric pain section. AMYLASE LEVEL Routine 06/01/2017 10:32 Chronic pancreatitis, Results for this AM R DEVELOPER unspecified procedure are in pancreatitis type the results Epigastric pain section. PANCREATIC ELASTASE, Routine 06/01/2017 10:32 Chronic pancreatitis, Results for this FECAL AM R DEVELOPER unspecified procedure are in pancreatitis type the results Epigastric pain section. XR HIP 2-3 VIEWS LEFT Routine 05/19/2017 3:57 Status post total Results for this PM R DEVELOPER replacement of left procedure are in hip the results Primary section. osteoarthritis of left hip after 05/18/2017 Results Lipid panel (10/02/2017 12:09 PM CDT) Cholesterol, total 216 (H) <200 mg/dL [facility] HDL cholesterol 54 >40 mg/dL [facility] Triglycerides 68 <150 mg/dL [facility] LDL cholesterol 146 (H) mg/dL (calc) [facility] calculated Comment: [place] Reference range: <100 Desirable range <100 mg/dL for patients with CHD or diabetes and <70 mg/dL for diabetic patients with known heart disease. LDL-C is now calculated using the Tino calculation, which is a validated novel method providing better accuracy than the Friedewald equation in the estimation of LDL-C. Christian SS et al. CRESCENCIO. 2013;310(75): 6844-1470 (http://education.Secure Mentem/faq/CQY828) Cholesterol/HDL ratio 4.0 <5.0 (calc) [facility] Non-HDL cholesterol 162 (H) <130 mg/dL [employer] Comment: (calc) [place] For patients with diabetes plus 1 major ASCVD risk factor, treating to a non-HDL-C goal of <100 mg/dL (LDL-C of <70 mg/dL) is considered a therapeutic option. Specimen Blood Narrative Performed At FASTING:YES [facility] FASTING: YES Resulting Agency Comment Performing Organization Information: Site ID: [id number] Name: [facility] Address: [address] [place] [id number] Director: Ai Warren MD Performing Organization Address [facility] Phone Number [employer] [place] [phone] ECG 12 lead (10/02/2017 11:48 AM CDT) Ventricular rate 68 [facility] Atrial rate 68 [facility] CA interval 148 [facility] QRSD interval 72 [facility] QT interval 390 [facility] QTC interval 414 [facility] P axis 1 38 [facility] QRS axis 1 66 [facility] T wave axis 56 [facility] EKG impression Normal sinus rhythm-Early [facility] MUSE repolarization-Normal ECG-No previous ECGs available- Performing Organization Address [facility] Centercode Phone Number [facility] MUSE [address] [place] [address] MRI Lower Extremity Joint Wo Contrast Left (07/07/2017 12:12 PM R DEVELOPER) Narrative Performed At EXAMINATION:MRI LOWER EXTREMITY JOINT WO CONTRAST LEFT [facility] CLINICAL HISTORY:Z96.642 Presence of left artificial [...] signal show no evidence of acute fracture. [facility]-[id number] Procedure Note Interface, Radiology Results [facility] - 07/07/2017 12:28 PM R DEVELOPER EXAMINATION: MRI LOWER EXTREMITY JOINT WO CONTRAST [...] signal show no evidence of acute fracture. [facility]-[id number] Performing Organization Address City/State/Zipcode Phone Number [facility] [address] [place] [address] Sedimentation rate (07/05/2017 11:17 AM R DEVELOPER) Sedimentation rate < OR=15 mm/h [employer] [place] Specimen Blood Resulting Agency Comment Performing Organization Information: Site ID: [id number] Name: [facility] Address: [address] [place] [phone] Director: Ai Warren MD Performing Organization Address [facility] [place] Phone Number [place] Ofelia Feliz [facility] [address] [place] [id number] C-reactive protein (07/05/2017 11:17 AM R DEVELOPER) CRP <8.0 mg/L [facility] [place] Specimen Blood Resulting Agency Comment Performing Organization Information: Site ID: [id number] Name: [facility] Address: [address] [place] [phone] Director: Ai Warren MD Performing Organization Address [facility] [place] Phone [place] [address] Large Joint Arthrocentesis (06/13/2017 8:33 AM R DEVELOPER) Narrative Performed At Charlie Ramirez II, MD [...] immediate complications Pancreatic elastase, fecal (06/01/2017 10:32 AM R DEVELOPER) Pancreatic Elastase-1 [employer] Comment: [facility] * Test not performed.* * No suitable specimen received. * Specimen Stool Resulting Agency Comment Performing Organization Information: Site ID: [id number] Name: [facility], Address: [address] [place] [id number] Director: Jeovany Mackay MD,PhD Performing Organization Address City/State/Zipcode Phone Number [facility] [address] [place] [address] [facility] CBC with platelet and differential (06/01/2017 10:32 AM R DEVELOPER) WBC 3.8 - 10.8 Thousand/uL [employer] [place] RBC 4.20 - 5.80 Million/uL [facility] [place] HGB 13.2 - 17.1 g/dL [facility] [place] HCT 38.5 - 50.0 % [facility] [place] MCV 80.0 - 100.0 fL [employer] [facility] [place] MCH 27.0 - 33.0 pg [facility] [place] MCHC 32.0 - 36.0 g/dL [facility] [place] RDW 11.0 - 15.0 % [facility] [place] Platelet count 140 - 400 Thousand/uL [employer] [facility] [place] MPV 7.5 - 12.5 fL [facility] [place] Neutrophils, absolute 1,500 - 7,800 cells/uL [employer] [facility] [place] Lymphocytes, absolute 850 - 3,900 cells/uL [facility] [facility] [place] Monocytes, absolute 200 - 950 cells/uL [facility] [place] Eosinophils, absolute 15 - 500 cells/uL [facility] [facility] [place] Basophils, absolute 0 - 200 cells/uL [facility] [place] Neutrophils % [facility] [facility] [place] Lymphocytes % [facility] [place] Monocytes % [facility] [place] Eosinophils % [employer] [facility] [place] Basophils + RC % [employer] [facility] [place] Specimen Blood Resulting Agency Comment Performing Organization Information: Site ID: [id number] Name: [facility] Address: [address] [place] [phone] Director: Ai Warren MD Performing Organization Address [facility] Centercode Phone [place] [address] Lipase level (06/01/2017 10:32 AM R DEVELOPER) Lipase 7 - 60 U/L [employer] [facility] [place] Specimen Blood Resulting Agency Comment Performing Organization Information: Site ID: [id number] Name: [facility] Address: [address] [place] [phone] Director: Ai Warren MD Performing Organization Address [facility] Centercode Phone Number [employer] [address] [address] Amylase level (06/01/2017 10:32 AM R DEVELOPER) Amylase 21 - 101 U/L [employer] [facility] [place] Specimen Blood Resulting Agency Comment Performing Organization Information: Site ID: [id number] Name: [email or web address] Address: [address] [place] [phone] Director: Ai Warren MD Performing Organization Address [facility] Centercode Phone Number [employer] [place] [address] [place] [phone] Comprehensive metabolic panel (06/01/2017 10:32 AM R DEVELOPER) Glucose 65 - 99 mg/dL [facility] Comment: [place] Fasting reference interval BUN, whole blood 7 - 25 mg/dL [facility] [place] Creatinine 0.60 - 1.35 mg/dL [facility] [place] EGFR Non-Afr. Burmese > OR=60 [facility] mL/min/1.73m2 [place] EGFR > OR=60 [facility] mL/min/1.73m2 [place] BUN/creatinine ratio 6 - 22 (calc) [facility] [place] Sodium 135 - 146 mmol/L [facility] [place] Potassium 3.5 - 5.3 mmol/L [facility] [place] Chloride 98 - 110 mmol/L [facility] [place] CO2 20 - 31 mmol/L [facility] [place] Calcium 8.6 - 10.3 mg/dL [facility] [place] Protein 6.1 - 8.1 g/dL [facility] [place] Albumin, S 3.6 - 5.1 g/dL [facility] [place] Globulin, total 1.9 - 3.7 g/dL [facility] (calc) [place] Albumin/globulin ratio 1.0 - 2.5 (calc) [facility] [place] Total bilirubin 0.2 - 1.2 mg/dL [facility] [place] Alkaline phosphatase 40 - 115 U/L [facility] [place] AST 10 - 40 U/L [facility] [place] ALT 9 - 46 U/L [facility] [place] Specimen Blood Resulting Agency Comment Performing Organization Information: Site ID: [id number] Name: [facility] Address: [address] [place] [phone] Director: Ai Warren MD Performing Organization Address [facility] Centercode Phone Number [employer] [place] [address] [place] [phone] XR Hip 2-3 View Left (05/19/2017 3:57 PM R DEVELOPER) Narrative Performed At Standard components spanning a screw holes which had begun to fill in HM [facility] significantly from a lateral sideplate and cross screws.No evidence of subsidence, loosening. Performing Organization Address City/State/Zipcode Phone Number [place] [facility] [address] [place] [address] after 05/18/2017 Insurance Payer Benefit Plan / Group Subscriber ID Type Phone Address BCBS BCBS CHOICE PPO/F[employer]ERAL EMPL PPO xxxxxxxxxxxx PPO A (Home) [place] [address] Damian Lee Personal/Family Self [address] [place] [address] ([place]) [place] [address] Advance Directives Patient has advance care planning documents on file. For more information, please contact:Shantanu Griffin[address] [place] [address]
--- OUTSIDE RECORDS SUMMARY | 2018-05-19 17:37 | XMS REPORT | Continuity of Care Document ---
:1970 Author Organization Interface Problems Problem Status Onset Classification Date Comments Source Date Reported GENERALIZED Active 08/17/19 [facility] WEAKNESS, FATIGUE 17 Charanjit CP Active 08/17/19 [facility] [place] GENERALIZED Active 08/17/19 [facility] WEAKNESS, 17 [place] FATIGUE, ATAXIA GENERALIZED Active 08/17/19 [facility] WEAKNESS, 17 [place] FATIGUE, ATAXIA Chronic Resolved Problem 09/08/2016 [facility] pancreatitis Chloé,M H Chloé Diverticulitis Resolved Problem 09/08/2016 [facility] ChloéM H Chloé Hyperlipidemia Resolved Problem 09/08/2016 [facility] Chloé,M H Chloé WEAKNESS Active [facility] [place] OTHER FATIGUE Active [facility] Charanjit ATAXIA, Active [facility] UNSPECIFIED Charanjit Medications Medication Details Route Status Patient Ordering Order Source Instructions Provider Date Morphine 2 mg, 1 mL, Inactive 08/23/ MH Route: IVP, Drug 2016 [place] form: INJ, ONCE, Dosing Weight 84.727, kg, Start date: 08/22/16 20:57:00 FIELD HAND, Stop date: 08/22/16 20:57:00 CSTNotes: (Same as:MORPhine Sulfate) ketOROLAC 15 15 mg, 1 mL, Inactive MH mg/mL Route: IVP, Drug 2016 [place] injectable form: INJ, ONCE, solution Dosing Weight 84.727, kg, Start date: 08/22/16 11:32:00 FIELD HAND, Stop date: 08/22/16 11:32:00 CSTNotes: (Same as:Toradol) IV bolus must be given >15 seconds. Give IM administration slowly and deeply into the muscle. Not for use > 4 days. ketOROLAC 15 15 mg, 1 mL, Inactive 08/21/ MH mg/mL Route: IM, Drug 2016 [place] injectable form: INJ, ONCE, solution Dosing Weight 84.727, kg, Priority: NOW, Start date: 08/21/16 14:54:00 FIELD HAND, Stop date: 08/21/16 14:54:00 CSTNotes: (Same as:Toradol) IV bolus must be given >15 seconds. Give IM administration slowly and deeply into the muscle. Not for use > 4 days. Ativan 4 mg, 2 mL, Inactive Route: IVP, Drug 2016 [place] form: INJ, ONCE, Dosing Weight 84.727, kg, PRN Anxiety, Start date: 08/20/16 12:21:00 CSTNotes: (Same as: Ativan) Vitamin B-12 100 microgram=1 Active 100 mcg oral tab, PO, Daily, 2016 [place] tablet # 30 tab, 0 Refill(s) Vitamin B12 1,000 microgram, Inactive 1 mL, Route: IM, 2016 [place] Drug form: INJ, ONCE, Dosing Weight 84.727, kg, Priority: STAT, Start date: 08/20/16 8:38:00 FIELD HAND, Stop date: 08/20/16 8:38:00 CSTNotes: (Same As: Vitamin B12) Ativan 4 mg, 2 mL, Inactive Route: IV, Drug 2016 [place] form: INJ, ONCE, Dosing Weight 84.727, kg, PRN Procedure, Priority: STAT, Start date: 08/19/16 15:20:00 CSTNotes: (Same as: Ativan) Ativan 2 mg, 1 mL, Inactive Route: IVP, Drug 2016 [place] form: INJ, ONCE, Dosing Weight 84.727, kg, PRN Anxiety, Start date: 08/18/16 10:55:00 CSTNotes: (Same as: Ativan) Protonix 40 mg, 1 tab, No Longer Route: PO, Drug Active 2016 [place] form: ECTAB, Daily, Start date: 08/18/16 9:00:00 FIELD HAND, Duration: 30 day, Stop date: 09/16/16 9:00:00 CDTNotes: Tablet should not be chewed or crushed. (Same as: Protonix) Esomeprazole 40 mg, Route: Inactive PO, Drug form: 2016 [place] ECCAP, Daily, Dosing Weight 84.727, kg, Start date: 08/18/16 9:00:00 FIELD HAND, Duration: 30 day, Stop date: 09/16/16 9:00:00 CDT tramadol 50 mg, 1 tab, No Longer hydrochloride Route: PO, Drug Active 2016 [place] 50 MG Oral form: TAB, Q8H, Tablet Dosing Weight 84.727, kg, PRN Pain Score 4-6, Start date: 08/18/16 2:40:00 FIELD HAND, Duration: 30 day, Stop date: 09/17/16 2:39:00 CDTNotes: Not to exceed 400mg/day. (Same As: Ultram) tramadol 50 mg=1 tab, PO, Active hydrochloride Q8H, PRN Pain, # 2017 [place] 50 MG Oral 60 tab, 0 Tablet Refill(s) Esomeprazole 40 40 mg=1 cap, PO, Active MG Enteric Daily, # 30 cap, 2017 [place] Coated Capsule 0 Refill(s) Aspirin 81 mg, 1 tab, No Longer Route: PO, Drug Active 2016 [place] form: ECTAB, Q24H, kg, Start date: 08/17/16 21:00:00 FIELD HAND, Duration: 30 day, Stop date: 09/15/16 21:00:00 CDTNotes: Do not crush or chew. (Same As: Ecotrin) sodium chloride 1,000 mL, Rate: No Longer 0.9% 1000 ml 100 ml/hr, Active 2016 [place] INJ 1,000 mL Infuse over: 10 hr, Route: IV, Total Volume: 1,000, Start date: 08/17/16 20:28:00 FIELD HAND, Duration: 30 day, Stop date: 09/16/16 20:27:00 CDT Ondansetron 4 mg, 2 mL, No Longer Route: IVP, Drug Active 2016 [place] form: INJ, Q6H, kg, PRN Nausea & Vomiting, Start date: 08/17/16 20:23:00 FIELD HAND, Duration: 30 day, Stop date: 09/16/16 20:22:00 CDTNotes: (Same as: Zofran) MEDICATION WASTE Product Size: 4 mg Product Wasted: ___ mg Acetaminophen 650 mg, 2 tab, No Longer Route: PO, Drug Active 2016 [place] form: TAB, Q4H, kg, PRN Pain 1-3/Temp > 100.4 F, Start date: 08/17/16 20:23:00 FIELD HAND, Duration: 30 day, Stop date: 09/16/16 20:22:00 CDTNotes: Do not exceed 4 gm/day. (Same as: Tylenol) Acetaminophen 1 tab, Route: No Longer 300 MG / PO, Drug Form: Active 2016 [place] Codeine TAB, kg, Q4H, Phosphate 30 MG PRN Pain Score Oral Tablet 4-6, Start date: [Tylenol with 08/17/16 Codeine #3] 20:23:00 FIELD HAND, Duration: 30 day, Stop date: 09/16/16 20:22:00 CDTNotes: Do not exceed 4gm/day of acetaminophen. (Same as: Tylenol with Codeine # 3) Allergies, Adverse Reactions, Alerts Substance Category Reaction Severity Reaction Status Date Comments Source type Reported Immunizations Immunization Date Given Site Status Last Updated Comments Source Results Order Name Results Value Reference Date Interpretation Comments Source Range Brain/Neck Brain/Neck CTA NECK AND BRAIN WITH CONTRAST 09/05 OPI CTA CTA /2016 - [place] INDICATION: Gait disturbance ct dose dlp 599.17 [...] are patent. 2. Unremarkable CTA of the [place]. No cerebral aneurysms are identified. The aneurysms described in the preceding MRA, were probably artifactual, related to extensive motion artifact in that study. SL:16 B[place] RBC CSF 643 /mm3 0 - 03 08/22 [place] BODY FLUIDS Color CSF Colorless Colorless 08/22 [place] (08/22/16 1:05 PM) BODY FLUIDS WBC CSF 1 /mm3 0 - 53 08/22 [place] BODY FLUIDS Clarity CSF Clear Clear 08/22 [place] (08/22/16 1:05 PM) BODY FLUIDS Supernat CSF Colorless Colorless 08/22 [place] (08/22/16 1:05 PM) BODY FLUIDS Tube Num CSF 3 08/22 [place] BODY FLUIDS LDH CSF 27 unit/L 08/22 [place] BODY FLUIDS Protein CSF 51 mg/dL 15 - 45 08/22 [place] BODY FLUIDS Glucose CSF 49 mg/dL 45 - 80 08/22 [place] FUNGAL - Crypto Ag Negative Negative 08/22 SEROLOGY CSF /2016 [place] (08/22/16 1:05 PM) IMMUNOLOGY VDRL Scr CSF Non Reactive Non 08/22 Reactive [place] (08/22/16 1:05 PM) IMMUNOLOGY Alb (CPE) 4100.0 3400.0 - 08/22 mg/dL 5000.0 [place] IMMUNOLOGY IgG Lvl CSF 3.5 mg/dL 2.0 - 4.0 08/22 [place] IMMUNOLOGY IgG Index 0.4 mg/dL 0.3 - 0.7 08/22 [place] IMMUNOLOGY IgG (CPE) 1020 mg/dL 694 - 1618 08/22 [place] IMMUNOLOGY Alb CSF 33.4 mg/dL 14.0 - 08/22 MH (CPE) 25.0 [place] IMMUNOLOGY Description The gel 08/22 CSF demonstrat [place] es appropriat e resolution of the main protein bands. The gamma region shows continuous distributi on of proteins both in the CSF and in the serum. No oligoclona l bands are detected. IMMUNOLOGY PE Interp CSF 08/22 CSF [place] electropho resis did not reveal evidence of an oligoclona l process in the FRONT WORKER. The CSF IgG index is within the [...] and concur with the resident's interpreta tion.CPT: 65065-PT VIRAL - Enterovirus Negative Negative 08/22 SEROLOGY PCR [place] (08/22/16 1:05 PM) Spine Spine lumbar Patient Name: PABLO HASTINGS 08/22 - [facility] lumbar puncture - [place] puncture w fluoro DX : 1970; Age: 45 years y/o Male fluoro DX MR: [id number] Read by: Fredi Mayo MD Dictated Date/time: [...] complications. IMPRESSION: Fluoroscopically guided lumbar puncture. SL: [id number] HEMATOLOGY aPTT 30.5 s 22.9 - 08/22 MH 35.8 /2017 [place] HEMATOLOGY PROTIME 12.4 s 12.0 - 08/22 MH 14.7 [place] HEMATOLOGY INR 0.91 0.85 - 08/22 MH 1.17 [place] ANEMIA Folate Lvl 12.3 ng/mL >=3.0 08/20 STUDY ng/mL /2016 [place] IMMUNOLOGY KADY Negative Negative 08/20 [place] (08/20/16 2:12 PM) IMMUNOLOGY Homocyst Tot 5.3 umol/L 3.7 - 13.9 08/20 [place] IMMUNOLOGY ACHr Mod Ab null 0 - 20 08/20 Result Comment: Negative: <21 Equivocal: 21 - 25 [place] Positive: >25 The assay is linear between values of 12 and 64. Those <12 and >64 are reported as such. No single value for ACR-modulating antibody should be used as a sole basis for diagnosis or response to therapy. Performed At: [address] [id number] John Mead MD Ph:[phone] IMMUNOLOGY ACHr Block 16 % 0 - 25 08/20 Result Comment: Negative: 0 - 25 Ab /2016 Borderline: 26 - 30 [place] Positive: >30 Results for this test are for research purposes only by the assay's wire welder. The performance characteristics of this product have not been established. Results should not be used as a diagnostic procedure without confirmation of the diagnosis by another medically established diagnostic product or procedure. Performed At: [address] [id number] John Mead MD Ph:[phone] IMMUNOLOGY ACHr Binding null 0.00 - 08/20 Result Comment: Negative: 0.00 - 0.24 Ab 0.24 Borderline: 0.25 - 0.40 [place] Positive: > 0.40 Performed At: [address] [id number] John Mead MD Ph:[phone] IMMUNOLOGY Beta % 11.5 REL % 7.8 - 13.7 08/20 [place] IMMUNOLOGY Alpha 1 % 3.6 REL % 2.8 - 4.9 02 MH /2016 [place] IMMUNOLOGY Alpha 2 % 8.2 REL % 7.0 - 11.9 08/20 MH /2016 [place] IMMUNOLOGY Alpha 2 Glob 0.57 g/dL 0.45 - 02 MH 1.00 /2016 [place] IMMUNOLOGY Alpha 1 Glob 0.25 g/dL 0.18 - 02 MH 0.41 /2017 [place] IMMUNOLOGY Albumin 4.22 g/dL 3.57 - 02 MH (SPE) 5.55 /2017 [place] IMMUNOLOGY Gamma % 15.5 REL % 11.1 - 02 MH 18.7 /2017 [place] IMMUNOLOGY Tot Prot 6.9 g/dL 6.4 - 8.4 08/20 MH (SPE) /2016 [place] IMMUNOLOGY Gamma Glob 1.07 g/dL 0.71 - 08/20 MH 1.57 [place] IMMUNOLOGY Beta Glob 0.79 g/dL 0.50 - 08/20 MH 1.15 [place] IMMUNOLOGY SPE Interp Total 08/20 MH protein /2016 [place] and serum albumin levels are within reference ranges. All globulin fractions are present in a normal distributi on. No monoclonal proteins are identified . Serum capillary electropho resis is without significan t abnormalit ies.Interp retation performed at [facility]. IMMUNOLOGY Albumin % 61.2 REL % 55.8 - 08/20 MH 66.1 [place] IMMUNOLOGY Treponemal Non Reactive Non 08/20 Scr Reactive [place] *NA* (08/20/16 2:12 PM) METAL Copper Lvl 86 ug/dl 72 - 166 08/20 Result Comment: Detection Limit=5 /2016 Performed At: [facility] [address] [id number] John Mead MD Ph:[phone] SPECIAL Hgb A1C 5.6 % <=5.6 % 08/20 CHEMISTRY /2016 [place] Brain w/wo Brain w/wo Patient Name: PABLO HASTINGS 08/20 - [facility] contrast contrast MRI /2016 - [place] MRI : 1970; Age: 45 years y/o Male MR: [id number] Read by: Xavier Britt MD Dictated Date/time: 08/20/16 15:40 Electronically Signed by: Xavier Britt MD 08/20/16 15:47 FINAL REPORT Study: Brain w/wo contrast MRI 08/20/2016 12:17 PM FIELD HAND Ordering Physician: Mary Guerrero MD Clinical Indication: [...] Brain wo contrast MRA 08/20/2016 12:23 PM FIELD HAND - [facility] contrast contrast MRA /2016 - [place] MRA Patient Name: PABLO HASTINGS MR: [id number] Read by: Xavier Britt MD Dictated Date/time: 08/20/16 15:47 : 1970; Age: 45 years y/o Male Electronically Signed by: Xavier Britt MD 08/20/16 15:56 FINAL REPORT Ordering Physician: Mary Guerrero MD Clinical Indication: Generalized weakness. Absent reflexes. Comparison: None Technique: Magnetic resonance angiography of the [place] was performed without contrast. Three-dimensional rotational images were also prepared. FINDINGS: 1. Mild to moderate motion artifact. 2. Mild peripheral vascular attenuation and irregularity throughout the [place] likely represents a combination of [...] peripheral vascular irregularity and attenuation throughout the [place] likely related to a combination [...] Neck wo contrast MRA 08/20/2016 12:17 PM FIELD HAND 08/20 - [facility] contrast contrast MRA /2016 - Charanjit MRA Patient Name: PABLO HASTINGS MR: [id number] Read by: Xavier Britt MD Dictated Date/time: [...] could be obtained if clinically indicated. SL: TPAINTER-PC CHEM PANEL Ammonia 17.0 <=45.0 08/19 umol/L uMol/L /2016 [place] ELECTROLYTE AGAP 7.9 meq/L 10.0 - 08/19 MH S 20.0 [place] ELECTROLYTE eGFR 102 08/19 Result Comment: The [...] is not recommended in the following populations: [address] Individuals with unstable creatinine concentrations, including [...] 8.2 mg/dL 8.5 - 10.5 08/19 S [place] ELECTROLYTE CO2 30 meq/L 24 - 32 08/19 S [place] ELECTROLYTE Potassium 3.9 meq/L 3.5 - 5.1 08/19 S Lvl [place] ELECTROLYTE Creatinine 0.88 mg/dL 0.50 - 08/19 S Lvl 1.40 [place] ELECTROLYTE BUN 8 mg/dL 7 - 22 08/19 S [place] ELECTROLYTE Glucose Lvl 92 mg/dL 70 - 99 08/19 S [place] ELECTROLYTE Chloride Lvl 110 meq/L 95 - 109 08/19 S [place] ELECTROLYTE Sodium Lvl 144 meq/L 135 - 145 08/19 S [place] HEMATOLOGY Platelet 191 K/CMM 133 - 450 08/19 [place] HEMATOLOGY RDW 14.5 % 11.5 - 08/19 MH 14.5 [place] HEMATOLOGY MCHC 34.7 g/dL 32.0 - 08/19 MH 36.0 [place] HEMATOLOGY MCH 31.2 pg 27.0 - 08/19 MH 31.0 [place] HEMATOLOGY MCV 89.8 fL 80.0 - 08/19 MH 94.0 [place] HEMATOLOGY Hct 42.8 % 42.0 - 08/19 MH 54.0 [place] HEMATOLOGY Hgb 14.8 g/dL 14.0 - 08/19 MH 18.0 [place] HEMATOLOGY RBC X 10x6 4.76 M/CMM 4.70 - 08/19 MH 6.10 [place] HEMATOLOGY WBC X 10x3 6.5 K/CMM 3.7 - 10.4 08/19 [place] HEMATOLOGY MPV 8.5 fL 7.4 - 10.4 08/19 [place] HEMATOLOGY Segs 55.4 % 45.0 - 08/19 MH 75.0 [place] HEMATOLOGY Segs-Bands # 3.6 K/CMM 1.5 - 8.1 08/19 [place] HEMATOLOGY Basophils 0.6 % 0.0 - 1.0 08/19 [place] HEMATOLOGY Eosinophils 2.2 % 0.0 - 4.0 08/19 [place] HEMATOLOGY Monocytes 9.1 % 2.0 - 12.0 08/19 [place] HEMATOLOGY Lymphocytes 32.7 % 20.0 - 08/19 MH 40.0 [place] HEMATOLOGY Eosinophils 0.1 K/CMM 0.0 - 0.5 08/19 [place] HEMATOLOGY Monocytes # 0.6 K/CMM 0.0 - 0.8 08/19 [place] HEMATOLOGY Lymphocytes 2.1 K/CMM 1.0 - 5.5 08/19 [place] IMMUNOLOGY HIV 1/2 Ab Negative Negative 08/19 [place] *NA* (08/19/16 3:07 PM) IMMUNOLOGY RPR Non Reactive Non 08/19 Reactive [place] (08/19/16 3:07 PM) Spine Spine Study: Spine cervical wo contrast MRI 08/19 - [facility] cervical wo cervical wo - [place] contrast contrast MRI MRI Clinical Indication: Weakness [...] canal stenosis throughout the cervical spine. SL: [id number] ANEMIA Vitamin B12 297 pg/mL 254 - 1320 08/19 STUDY Lvl /2016 [place] CARDIAC CK MB 2.4 ng/mL 0.5 - 3.6 08/18 ENZYMES /2016 [place] CARDIAC Troponin-I null 0.00 - 08/18 ENZYMES 0.40 /2017 [place] CARDIAC Total CK 161 unit/L 12 - 191 08/18 ENZYMES /2016 [place] CARDIAC CK-MB INDEX 1.5 0.0 - 2.5 08/18 ENZYMES /2016 [place] Brain wo Brain wo Patient Name: PABLO HASTINGS 08/18 - [facility] contrast contrast MRI /2016 - [place] MRI : 1970; Age: 45 years y/o Male MR: [id number] Read by: Diego Galicia MD Dictated Date/time: 08/18/16 13:56 Electronically Signed by: Diego Galicia MD 08/18/16 14:01 FINAL REPORT Study: Brain wo contrast MRI 08/18/2016 10:13 AM FIELD HAND Ordering Physician: Mary Guerrero MD Clinical Indication: [...] Unremarkable noncontrast MRI of the brain. SL: [id number] Carotid Carotid Patient Name: PABLO HASTINGS 08/18 - [facility] artery artery /2016 - [place] Doppler Doppler : 1970; Age: 45 years Male bilat US bilat US MR: [id number] Read by: Edenilson Davila MD Dictated Date/time: 08/18/16 12:58 Electronically Signed by: Edenilson Davila MD 08/18/16 13:01 FINAL REPORT Study: Carotid artery Doppler bilat US 08/18/2016 10:02 AM FIELD HAND Clinical Indication: Carotid artery stenosis or occl [...] 2.9 ng/mL 0.5 - 3.6 08/18 ENZYMES [place] CARDIAC Troponin-I null 0.00 - 08/18 ENZYMES 0. [place] CARDIAC Total CK 200 unit/L 08/18 ENZYMES [place] CARDIAC CK-MB INDEX 1.4 0.0 - 2.5 08/18 ENZYMES [place] CARDIAC CK MB 2.9 ng/mL 0.5 - 3.6 08/18 ENZYMES [place] CARDIAC Troponin-I null 0.00 - 08/18 ENZYMES 0. [place] CARDIAC Total CK 185 unit/L 08/18 ENZYMES [place] CARDIAC CK-MB INDEX 1.6 0.0 - 2.5 08/18 ENZYMES [place] Vital Signs Vital Sign Value Date Comments Source Heart Rate 55 08/23/2016 [facility] Respitory Rate 16 08/23/2016 [facility] Systolic (mm Hg) 103 08/23/2016 [facility] Diastolic (mm Hg) 68 08/23/2016 [facility] Temperature Oral (F) 98.0 F 08/23/2016 [facility] Systolic (mm Hg) 100 08/23/2016 [facility] Diastolic (mm Hg) 62 08/23/2016 [facility] Heart Rate 57 08/23/2016 [facility] Temperature Oral (F) 97.9 F 08/23/2016 [facility] Respitory Rate 16 08/23/2016 [facility] Heart Rate 64 08/23/2016 [facility] Temperature Oral (F) 98.1 F 08/23/2016 [facility] Systolic (mm Hg) 108 08/23/2016 [facility] Diastolic (mm Hg) 71 08/23/2016 [facility] Respitory Rate 16 08/23/2016 [facility] BMI Calculated 30.15 08/18/2016 [facility] Weight 84.727 08/18/2016 [facility] Height 167.64 cm 08/18/2016 [facility] Encounters Location Location Encounter Encounter Reason Attending ADM DC Status Source Details Type Number For Provider Date Date Visit [facility] Inpatient [id number] Enriqueta 08/21 08/23 Charanjit Mascorro /2016 [facility] Outpt Diag [id number] Angela Chris 09/05 09/06 [facility]2016 [facility] [place] Procedures Procedure Code Date Perfomer Comments Source Amputation of finger [id number] [facility] [place] [id number] [place] Arthroscopic primary [id number] [facility] reduction and [place] fixation of fracture of neck of femur using dynamic hip screw Cholecystectomy [id number] [facility] Complete excision of [id number] [facility] salivary gland [place] Amputation of finger [id number] [facility] Appendectomy [id number] [facility] Arthroscopic primary [id number] [facility] reduction and fixation of fracture of neck of femur using dynamic hip screw Cholecystectomy [id number] [facility] Complete excision of [id number] [facility] salivary gland
[2018-05-19] MEDS ORDERED: NITROGLYCERIN 0.4 MG/TAB SL ONE (17:59)
[2018-05-19] MEDS ORDERED: ASPIRIN 81 MG CHEWABLE TABLET ONE (17:59)
[2018-05-19] MEDS ORDERED: ONDANSETRON 4 MG/2 ML VIAL ONE (17:59)
[2018-05-19 18:07] LABS: Absolute Lymphocytes (CBC) 2.1 K/uL (0.7-4.9); Absolute Monocytes 1.6 K/uL (0.1-1.3); Absolute Neutrophil 14.9 K/uL (1.8-8.0); Basophils % 0.4 % (0-1.3); Eosinophils % 0.9 % (0-4.4); Hematocrit 49.3 % (39.6-49.0); Lymphocytes % 11.1 % (15.3-44.8); MCH 31.3 pg (27.0-35.0); MCV 90.5 fL (80-100); MPV 8.8 fL (7.6-11.3); Monocytes % 8.4 % (3.3-12.3); RBC Red Blood Cell Count 5.45 M/uL (4.33-5.43)
[2018-05-19 18:08] LABS: Protime INR 0.92
--- NOTE | 2018-05-19 18:22 | RAD REPORT ---
EXAM DESCRIPTION: RAD - Chest Single View - 05/19/2018 6:17 pm CLINICAL HISTORY: CHEST PAIN Chest pain. COMPARISON: Chest Single View dated 04/15/2016; ABDOMEN 1 VIEW KUB dated 11/12/2013; CHEST SINGLE VIE W dated 09/30/2013; CHEST SINGLE VIEW dated 08/09/2013 FINDINGS: Portable technique limits examination quality. The lungs are grossly clear. The heart is normal in size. No displaced fractures. IMPRESSION: No acute intrathoracic process suspected.
[2018-05-19 18:31] LABS: ALT/SGPT 43 U/L (12-78); AST/SGOT 32 U/L (15-37); Albumin 3.9 g/dL (3.4-5.0); Alkaline Phosphatase 47 U/L (45-117); BUN Blood Urea Nitrogen 9 mg/dL (7-18); Bicarbonate 25 mmol/L (21-32); Bilirubin Direct 0.1 mg/dL (0-0.2); Bilirubin Total 0.4 mg/dL (0.2-1.0); Glucose Level 82 mg/dL (74-106); Magnesium 2.2 mg/dL (1.8-2.4); Potassium 3.8 mmol/L (3.5-5.1); Protein, Total 7.4 g/dL (6.4-8.2); Sodium Level 141 mmol/L (136-145); Troponin (Emerg Dept Use Only) < 0.02 ng/mL (0.0-0.045)
[2018-05-19] MEDS ORDERED: FENTANYL CITR 100 MCG/2 ML ONE ×2 (18:31→20:44)
[2018-05-19 18:56] LABS: NT PRO-BNP < 5 pg/mL (<125)
--- NOTE | 2018-05-19 19:17 | EDPHYS ---
Physician Documentation [facility] Name: Damian Lee Age: 47 yrs Sex: Male : 1970 Arrival Date: 05/19/2018 Time: 17:36 Bed 3 Private MD: ED Physician Scott Rodriguez HPI: 05/19 17:57 This 47 yrs old Male presents to ER via Unassigned with complaints of Chest jr8 Pain. 17:57 The patient or guardian reports chest pain that is located primarily in the anterior jr8 chest wall, left. Onset: acutely, today. The pain radiates to the left shoulder. Associated signs and symptoms: Pertinent positives: nausea, shortness of breath, vomiting. The chest pain is described as squeezing. Duration: The patient or guardian reports a single episode, that is still ongoing, but improving. Modifying factors: The symptoms are alleviated by nothing. the symptoms are aggravated by nothing. Severity of pain: At its worst the pain was moderate in the emergency department the pain has improved mildly. The patient has not experienced similar symptoms in the past. The patient has not recently seen a physician. Historical: - Allergies: 18:00 No Known Allergies; mg2 - Home Meds: 18:00 Nexium 40 mg Oral cpDR 1 cap once daily [Active]; mg2 - PMHx: 18:00 Chronic Pancreatitis; Diverticulitis; High Cholesterol; mg2 - PSHx: 18:00 knee replacement; mg2 - Immunization history:: Flu vaccine is not up to date. - Social history:: Smoking status: Patient/guardian denies using tobacco, Patient/guardian denies using alcohol, street drugs, IV drugs. - Ebola Screening: : No symptoms or risks identified at this time. ROS: 17:57 Eyes: Negative for injury, pain, redness, and discharge, ENT: Negative for injury, jr8 pain, and discharge, Neck: Negative for injury, pain, and swelling, Back: Negative for injury and pain, MS/Extremity: Negative for injury and deformity, Skin: Negative for injury, rash, and discoloration, Neuro: Negative for headache, weakness, numbness, tingling, and seizure. 17:57 Cardiovascular: Positive for chest pain, Negative for edema, orthopnea, palpitations, paroxysmal nocturnal dyspnea. 17:57 Respiratory: Positive for shortness of breath, Negative for cough, dyspnea on exertion, hemoptysis, sputum production, wheezing. 17:57 Abdomen/GI: Positive for nausea and vomiting, Negative for abdominal pain, diarrhea, constipation, abdominal cramps, abdominal distension. Exam: 17:57 Eyes: Pupils equal round and reactive to light, extra-ocular motions intact. Lids and jr8 lashes normal. Conjunctiva and sclera are non-icteric and not injected. Cornea within normal limits. Periorbital areas with no swelling, redness, or edema. ENT: Nares patent. No nasal discharge, no septal abnormalities noted. Tympanic membranes are normal and external auditory canals are clear. Oropharynx with no redness, swelling, or masses, exudates, or evidence of obstruction, uvula midline. Mucous membranes moist. Neck: Trachea midline, no thyromegaly or masses palpated, and no cervical lymphadenopathy. Supple, full range of motion without nuchal rigidity, or vertebral point tenderness. No Meningismus. Cardiovascular: Regular rate and rhythm with a normal S1 and S2. No gallops, murmurs, or rubs. Normal PMI, no JVD. No pulse deficits. Respiratory: Lungs have equal breath sounds bilaterally, clear to auscultation and percussion. No rales, rhonchi or wheezes noted. No increased work of breathing, no retractions or nasal flaring. Abdomen/GI: Soft, non-tender, with normal bowel sounds. No distension or tympany. No guarding or rebound. No evidence of tenderness throughout. Back: No spinal tenderness. No costovertebral tenderness. Full range of motion. Skin: Warm, dry with normal turgor. Normal color with no rashes, no lesions, and no evidence of cellulitis. MS/ Extremity: Pulses equal, no cyanosis. Neurovascular intact. Full, normal range of motion. Neuro: Awake and alert, GCS 15, oriented to person, place, time, and situation. Cranial nerves II-XII grossly intact. Motor strength 5/5 in all extremities. Sensory grossly intact. Cerebellar exam normal. Normal gait. Vital Signs: 17:59 BP 148 / 90; Pulse 93; Resp 18; Temp 98.7(O); Pulse Ox 100% on R/A; Weight 83.91 kg; mg2 Height 5 ft. 6 in. (167.64 cm); Pain 4/10; 18:14 BP 138 / 74; Pulse 77; Resp 18; Pulse Ox 100% on R/A; Pain 4/10; mg2 18:49 BP 122 / 78; Pulse 75; Resp 18; Pulse Ox 100% on R/A; Pain 1/10; mg2 19:32 BP 118 / 75; Pulse 63; Resp 18; Pulse Ox 96% on R/A; ea 20:30 BP 120 / 74; Pulse 79; Resp 18; Pulse Ox 98% ; ea 21:00 BP 119 / 75; Pulse 72; Resp 18; Pulse Ox 98% on R/A; ea 17:59 Body Mass Index 29.86 (83.91 kg, 167.64 cm) mg2 MDM: 17:41 Patient medically screened. jr8 18:58 The patient was given aspirin in the Emergency Department. The patient's pulmonary 8 embolism risk score was calculated as follows: No Risks (0 Pts) Total Score: 0-2 points. This patient was found to be at low risk for a pulmonary embolism by using the Well's assessment criteria. Data reviewed: vital signs, nurses notes, lab test result(s), EKG, radiologic studies, plain films. Data interpreted: Pulse oximetry: on room air is 100 %. Interpretation: normal. Counseling: I had a detailed discussion with the patient and/or guardian regarding: the historical points, exam findings, and any diagnostic results supporting the discharge/admit diagnosis, lab results, radiology results, the need for further work-up and treatment in the hospital. 05/19 17:41 Order name: Basic Metabolic Panel; Complete Time: 18:58 05/19 17:41 Order name: CBC with Diff; Complete Time: 18:05/19 17:41 Order name: LFT's; Complete Time: 18:58 05/19 17:41 Order name: Magnesium; Complete Time: 18:58 05/19 17:41 Order name: NT PRO-BNP; Complete Time: 18:58 05/19 17:41 Order name: PT-INR; Complete Time: 18:05/19 17:41 Order name: Troponin (emerg Dept Use Only); Complete Time: 18:58 05/19 17:41 Order name: XRAY Chest (1 view); Complete Time: 18:05/19 17:41 Order name: EKG; Complete Time: 17:42 8 05/19 17:41 Order name: Cardiac monitoring; Complete Time: 17:56 8 05/19 17:41 Order name: EKG - Nurse/Tech; Complete Time: 17:57 05/19 17:41 Order name: IV Saline Lock; Complete Time: 17:57 05/19 17:41 Order name: Labs collected and sent; Complete Time: 17:57 05/19 17:41 Order name: O2 Per Protocol; Complete Time: 17:57 05/19 17:41 Order name: O2 Sat Monitoring; Complete Time: 17:57 Administered Medications: 17:56 Drug: Aspirin Chewable Tablet 324 mg Route: PO; mg2 18:26 Follow up: Response: No adverse reaction mg2 17:56 Drug: Zofran 4 mg Route: IVP; Site: left forearm; mg2 18:26 Follow up: Response: No adverse reaction; Nausea is decreased mg2 17:56 Drug: Nitroglycerin 0.4 mg Route: Sublingual; mg2 18:26 Follow up: Response: No adverse reaction; Pain is unchanged, physician notified mg2 18:27 Drug: fentaNYL (PF) 50 mcg Route: IVP; Site: left forearm; mg2 18:48 Follow up: Response: No adverse reaction; Marked relief of symptoms mg2 20:40 Drug: fentaNYL (PF) 50 mcg Route: IVP; Site: left forearm; ea 21:20 Follow up: Response: No adverse reaction; Pain is decreased ea Disposition: 05/20 10:02 Co-signature as Attending Physician, Scott Rodriguez MD. Disposition: 05/19/18 19:05 Hospitalization ordered by Madison Sousa for Observation. Preliminary diagnosis is Unstable angina. - Bed requested for Telemetry/MedSurg (observation). - Status is Observation. ea - Condition is Stable. - Problem is new. - Symptoms have improved. UTI on Admission? No Signatures: Dispatcher [employer] Sudha Bee RN RN kl Roszak, Josh, PA PA jr8 [place] RN RN ea Starr, Gregory, MD MD gs Gardose, Michele, RN RN mg2 Corrections: (The following items were deleted from the chart) 05/19 20:56 19:05 Hospitalization Ordered by Madison Sousa MD for Observation. Preliminary kl diagnosis is Unstable angina. Bed requested for Telemetry/MedSurg (observation). Status is Observation. Condition is Stable. Problem is new. Symptoms have improved. UTI on Admission? No. jr8 21:24 20:56 05/19/2018 19:05 Hospitalization Ordered by Madison Sousa MD for Observation. ea Preliminary diagnosis is Unstable angina. Bed requested for Telemetry/MedSurg (observation). Status is Observation. Condition is Stable. Problem is new. Symptoms have improved. UTI on Admission? No. kl
--- NOTE | 2018-05-19 19:17 | ER ---
Nurse's Notes [facility] Name: Damian Lee Age: 47 yrs Sex: Male : 1970 Arrival Date: 05/19/2018 Time: 17:36 Bed 3 Private MD: Diagnosis: Unstable angina Presentation: 05/19 17:57 Presenting complaint: Patient states: he has left sided chest pain radfiating in mg2 between shoulder blades since 5 pm today. also complains of nausea and feeling of passing out. Transition of care: patient was not received from another setting of care. Onset of symptoms was May 19, 2018 at 17:00. Risk Assessment: Do you want to hurt yourself or someone else? Patient reports no desire to harm self or others. Initial Sepsis Screen: Does the patient meet any 2 criteria? No. Patient's initial sepsis screen is negative. Does the patient have a suspected source of infection? No. Patient's initial sepsis screen is negative. Care prior to arrival: None. 17:57 Method Of Arrival: Wheelchair mg2 17:57 Acuity: SAMI 2 mg2 Historical: - Allergies: 18:00 No Known Allergies; mg2 - Home Meds: 18:00 Nexium 40 mg Oral cpDR 1 cap once daily [Active]; mg2 - PMHx: 18:00 Chronic Pancreatitis; Diverticulitis; High Cholesterol; mg2 - PSHx: 18:00 knee replacement; mg2 - Immunization history:: Flu vaccine is not up to date. - Social history:: Smoking status: Patient/guardian denies using tobacco, Patient/guardian denies using alcohol, street drugs, IV drugs. - Ebola Screening: : No symptoms or risks identified at this time. Screenin:11 Abuse screen: Denies threats or abuse. Denies injuries from another. Nutritional mg2 screening: No deficits noted. Tuberculosis screening: No symptoms or risk factors identified. Fall Risk IV access (20 points). Assessment: 18:12 General: Appears in no apparent distress. uncomfortable, Behavior is calm, cooperative. mg2 Pain: Complains of pain in left sided chest Pain radiates to in between shoulder blades Pain currently is 4 out of 10 on a pain scale. Quality of pain is described as aching, Pain began gradually, 1 hour ago. Is intermittent. Neuro: Level of Consciousness is awake, alert, obeys commands, Oriented to person, place, time, situation. Cardiovascular: Capillary refill < 3 seconds Patient's skin is warm and dry. Respiratory: Reports shortness of breath at rest Airway is patent Respiratory effort is even, unlabored, Respiratory pattern is regular, symmetrical. GI: Reports nausea. : No signs and/or symptoms were reported regarding the genitourinary system. EENT: No signs and/or symptoms were reported regarding the EENT system. Derm: Skin is intact, is healthy with good turgor, Skin is pink, warm \T\ dry. normal. 19:00 General: Appears in no apparent distress. Behavior is calm, cooperative, appropriate ea for age. Pain: Denies pain. Neuro: Level of Consciousness is awake, alert, obeys commands, Oriented to person, place, time, situation. Cardiovascular: Heart tones S1 S2 present Patient's skin is warm and dry. Respiratory: Airway is patent Respiratory effort is even, unlabored, Respiratory pattern is regular, symmetrical. Derm: Skin is pink, warm \T\ dry. Musculoskeletal: Circulation, motion, and sensation intact. 20:55 Reassessment: Patient and/or family updated on plan of care and expected duration. Pain ea level reassessed. Patient is alert, oriented x 3, equal unlabored respirations, skin warm/dry/pink. 21:10 Reassessment: Patient and/or family updated on plan of care and expected duration. Pain ea level reassessed. Patient is alert, oriented x 3, equal unlabored respirations, skin warm/dry/pink. Report called to receiving nurse on second floor. 21:22 Reassessment: Patient and/or family updated on plan of care and expected duration. Pain ea level reassessed. Patient is alert, oriented x 3, equal unlabored respirations, skin warm/dry/pink. Pt admitted to second floor, pt left via wheelchair per tech, accompanied by family. Tolerating well. Vital Signs: 17:59 BP 148 / 90; Pulse 93; Resp 18; Temp 98.7(O); Pulse Ox 100% on R/A; Weight 83.91 kg; mg2 Height 5 ft. 6 in. (167.64 cm); Pain 4/10; 18:14 BP 138 / 74; Pulse 77; Resp 18; Pulse Ox 100% on R/A; Pain 4/10; mg2 18:49 BP 122 / 78; Pulse 75; Resp 18; Pulse Ox 100% on R/A; Pain 1/10; mg2 19:32 BP 118 / 75; Pulse 63; Resp 18; Pulse Ox 96% on R/A; ea 20:30 BP 120 / 74; Pulse 79; Resp 18; Pulse Ox 98% ; ea 21:00 BP 119 / 75; Pulse 72; Resp 18; Pulse Ox 98% on R/A; ea 17:59 Body Mass Index 29.86 (83.91 kg, 167.64 cm) mg2 ED Course: 17:36 Patient arrived in ED. aa5 17:41 Cale Vasquez PA is PHCP. jr8 17:41 Scott Rodriguez MD is Attending Physician. jr8 17:48 Initial lab(s) drawn, by me, sent to lab. Inserted saline lock: 20 gauge in left hj forearm, using aseptic technique. Blood collected. 17:48 EKG done, reviewed by Cale SIERRA. hj 17:50 Jamie James, MAT is Primary Nurse. mg2 17:59 Triage completed. mg2 18:11 Patient has correct armband on for positive identification. Placed in gown. Bed in low mg2 position. Call light in reach. Side rails up X2. youth nutritional monitor on. Pulse ox on. NIBP on. Door closed. Warm blanket given. 18:15 XRAY Chest (1 view) In Process Unspecified. EDMS 18:15 No provider procedures requiring assistance completed. Oxygen administration via nasal mg2 cannula \T\ 3L/min. 18:15 Patient placed. mg2 19:04 Madison Sousa MD is Hospitalizing Provider. jr8 21:11 Patient admitted, IV remains in place. ea Administered Medications: 17:56 Drug: Aspirin Chewable Tablet 324 mg Route: PO; mg2 18:26 Follow up: Response: No adverse reaction mg2 17:56 Drug: Zofran 4 mg Route: IVP; Site: left forearm; mg2 18:26 Follow up: Response: No adverse reaction; Nausea is decreased mg2 17:56 Drug: Nitroglycerin 0.4 mg Route: Sublingual; mg2 18:26 Follow up: Response: No adverse reaction; Pain is unchanged, physician notified mg2 18:27 Drug: fentaNYL (PF) 50 mcg Route: IVP; Site: left forearm; mg2 18:48 Follow up: Response: No adverse reaction; Marked relief of symptoms mg2 20:40 Drug: fentaNYL (PF) 50 mcg Route: IVP; Site: left forearm; ea 21:20 Follow up: Response: No adverse reaction; Pain is decreased ea Outcome: 19:05 Decision to Hospitalize by Provider. andres 20:13 Instructed on the need for admit. ea 21:19 Admitted to Med/surg accompanied by tech, room 229, with chart, Report called to ea receiving nurse on second floor 21:19 Condition: stable 21:24 Patient left the ED. ea Signatures: Dispatcher [employer] EDMS Savannah Godwin, RN RN aa5 Cale Vasquez PA PA jr8 Louis Love, Little Zambrano RN, RN RN ea Gardose, Michele, MAT RN mg2 Corrections: (The following items were deleted from the chart) 18:14 17:59 BP 148 / 90; Pulse 93bpm; Resp 18bpm; Pulse Ox 100% RA; Pain 7/10; mg2 mg2
--- NOTE | 2018-05-19 20:52 | P.HP ---
Certification for Inpatient Patient admitted to: Observation With expected LOS: <2 Midnights Practitioner: I am a practitioner with admitting privileges, knowledge of patient current condition, hospital course, and medical plan of care. 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 He was also associated with shortness of breath and diaphoresis. The patient then had a vomiting episode. He denied palpitation or dizziness. He has never had similar symptoms in the past. Lab work shows leukocytosis, normal troponin I. EKG shows sinus rhythm without ST-T abnormalities. 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 moist/pink, EOMI, Sclerae nonicteric Neck: Supple, 2+ carotid pulse no bruit, No LAD, Without JVD or thyroid abnormality Respiratory: Clear to auscultation bilaterally, Normal air movement Cardiovascular: Regular rate/rhythm, Normal S1 S2 Gastrointestinal: Normal bowel sounds, No tenderness Musculoskeletal: No tenderness Integumentary: No rashes Neurological: Normal speech, Normal strength at 5/5 x4 extr, Normal tone, Normal affect Lymphatics: No axilla or inguinal lymphadenopathy - Studies Laboratory Data (last 24 hrs) 05/19/18 17:45: PT 10.8, INR 0.92 05/19/18 17:45: WBC 18.8 H, Hgb 17.1, Hct 49.3 H, Plt Count 238 05/19/18 17:45: Sodium 141, Potassium 3.8, BUN 9, Creatinine 1.00, Glucose 82, Magnesium 2.2, Total Bilirubin 0.4, AST 32, ALT 43, Alkaline Phosphatase 47 Assessment and Plan - Problems (Diagnosis) (1) Chest pain Current Visit: Yes Status: Acute Qualifiers: Chest pain type: precordial pain Qualified Code(s): R07.2 - Precordial pain (2) GERD (gastroesophageal reflux disease) Current Visit: No Status: Chronic Qualifiers: Esophagitis presence: without esophagitis Qualified Code(s): K21.9 - Gastro -esophageal reflux disease without esophagitis - Plan The patient will be admitted to the hospital under observation due to typical chest pain. Initial troponin I is negative, EKG shows no acute ST-T abnormality. Will continue with serial cardiac enzymes and EKGs, will order echocardiogram and cardiology consult. - Advance Directives Does patient have a Living Will: No Does patient have a Durable POA for Healthcare: No - Code Status/Comfort Care Code Status Assessed: Yes Code Status: Full Code
[2018-05-19 21:39] VITALS: BMI 30.9
[2018-05-20 05:18] LABS: Absolute Lymphocytes (CBC) 2.3 K/uL (0.7-4.9); Absolute Monocytes 0.7 K/uL (0.1-1.3); Basophils % 0.4 % (0-1.3); Eosinophils % 3.6 % (0-4.4); Hematocrit 45.8 % (39.6-49.0); Lymphocytes % 24.7 % (15.3-44.8); MCH 31.5 pg (27.0-35.0); MCV 91.6 fL (80-100); MPV 8.8 fL (7.6-11.3); Monocytes % 7.5 % (3.3-12.3)
[2018-05-20 05:39] LABS: BUN Blood Urea Nitrogen 13 mg/dL (7-18); Bicarbonate 29 mmol/L (21-32); Glucose Level 95 mg/dL (74-106); HDL Cholesterol 44 mg/dL (40-60); LDL Cholesterol, Calculated 96 (<130); Potassium 3.5 mmol/L (3.5-5.1); Sodium Level 143 mmol/L (136-145); Troponin I < 0.02 ng/mL (0.0-0.045)
--- NOTE | 2018-05-20 05:51 | EKG ---
Test Date: 2018-05-19 Test Time: 17:35:53 Mail Handler Assistant: CHUCKY MEASUREMENT RESULTS: Intervals: Rate: 90 AK: 144 QRSD: 78 QT: 334 QTc: 408 [place]: P: 28 AK: 144 QRS: 33 T: 17 INTERPRETIVE STATEMENTS: Normal sinus rhythm Normal ECG Compared to ECG 04/16/2016 17:58:51 T-wave abnormality no longer present Electronically Signed On 05-20-18 05:50:51 HOG SCALDER by Corey Valero
[2018-05-20] MEDS: ASPIRIN EC 81 MG TAB PO SCH (10:52)
[2018-05-20] MEDS: ENOXAPARIN 40 MG/0.4 ML SQ SCH (10:53)
[2018-05-20] MEDS ORDERED: HOME MED 1 EA UNK (Esomeprazole Mag Trihydrate [Nexium] 40 MG) PO SCH (12:02)
--- NOTE | 2018-05-20 14:19 | P.PN ---
Subjective Date of Service: 05/20/18 Chief Complaint: Chest pain Subjective: Improving (PAtient seen and examined. Chart reeviwed and case discussed with RN.) Review of Systems 10-point ROS is otherwise unremarkable Physical Examination - Vital Signs Temperature: 98 F Blood Pressure: 111/58 Pulse: 71 Respirations: 20 Pulse Ox (%): 95 - Physical Exam General: Alert, In no apparent distress, Oriented x3, Obese HEENT: Atraumatic, PERRLA, EOMI Neck: Supple, JVD not distended Respiratory: Clear to auscultation bilaterally, Normal air movement Cardiovascular: No edema, Normal pulses, Regular rate/rhythm, Normal S1 S2 Gastrointestinal: Normal bowel sounds, Soft and benign, Non-distended, No tenderness Musculoskeletal: No clubbing, No tenderness Integumentary: No rashes, No erythema Neurological: Normal speech, Normal strength at 5/5 x4 extr, Normal tone, Cranial nerves 3-12 intact, Normal affect - Studies Laboratory Data (last 24 hrs) 05/19/18 17:45: PT 10.8, INR 0.92 05/19/18 17:45: WBC 18.8 H, Hgb 17.1, Hct 49.3 H, Plt Count 238 05/19/18 17:45: Sodium 141, Potassium 3.8, BUN 9, Creatinine 1.00, Glucose 82, Magnesium 2.2, Total Bilirubin 0.4, AST 32, ALT 43, Alkaline Phosphatase 47 Medications List Reviewed: Yes Assessment And Plan - Current Problems (Diagnosis) (1) Chest pain Current Visit: Yes Status: Acute Qualifiers: Chest pain type: precordial pain Qualified Code(s): R07.2 - Precordial pain (2) Obesity (BMI 30.0-34.9) Current Visit: Yes Status: Acute (3) GERD (gastroesophageal reflux disease) Current Visit: No Status: Chronic Qualifiers: Esophagitis presence: without esophagitis Qualified Code(s): K21.9 - Gastro -esophageal reflux disease without esophagitis (4) Neutrophilic leukocytosis Current Visit: Yes Status: Acute Plan: PPi - Plan Cont chest pain guidelines f/up w cardiology recommendations Discharge Plan: Home Plan to discharge in: 24 Hours - Code Status/Comfort Care Code Status Assessed: Yes
--- NOTE | 2018-05-20 16:31 | CON ---
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 It lasted until he got to the emergency room, where he w as noted to be tachycardiac. He was in sinus tachycardia. He received fentanyl, Zofran, aspirin, ni troglycerin, and started feeling better after that. He was sweaty and nauseated. In addition, the p reji has never had myocardial infarction or stroke. About a year ago, he underwent a noninvasive w orkup for the heart and everything was normal. He has chronic pancreatitis. He has had his gallblad mirta removed before. He has had knee replacement and a hip replacement. Never used tobacco, alcohol, or street drugs. His only outpatient medication is Nexium. Physical Examination: General: He is 5 feet and 6 inches, 191 pounds, obese, alert, oriented, pleasant, not in distress. VITAL SIGNS: Blood pressure 116/57, heart rate 69, afebrile, O2 saturation 95% on room air. All of his troponins are normal. Chest x-ray is normal. Lungs: Clear. Heart: Normal. Extremities: Normal. Neurological: Normal. Impression: Mr. Lee had symptoms that would make anyone worry about heart disease, but without any change in the enzymes, we can say it is reassuring. He does not have dyslipidemia or diabetes o r tobacco use, so I will recommend we do a stress test tomorrow. It will be a pharmacologic nuclear stress test. If it is abnormal, we will proceed with cardiac cathete rization. JUDI/JERONIMO Voice ID: [id number] Report ID: [id number]
[2018-05-21] MEDS ORDERED: PANTOPRAZOLE 40MG TABLET PO SCH (07:30)
[2018-05-21] MEDS ORDERED: REGADENOSON 0.4 MG/5 ML SYR IV ONE (08:09)
[2018-05-21] MEDS: ASPIRIN EC 81 MG TAB PO SCH (11:18)
[2018-05-21] MEDS: ENOXAPARIN 40 MG/0.4 ML SQ SCH (11:18)
--- NOTE | 2018-05-21 11:23 | TREADPHA ---
DX: CHEST PAIN Date of Study: 05/21/18 Ht: 5 6 Wt: 191 lb 4 oz Consulting Physician: MARISABEL MEDICATIONS: ASPIRIN, PROTONIX, LOVENOX HISTORY: 47 YEAR OLD MALE HERE FOR CHEST PAIN. HISTORY OF CHRONIC PANCREATITIS, DIVERTICULITIS, HIGH CHOLESTEROL PHYSICIAL EXAMINATION: RESTING B.P.: 138/96 RESTING H.R.: 71 RESTING EKG: SINUS, EARLY REPOLARIZATION NO PERICARDITIS. PROTOCOL: LEXISCAN EXERCISE TIME: 3;30 B.P. AT PEAK STRESS: 132/86 IMPRESSION: LEXISCAN STRESS TEST PERFORMED. CARDIOLITE INJECTED PER PROTOCOL. NO ARRHYTHMIAS NOTED. COMPLAINTS OF LEFT CHEST PRESSURE 2/10 POST TEST THAT WAS REDUCING. SEE NUCLEAR MEDICINE REPORT. NON DIAGNOSTIC EKG WITH LEXISCAN STRESS.
--- NOTE | 2018-05-21 11:25 | ECHO ---
HEIGHT: 5 ft 6 in WEIGHT: 191 lb 4 oz DATE OF STUDY: 05/21/[address]: Madison Harman MD 2-DIMENSIONAL: YES M.MODE: YES DOPPLER: YES COLOR FLOW: YES TDS: NO PORTABLE: NO DEFINITY: NO BUBBLE STUDY: NO DIAGNOSIS: CHEST PAIN CARDIAC HISTORY: CATHERIZATION: NO SURGERY: NO PROSTHETIC VALVE: NO PACEMAKER: NO MEASUREMENTS (cm) DIASTOLIC (NORMALS) SYSTOLIC (NORMALS) IVSd 1.0 (0.6-1.2) LA Diam 3.4 (1.9-4.0) LVEF 73% LVIDd 4.9 (3.5-5.7) LVIDs 2.9 (2.0-3.5) %FS 42% LVPWd 1.1 (0.6-1.2) Ao Diam 3.0 (2.0-3.7) 2 DIMENSIONAL ASSESSMENT: RIGHT ATRIUM: NORMAL LEFT ATRIUM: NORMAL RIGHT VENTRICLE: NORMAL LEFT VENTRICLE: NORMAL TRICUSPID VALVE: NORMAL MITRAL VALVE: NORMAL PULMONIC VALVE: NORMAL AORTIC VALVE: NORMAL PERICARDIAL EFFUSION: NONE AORTIC ROOT: NORMAL LEFT VENTRICULAR WALL MOTION: NORMAL. DOPPLER/COLOR FLOW: MILD TRICUSPID REGURGITATION. NORMAL RIGHT VENTRICULAR SYSTOLIC PRESSURE. COMMENTS: NORMAL 2D ECHO. MILD TRICUSPID REGURGITATION. TECHNOLOGIST: KEILY MEIER
--- NOTE | 2018-05-21 11:43 | RAD REPORT ---
EXAM DESCRIPTION: NM - Rest Stress Cardiac Imaging - 05/21/2018 11:26 am CLINICAL HISTORY: CP Chest pain. COMPARISON: Rest Stress Cardiac Imaging dated 04/18/2016 TECHNIQUE: The patient was administered approximately 10mCi of Tc 99m Sestamibi prior to resting SPE CT imaging of the heart. The patient was then administered approximately 30 mCi of Tc 99m Sestamibi f ollowing exercise or pharmacologic stress. Multiplanar SPECT images were reviewed. FINDINGS: No stress induced ischemic defect is seen to suggest stress induced ischemia. No fixed def ect is seen to suggest hibernating myocardium or scarred myocardium. The end diastolic volume is 109 ml, the end systolic volume is 51 ml, and the ejection fraction is 53 %. IMPRESSION: No stress induced ischemia.
[2018-05-21 14:00] VITALS: O2SAT 98
--- NOTE | 2018-05-21 15:14 | P.DS ---
Admission Date: 05/19/18 Discharge Date: 05/21/18 Disposition: ROUTINE DISCHARGE Discharge Condition: GOOD Reason for Admission: Chest pain Consultations: Cardiology, Dr. 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 He was also associated with shortness of breath and diaphoresis. The patient then had a vomiting episode. He denied palpitation or dizziness. He has never had similar symptoms in the past. Lab work shows leukocytosis, normal troponin I. EKG shows sinus rhythm without ST-T abnormalities. Hospital Course: Patient was admitted for chest pain, rule out. His full cardiac workup, including stress test and echocardiogram were normal. His symptoms resolved upon arrival to the ER. At the time of discharge, he is asymptomatic on tolerating regular diet, and ambulating without any concerns. His diagnoses/ symptoms explained 10, all questions were answered and patient verbalized understanding. He is considered a safe discharge home. He will follow up outpatient with his primary care physician and Cardiology. Vital Signs/Physical Exam: Temp Pulse Resp BP Pulse Ox 97.4 F 67 18 124/68 95 05/21/18 08:00 05/21/18 08:00 05/21/18 08:00 05/21/18 08:00 05/21/18 08:00 General: Alert, In no apparent distress HEENT: Atraumatic, PERRLA, EOMI Neck: Supple, JVD not distended Respiratory: Clear to auscultation bilaterally, Normal air movement Cardiovascular: Regular rate/rhythm, Normal S1 S2 Gastrointestinal: Normal bowel sounds, No tenderness Musculoskeletal: No tenderness Integumentary: No rashes Neurological: Normal speech, Normal tone, Normal affect Lymphatics: No axilla or inguinal lymphadenopathy Laboratory Data at Discharge: WBC 9.4 K/uL (4.3-10.9) D 05/20/18 04:34 Hgb 15.7 g/dL (13.6-17.9) 05/20/18 04:34 Hct 45.8 % (39.6-49.0) 05/20/18 04:34 Plt Count 200 K/uL (152-406) 05/20/18 04:34 PT 10.8 SECONDS (9.5-12.5) 05/19/18 17:45 INR 0.92 05/19/18 17:45 Sodium 143 mmol/L (136-145) 05/20/18 04:34 Potassium 3.5 mmol/L (3.5-5.1) 05/20/18 04:34 BUN 13 mg/dL (7-18) 05/20/18 04:34 Creatinine 1.00 mg/dL (0.55-1.3) 05/20/18 04:34 Glucose 95 mg/dL (74-106) 05/20/18 04:34 Magnesium 2.2 mg/dL (1.8-2.4) 05/19/18 17:45 Total Bilirubin 0.4 mg/dL (0.2-1.0) 05/19/18 17:45 AST 32 U/L (15-37) 05/19/18 17:45 ALT 43 U/L (12-78) 05/19/18 17:45 Alkaline Phosphatase 47 U/L (45-117) 05/19/18 17:45 Troponin I < 0.02 ng/mL (0.0-0.045) 05/20/18 13:27 Triglycerides 87 mg/dL (<150) 05/20/18 04:34 Cholesterol 157 mg/dL (<200) 05/20/18 04:34 HDL Cholesterol 44 mg/dL (40-60) 05/20/18 04:34 Cholesterol/HDL Ratio 3.57 05/20/18 04:34 Home Medications: Esomeprazole Mag Trihydrate [Nexium] 40 mg PO DAILY 05/19/18 Patient Discharge Instructions: Follow up with the primary care physician in 1 week. Follow up with Cardiology in 2 weeks. You were seen for chest pain. Your cardiac workup was negative including a stress test and echocardiogram. No new medications were added to her medication list. Diet: AHA Activity: Ad alfred Followup: Corey Valero MD [ACTIVE - CAN ADMIT] - Physician Review: Patient Assessed, Agree with Above Assessment and Plan Time spent managing pt's care (in minutes): 45
[2018-05-21 15:29] VITALS: BP 128/72; TEMP 97.5
== END 2018-05-21 15:20 | disposition home or self-care (01) ==
LOC: ER 17:34 → ERHOLD 19:43 → 2ND 21:03
PROVIDERS: ADMIT Internal Medicine; ATTEND Internal Medicine
DX: R07.9 Chest pain, unspecified (principal); K21.9 Gastro-esophageal reflux disease without esophagitis; E66.9 Obesity, unspecified; Z68.30 Body mass index [BMI] 30.0-30.9, adult; D72.828 Other elevated white blood cell count; R00.0 Tachycardia, unspecified; K86.1 Other chronic pancreatitis; Z87.891 Personal history of nicotine dependence; Z79.82 Long term (current) use of aspirin
CPT/HCPCS: 36415; 71045; 78452; 80048; 80061; 80076; 83735; 83880; 84484; 85025; 85610; 93005; 93017; 93306; 94760; 96374; 96375; 99285; A9500; G0378; J1650; J2405; J2785; J3010

== ENCOUNTER 2019-08-22 20:17 | Emergency (ER) | payer SELFPAY ==
[2019-08-22] MEDS ORDERED: FENTANYL CITR 100 MCG/2 ML ONE (20:42)
[2019-08-22] MEDS ORDERED: ONDANSETRON 4 MG/2 ML VIAL ONE (20:43)
[2019-08-22 20:59] LABS: Absolute Lymphocytes (CBC) 2.8 K/uL (0.7-4.9); Basophils % 0.9 % (0-1.3); Hematocrit 44.3 % (39.6-49.0); Lymphocytes % 36.6 % (15.3-44.8); MPV 8.8 fL (7.6-11.3); RBC Red Blood Cell Count 4.79 M/uL (4.33-5.43)
[2019-08-22 21:10] LABS: Potassium 3.7 mmol/L (3.5-5.1)
[2019-08-22] MEDS ORDERED: HYDROMORPHONE HCL 1 MG/ML INJ ONE ×2 (21:43→22:16)
--- NOTE | 2019-08-22 21:52 | EDPHYS ---
Physician Documentation [facility] Name: Damian Lee Age: 48 yrs Sex: Male : 1970 Arrival Date: 08/22/2019 Time: 20:18 Bed 5 Private MD: ED Physician Flash Jaeger HPI: 08/22 20:53 This 48 yrs old Male presents to ER via Wheelchair with complaints of Fall jr8 Injury. 20:53 Details of fall: The patient fell from a height, from a ladder, approximately 16 feet. jr8 Onset: The symptoms/episode began/occurred acutely, today. Associated injuries: The patient sustained injury to the head, right foot and left foot. Severity of symptoms: At their worst the symptoms were moderate, in the emergency department the symptoms are unchanged. The patient has not experienced similar symptoms in the past. The patient has not recently seen a physician. Patient stated that he was on a ladder at top of barn roof putting sheet metal top back on from wind blowing on it. Stated that the wind blew his ladder backwards causing him to hit a [place] fence and then throwing him to ground. Stated that he hit his head first and then darted his feet into the ground toes down. Complains of pain to head and to left and right great toes. Denies LOC. Denies any other pain anywhere else at this time . Historical: - Allergies: 20:39 No Known Allergies; lp1 - Home Meds: 20:39 Nexium 40 mg Oral cpDR 1 cap once daily [Active]; lp1 - PMHx: 20:39 Chronic Pancreatitis; Diverticulitis; High Cholesterol; Myocardial infarction; lp1 20:39 psoriasis; lp1 - PSHx: 20:39 L hip replacement; Cholecystectomy; Appendectomy; lp1 - Immunization history:: Adult Immunizations up to date. - Coronavirus screen:: The patient has NOT traveled to [place] in the past 14 days. The patient has NOT had contact with known/suspected case of Coronavirus?. - Immunization history: Last tetanus immunization: unknown. - Social history:: Smoking status: Patient denies any tobacco usage or history of. - Ebola Screening: : No symptoms or risks identified at this time. ROS: 20:53 Eyes: Negative for injury, pain, redness, and discharge, ENT: Negative for injury, jr8 pain, and discharge, Cardiovascular: Negative for chest pain, palpitations, and edema, Respiratory: Negative for shortness of breath, cough, wheezing, and pleuritic chest pain, Abdomen/GI: Negative for abdominal pain, nausea, vomiting, diarrhea, and constipation, Back: Negative for injury and pain, Skin: Negative for injury, rash, and discoloration, Neuro: Negative for headache, weakness, numbness, tingling, and seizure. 20:53 Neck: Positive for pain with movement, pain at rest, stiffness, Negative for tenderness, bony tenderness. 20:53 MS/extremity: Positive for pain, swelling, tenderness, of the right foot and left foot. Exam: 20:53 Eyes: Pupils equal round and reactive to light, extra-ocular motions intact. Lids and jr8 lashes normal. Conjunctiva and sclera are non-icteric and not injected. Cornea within normal limits. Periorbital areas with no swelling, redness, or edema. ENT: Nares patent. No nasal discharge, no septal abnormalities noted. Tympanic membranes are normal and external auditory canals are clear. Oropharynx with no redness, swelling, or masses, exudates, or evidence of obstruction, uvula midline. Mucous membranes moist. Neck: Trachea midline, no thyromegaly or masses palpated, and no cervical lymphadenopathy. Supple, full range of motion without nuchal rigidity, or vertebral point tenderness. No Meningismus. Mild pain with ROM Chest/axilla: Normal chest wall appearance and motion. Nontender with no deformity. No lesions are appreciated. Cardiovascular: Regular rate and rhythm with a normal S1 and S2. No gallops, murmurs, or rubs. Normal PMI, no JVD. No pulse deficits. Respiratory: Lungs have equal breath sounds bilaterally, clear to auscultation and percussion. No rales, rhonchi or wheezes noted. No increased work of breathing, no retractions or nasal flaring. Abdomen/GI: Soft, non-tender, with normal bowel sounds. No distension or tympany. No guarding or rebound. No evidence of tenderness throughout. Back: No spinal tenderness. No costovertebral tenderness. Full range of motion. Skin: Warm, dry with normal turgor. Normal color with no rashes, no lesions, and no evidence of cellulitis. Neuro: Awake and alert, GCS 15, oriented to person, place, time, and situation. Cranial nerves II-XII grossly intact. Motor strength 5/5 in all extremities. Sensory grossly intact. Cerebellar exam normal. Normal gait. 20:53 Head/face: Noted is abrasion(s), that are mild, of the corner of zygomatic reigon of left eye . 20:53 Musculoskeletal/extremity: Extremities: grossly normal except: noted in the right foot: Mild pain and tenderness to distal first digit. Rest of foot unremarkable , noted in the left foot: Patient has moderate pain with decreased ROM and deformity to left great toe. No injury to nail. Rest of foot unremarkable , Rest of extremity exam unremarkable , Pulses: noted to be 2+ in the right radial artery, right posterior tibial artery, right dorsalis pedis artery, left radial artery, left posterior tibial artery and left dorsalis pedis artery, Sensation intact. Vital Signs: 20:38 BP 132 / 93; Pulse 79; Resp 18; Temp 97.6(TE); Pulse Ox 100% on R/A; Weight 83.91 kg lp1 (R); Height 5 ft. 6 in. (167.64 cm); Pain 9/10; 21:30 BP 141 / 70; Pulse 80; Resp 19; Pulse Ox 100% ; Pain 9/10; rr5 22:20 BP 133 / 70; Pulse 75; Resp 16; Pulse Ox 99% on R/A; Pain 4/10; rr5 20:38 Body Mass Index 29.86 (83.91 kg, 167.64 cm) lp1 [place] Coma Score: 20:39 Eye Response: spontaneous(4). Verbal Response: oriented(5). Motor Response: obeys lp1 commands(6). Total: 15. 21:30 Eye Response: spontaneous(4). Verbal Response: oriented(5). Motor Response: obeys rr5 commands(6). Total: 15. 22:20 Eye Response: spontaneous(4). Verbal Response: oriented(5). Motor Response: obeys rr5 commands(6). Total: 15. Trauma Score (Adult): 20:39 Eye Response: spontaneous(1); Verbal Response: oriented(1); Motor Response: obeys lp1 commands(2); Systolic BP: > 89 mm Hg(4); Respiratory Rate: 10 to 29 per min(4); [place] Score: 15; Trauma Score: 12 21:30 Eye Response: spontaneous(1); Verbal Response: oriented(1); Motor Response: obeys rr5 commands(2); Systolic BP: > 89 mm Hg(4); Respiratory Rate: 10 to 29 per min(4); [place] Score: 15; Trauma Score: 12 22:20 Eye Response: spontaneous(1); Verbal Response: oriented(1); Motor Response: obeys rr5 commands(2); Systolic BP: > 89 mm Hg(4); Respiratory Rate: 10 to 29 per min(4); Luis Score: 15; Trauma Score: 12 Procedures: 21:49 Reduction: of the left first toe, using traction, manipulation, Immobilized with ortho jr8 shoe. Patient tolerated well. Post reduction film - reveals normal alignment. MDM: 20:[address] Patient medically [address] [facility] 21:50 Data reviewed: vital signs, nurses notes, lab test result(s), radiologic studies, CT [facility] scan, plain films. Data interpreted: Pulse oximetry: on room air is 100 %. Interpretation: normal. Counseling: I had a detailed discussion with the patient and/or guardian regarding: the historical points, exam findings, and any diagnostic results supporting the discharge/admit diagnosis, lab results, radiology results, the need for outpatient follow up, a family practitioner, to return to the emergency department if symptoms worsen or persist or if there are any questions or concerns that arise at home. Response to treatment: the patient's symptoms have markedly improved after treatment. 08/22 20:37 Order name: Basic Metabolic Panel; Complete Time: :08/22 20:37 Order name: CBC with Diff; Complete Time: 21:08/22 20:37 Order name: CT Head C Spine 08/22 20:37 Order name: XRAY Foot LEFT 3 View 08/22 20:37 Order name: XRAY Foot RIGHT 3 View 08/22 20:37 Order name: Creatinine for Radiology; Complete Time: 21:30 08/22 20:36 Order name: IV; Complete Time: 21:08/22 20:37 Order name: XRAY Chest (1 view) 08/22 20:37 Order name: XRAY Pelvis 08/22 20:37 Order name: Labs collected and sent; Complete Time: 21:01 jr8 08/22 21:49 Order name: Orthopedic shoe; Complete Time: 22:35 jr8 Administered Medications: 20:40 Drug: Zofran 4 mg Route: IVP; Site: right antecubital; rr5 21:40 Follow up: Response: No adverse reaction rr5 20:42 Drug: fentaNYL (PF) 50 mcg {Note: rass 0.} Route: IVP; Site: right antecubital; rr5 21:30 Follow up: Response: No adverse reaction; Pain is decreased; RASS: Alert and Calm (0) rr5 21:40 Drug: Dilaudid 1 mg Route: IVP; Site: right antecubital; bb 22:10 Follow up: Response: No adverse reaction; RASS: Alert and Calm (0) rr5 22:11 Drug: Dilaudid 1 mg Route: IVP; Site: right antecubital; rr5 22:23 Follow up: Response: Pain is decreased; Medication administered at discharge.; RASS: rr5 Alert and Calm (0) Disposition: 08/23 06:22 Co-signature as Attending Physician, Flash Jaeger MD Did not see or evaluate patient. ps1 Signature is for administrative purposes. . Disposition: 08/22/19 21:51 Discharged to Home. Impression: Dislocation of interphalangeal joint of left great toe, Superficial injury of head. - Condition is Stable. - Discharge Instructions: Head Injury, Adult, Toe Dislocation. - Medication Reconciliation Form, Thank You Letter, Antibiotic Education, Prescription Opioid Use form. - Follow up: Jayjay Mazariegos DPM; When: 5 - 6 days; Reason: Recheck today's complaints, Continuance of care, Re-evaluation by your physician. - Problem is new. - Symptoms have improved. Signatures: Dispatcher [employer] EDMS Izzy Olsen RN RN bb Sheila Ayon RN RN lp1 Cale Vasquez PA PA jr8 Flash Jaeger MD MD ps1 Felix Anderson RN RN rr5 Corrections: (The following items were deleted from the chart) 08/22 22:23 21:51 08/22/2019 21:51 Discharged to Home. Impression: Dislocation of interphalangeal rr5 joint of left great toe; Superficial injury of head. Condition is Stable. Forms are Medication Reconciliation Form, Thank You Letter, Antibiotic Education, Prescription Opioid Use. Follow up: Dr. Jayjay Mazariegos; When: 5 - 6 days; Reason: Recheck today's complaints, Continuance of care, Re-evaluation by your physician. Problem is new. Symptoms have improved. jr8
--- NOTE | 2019-08-22 21:52 | ER ---
Nurse's Notes [facility] Name: Damian Lee Age: 48 yrs Sex: Male : 1970 Arrival Date: 08/22/2019 Time: 20:18 Bed 5 Private MD: Diagnosis: Dislocation of interphalangeal joint of left great toe;Superficial injury of head Presentation: 08/22 20:36 Presenting complaint: Patient states: Was fixing roof and lost his balance due to the 1 wind, fell from about 16ft high from ladder, hit fence to right thigh and flipped over and hit ground hitting left side of head; Denies LOC; pain and deformity to left great toe; states soreness to back. Care prior to arrival: None. Mechanism of Injury: Fall approximately 16 feet. Trauma event details: Injury occurred in the [facility], Injury occurred: at home. Injury occurred: August 22, 2019 Injury occurred at: 20:00. 20:36 Acuity: SAMI 2 lp1 20:36 Method Of Arrival: Wheelchair lp1 20:40 Transition of care: patient was not received from another setting of care. Onset of lp1 symptoms was August 22, 2019 at 20:00. Risk Assessment: Do you want to hurt yourself or someone else? Patient reports no desire to harm self or others. Initial Sepsis Screen: Does the patient meet any 2 criteria? No. Patient's initial sepsis screen is negative. Does the patient have a suspected source of infection? No. Patient's initial sepsis screen is negative. Trauma Activation: Alert Physician: ED Physician; Name: cale srivastava; Notified At: 21:36; Arrived At: 21:36 Physician: General Surgeon; Name: ; Notified At: 21:36; Arrived At: Physician: Radiology; Name: olivia; Notified At: 21:36; Arrived At: 21:36 Physician: Respiratory; Name: ; Notified At: 21:36; Arrived At: Physician: Lab; Name: ; Notified At: 21:36; Arrived At: Historical: - Allergies: 20:39 No Known Allergies; lp1 - Home Meds: 20:39 Nexium 40 mg Oral cpDR 1 cap once daily [Active]; lp1 - PMHx: 20:39 Chronic Pancreatitis; Diverticulitis; High Cholesterol; Myocardial infarction; lp1 20:39 psoriasis; lp1 - PSHx: 20:39 L hip replacement; Cholecystectomy; Appendectomy; lp1 - Immunization history:: Adult Immunizations up to date. - Coronavirus screen:: The patient has NOT traveled to [place] in the past 14 days. The patient has NOT had contact with known/suspected case of Coronavirus?. - Immunization history: Last tetanus immunization: unknown. - Social history:: Smoking status: Patient denies any tobacco usage or history of. - Ebola Screening: : No symptoms or risks identified at this time. Screenin:40 Abuse screen: Denies threats or abuse. Denies injuries from another. Nutritional lp1 screening: No deficits noted. Tuberculosis screening: No symptoms or risk factors identified. 20:40 Fall Risk Fall in past 12 months (25 points). IV access (20 points). Total [place] Fall rr5 Scale indicates High Risk Score (45 or more points). Fall prevention measures have been instituted. Side Rails Up X 2 Placed Close to Nursing Station Frequent Obs/Assessments Occuring Family Present and informed to notify staff if the need to leave the bedside As available patient and family educated on Fall Prevention Program and Strategies. Primary Survey: 20:36 NO uncontrolled hemorrhage observed. A: The patient is alert. Airway: patent, No rr5 supplemental oxygen in use on arrival. Oral cavity: clear, gag reflex present, Trachea midline. 20:36 Breathing/Chest: Respiratory pattern: regular, Respiratory effort: spontaneous, rr5 unlabored, Breath sounds: clear, bilaterally. Chest inspection: symmetrical rise and fall of the chest. Circulation: Heart tones present. Pulses: palpable right radial artery and left radial artery. Skin color: pink, Skin temperature: warm, dry. Disability Alert. Exposure/Environment: All clothing and personal items were removed. There is no evidence of uncontrolled external bleeding. Obvious injury(ies) are noted at this time: abrasions left side of the face and left palm of the hand. swelling noted on the left big toe. A warming method has been applied: A warm blanket has been provided to the patient. 21:40 Reassessment Airway Airway Patent Oxygen No O2 Oral cavity Clear +Gag reflex Trachea rr5 Midline Breathing/Chest Circulation Heart tones Present Pulses Palpable Color [place] Temperature Warm Dry. Secondary Survey: 20:36 HEENT: Head No injury/deformity Face Other abrasion on the left side face area Eyes: rr5 Other abrasion near left eye Ears: clear bilaterally. Nose: clear to bilateral nares. Throat: is clear with gag reflex present. 20:36 Gastrointestinal: Abdomen is soft, Bowel sounds present in all quadrants. Palpation No rr5 deficit noted. : No signs and/or symptoms were reported regarding the genitourinary system. Musculoskeletal: Capillary refill < 3 seconds, Swelling present in left first toe Reports pain in left first toe and right leg Pain is 6 out of 10 on a pain scale. Assessment: 20:36 General: Appears in no apparent distress. comfortable, Behavior is calm, cooperative, rr5 appropriate for age. 20:36 Pain: Complains of pain in left first toe Pain does not radiate. Pain currently is 6 rr5 out of 10 on a pain scale. Quality of pain is described as aching, Pain began suddenly, Is intermittent. Neuro: Level of Consciousness is awake, alert, obeys commands, Oriented to person, place, time, situation, Appropriate for age. EENT: Eyes abrasion near left eye. Cardiovascular: Capillary refill < 3 seconds Patient's skin is warm and dry. Respiratory: Airway is patent Respiratory effort is even, unlabored, Respiratory pattern is regular, symmetrical. GI: No signs and/or symptoms were reported involving the gastrointestinal system. : No signs and/or symptoms were reported regarding the genitourinary system. Derm: Skin is intact, is healthy with good turgor, Skin temperature is warm Wound noted palmar aspect of proximal phalanx of left ring finger Wound is abrasion. Musculoskeletal: Circulation, motion, and sensation intact. Capillary refill < 3 seconds, Reports pain in left first toe and right leg Pain is 6 out of 10 on a pain scale. 21:00 Reassessment: Patient appears in no apparent distress at this time. Patient is alert, rr5 oriented x 3, equal unlabored respirations, skin warm/dry/pink. back from CT scan, X-ray performed on bedside. 22:20 Reassessment: Patient appears in no apparent distress at this time. Patient is alert, rr5 oriented x 3, equal unlabored respirations, skin warm/dry/pink. discharge instruction given and explained without complaints made. Patient states feeling better. Patient states symptoms have improved. Vital Signs: 20:38 BP 132 / 93; Pulse 79; Resp 18; Temp 97.6(TE); Pulse Ox 100% on R/A; Weight 83.91 kg lp1 (R); Height 5 ft. 6 in. (167.64 cm); Pain 9/10; 21:30 BP 141 / 70; Pulse 80; Resp 19; Pulse Ox 100% ; Pain 9/10; rr5 22:20 BP 133 / 70; Pulse 75; Resp 16; Pulse Ox 99% on R/A; Pain 4/10; rr5 20:38 Body Mass Index 29.86 (83.91 kg, 167.64 cm) lp1 Luis Coma Score: 20:39 Eye Response: spontaneous(4). Verbal Response: oriented(5). Motor Response: obeys lp1 commands(6). Total: 15. 21:30 Eye Response: spontaneous(4). Verbal Response: oriented(5). Motor Response: obeys rr5 commands(6). Total: 15. 22:20 Eye Response: spontaneous(4). Verbal Response: oriented(5). Motor Response: obeys rr5 commands(6). Total: 15. Trauma Score (Adult): 20:39 Eye Response: spontaneous(1); Verbal Response: oriented(1); Motor Response: obeys lp1 commands(2); Systolic BP: > 89 mm Hg(4); Respiratory Rate: 10 to 29 per min(4); Luis Score: 15; Trauma Score: 12 21:30 Eye Response: spontaneous(1); Verbal Response: oriented(1); Motor Response: obeys rr5 commands(2); Systolic BP: > 89 mm Hg(4); Respiratory Rate: 10 to 29 per min(4); Luis Score: 15; Trauma Score: 12 22:20 Eye Response: spontaneous(1); Verbal Response: oriented(1); Motor Response: obeys rr5 commands(2); Systolic BP: > 89 mm Hg(4); Respiratory Rate: 10 to 29 per min(4); Luis Score: 15; Trauma Score: 12 ED Course: 20:18 Patient arrived in ED. cl3 20:30 Felix Anderson, MAT is Primary Nurse. rr5 20:30 Flash Jaeger MD is Attending Physician. ps1 20:30 Patient has correct armband on for positive identification. Placed in gown. Bed in low rr5 position. Call light in reach. Side rails up X2. factory manager on. Pulse ox on. NIBP on. 20:36 Cale Srivastava PA is PHCP. jr8 20:36 Thermoregulation: warm blanket given to patient. rr5 20:38 Triage completed. lp1 20:38 Arm band placed on. lp1 20:40 Inserted saline lock: 20 gauge in right antecubital area, using aseptic technique. rr5 Blood collected. 20:40 Patient maintains SpO2 saturation greater than 95% on room air. rr5 21:05 CT Head C Spine In Process Unspecified. EDMS 21:14 XRAY Foot LEFT 3 View In Process Unspecified. EDMS 21:14 XRAY Foot RIGHT 3 View In Process Unspecified. EDMS 21:14 XRAY Chest (1 view) In Process Unspecified. EDMS 21:14 XRAY Pelvis In Process Unspecified. EDMS 21:40 Assist provider with reduction of left left great toe using manipulation, Set up for rr5 procedure. Performed by Cale SIERRA Immobilized with ortho shoe Patient tolerated well. 21:50 Jayjay Mazariegos DPM is Referral Physician. jr8 22:10 Wound care: to abrasion, located on palmar aspect of proximal phalanx of left little rr5 finger was cleaned with Hibiclens, dressed with Neosporin, 4X4s, Kerlix, Patient tolerated well. 22:20 IV discontinued, intact, bleeding controlled, No redness/swelling at site. Pressure rr5 dressing applied. Administered Medications: 20:40 Drug: Zofran 4 mg Route: IVP; Site: right antecubital; rr5 21:40 Follow up: Response: No adverse reaction rr5 20:42 Drug: fentaNYL (PF) 50 mcg {Note: rass 0.} Route: IVP; Site: right antecubital; rr5 21:30 Follow up: Response: No adverse reaction; Pain is decreased; RASS: Alert and Calm (0) rr5 21:40 Drug: Dilaudid 1 mg Route: IVP; Site: right antecubital; bb 22:10 Follow up: Response: No adverse reaction; RASS: Alert and Calm (0) rr5 22:11 Drug: Dilaudid 1 mg Route: IVP; Site: right antecubital; rr5 22:23 Follow up: Response: Pain is decreased; Medication administered at discharge.; RASS: rr5 Alert and Calm (0) Output: 22:20 Urine: 0ml; Total: 0ml. rr5 Outcome: 21:51 Discharge ordered by . andres 22:20 Discharged to home via wheelchair, with family. rr5 22:20 Condition: stable 22:20 Discharge instructions given to patient, Instructed on discharge instructions, follow up and referral plans. Demonstrated understanding of instructions, follow-up care. 22:20 Patient's length of stay was not longer than 2 hours. rr5 22:23 Patient left the ED. rr5 Signatures: Dispatcher [employer] EDIzzy Iglesias, RN RN bb Sheila Ayon RN RN lp1 Cale Srivastava PA PA jr8 Flash Jaeger MD MD ps1 Felix Anderson RN RN rr5 Leeann Galaviz cl3
[2019-08-22 23:12] VITALS: BP 132/93; TEMP 97.6; O2SAT 100
--- NOTE | 2019-08-23 07:41 | RAD REPORT ---
EXAM DESCRIPTION: RAD - Foot Right 3 View - 08/22/2019 9:13 pm CLINICAL HISTORY: PAIN, fall from 16 feet try giving a fence COMPARISON: Foot Right 3 View dated 08/11/2014 FINDINGS: No fracture, dislocation or periosteal reaction. No air or foreign body in the soft tissues. IMPRESSION: Negative right foot examination.
--- NOTE | 2019-08-23 07:43 | RAD REPORT ---
EXAM DESCRIPTION: RAD - Chest Single View - 08/22/2019 9:13 pm CLINICAL HISTORY: TRAUMA, fall from 16 feet giving a fence and then ground COMPARISON: Chest Single View dated 05/19/2018 TECHNIQUE: AP portable chest image was obtained 08/22/2019 9:13 pm . FINDINGS: Lung volumes are low. No pulmonary contusion or other acute lung parenchymal process. Inte rstitial markings match comparison. Heart and vasculature are normal. No measurable pleural effusion and no pneumothorax. No acute bone findings seen. Concerns regarding rib fracture can be addressed wi dedicated rib films or CT imaging. No acute aortic findings suspected. IMPRESSION: No acute cardiopulmonary process.
--- NOTE | 2019-08-23 07:44 | RAD REPORT ---
EXAM DESCRIPTION: RAD - Pelvis - 08/22/2019 9:13 pm CLINICAL HISTORY: TRAUMAfall from 16 feet high hitting a fence and in the ground COMPARISON: Abdomen Pelvis W Contrast dated 02/04/2018 TECHNIQUE: AP imaging of the pelvis was obtained. FINDINGS: No pelvic fracture confirmed on this single view examination. SI joints and pubic symphysi s within normal limits. Left hip prosthesis in place. No dislocation of the femoral head on the left. No acute right hip joint finding. No suspicious soft tissue finding. IMPRESSION: No fracture or acute findings identifiable.
--- NOTE | 2019-08-23 07:46 | RAD REPORT ---
EXAM DESCRIPTION: RAD - Foot Left 3 View - 08/22/2019 9:13 pm CLINICAL HISTORY: PAIN, fall from 16 feet high COMPARISON: <Comparisons>none FINDINGS: There is dorsal dislocation of the first distal phalanx. Overlap of a few mm noted. No fra cture component identifiable. No other fracture or dislocation finding. There is remodeling of the fi fth metatarsal from a remote fracture. Very minimal plantar spur is present. No pathologic bone proce ss. No foreign body in the soft tissues. IMPRESSION: Dislocation of the first distal phalanx without associated fracture seen.
--- NOTE | 2019-08-23 10:20 | RAD REPORT ---
EXAM DESCRIPTION: CT - CTHCSPWOC - 08/23/2019 2:22 am CLINICAL HISTORY: The patient is 48 years old and is Male; fall; Pain TECHNIQUE: Axial computed tomography images of the head/brain and cervical spine without intravenous contrast. Sagittal and coronal reformatted images were created and reviewed. This CT exam was pe rformed using one or more of the following dose reduction techniques: automated exposure control, a djustment of the mA and/or kV according to patient size, and/or use of iterative reconstruction techn ique. DLP: 1249 mGy*cm COMPARISON: None. FINDINGS: BRAIN: No hemorrhage. No mass effect. Prominence of the cerebral sulci and cisterns. No significant white matter disease. VENTRICLES: Mild prominence of the ventricular system without hydrocephalus. SKULL: No acute fracture. SINUSES: Paranasal sinuses are clear. MASTOID AIR CELLS: Mastoid air cells are well pneumatized. ORBITS: Globes and orbits are within normal limits. VERTEBRAE: Straightening of cervical lordosis. No acute fracture. DISCS/SPINAL CANAL/NEURAL FORAMINA: No acute findings. No spinal canal stenosis. SOFT TISSUES: Unremarkable. LUNG APICES: Apical lung zones are clear. IMPRESSION: 1. No acute intracranial hemorrhage, hydrocephalus or herniation. 2. No acute cervical spine fracture or subluxation. 3. Cerebral volume loss and chronic small vessel ischemic changes. If persistent clinical concern f or acute ischemia, consider MRI brain without contrast for further evaluation. Electronically signed by: Alphonso Bowman DO 08/22/2019 9:42 PM STORE KEEPER Due to temporary technical issues with the PACS/Fluency reporting system, reports are being signed by the in house radiologist as a courtesy to ensure prompt reporting. The interpreting radiologist is f ully responsible for the content of the report.
== END 2019-08-22 22:23 | disposition home or self-care (01) ==
LOC: ER 20:17
PROC: 0SSQXZZ Reposition Left Toe Phalangeal Joint, External Approach (ICD-10-PCS; principal; 2019-08-22)
DX: S93.112A Dislocation of interphalangeal joint of left great toe, initial encounter (principal); W11.XXXA Fall on and from ladder, initial encounter; Y93.89 Activity, other specified; Y92.89 Other specified places as the place of occurrence of the external cause
CPT/HCPCS: 36415; 70450; 71045; 72125; 72170; 80048; 85025; 96374; 96375; 99285; J1170; J2405; J3010

== ENCOUNTER 2020-02-27 17:44 | Emergency (ER) | payer SELFPAY ==
--- OUTSIDE RECORDS SUMMARY | 2020-02-27 17:45 | XMS REPORT | Clinical Summary ---
:1970 Author Organization [facility] Address [address] [place] [address] Care Team Providers Name Role Phone Asked, Pcp Primary Care Provider Unavailable Allergies Active Allergy Reactions Severity Noted Date Comments No Known Drug Allergies 12/23/2016 Medications No known medications Active Problems Problem Noted Date Status post total replacement of left hip 12/23/2016 Left hip pain 12/23/2016 Osteoarthritis of left hip 11/03/2016 Hip pain, left 10/03/2016 Hip pain, chronic 10/03/2016 Primary osteoarthritis of left hip 10/03/2016 Chronic pancreatitis 04/13/2016 Last Assessment & Plan: He has a history of pancreatitis with as sociated chronic pain, but no stigmata of chronic pancreatitis. Prior MRI and EUS was unrevealing. He does continue to have some intermittent LUQ pain. Will start tramadol for pain. Continue low fat diet Diverticulitis large intestine w/o perforation or absc ess w/o bleeding 04/13/2016 Last Assessment & Plan: Mild uncomplicated diverticulitis on zain ging. I explained that he should increase fiber in his diet. Further, he takes da mariama NSAIDS, which may be a contributing factor. Will start tramadol as an alter [place] for pain. He may benefit from low dose TCA in the future Family History Medical History Relation Name Comments [...] travel history available. Last Filed Vital Signs Not on file Plan of Treatment Health Maintenance Due Date Last Done Comments COLONOSCOPY SCREENING 2018 SHINGLES VACCINES (#1) 2018 INFLUENZA VACCINE 04/02/2020 Implants Implanted Type Area Seed Production Field Supervisor Device Shelf Model / Identifier Expiration Serial / Lot Date Shell Actblr Sector W/ Gription 52mm [place] - [id number] Hip Joint Left: DEPUY 06/01/2026 [id number] / Implanted: Qty: 1 on 11/03/2016 by Charlie Ramirez II, MD at [facility] Implants Hip ORTHO-KNEES / [id number] Altrex Poly Acet 36mm X 52mm Neutral Liner - [id number] IPM IMPLANT Left: DEPUY 07/02/2021 1221 36 052 / Implanted: Qty: 1 on 11/03/2016 by Charlie Ramirez II, MD at [facility] DEVICES Hip ORTHOPAEDICS[employer] INC [id number] Calvin Hip System Femoral Stems Size 5 P orocoat Standard Offset 06/15 Taper - [id number] [id number] IMPLANT Left: DEPUY 08/30/2026 1570 01 110 / Implanted: Qty: 1 on 11/03/2016 by Charlie Ramirez II, MD at [facility] DEVICES Hip [employer]THOP[employer] [id number] [place] Fracture System Biolox Delta Ceram ic Femoral Heads Size 36 +1.5 Mm Articul/Delio 06/15 Taper Ceramic Femoral Heads - [id number] IPM IMPLANT Le ft: DEPUY 08/30/2021 1365 36 310 / Implanted: Qty: 1 on 11/03/2016 by Charlie Ramirez II, MD at 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
--- OUTSIDE RECORDS SUMMARY | 2020-02-27 17:46 | XMS REPORT | Continuity of Care Document ---
:1970 Author Organization [facility] Information Exchange Care Team Providers Name Role Phone [facility] Information [facility] Unavailable Un available Problems Problem Status Onset Classification Date Comments Sourc e Date Reported CP Active 08/17/19 [facility] Charanjit GENERALIZED Active 08/17/19 [facility] WEAKNESS, FATIGUE 17 He rmann GENERALIZED Active 08/17/19 [facility] WEAKNESS, 17 Charanjit FATIGUE, ATAXIA Chronic Resolved Problem 09/08/2016 pancreatitis Neli Gupta (disorder) H [facility] [place] Diverticulitis Resolved Problem 09/08/2016 (disorder) Neli Luevano [facility] [place] Hyperlipidemia Resolved Problem 09/08/2016 (disorder) Neli Luevano [facility] [place] WEAKNESS Active [facility] Charanjit OTHER FATIGUE Active [facility] Charanjit ATAXIA, Active [facility] UNSPECIFIED Charanjit Medications Medication Details Route Status Patient Ordering Order Source Instructions Provider Date Morphine Notes: (Same Inactive MH as:MORPhine 017 [place] Sulfate) ketOROLAC 15 4 days. Inactive MH mg/mL 017 [place] injectable solution ketOROLAC 15 4 days. Inactive MH mg/mL 017 [place] injectable solution Ativan Notes: (Same Inactive MH as: Ativan) Jade Luevano Vitamin B-12 100 Active MH 100 mcg oral microgram = 017 [place] d tablet 1 tab, PO, Daily, # 30 tab, 0 Refill(s) Vitamin B12 Notes: (Same Inactive MH As: Vitamin 017 [place] B12) Ativan Notes: (Same Inactive MH as: Ativan) 017 [place] Ativan Notes: (Same Inactive MH as: Ativan) 017 [place] Protonix Notes: No Longer MH Tablet Active 017 [place] should not be chewed or crushed. (Same as: Protonix) Esomeprazole 40 mg, Inactive MH Route: PO, 017 [place] Drug form: ECCAP, Daily, Dosing Weight 84.727, kg, Start date: 08/18/16 9:00:00 MEAL ATTENDANT, Duration: 30 day, Stop date: 09/16/16 9:00:00 CDT tramadol Notes: Not No Longer hydrochloride to exceed Active 017 [place] 50 MG Oral 400mg/day. Tablet (Same As: Ultram) tramadol 50 mg = 1 Active MH hydrochloride tab, PO, 017 [place] 50 MG Oral Q8H, PRN Tablet Pain, # 60 tab, 0 Refill(s) Esomeprazole 40 40 mg = 1 Active MH MG Enteric cap, PO, 017 [place] Coated Capsule Daily, # 30 cap, 0 Refill(s) Aspirin Notes: Do No Longer not crush or Active 017 [place] chew. (Same As: Ecotrin) sodium chloride 1,000 mL, No Longer MH 0.9% 1000 ml Rate: 100 Active 017 [place] INJ 1,000 mL ml/hr, Infuse over: 10 hr, Route: IV, Total Volume: 1,000, Start date: 08/17/16 20:28:00 MEAL ATTENDANT, Duration: 30 day, Stop date: 09/16/16 20:27:00 CDT Ondansetron Notes: (Same No Longer as: Zofran) Active 017 [place] MEDICATION WASTE Product Size: 4 mg Product Wasted: ___ mg Acetaminophen Notes: Do No Longer MH not exceed 4 Active 017 [place] gm/day. (Same as: Tylenol) Acetaminophen Notes: Do No Longer 300 MG / not exceed Active 017 [place] Codeine 4gm/day of Phosphate 30 MG acetaminophe Oral Tablet n. (Same [Tylenol with as: Tylenol Codeine #3] with Codeine # 3) Allergies, Adverse Reactions, Alerts No Known Medication Allergies Immunizations No Data Provided for This Section Results Order Name Results Value Reference Date Interpretation Comments Soco rce Range BODY FLUIDS RBC CSF 643 0 - 03 08/22 /2016 [place] BODY FLUIDS Color CSF Colorless Colorless 08/22 (08/22/16 1:05 PM) /2016 [place] BODY FLUIDS WBC CSF 1 0 - 53 08/22 [place] BODY FLUIDS Clarity CSF Clear Clear 08/22 (08/22/16 1:05 PM) [facility] nd BODY FLUIDS Supernat CSF Colorless Colorless 08/22 (08/22/16 1:05 PM) [facility] nd BODY FLUIDS Tube Num CSF 3 08/22 [place] BODY FLUIDS LDH CSF 27 08/22 [place] BODY FLUIDS Protein CSF 51 15 - 45 08/22 [place] BODY FLUIDS Glucose CSF 49 45 - 80 08/22 [place] FUNGAL - Crypto Ag Negative Negative 08/22 SEROLOGY CSF (08/22/16 1:05 PM) /2016 [place] and IMMUNOLOGY VDRL Scr CSF Non Reactive Non 08/22 (08/22/16 1:05 PM) /2016 [place] and IMMUNOLOGY Alb (CPE) 4100.0 3400.0 - 08/22 5000.0 [place] IMMUNOLOGY IgG Lvl CSF 3.5 2.0 - 4.0 08/22 [place] IMMUNOLOGY IgG Index 0.4 0.3 - 0.7 08/22 [place] IMMUNOLOGY IgG (CPE) 1020 694 - 1618 08/22 [place] IMMUNOLOGY Alb CSF 33.4 14.0 - 08/22 MH (CPE) 25.0 [place] IMMUNOLOGY Description The gel 08/22 CSF demonstrat /2016 [place] es appropriat e resolution of the main protein bands. The gamma region shows continuous distributi on of proteins both in the CSF and in the serum. No oligoclona l bands are detected. 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 The CSF IgG index is within the [...] results and concur with the resident's interpreta tion. CPT: 93486-JD VIRAL - Enterovirus Negative Negative 08/22 SEROLOGY PCR CSF (08/22/16 1:05 PM) /2016 [place] [facility] HEMATOLOGY aPTT 30.5 22.9 - 02/20 MH 35.8 /2017 [place] HEMATOLOGY PROTIME 12.4 12.0 - 08/22 MH 14.7 /2016 [place] HEMATOLOGY INR 0.91 0.85 - 08/22 1.17 [place] ANEMIA Folate Lvl 12.3 >=3.0 08/20 STUDY ng/mL /2016 [place] IMMUNOLOGY KADY Negative Negative 08/20 (08/20/16 2:12 PM) [facility] IMMUNOLOGY Homocyst Tot 5.3 3.7 - 13.9 08/20 /2016 [place] IMMUNOLOGY ACHr Mod Ab <12 0 - 20 08/20 Result MH Comment: [place] Negative: <21
Equivocal: 21 - 25
Positive: >25
The assay is linear between values of 12 and 64.
Those <12 and >64 are reported as such. No single
value for ACR-modulatin g antibody should be used as
a sole basis for diagnosis or response to therapy.
Performed At: [facility]
[address], [place] [id number]<br/ >John Mead MD Ph:[phone] IMMUNOLOGY ACHr Block 16 0 - 25 08/20 Result Ab Comment: [place] Negative: 0 - 25
Borderline: 26 - 30
Positive: >30

Results for this test are for research purposes
only by the assay's wire frame lamp shade maker. The performance<b r/>characteri stics of this product have not been
esta blished. Results should not be used as a
diagnos tic procedure without confirmation of the
diagn osis by another medically established<b r/>diagnostic product or procedure.&lt ;br/>Performe d At: [facility]
[address], [place] [id number]<br/ >John Mead MD Ph:[phone] IMMUNOLOGY ACHr Binding <0.03 0.00 - 08/20 Result Ab 0. Comment: [place] Negative: 0.00 - 0.24
Borderline: 0.25 - 0.40
Positive: > 0.40
Perf [facility]med At: [facility]
[address], [place] [id number]<br/ >John Mead MD Ph:[phone] IMMUNOLOGY Beta % 11.5 7.8 - 13.7 08/20 /2016 [place] IMMUNOLOGY Alpha 1 % 3.6 2.8 - 4.9 08/20 /2016 [place] IMMUNOLOGY Alpha 2 % 8.2 7.0 - 11.9 08/20 MH /2016 [place] IMMUNOLOGY Alpha 2 Glob 0.57 0.45 - 08/20 MH 1.00 [place] IMMUNOLOGY Alpha 1 Glob 0.25 0.18 - 08/20 MH 0.41 [place] IMMUNOLOGY Albumin 4.22 3.57 - 08/20 MH (SPE) 5.55 /2016 [place] IMMUNOLOGY Gamma % 15.5 11.1 - 08/20 MH 18.7 [place] IMMUNOLOGY Tot Prot 6.9 6.4 - 8.4 08/20 MH (SPE) /2016 [place] IMMUNOLOGY Gamma Glob 1.07 0.71 - 08/20 MH 1.57 [place] IMMUNOLOGY Beta Glob 0.79 0.50 - 08/20 MH 1.15 [place] IMMUNOLOGY SPE Interp Total 08/20 MH protein /2016 [place] and serum albumin levels are within reference ranges. All globulin fractions are present in a normal distributi on. No monoclonal proteins are identified . Serum capillary electropho resis is without significan t abnormalit ies. Interpreta tion performed at [facility]. IMMUNOLOGY Albumin % 61.2 55.8 - 08/20 MH 66.1 [place] IMMUNOLOGY Treponemal Non Reactive Non 08/20 MH Scr *NA* Reactive /2016 [place] (08/20/16 2:12 PM) METAL Copper Lvl 86 72 - 166 08/20 Result Comment: [place] Detection Limit = 5
Perform ed At: [facility]
[address], [place] [id number]<br/ >John Mead MD Ph:[phone] SPECIAL Hgb A1C 5.6 <=5.6 % 08/20 MH CHEMISTRY /2016 [place] CHEM PANEL Ammonia 17.0 <=45.0 08/19 uMol/L /2016 [place] ELECTROLYTE AGAP 7.9 10.0 - 08/19 MH S 20.0 [place] ELECTROLYTE eGFR 102 08/19 Result MH S Comment: The [place] eGFR is calculated using the CKD-EPI formula. In most young, healthy individuals the eGFR will be >90 mL/min/1.73m2 . The eGFR declines with age. An eGFR of 60-89 may be normal in some populations, particularly the elderly, for whom the CKD-EPI formula has not been extensively validated. Use of the eGFR is not recommended in the following populations:< br/>
Krista viduals with unstable creatinine concentration s, including patients and those with serious co-morbid conditions.<b r/>
Patie nts with extremes in muscle mass or diet.

The data above are obtained from the National Kidney Disease Education Program (NKDEP) which additionally recommends that when the eGFR is used in patients with extremes of body mass index for purposes of drug dosing, the eGFR should be multiplied by the estimated BMI. ELECTROLYTE Calcium Lvl 8.2 8.5 - 10.5 08/19 S [place] ELECTROLYTE CO2 30 24 - 32 08/19 S [place] ELECTROLYTE Potassium 3.9 3.5 - 5.1 08/19 MH S Lvl /2016 [place] ELECTROLYTE Creatinine 0.88 0.50 - 08/19 S Lvl 1.40 [place] ELECTROLYTE BUN 8 7 - 22 08/19 S [place] ELECTROLYTE Glucose Lvl 92 70 - 99 08/19 S [place] ELECTROLYTE Chloride Lvl 110 95 - 109 08/19 S [place] ELECTROLYTE Sodium Lvl 144 135 - 145 08/19 S [place] HEMATOLOGY Platelet 191 133 - 450 08/19 [place] HEMATOLOGY RDW 14.5 11.5 - 08/19 MH 14.5 [place] HEMATOLOGY MCHC 34.7 32.0 - 08/19 MH 36.0 [place] HEMATOLOGY MCH 31.2 27.0 - 08/19 MH 31.0 [place] HEMATOLOGY MCV 89.8 80.0 - 08/19 MH 94.0 [place] HEMATOLOGY Hct 42.8 42.0 - 08/19 MH 54.0 /2016 [place] HEMATOLOGY Hgb 14.8 14.0 - 08/19 MH 18.0 [place] HEMATOLOGY RBC X 10x6 4.76 4.70 - 08/19 MH 6.10 [place] HEMATOLOGY WBC X 10x3 6.5 3.7 - 10.4 08/19 MH /2016 [place] HEMATOLOGY MPV 8.5 7.4 - 10.4 08/19 /2016 [place] HEMATOLOGY Segs 55.4 45.0 - 02 MH 75.0 [place] HEMATOLOGY Segs-Bands # 3.6 1.5 - 8.1 08/19 /2016 [place] HEMATOLOGY Basophils 0.6 0.0 - 1.0 08/19 /2016 [place] HEMATOLOGY Eosinophils 2.2 0.0 - 4.0 08/19 [place] HEMATOLOGY Monocytes 9.1 2.0 - 12.0 08/19 /2016 [place] HEMATOLOGY Lymphocytes 32.7 20.0 - 08/19 MH 40.0 [place] HEMATOLOGY Eosinophils 0.1 0.0 - 0.5 08/19 MH # /2016 [place] HEMATOLOGY Monocytes # 0.6 0.0 - 0.8 08/19 /2016 [place] HEMATOLOGY Lymphocytes 2.1 1.0 - 5.5 08/19 MH # /2016 [place] IMMUNOLOGY HIV 1/2 Ab Negative Negative 08/19 *NA* /2016 [place] (08/19/16 3:07 PM) IMMUNOLOGY RPR Non Reactive Non 08/19 (08/19/16 3:07 PM) Reactive /2016 [place] and ANEMIA Vitamin B12 297 254 - 1320 08/19 STUDY Lvl /2016 [place] CARDIAC CK MB 2.4 0.5 - 3.6 08/18 ENZYMES /2016 [place] CARDIAC Troponin-I <0.02 0.00 - 08/18 ENZYMES 0.40 [place] CARDIAC Total CK 161 12 - 191 08/18 ENZYMES /2016 [place] CARDIAC CK-MB INDEX 1.5 0.0 - 2.5 08/18 ENZYMES /2016 [place] CARDIAC CK MB 2.9 0.5 - 3.6 08/18 ENZYMES /2016 [place] CARDIAC Troponin-I <0.02 0.00 - 02/16 MH ENZYMES 0.40 /2017 [place] CARDIAC Total CK 200 12 - 191 08/18 MH ENZYMES /2017 [place] CARDIAC CK-MB INDEX 1.4 0.0 - 2.5 08/18 MH ENZYMES /2017 [place] CARDIAC CK MB 2.9 0.5 - 3.6 08/18 MH ENZYMES /2017 [place] CARDIAC Troponin-I <0.02 0.00 - 08/18 MH ENZYMES 0.40 /2017 [place] CARDIAC Total CK 185 12 - 191 08/18 MH ENZYMES /2017 [place] CARDIAC CK-MB INDEX 1.6 0.0 - 2.5 08/18 MH ENZYMES /2017 [place] Pathology Reports No Data Provided for This Section Diagnostic Reports Report Value Date Source Brain/Neck CTA CTA NECK AND BRAIN WITH CONTRAST 09/05/2016 OP[facility] [place] INDICATION: Gait disturbance ct dose dlp 599.17 COMPARISON: MRA neck and brain 08/20/2016 TECHNIQUE: CTA of the neck a nd brain was performed after administration of intravenous contrast. Coronal, sagittal, and 3-D reformatted images were utilized. DISCUSSION: CTA NECK: Measurement of potential stenosis is performed a ccording to NASCET criteria. The bilateral common carotid arteries, bifurcations, and internal carotid arteries appear widely patent. There is no measurable stenosis of the bilateral ICAs. The bilateral vertebral arteries are patent. CTA BRAIN: The bilateral internal carot id arteries are patent. The bilateral anterior and middle cerebral arteries are patent. The vertebrobasilar arteries and bilateral posterior cerebral arteries are patent. Normal variant anatomy: An anterior communicating ar maeve is present. A hypoplastic posterior communicating artery is present on the right side. No aneurysms or vascular malformations are ident ified. IMPRESSION: Stenosis of the extracranial internal carotid arteries is categorized and reported according to NASCET criteria: Less than 50% stenosis (0-49%) 50-69% stenosis Greater than 70% stenosis (including 70-99%) 1. Less than 50% stenosis of the bilateral extracranial internal carotid arteries. The bilateral vertebral arteries are patent. 2. Unremarkable CTA of the c ircle of [place]. No cerebral aneurysms are identified. The aneurysms described in the preceding MRA, were probably artifactual, related to extensive motion artifact in that study. SL:16 Spine lumbar puncture Patient Name: PABLO HASTINGS 08/22/2016 [facility] eric DX : 1970; Age: 45 years y/o Male MR: [id number] PROCEDURE: Fluoroscopically guided lumbar punctu re. PHYSICIAN PROVIDING SERVICE: Fredi Mayo M.D. HISTORY: 72-year-old male wi th slurred speech, dizziness, and gait ataxia. Memory changes. CONSENT: The procedure, risk s, benefits and alternatives were discussed with the patient and written informed consent was obtained. TECHNIQUE: Preliminary fluoroscopy of t he lumbar region was performed. A suitable location at L4-L5 was chosen. A generous portion of the jared mbar region was prepped with Betadine and draped. The procedure was performed under local anesthesia utilizing 1% lidocaine. A 20- gauge spinal needle was advanced into the l umbar spinal canal under fl uoroscopic guidance at the L4-L5 level. An opening pressure was measured. The opening pressure was estimated to be 15 centimeters of water. This was estimated by adding the l evel of the manometry tube r eading to the length of the needle. Next, 4 tubes of clear CSF were withdrawn (approximately 25 mL of CSF total). The samples were sent to the laboratory. The needle was then removed without difficulty. The fluoroscopy time was: 0.9 minutes. Dose, 36. 2 mGy The patient tolerated the pr ocedure well and suffered no immediate complications. IMPRESSION: Fluoroscopically guided lumbar punct ure. SL: [id number] Brain w/wo contrast Patient Name: PABLO HASTINGS 08/20/2016 [facility] MRI : 1970; Age: 45 years y/o Male MR: [id number] Study: Brain w/wo contrast MRI 08/20/2016 12:17 P M MEAL ATTENDANT Ordering Physician: Neli Bravo Clinical Indication: Absent reflexes. Generalize d weakness. Comparison: None TECHNIQUE: TECHNIQUE: Precon trast and postcontrast MRI of the brain was [...] or focal lesion. SL: TPAINTER-PC Brain wo contrast MRA Study: Brain wo contrast MRA 08/20/2016 12:23 PM MEAL ATTENDANT 08/20/2016 [facility] Patient Name: PABLO HASTINGS MR: [id number] : 1970; Age: 45 years y/o Male Ordering Physician: Neli Bravo Clinical Indication: Generalized weakness. Absen t reflexes. Comparison: None Technique: Magnetic resonanc e angiography of the quechan of [place] was performed without contrast. Three-dimensional rotational images were also prepared. FINDINGS: 1. Mild to moderate motion artifact. 2. Mild peripheral vascular attenuation and irregularity throughout the quechan of [place] likely represents a combination of motion artifact and small vessel occlusive change. ANTERIOR CIRCULATION: INTERNAL CAROTID ARTERIES: N o focal stenosis. A tiny 1.5 mm inferiorly projecting aneurysm is suspected involving the distal supraclinoid portion of the left internal carotid artery. MIDDLE CEREBRAL ARTERIES: No focal stenosis or aneurysm in the M1 and M2 segments. The peripheral MCA branches appear normal. ANTERIOR CEREBRAL ARTERIES: No focal stenosis or aneurysm. Normal anterior communicating artery. POSTERIOR CIRCULATION: VERTEBROBASILAR SYSTEM: No f ocal stenosis in the basilar artery. A focal step- off within the mid to distal basilar artery most likely represents motion artifact although an aneurysm is difficult to exclude certainty. POSTERIOR CEREBRAL ARTERIES: No focal stenosis o r aneurysm. SUPERIOR CEREBELLAR ARTERIES: Normal in appearan ce. AICA: Normal in appearance. PICA: Normal in appearance. IMPRESSION: 1. Mild peripheral vascular irregularity and attenuation throughout the quechan of [place] likely related to a combination of small vessel occlusive change and artifact. 2. Small 1.5 cm aneurysm suh spected projecting inferiorly from the distal supraclinoid portion of the left internal carotid artery. 3. Small focal step-off wit hin the mid to distal basilar artery most likely represents motion artifact although aneurysm is difficult to exclude with certainty. Follow-up CTA is recommended for better characterization. Neck wo contrast MRA Study: Neck wo contrast MRA 08/20/2016 1 2:17 PM MEAL ATTENDANT 08/20/2016 [facility] Patient Name: PABLO HASTINGS MR: [id number] : 1970; Age: 45 years y/o Male Ordering Physician: Neli Bravo Clinical Indication: General ized weakness. Headache. Follow-up carotid ultrasound. Comparison: None TECHNIQUE: Magnetic resonanc e angiography of the neck was performed without contrast. Three-dimensional rotational images were also prepared. MRA NECK Mild to moderate motion artifact. Aortic arch and great vessel origins: Not visual ized. Brachiocephalic trunk: Not visualized. Subclavian arteries: Poorly visualized. Right carotid artery: No sig nificant stenosis within the right common carotid artery. Decreased signal seen at the origin of the right internal carotid artery most likely representing flow artifact and motion artifact. The extracr anial portion of the right internal carotid artery is normal. Left carotid artery: No sign ificant stenosis within the left common carotid artery. Decreased signal seen at the origin of the left internal carotid artery most likely representing flow artifact and mot ion artifact. The extracrani al portion of the left internal carotid artery is normal. Vertebral arteries: The orig ins are never well-visualized. The visualized portions of the remaining vertebral arteries are normal after accounting for artifact present. Any reported ICA stenosis di rectly references the distal internal carotid diameter as the denominator for stenosis measurement. IMPRESSION: 1. Mild to moderate motion artifact. 2. No significant carotid a rtery or vertebral artery stenosis is suspected after accounting for limitations. Follow-up CTA could be obtained if clinically indicated. SL: TPAINTER-PC Spine cervical wo Study: Spine cervical wo contrast MRI 08/19/[address] [place] [address] contrast MRI Clinical Indication: Weakness Comparison: None TECHNIQUE: Multiplanar, mult isequence magnetic resonance imaging of the cervical spine was performed without the administration of intravenous gadolinium contrast. FINDINGS: There is normal alignment of the cervical spine. No focal marrow signal abnormality is present. The prevertebral soft tissues, atlanto-dental interspace, and craniocervical junction are within normal li mits. The visualized brainst em region is unremarkable. The cervical spinal cord is normal in size and signal. The discs are desiccated throughout the cervical spine. DISC SPACES: C2-C3: Negative for signific ant disc bulge or protrusion. Severe left facet arthrosis is seen. There is severe left neural foraminal narrowing without spinal canal stenosis. C3-C4: Small circumferential disc osteophyte complex is seen. Mild left facet arthrosis is present. There is mild left neural foraminal narrowing without spinal canal stenosis. C4-C5: Negative for signific ant disc bulge or protrusion. Facets are intact. There is no spinal canal stenosis or neural foraminal narrowing. C5-C6: Small circumferential disc osteophyte complex is seen. Facets are intact. There is no spinal canal stenosis or neural foraminal narrowing. C6-C7: 3 mm diffuse disc bul ge is seen. Facets are intact. There is no spinal canal stenosis or neural foraminal narrowing. C7-T1: Negative for signific ant disc bulge or protrusion. Mild left facet arthrosis is seen. There is no spinal canal stenosis or neural foraminal narrowing. IMPRESSION: 1. Degenerative changes of t he cervical spine with severe left facet arthrosis and severe left neural foraminal narrowing at C2-C3. 2. C3-C4 mild left neural foraminal narrowing. 3. No significant spinal canal stenosis througho ut the cervical spine. SL: [id number] Brain wo contrast MRI Patient Name: PABLO HASTINGS 08/18/2016 [facility] : 1970; Age: 45 years y/o Male MR: [id number] Study: Brain wo contrast MRI 08/18/2016 10:13 AM MEAL ATTENDANT Ordering Physician: Neli Bravo Clinical Indication: Altered mental status; Comparison: None TECHNIQUE: Multiplanar MRI o f the brain is performed on a 1.5 Angela magnet. Contrast: None. FINDINGS: BRAIN PARENCHYMA: No abnorm al signal identified on diffusion-weighted imaging to suggest an acute infarction. No abnormal areas of signal intensity identified about the brain. No extra-axial fluid collection, mass effect or shift. CEREBELLOPONTINE REGIONS AND SKULL BASE: The craniocervical junction, skull base and pituitary gland are unremarkable. Cerebellar pontine angles unremarkable bilaterally. VENTRICLES: The ventricles a nd sulci are within normal limits for the patient's age. VESSELS: Normal flow voids i dentified in the major vessels at the base of the brain. ORBITS, VISUALIZED PARANASAL SINUSES AND MASTOIDS: The visualized orbits and paranasal sinuses are unremarkable. The mastoid air cells are clear. IMPRESSION: Unremarkable noncontrast MRI of the brain. SL: [id number] Carotid artery Patient Name: PABLO HASTINGS 08/18/2016 [facility] Doppler bilat US : 1970; Age: 45 years Male MR: [id number] Study: Carotid artery Doppler bilat US 08/18/2016 10:02 AM MEAL ATTENDANT Clinical Indication: Carotid artery stenosis or occl wo/ stroke. Lightheadedness. COMPARISON: None TECHNIQUE: Rajput-scale, color Doppler an d spectral Doppler of the carotid arteries was performed. Any reported ICA stenoses indirectly reference the distal internal carotid diameter as the denominator for the sten osis measurement, utilizing consensus panel tati valencia. FINDINGS: RIGHT: No significant plaque. ICA PSV 106 cm/sec CCA PSV 89 cm/sec ICA/CCA ratio 1.19 Vertebral flow is antegrade. External carotid artery is patent. LEFT: No significant plaque. ICA PSV 120 cm/sec CCA PSV 126 cm/sec ICA/CCA ratio 0.95 Vertebral flow is antegrade. External carotid artery is patent. IMPRESSION: 1. RIGHT: ICA stenosis <50% by velocity criteria . 1. LEFT: ICA stenosis <50% by velocity criteria. Consensus panel Doppler US criteria for diagnosi s of ICA stenosis: Stenosis (%) ICA PSV (cm/sec) ICA/CCA ratio <50 <125 <2.0 50-69 125-230 2.0-4.0 >70 but less than >230 >4.0 near occlusion Near occlusion High, low, or Variable undetectable SL: MAGALY Consultation Notes No Data Provided for This Section Discharge Summaries No Data Provided for This Section History and Physicals No Data Provided for This Section Vital Signs Vital Sign Value Date Comments Source Heart Rate 55 08/23/2016 [facility] Respitory Rate 16 08/23/2016 [facility] Systolic (mm Hg) 103 08/23/2016 [facility] Diastolic (mm Hg) 68 08/23/2016 [facility] Temperature Oral (F) 98.0 F 08/23/2016 [facility] Systolic (mm Hg) 100 08/23/2016 [facility] Diastolic (mm Hg) 62 08/23/2016 [facility] Heart Rate 57 08/23/2016 [facility] Temperature Oral (F) 97.9 F 08/23/2016 [facility] [facility] Respitory Rate 16 08/23/2016 [facility] Heart Rate 64 08/23/2016 [facility] Temperature Oral (F) 98.1 F 08/23/2016 [facility] Systolic (mm Hg) 108 08/23/2016 [facility] Diastolic (mm Hg) 71 08/23/2016 [facility] d Respitory Rate 16 08/23/2016 [facility] BMI Calculated 30.15 08/18/2016 [facility] Weight 84.727 08/18/2016 [facility] Height 167.64 cm 08/18/2016 [facility] Encounters Location Location Encounter Encounter Reason Attending ADM DC Stat us Source Details Type Number For Provider Date Date Visit [facility] [id number] Enriqueta 08/21 08/23 Charanjit Ajao /2016 [facility] Outpt Diag [id number] Angela Perez 09/05 09/[facility] [place] Procedures Procedure Code Date Perfomer Comments Source Amputation of finger [id number] [facility] Appendectomy [id number] [facility] Arthroscopic primary [id number] reduction and Chloé, fixation of fracture [facility] of neck of femur using dynamic hip screw Cholecystectomy [id number] [facility] Complete excision of [id number] salivary gland [place] Assessment and Plan No Data Provided for This Section Plan of Care No Data Provided for This Section Social History Social History Date Source Social History TypeResponse 08/18/2016 [facility] Substance Abuse Use: Past. Type: Amphetamines. Recreat ional Drug Route: Inhaled, Intravenous, Oral. Alcohol Past, Type Beer, Wine, Liquor. Frequency: Daily. Smoking Status Former smoker; Type: Cigarettes; Tobacco use per day: 40; Number of years: 25; Exposure to Tobacco Smoke None; Cigarette Smoking Last 365 Days No; Reg Smoking Cessation Counseling Yes Social History TypeResponse 08/18/2016 [facility] Substance Abuse Use: Past. Type: Amphetamines. Recreat ional Drug Route: Inhaled, Intravenous, Oral. Alcohol Past, Type Beer, Wine, Liquor. Frequency: Daily. Smoking Status Former smoker; Type: Cigarettes; Tobacco use per day: 40; Number of years: 25; Exposure to Tobacco Smoke None; Cigarette Smoking Last 365 Days No; Reg Smoking Cessation Counseling Yes Family History No Data Provided for This Section Advance Directives No Data Provided for This Section Functional Status No Data Provided for This Section
[2020-02-27 18:26] LABS: Absolute Lymphocytes (CBC) 2.4 K/uL (0.7-4.9); Basophils % 0.9 % (0-1.3); Hematocrit 43.2 % (39.6-49.0); Lymphocytes % 23.5 % (15.3-44.8); MPV 9.1 fL (7.6-11.3); RBC Red Blood Cell Count 4.67 M/uL (4.33-5.43)
[2020-02-27 18:27] LABS: Protime INR 0.96
[2020-02-27] MEDS ORDERED: NA CHLORIDE 0.9% 500 ML ONE (18:27)
[2020-02-27 18:40] LABS: ALT/SGPT 30 U/L (12-78); AST/SGOT 25 U/L (15-37); Albumin 3.8 g/dL (3.4-5.0); Alkaline Phosphatase 56 U/L (45-117); BUN Blood Urea Nitrogen 11 mg/dL (7-18); Bicarbonate 28 mmol/L (21-32); Bilirubin Direct 0.1 mg/dL (0-0.2); Bilirubin Total 0.4 mg/dL (0.2-1.0); Glucose Level 93 mg/dL (74-106); Lipase 150 U/L (73-393); NT PRO-BNP 29 pg/mL (<125); Potassium 3.8 mmol/L (3.5-5.1); Protein, Total 7.9 g/dL (6.4-8.2); Sodium Level 143 mmol/L (136-145); Troponin (Emerg Dept Use Only) < 0.02 ng/mL (0.0-0.045)
--- NOTE | 2020-02-27 18:40 | RAD REPORT ---
EXAM DESCRIPTION: RAD - Chest Single View - 02/27/2020 6:25 pm CLINICAL HISTORY: abd pain Chest pain. COMPARISON: Chest Single View dated 08/22/2019; Chest Single View dated 05/19/2018; Chest Single View dated 04/15/2016; ABDOMEN 1 VIEW KUB dated 11/12/2013 FINDINGS: Portable technique limits examination quality. The lungs are grossly clear. The heart is normal in size. No displaced fractures. IMPRESSION: No acute intrathoracic process suspected.
[2020-02-27] MEDS ORDERED: PROMETHAZINE INJ 25 MG/ML AMP ONE (19:23)
[2020-02-27] MEDS ORDERED: FENTANYL CITR 100 MCG/2 ML ONE (19:24)
[2020-02-27] MEDS ORDERED: CIPROFLOXACIN 400mg IV 400 MG/200 ML BAG IV ONE (19:24)
--- NOTE | 2020-02-27 19:39 | RAD REPORT ---
EXAM DESCRIPTION: CTAbdomen Pelvis W Contrast - 02/27/2020 7:20 pm CLINICAL HISTORY: Abdominal pain. ABD PAIN COMPARISON: Abdomen Pelvis W Contrast dated 02/04/2018; Abdomen Pelvis W Contrast dated 11/04/2017; Abdomen Pelvis W Contrast dated 04/15/2016; CT ABD PELVIS W CONTRAST dated 09/30/2013 TECHNIQUE: Biphasic CT imaging of the abdomen and pelvis was performed with 100 ml non-ionic IV cont rast. All CT scans are performed using dose optimization technique as appropriate and may include automated exposure control or mA/KV adjustment according to patient size. FINDINGS: The lung bases are clear. The liver demonstrates multiple varying size cysts. No aggressive liver lesion. Cholecystectomy clips are seen. The spleen, pancreas, adrenal glands and kidneys are within normal limits. No bowel obstruction, free air, free fluid or abscess. Small fat containing umbilical hernia. Appende ctomy. Mild inflammation is seen involving the sigmoid colon in the left lower quadrant suspected rep resent mild acute diverticulitis. No abscess. No evidence of significant lymphadenopathy. Left hip hardware is in place. IMPRESSION: Mild acute left lower quadrant diverticulitis.
--- NOTE | 2020-02-27 20:55 | EDPHYS ---
Physician Documentation [facility] Name: Damian Lee Age: 49 yrs Sex: Male : 1970 Arrival Date: 02/27/2020 Time: 17:46 Bed 19 Private MD: ED Physician Ashkan Greenwood HPI: 02/26 19:29 This 49 yrs old Male presents to ER via Ambulatory with complaints of snw Abdominal Pain, Nausea. 19:29 The patient presents with abdominal pain in the left lower quadrant. Onset: The snw symptoms/episode began/occurred suddenly, 6 day(s) ago, and became persistent. The symptoms do not radiate. Associated signs and symptoms: Pertinent positives: nausea. The symptoms are described as constant, crampy. Modifying factors: The symptoms are alleviated by started cipro and flagyl 3 days ago, no antibiotics today. Severity of pain: At its worst the pain was moderate severe. The patient has experienced similar episodes in the past. The patient has not recently seen a physician, and does not have an established primary care provider. Historical: - Allergies: 17:49 No Known Allergies; sv - PMHx: 17:49 Chronic Pancreatitis; Diverticulitis; High Cholesterol; Myocardial infarction; sv psoriasis; - PSHx: 17:49 Cholecystectomy; Appendectomy; L hip replacement; sv - Immunization history:: Adult Immunizations up to date. - Social history:: Smoking status: Patient denies any tobacco usage or history of. ROS: 19:28 Constitutional: Negative for fever, chills, and weight loss, Eyes: Negative for injury, snw pain, redness, and discharge, ENT: Negative for injury, pain, and discharge, Neck: Negative for injury, pain, and swelling, Cardiovascular: Negative for chest pain, palpitations, and edema, Respiratory: Negative for shortness of breath, cough, wheezing, and pleuritic chest pain, Abdomen/GI: Positive for abdominal pain LLQ, nausea, Denies vomiting, diarrhea, and constipation, Back: Negative for injury and pain, : Negative for injury, bleeding, discharge, and swelling, MS/Extremity: Negative for injury and deformity, Skin: Negative for injury, rash, and discoloration, Neuro: Negative for headache, weakness, numbness, tingling, and seizure, Psych: Negative for depression, anxiety, suicide ideation, homicidal ideation, and hallucinations. Exam: 19:27 Constitutional: This is a well developed, well nourished patient who is awake, alert, snw and in no acute distress. Head/Face: Normocephalic, atraumatic. Eyes: Pupils equal round and reactive to light, extra-ocular motions intact. Lids and lashes normal. Conjunctiva and sclera are non-icteric and not injected. Cornea within normal limits. Periorbital areas with no swelling, redness, or edema. ENT: Nares patent. No nasal discharge, no septal abnormalities noted. Tympanic membranes are normal and external auditory canals are clear. Oropharynx with no redness, swelling, or masses, exudates, or evidence of obstruction, uvula midline. Mucous membranes moist. Neck: Trachea midline, no thyromegaly or masses palpated, and no cervical lymphadenopathy. Supple, full range of motion without nuchal rigidity, or vertebral point tenderness. No Meningismus. Chest/axilla: Normal chest wall appearance and motion. Nontender with no deformity. No lesions are appreciated. Cardiovascular: Regular rate and rhythm with a normal S1 and S2. No gallops, murmurs, or rubs. Normal PMI, no JVD. No pulse deficits. Respiratory: Lungs have equal breath sounds bilaterally, clear to auscultation and percussion. No rales, rhonchi or wheezes noted. No increased work of breathing, no retractions or nasal flaring. Abdomen/GI: Soft, tender LLQ, with normal bowel sounds. No distension or tympany. No guarding or rebound. Back: No spinal tenderness. No costovertebral tenderness. Full range of motion. Skin: Warm, dry with normal turgor. Normal color with no rashes, no lesions, and no evidence of cellulitis. MS/ Extremity: Pulses equal, no cyanosis. Neurovascular intact. Full, normal range of motion. Neuro: Awake and alert, GCS 15, oriented to person, place, time, and situation. Cranial nerves II-XII grossly intact. Motor strength 5/5 in all extremities. Sensory grossly intact. Cerebellar exam normal. Normal gait. Psych: Awake, alert, with orientation to person, place and time. Behavior, mood, and affect are within normal limits. Vital Signs: 17:49 BP 117 / 82; Pulse 76; Resp 20; Temp 98.7; Pulse Ox 100% ; Weight 86.18 kg; Height 5 sv ft. 6 in. (167.64 cm); Pain 6/10; 18:45 BP 117 / 80; Pulse 64; Resp 15 S; Pulse Ox 97% on R/A; ca1 20:00 BP 135 / 82; Pulse 60; Resp 18 S; Pulse Ox 100% ; ca1 20:40 BP 130 / 74; Pulse 92; Resp 16 S; Pulse Ox 98% on R/A; ca1 21:06 BP 116 / 79; Pulse 85; Resp 19; Temp 98.6; Pulse Ox 99% ; rr5 17:49 Body Mass Index 30.67 (86.18 kg, 167.64 cm) sv MDM: 19:06 Patient medically screened. snw 20:56 Data reviewed: vital signs, nurses notes. Data interpreted: Pulse oximetry: on room air snw is 98 %. Interpretation: normal. Counseling: I had a detailed discussion with the patient and/or guardian regarding: the historical points, exam findings, and any diagnostic results supporting the discharge/admit diagnosis, lab results, radiology results, the need for outpatient follow up, to return to the emergency department if symptoms worsen or persist or if there are any questions or concerns that arise at home. Response to treatment: the patient's symptoms have mildly improved after treatment. Special discussion: Based on the patient's Hx, exam, and Dx evaluation, there is no indication for emergent surgery or inpatient Tx. It is understood by the patient/guardian that if the Sx's persist or worsen they need to return immediately for re-evaluation. Based on the history and exam findings, there is no indication for further emergent testing or inpatient evaluation. I discussed with the patient/guardian the need to see the end polisher for further evaluation of the symptoms. I discussed with the patient/guardian the need to see the primary care provider for further evaluation of the symptoms. 02/26 18:02 Order name: Basic Metabolic Panel; Complete Time: 18:42 snw 02/26 18:42 Interpretation: GFR 80. snw 02/26 18:02 Order name: CBC with Diff; Complete Time: 18:53 snw 02/26 18:02 Order name: LFT's; Complete Time: 18:42 snw 02/26 18:02 Order name: Magnesium; Complete Time: 18:42 snw 02/26 18:02 Order name: NT PRO-BNP; Complete Time: 18:42 snw 02/26 18:02 Order name: PT-INR; Complete Time: 18:59 snw 02/26 18:02 Order name: Troponin (emerg Dept Use Only); Complete Time: 18:42 snw 02/26 18:02 Order name: XRAY Chest (1 view); Complete Time: 18:42 snw 02/26 18:02 Order name: Lipase; Complete Time: 18:42 snw 02/26 19:08 Order name: CT Abd/Pelvis - IV Contrast Only; Complete Time: 19:41 snw 02/26 18:02 Order name: EKG; Complete Time: 18:02 snw 02/26 18:02 Order name: Cardiac monitoring; Complete Time: 18:12 snw 02/26 18:02 Order name: EKG - Nurse/Tech; Complete Time: 18:12 snw 02/26 18:02 Order name: IV Saline Lock; Complete Time: 18:07 snw 02/26 18:02 Order name: Labs collected and sent; Complete Time: 18:07 snw 02/26 18:02 Order name: O2 Per Protocol; Complete Time: 18:07 snw 02/26 18:02 Order name: O2 Sat Monitoring; Complete Time: 18:07 snw 02/26 20:42 Order name: PO challenge; Complete Time: 20:53 snw EC:20 Rate is 63 beats/min. Rhythm is regular. QRS [place] is Normal. CA interval is normal. QRS snw interval is normal. QT interval is normal. No Q waves. T waves are Normal. No ST changes noted. Clinical impression: Normal ECG. Administered Medications: 18:20 Drug: NS 0.9% 500 ml Volume: 500 ml; Route: IV; Rate: 1 bolus; Site: right antecubital; ca1 19:02 Follow up: Response: No adverse reaction; IV Status: Completed infusion; IV Intake: ca1 500ml 19:35 Drug: Phenergan 12.5 mg Route: IVP; Site: right antecubital; jb4 20:35 Follow up: Response: No adverse reaction rr5 19:40 Drug: fentaNYL (PF) 50 mcg {Note: Rass score 0.} Route: IVP; Site: right antecubital; jb4 20:40 Follow up: Response: No adverse reaction; Pain is decreased; RASS: Alert and Calm (0) rr5 19:45 Drug: Cipro 400 mg Volume: 200 ml; Route: IVPB; Infused Over: 60 mins; Site: right jb4 antecubital; 20:51 Follow up: Response: No adverse reaction; IV Status: Completed infusion; IV Intake: rr5 200ml 20:59 Drug: Dilaudid 1 mg {Note: rass 0.} Route: IM; Site: right deltoid; rr5 21:29 Follow up: Response: No adverse reaction; Pain is decreased; RASS: Alert and Calm (0) rr5 Disposition: 02/27/20 20:54 Discharged to Home. Impression: Diverticulitis of intestine, part unspecified, without perforation or abscess without bleeding. - Condition is Stable. - Discharge Instructions: Clear Liquid Diet, Adult, Diverticulitis. - Prescriptions for Bentyl 20 mg Oral Tablet - take 1 tablet by ORAL route every 6 hours As needed; 20 tablet. Flagyl 500 mg Oral Tablet - take 1 tablet by ORAL route every 8 hours for 10 days; 30 tablet. Cipro 500 mg Oral Tablet - take 1 tablet by ORAL route every 12 hours for 7 days; 14 tablet. promethazine 25 mg Oral Tablet - take 1 tablet by ORAL route every 6 hours As needed; 20 tablet. - Medication Reconciliation Form, Thank You Letter, Antibiotic Education, Prescription Opioid Use form. - Follow up: Emergency Department; When: As needed; Reason: Worsening of condition. Follow up: Private Physician; When: 2 - 3 days; Reason: Recheck today's complaints, Continuance of care, Re-evaluation by your physician. Addendum: 03/02/2020 07:11 Co-signature as Attending Physician, Ashkan Greenwood MD. r n Signatures: Dispatcher [employer] Gisele Shaikh RN RN sv Waters, Shelly, CHOIR SINGER-C CHOIR SINGER-Csnw Ashkan Greenwood MD MD rn Bryson, James, RN RN jb4 Felix Anderson RN RN rr5 Paulina Myrick RN RN ca1 Corrections: (The following items were deleted from the chart) 02/26 21:28 20:54 02/27/2020 20:54 Discharged to Home. Impression: Diverticulitis of intestine, rr5 part unspecified, without perforation or abscess without bleeding. Condition is Stable. Forms are Medication Reconciliation Form, Thank You Letter, Antibiotic Education, Prescription Opioid Use. Follow up: Emergency Department; When: As needed; Reason: Worsening of condition. Follow up: Private Physician; When: 2 - 3 days; Reason: Recheck today's complaints, Continuance of care, Re-evaluation by your physician. snw
--- NOTE | 2020-02-27 20:55 | ER ---
Nurse's Notes [facility] Name: Damian Lee Age: 49 yrs Sex: Male : 1970 Arrival Date: 02/27/2020 Time: 17:46 Bed 19 Private MD: Diagnosis: Diverticulitis of intestine, part unspecified, without perforation or abscess without bleeding Presentation: 02/26 17:47 Chief complaint: Patient states: left sided and lower abd pain, n/v x 5 days. Risk sv Assessment: Do you want to hurt yourself or someone else? Patient reports no desire to harm self or others. Onset of symptoms was February 22, 2020. 17:47 Method Of Arrival: Ambulatory sv 17:47 Acuity: SAMI 3 sv 17:49 Coronavirus screen: Client denies travel out of the [place] in the last 14 days. At this sv time, the client does not indicate any symptoms associated with coronavirus-19. Ebola Screen: No symptoms or risks identified at this time. Initial Sepsis Screen: Does the patient meet any 2 criteria? No. Patient's initial sepsis screen is negative. Does the patient have a suspected source of infection? Yes: Acute abdominal pain. Historical: - Allergies: 17:49 No Known Allergies; sv - PMHx: 17:49 Chronic Pancreatitis; Diverticulitis; High Cholesterol; Myocardial infarction; sv psoriasis; - PSHx: 17:49 Cholecystectomy; Appendectomy; L hip replacement; sv - Immunization history:: Adult Immunizations up to date. - Social history:: Smoking status: Patient denies any tobacco usage or history of. Screenin:58 Abuse screen: Denies threats or abuse. Denies injuries from another. Nutritional ca1 screening: No deficits noted. Tuberculosis screening: No symptoms or risk factors identified. Fall Risk IV access (20 points). Assessment: 17:58 General: Appears in no apparent distress. comfortable, Behavior is calm, cooperative, ca1 appropriate for age. Pain: Complains of pain in suprapubic area, right lower quadrant and left lower quadrant Pain radiates to left upper quadrant Pain currently is 7 out of 10 on a pain scale. Quality of pain is described as crampy, Pain began 5-6 days ago Is intermittent. Neuro: Level of Consciousness is awake, alert, obeys commands, Oriented to person, place, time, situation. Cardiovascular: Heart tones S1 S2 present Capillary refill is > 3 seconds Patient's skin is warm and dry. Respiratory: Airway is patent Respiratory effort is even, unlabored, Respiratory pattern is regular, symmetrical, Breath sounds are clear bilaterally. GI: Abdomen is round non-distended, Bowel sounds present X 4 quads. Abd is soft X 4 quads Abdomen is tender to palpation in right lower quadrant and left lower quadrant Reports diarrhea, nausea. : No signs and/or symptoms were reported regarding the genitourinary system. EENT: No signs and/or symptoms were reported regarding the EENT system. Derm: Skin is intact, is healthy with good turgor, Skin is pink, warm \T\ dry. Musculoskeletal: Circulation, motion, and sensation intact. Capillary refill < 3 seconds. 18:45 Reassessment: Patient appears in no apparent distress at this time. Patient and/or ca1 family updated on plan of care and expected duration. Pain level reassessed. Patient is alert, oriented x 3, equal unlabored respirations, skin warm/dry/pink. 19:20 General: Appears in no apparent distress. comfortable, Behavior is calm, cooperative, rr5 appropriate for age, went to CT scan. Pain: Complains of pain in abdomen. Neuro: Level of Consciousness is awake, alert, obeys commands, Oriented to person, place, time, situation. Cardiovascular: Capillary refill < 3 seconds Patient's skin is warm and dry. Respiratory: Airway is patent Respiratory effort is even, unlabored, Respiratory pattern is regular, symmetrical. GI: Abdomen is round Reports diarrhea, nausea. : No signs and/or symptoms were reported regarding the genitourinary system. EENT: No signs and/or symptoms were reported regarding the EENT system. Derm: Skin temperature is warm. Musculoskeletal: Capillary refill < 3 seconds. 20:53 Reassessment: Patient appears in no apparent distress at this time. Patient is alert, rr5 oriented x 3, equal unlabored respirations, skin warm/dry/pink. PO challenge completed no nausea or vomiting reported. Pain: Pain currently is 5 out of 10 on a pain scale. 21:27 Reassessment: reassess by ED provider. no complaints after the IM injection. patient is rr5 for discharge Patient states feeling better. Patient states symptoms have improved. Vital Signs: 17:49 BP 117 / 82; Pulse 76; Resp 20; Temp 98.7; Pulse Ox 100% ; Weight 86.18 kg; Height 5 sv ft. 6 in. (167.64 cm); Pain 6/10; 18:45 BP 117 / 80; Pulse 64; Resp 15 S; Pulse Ox 97% on R/A; ca1 20:00 BP 135 / 82; Pulse 60; Resp 18 S; Pulse Ox 100% ; ca1 20:40 BP 130 / 74; Pulse 92; Resp 16 S; Pulse Ox 98% on R/A; ca1 21:06 BP 116 / 79; Pulse 85; Resp 19; Temp 98.6; Pulse Ox 99% ; rr5 17:49 Body Mass Index 30.67 (86.18 kg, 167.64 cm) sv ED Course: 17:46 Patient arrived in ED. ds1 17:47 Arm band placed on. sv 17:48 Triage completed. sv 17:53 Paulina Myrick, MAT is Primary Nurse. ca1 17:58 Patient has correct armband on for positive identification. Placed in gown. Bed in low ca1 position. Call light in reach. Side rails up X 1. Pulse ox on. NIBP on. Warm blanket given. 18:00 Naye Vazquez FNP-C is PHCP. snw 18:00 Ashkan Greenwood MD is Attending Physician. snw 18:12 No provider procedures requiring assistance completed. Inserted saline lock: 20 gauge ca1 in right antecubital area, using aseptic technique. Blood collected. 18:12 Initial lab(s) drawn, by ct, sent to lab. ca1 18:16 EKG done, by ED staff, reviewed by Naye LABOY. dh3 18:25 XRAY Chest (1 view) In Process Unspecified. EDMS 19:00 Report given to MAT [place]. ca1 19:20 CT Abd/Pelvis - IV Contrast Only In Process Unspecified. EDMS 21:19 Felix Anderson RN is Primary Nurse. rr5 21:19 IV discontinued, intact, bleeding controlled, No redness/swelling at site. Pressure rr5 dressing applied. Administered Medications: 18:20 Drug: NS 0.9% 500 ml Volume: 500 ml; Route: IV; Rate: 1 bolus; Site: right antecubital; ca1 19:02 Follow up: Response: No adverse reaction; IV Status: Completed infusion; IV Intake: ca1 500ml 19:35 Drug: Phenergan 12.5 mg Route: IVP; Site: right antecubital; jb4 20:35 Follow up: Response: No adverse reaction rr5 19:40 Drug: fentaNYL (PF) 50 mcg {Note: Rass score 0.} Route: IVP; Site: right antecubital; jb4 20:40 Follow up: Response: No adverse reaction; Pain is decreased; RASS: Alert and Calm (0) rr5 19:45 Drug: Cipro 400 mg Volume: 200 ml; Route: IVPB; Infused Over: 60 mins; Site: right jb4 antecubital; 20:51 Follow up: Response: No adverse reaction; IV Status: Completed infusion; IV Intake: rr5 200ml 20:59 Drug: Dilaudid 1 mg {Note: rass 0.} Route: IM; Site: right deltoid; rr5 21:29 Follow up: Response: No adverse reaction; Pain is decreased; RASS: Alert and Calm (0) rr5 Intake: 19:02 IV: 500ml; Total: 500ml. ca1 20:51 IV: 200ml; Total: 700ml. rr5 Outcome: 20:54 Discharge ordered by MD. snw 21:19 Discharged to home ambulatory. rr5 21:19 Condition: stable 21:19 Discharge instructions given to patient, Instructed on discharge instructions, follow up and referral plans. medication usage, Demonstrated understanding of instructions, follow-up care, medications, Prescriptions given X 4. 21:28 Patient left the ED. rr5 Signatures: Dispatcher [employer] EDMS Gisele Eden RN RN sv Waters, Shelly, FNP-Yousuf [facility] ds1 Bryce Mayberry RN RN jb4 Stephanie Ibarra 3 Felix Anderson RN RN rr5 Paulina Myrick RN RN ca1 Corrections: (The following items were deleted from the chart) 18:20 18:19 EKG done, by ED staff, reviewed by Naye [place] [id number]
[2020-02-27] MEDS ORDERED: HYDROMORPHONE HCL 1 MG/ML INJ ONE (21:06)
--- NOTE | 2020-02-28 07:54 | EKG ---
Test Date: 2020-02-27 Test Time: 18:16:44 Health Care Coach: MARY MEASUREMENT RESULTS: Intervals: Rate: 63 NV: 150 QRSD: 80 QT: 402 QTc: 411 [place]: P: 18 NV: 150 QRS: 33 T: 41 INTERPRETIVE STATEMENTS: Normal sinus rhythm Normal ECG Compared to ECG 05/19/2018 17:35:53 No significant changes Electronically Signed On 02-28-20 07:53:17 CDT by Chano Figueroa
== END 2020-02-27 21:28 | disposition home or self-care (01) ==
LOC: ER 17:44
DX: K57.92 Diverticulitis of intestine, part unspecified, without perforation or abscess without bleeding (principal); Z96.642 Presence of left artificial hip joint
CPT/HCPCS: 36415; 71045; 74177; 80048; 80076; 83690; 83735; 83880; 84484; 85025; 85610; 93005; 96361; 96365; 96372; 96375; 99284; J0744; J1170; J2550; J3010; J7040; Q9967

== ENCOUNTER 2021-01-19 10:11 | Emergency (ER) | payer SELFPAY ==
[2021-01-19] MEDS ORDERED: ONDANSETRON 4 MG/2 ML VIAL ONE (10:52)
[2021-01-19] MEDS ORDERED: NA CHLORIDE 0.9% 1,000 ML ONE (10:52)
[2021-01-19] MEDS ORDERED: MORPHINE 4 MG/ML SYR ONE (10:52)
[2021-01-19 10:56] LABS: Absolute Lymphocytes (CBC) 1.2 K/uL (0.7-4.9); Basophils % 0.3 % (0-1.3); Hematocrit 49.1 % (39.6-49.0); Lymphocytes % 17.9 % (15.3-44.8); RBC Red Blood Cell Count 5.17 M/uL (4.33-5.43)
[2021-01-19 11:07] LABS: Protime INR 0.96
[2021-01-19 11:11] LABS: ALT/SGPT 48 U/L (12-78); AST/SGOT 40 U/L (15-37); Albumin 3.7 g/dL (3.4-5.0); Alkaline Phosphatase 39 U/L (45-117); BUN Blood Urea Nitrogen 14 mg/dL (7-18); Bicarbonate 24 mmol/L (21-32); Bilirubin Direct < 0.1 mg/dL (0-0.2); Bilirubin Total 0.4 mg/dL (0.2-1.0); Glucose Level 93 mg/dL (74-106); Lipase 203 U/L (73-393); Protein, Total 6.9 g/dL (6.4-8.2); Sodium Level 141 mmol/L (136-145)
[2021-01-19] MEDS ORDERED: HYDROMORPHONE HCL 1 MG/ML INJ ONE ×2 (11:18→12:50)
--- NOTE | 2021-01-19 11:30 | RAD REPORT ---
EXAM DESCRIPTION: CT - Chest Abdomen Pelvis W Cont - 01/19/2021 10:57 am CLINICAL HISTORY: Chest and abdomen pain. Chest pain, abdominal pain COMPARISON: No comparisons TECHNIQUE: Approximately 100 mL nonionic IV contrast was administered to the patient. All CT scans are performed using dose optimization technique as appropriate and may include automated exposure control or mA/KV adjustment according to patient size. FINDINGS: The lungs are clear.No pleural or pericardial effusion.No intrathoracic adenopathy. The liver demonstrates multiple low-density lesions most likely representing cysts. Cholecystectomy n oted. The spleen, pancreas adrenal glands and kidneys within normal limits. No bowel obstruction, free air, free fluid or abscess. Appendectomy. Mild sigmoid diverticulosis coli without diverticulitis. No pathologic lymphadenopathy in the abdomen or pelvis. No fractures are appreciated. IMPRESSION: No acute abnormality is discerned.A sternal fracture is not seen.
--- NOTE | 2021-01-19 12:29 | EDPHYS ---
Physician Documentation [facility] Name: Damian Lee Age: 50 yrs Sex: Male : 1970 Arrival Date: 01/19/2021 Time: 10:12 Bed 18 Private MD: Caridad Ariza H ED Physician Rangel Gonzalez HPI: 01/19 10:23 This 50 yrs old Male presents to ER via Ambulatory with complaints of Chest pm1 Pain - injury/dropped weight. 10:23 The patient or guardian reports chest pain that is located primarily in the xiphoid pm1 area, right breast and left breast. Onset: just prior to arrival. The pain does not radiate. Associated signs and symptoms: Pertinent negatives: cough, nausea, shortness of breath, vomiting. The chest pain is described as sharp. Duration: The patient or guardian reports a single episode, that is still ongoing. Modifying factors: The symptoms are alleviated by nothing. the symptoms are aggravated by deep breath, movement. Severity of pain: in the emergency department the pain is unchanged. The patient has not experienced similar symptoms in the past. The patient has not recently seen a physician. 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 Historical: - Allergies: 10:23 No Known Allergies; ph - Home Meds: 10:23 Nexium 40 mg Oral cpDR 1 cap once daily [Active]; ph - PMHx: 10:23 Chronic Pancreatitis; Diverticulitis; High Cholesterol; Myocardial infarction; ph psoriasis; - Immunization history:: Client reports having NOT received the Covid vaccine. - Social history:: Smoking status: unknown. ROS: 10:23 Constitutional: Negative for fever, chills, and weight loss. pm1 10:23 Respiratory: Negative for shortness of breath, cough, wheezing, and pleuritic chest pain, Abdomen/GI: Negative for abdominal pain, nausea, vomiting, diarrhea, and constipation, Back: Negative for injury and pain, MS/Extremity: Negative for injury and deformity, Skin: Negative for injury, rash, and discoloration, Neuro: Negative for headache, weakness, numbness, tingling, and seizure. 10:23 Cardiovascular: Positive for chest pain. 10:23 All other systems are negative. Exam: 10:23 Constitutional: This is a well developed, well nourished patient who is awake, alert, pm1 and in no acute distress. Head/Face: Normocephalic, atraumatic. 10:23 Cardiovascular: Regular rate and rhythm with a normal S1 and S2. No gallops, murmurs, or rubs. Normal PMI, no JVD. No pulse deficits. 10:23 Skin: Warm, dry with normal turgor. Normal color with no rashes, no lesions, and no evidence of cellulitis. MS/ Extremity: Pulses equal, no cyanosis. Neurovascular intact. Full, normal range of motion. 10:23 Chest/axilla: Inspection: contusion to xyphoid area, Palpation: crepitus, is not appreciated, tenderness, that is moderate, of the xiphoid area, right breast and left breast, that totally reproduces the patient's complaints. 10:23 Respiratory: Exam negative for acute changes, the patient does not display signs of respiratory distress, Breath sounds: are clear throughout. 10:23 Abdomen/GI: Inspection: abdomen appears normal, Palpation: abdomen is soft and non-tender, in all quadrants. 10:23 Neuro: Exam negative for acute changes, Orientation: is normal, Mentation: is normal, Motor: is normal, moves all fours. Vital Signs: 10:21 BP 126 / 86; Pulse 72; Resp 18; Temp 98.2; Pulse Ox 100% on R/A; Weight 79.38 kg; ph Height 5 ft. 6 in. (167.64 cm); 11:36 BP 122 / 68; Pulse 74; Resp 18; Pulse Ox 100% on R/A; ph 10:21 Body Mass Index 28.25 (79.38 kg, 167.64 cm) ph MDM: 10:15 Patient medically screened. pm1 12:23 Data reviewed: vital signs. Data interpreted: Pulse oximetry: on room air is 100 %. pm1 Interpretation: normal. Counseling: I had a detailed discussion with the patient and/or guardian regarding: the historical points, exam findings, and any diagnostic results supporting the discharge/admit diagnosis, lab results, radiology results, the need for outpatient follow up, to return to the emergency department if symptoms worsen or persist or if there are any questions or concerns that arise at home. 07/20 10:23 Order name: Basic Metabolic Panel pm01/19 10:23 Order name: CBC with Diff 01/19 10:23 Order name: Hepatic Function pm01/19 10:23 Order name: Lipase; Complete Time: 12:01 pm01/19 10:23 Order name: PT-INR; Complete Time: 12:01 pm01/19 10:23 Order name: Type And Screen; Complete Time: 12:15 pm01/19 10:23 Order name: CT Chest, Abdomen, Pelvis - W/Contrast; Complete Time: 12:01 pm01/19 10:23 Order name: Basic Metabolic Panel; Complete Time: 12:01 EDMS 01/19 10:23 Order name: CBC with Automated Diff; Complete Time: 12:01 EDMS 01/19 10:23 Order name: Liver (Hepatic) Function; Complete Time: 12:01 EDMS 01/19 11:12 Order name: CREATININE WHOLE BLOOD; Complete Time: 12:01 EDMS 01/19 11:54 Order name: ABO/RH no charge; Complete Time: 12:01 EDMS 01/19 10:23 Order name: IV Saline Lock; Complete Time: 10:45 pm01/19 10:23 Order name: Labs collected and sent; Complete Time: 10:45 pm01/19 11:01 Order name: Labs - recollect needed; Complete Time: 11:13 mt Administered Medications: 10:40 Drug: Zofran (Ondansetron) 4 mg Route: IVP; Site: right antecubital; ph 11:57 Follow up: Response: No adverse reaction ph 10:43 Drug: morphine 4 mg Route: IVP; Site: right antecubital; ph 11:56 Follow up: Response: No adverse reaction; Pain is unchanged, physician notified ph 10:45 Drug: NS 0.9% 1000 ml Route: IV; Rate: 1000 ml; Site: right antecubital; ph 11:57 Follow up: Response: No adverse reaction; IV Status: Completed infusion; IV Intake: ph 1000ml 11:11 Drug: Dilaudid (HYDROmorphone) 1 mg Route: IVP; Site: right antecubital; ph 11:56 Follow up: Response: No adverse reaction; Pain is decreased; RASS: Alert and Calm (0) ph 12:32 Drug: Dilaudid (HYDROmorphone) 1 mg Route: IVP; Site: right antecubital; ph 12:32 Drug: Ketorolac 15 mg Route: IVP; Site: right antecubital; ph Disposition: 01/20 07:06 Co-signature as Attending Physician, Rangel Gonzalez MD I agree with the assessment and kdr plan of care. Disposition Summary: 01/19/21 12:28 Discharge Ordered Location: Home pm1 Problem: new pm1 Symptoms: have improved pm1 Condition: Stable pm1 Diagnosis - Contusion of front wall of thorax pm1 Followup: pm1 - With: Emergency Department - When: As needed - Reason: Worsening of condition Followup: pm1 - With: Private Physician - When: 2 - 3 days - Reason: Recheck today's complaints, Continuance of care, Re-evaluation by your physician Discharge Instructions: - Discharge Summary Sheet pm1 - Contusion pm1 - Chest Wall Pain pm1 Forms: - Medication Reconciliation Form pm1 - Thank You Letter pm1 - Antibiotic Education pm1 - Prescription Opioid Use pm1 Prescriptions: - acetaminophen-codeine 300-15 mg Oral tablet - take 2 tablet by ORAL route every 6 hours As needed; 20 tablet; Refills: 0, pm1 Product Selection Permitted Signatures: Dispatcher [employer] EDMS Rangel Gonzalez MD MD [facility] Regina Lara RN RN Hilton Silva, [employer] ATTENDING ANESTHESIOLOGIST pm1 Chela Vee sc
--- NOTE | 2021-01-19 12:29 | ER ---
Nurse's Notes [facility] Name: Damian Lee Age: 50 yrs Sex: Male : 1970 Arrival Date: 01/19/2021 Time: 10:12 Bed 18 Private MD: Caridad Ariza H Diagnosis: Contusion of front wall of thorax Presentation: 01/19 10:21 Chief complaint: Patient states: Was at the gym lifting weights and dropped 150 lb ph barbell on his chest, c/o pain in xyphoid area and difficulty breathing r/t pain. VSS. Coronavirus screen: Client denies travel out of the [place] in the last 14 days. At this time, the client does not indicate any symptoms associated with coronavirus-19. Ebola Screen: No symptoms or risks identified at this time. Initial Sepsis Screen: Does the patient meet any 2 criteria? No. Patient's initial sepsis screen is negative. Does the patient have a suspected source of infection? No. Patient's initial sepsis screen is negative. Risk Assessment: Do you want to hurt yourself or someone else? Patient reports no desire to harm self or others. Onset of symptoms was January 19, 2021. 10:21 Method Of Arrival: Ambulatory ph 10:21 Acuity: SAMI 3 ph Historical: - Allergies: 10:23 No Known Allergies; ph - Home Meds: 10:23 Nexium 40 mg Oral cpDR 1 cap once daily [Active]; ph - PMHx: 10:23 Chronic Pancreatitis; Diverticulitis; High Cholesterol; Myocardial infarction; ph psoriasis; - Immunization history:: Client reports having NOT received the Covid vaccine. - Social history:: Smoking status: unknown. Screenin:34 Abuse screen: Denies threats or abuse. Denies injuries from another. Nutritional ph screening: No deficits noted. Tuberculosis screening: No symptoms or risk factors identified. Fall Risk None identified. Assessment: 10:33 General: Appears in no apparent distress. uncomfortable, well groomed, Behavior is ph cooperative, appropriate for age, anxious. Pain: Complains of pain in diaphragm and xiphoid area Pain does not radiate. Pain began suddenly. Neuro: Level of Consciousness is awake, alert, obeys commands, Oriented to person, place, time, situation. Cardiovascular: Capillary refill < 3 seconds in bilateral fingers Patient's skin is warm and dry. Respiratory: Reports shortness of breath pain with movement pain with respiration Airway is patent Respiratory effort is even, labored, Respiratory pattern is regular. GI: No signs and/or symptoms were reported involving the gastrointestinal system. Derm: Skin is intact, is healthy with good turgor, Skin is pink, warm \T\ dry. 11:35 Reassessment: Patient appears in no apparent distress at this time. Patient and/or ph family updated on plan of care and expected duration. Pain level reassessed. Patient is alert, oriented x 3, equal unlabored respirations, skin warm/dry/pink. Pt reports some relief after IV Dilaudid, awaiting CT results, VSS. Vital Signs: 10:21 BP 126 / 86; Pulse 72; Resp 18; Temp 98.2; Pulse Ox 100% on R/A; Weight 79.38 kg; ph Height 5 ft. 6 in. (167.64 cm); 11:36 BP 122 / 68; Pulse 74; Resp 18; Pulse Ox 100% on R/A; ph 10:21 Body Mass Index 28.25 (79.38 kg, 167.64 cm) ph ED Course: 10:12 Patient arrived in ED. am2 10:12 Caridad Ariza DO is Private Physician. am2 10:14 Hilton Felder NP is PHCP. pm1 10:14 Rangel Gonzalez MD is Attending Physician. pm1 10:21 Regina Lara, RN is Primary Nurse. ph 10:23 Triage completed. ph 10:23 Arm band placed on Patient placed in an exam room, on a stretcher. ph 10:34 Patient has correct armband on for positive identification. Bed in low position. Call ph light in reach. Side rails up X 1. Pulse ox on. NIBP on. Door closed. Noise minimized. Warm blanket given. 10:45 Initial lab(s) drawn, by ED staff, sent to lab. Inserted saline lock: 20 gauge in right ph antecubital area, using aseptic technique. Blood collected. Patient maintains SpO2 saturation greater than 95% on room air. 10:57 CT Chest, Abdomen, Pelvis - W/Contrast In Process Unspecified. EDMS 11:41 No provider procedures requiring assistance completed. ph 12:37 IV discontinued, intact, bleeding controlled, No redness/swelling at site. ph Administered Medications: 10:40 Drug: Zofran (Ondansetron) 4 mg Route: IVP; Site: right antecubital; ph 11:57 Follow up: Response: No adverse reaction ph 10:43 Drug: morphine 4 mg Route: IVP; Site: right antecubital; ph 11:56 Follow up: Response: No adverse reaction; Pain is unchanged, physician notified ph 10:45 Drug: NS 0.9% 1000 ml Route: IV; Rate: 1000 ml; Site: right antecubital; ph 11:57 Follow up: Response: No adverse reaction; IV Status: Completed infusion; IV Intake: ph 1000ml 11:11 Drug: Dilaudid (HYDROmorphone) 1 mg Route: IVP; Site: right antecubital; ph 11:56 Follow up: Response: No adverse reaction; Pain is decreased; RASS: Alert and Calm (0) ph 12:32 Drug: Dilaudid (HYDROmorphone) 1 mg Route: IVP; Site: right antecubital; ph 12:32 Drug: Ketorolac 15 mg Route: IVP; Site: right antecubital; ph Intake: 11:57 IV: 1000ml; Total: 1000ml. ph Outcome: 12:28 Discharge ordered by . pm1 12:33 Discharged to home ambulatory. ph 12:33 Condition: stable 12:33 Discharge instructions given to patient, family, Instructed on discharge instructions, follow up and referral plans. Demonstrated understanding of instructions, follow-up care. 12:40 Patient left the ED. ph Signatures: Dispatcher [employer] Regina Galindo RN RN ph Hilton Felder, D[employer] ENVIRONMENTAL AIR SPECIALIST pm1 Dayanna Castañeda am2
[2021-01-19] MEDS ORDERED: KETOROLAC 30 MG/ML INJ ONE (12:50)
[2021-01-19 12:57] VITALS: TEMP 98.2; O2SAT 100
[2021-01-19 12:59] VITALS: BP 122/68
--- NOTE | 2021-01-20 10:44 | EKG ---
Test Date: 2021-01-19 Test Time: 10:45:24 Vinyl Flooring Installer: ARI MEASUREMENT RESULTS: Intervals: Rate: 69 ND: 134 QRSD: 72 QT: 372 QTc: 398 Altha: P: 23 ND: 134 QRS: 27 T: 29 INTERPRETIVE STATEMENTS: Normal sinus rhythm Low voltage QRS Borderline ECG Compared to ECG 02/27/2020 18:16:44 Low QRS voltage now present Electronically Signed On 01-20-21 10:41:56 CDT by Chano Figueroa
== END 2021-01-19 12:40 | disposition home or self-care (01) ==
LOC: ER 10:11
DX: S20.219A Contusion of unspecified front wall of thorax, initial encounter (principal); W22.8XXA Striking against or struck by other objects, initial encounter; Y93.B3 Activity, free weights
CPT/HCPCS: 36415; 71260; 74177; 80048; 80076; 82565; 83690; 85025; 85610; 86850; 86900; 86901; 93005; 96361; 96374; 96375; 99284; J1170; J2405; J7030; Q9967

== ENCOUNTER 2021-01-25 14:27 | Emergency (ER) | payer SELFPAY ==
--- NOTE | 2021-01-25 15:59 | RAD REPORT ---
EXAM DESCRIPTION: RAD - Chest Pa And Lat (2 Views) - 01/25/2021 3:45 pm CLINICAL HISTORY: BLUNT CHEST TRAUMA COMPARISON: Portable February 2020, CT chest January 19 TECHNIQUE: Frontal and lateral views of the chest were obtained. FINDINGS: The lungs are clear. Interstitial pattern matches comparison. Heart size is normal and ce ntral vasculature is within normal limits. No pleural effusion or pneumothorax seen. No acute bony finding noted. No aortic abnormality. No identifiable changes from prior imaging. IMPRESSION: No acute cardiopulmonary process.
[2021-01-25] MEDS ORDERED: HYDROMORPHONE HCL 1 MG/ML INJ ONE (16:48)
--- NOTE | 2021-01-25 17:34 | RAD REPORT ---
EXAM DESCRIPTION: CT - Chest For Pe Angio - 01/25/2021 5:02 pm CLINICAL HISTORY: right sided chest pain;Chest pain COMPARISON: Chest Abdomen Pelvis W Cont dated 01/19/2021; Chest Pa And Lat (2 Views) dated 01/25/2021 TECHNIQUE: Dynamically enhanced 3 mm thick images of the chest were obtained during administration o f approximately 150mL Isovue 370 IV contrast. Coronal and oblique MIP reconstruction images were gene rated and reviewed. Exam utilizes a protocol to evaluate the pulmonary arterial tree. All CT scans are performed using dose optimization technique as appropriate and may include automated exposure control or mA/KV adjustment according to patient size. FINDINGS: No pulmonary emboli are identified. The aorta as imaged shows no acute or suspicious finding. No pericardial thickening or effusion. No pulmonary contusion or acute lung parenchymal process. No pleural effusion or pleural thickening. No mediastinal or hilar suspicious masses. No chest wall masses or abnormal axillary lymphadenopathy. No fracture of the sternum is present. Fracture is seen at the anterior right sixth rib costochondral junction. No other rib fractures or costochondral deformities confirmed. IMPRESSION: No pulmonary emboli identified. Nondisplaced fracture anterior right sixth rib costochondral junction.
[2021-01-25] MEDS ORDERED: HYDROMORPHONE HCL 0.5 MG/0.5 ML INJ ONE (18:27)
--- NOTE | 2021-01-26 17:32 | ER ---
Nurse's Notes [facility] Name: Damian Lee Age: 50 yrs Sex: Male : 1970 Arrival Date: 01/25/2021 Time: 14:28 Bed 26 Private MD: Diagnosis: Fracture of one rib, right side Presentation: 01/25 15:46 Chief complaint: Patient states: Pt dropped 150lbs wt on chest Monday came in to get kg checked out was cleared but has continued to get worse. Pt feels like the bottom of his sternum is loose and unable to take deep breaths. Coronavirus screen: Client denies travel out of the [place] in the last 14 days. At this time, unable to obtain information related to travel outside the [place] At this time, the client does not indicate any symptoms associated with coronavirus-19. Ebola Screen: Patient negative for fever greater than or equal to 101.5 degrees Fahrenheit, and additional compatible Ebola Virus Disease symptoms Patient denies exposure to infectious person. Patient denies travel to an Ebola-affected area in the 21 days before illness onset. Initial Sepsis Screen: Does the patient meet any 2 criteria? No. Patient's initial sepsis screen is negative. Does the patient have a suspected source of infection? No. Patient's initial sepsis screen is negative. Risk Assessment: Do you want to hurt yourself or someone else? Patient reports no desire to harm self or others. Onset of symptoms was January 19, 2021. 15:46 Method Of Arrival: Ambulatory kg 15:46 Acuity: SAMI 4 kg Triage Assessment: 15:51 General: Appears in no apparent distress. Behavior is calm, cooperative, appropriate kg for age, quiet. Pain: Complains of pain in Lower chest and epigastric Pain radiates to radiates to back Pain currently is 9 out of 10 on a pain scale. at worst was 9 out of 10 on a pain scale. level that patient reports is acceptable is 3 out of 10 on a pain scale. Quality of pain is described as sharp, stabbing. 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 - Social history:: Smoking status: Patient denies any tobacco usage or history of. - Family history:: not pertinent. - Hospitalizations: : No recent hospitalization is reported. Screenin:53 Abuse screen: Denies threats or abuse. Denies injuries from another. Nutritional kg screening: No deficits noted. Tuberculosis screening: No symptoms or risk factors identified. Fall Risk None identified. Assessment: 15:58 General: Appears in no apparent distress. comfortable, Behavior is calm, cooperative, ld1 appropriate for age. Pain: Complains of pain in chest Pain does not radiate. Pain currently is 8 out of 10 on a pain scale. Quality of pain is described as Is continuous. Neuro: Level of Consciousness is awake, alert, obeys commands, Oriented to person, place, time, situation. Cardiovascular: Capillary refill < 3 seconds Patient's skin is warm and dry. Respiratory: Airway is patent Respiratory effort is even, unlabored, Respiratory pattern is regular, symmetrical. GI: Abdomen is flat, non-distended. : No signs and/or symptoms were reported regarding the genitourinary system. EENT: No signs and/or symptoms were reported regarding the EENT system. Derm: No signs and/or symptoms reported regarding the dermatologic system. Musculoskeletal: No signs and/or symptoms reported regarding the musculoskeletal system. 17:30 Reassessment: Patient appears in no apparent distress at this time. No changes from ld1 previously documented assessment. Patient and/or family updated on plan of care and expected duration. Pain level reassessed. Patient is alert, oriented x 3, equal unlabored respirations, skin warm/dry/pink. Vital Signs: 15:46 BP 116 / 83; Pulse 57; Resp 18; Temp 97.7; Pulse Ox 99% on R/A; Weight 79.83 kg; Height kg 5 ft. 6 in. (167.64 cm); Pain 9/10; 15:58 BP 125 / 80; Pulse 64; Resp 18; Pulse Ox 100% ; ld1 17:30 BP 128 / 86; Pulse 70; Resp 18; Pulse Ox 100% ; ld1 15:46 Body Mass Index 28.41 (79.83 kg, 167.64 cm) kg ED Course: 14:28 Patient arrived in ED. rg4 15:45 XRAY Chest Pa And Lat (2 Views) In Process Unspecified. EDMS 15:50 Triage completed. kg 15:51 Arm band placed on right wrist. kg 15:53 Patient has correct armband on for positive identification. kg 15:55 Ashkan Greenwood MD is Attending Physician. rn 15:58 No provider procedures requiring assistance completed. ld1 16:22 Genet Christine, RN is Primary Nurse. ld1 16:22 Inserted saline lock: 20 gauge in right forearm, using aseptic technique. Blood ld1 collected. 17:02 CT Chest For PE Angio In Process Unspecified. EDMS 18:13 IV discontinued, intact, bleeding controlled, No redness/swelling at site. ld1 Administered Medications: 16:28 Drug: Dilaudid (HYDROmorphone) 1 mg Route: IVP; Site: left forearm; ld1 16:28 Follow up: Response: No adverse reaction ld1 18:12 Drug: Dilaudid (HYDROmorphone) 0.5 mg Route: IVP; Site: right forearm; ld1 18:12 Follow up: Response: No adverse reaction ld1 Outcome: 18:01 Discharge ordered by . rn 18:13 Discharged to home ambulatory. ld1 18:13 Condition: good 18:13 Discharge instructions given to patient, Instructed on discharge instructions, follow up and referral plans. Demonstrated understanding of instructions, follow-up care. 18:14 Patient left the ED. ld1 Signatures: Dispatcher [employer] EDMS Ashkan Greenwood MD MD rn Garcia, Rubi rg4 Genet Christine, RN RN ld1 Callie Miller RN RN kg
--- NOTE | 2021-01-26 17:32 | EDPHYS ---
Physician Documentation [facility] Name: Damian Lee Age: 50 yrs Sex: Male : 1970 Arrival Date: 01/25/2021 Time: 14:28 Bed 26 Private MD: ED Physician Ashkan Greenwood HPI: 01/25 16:27 This 50 yrs old Male presents to ER via Ambulatory with complaints of Chest rn Pain From Injury, Breathing Difficulty. 16:27 The patient or guardian reports chest pain that is located primarily in the anterior rn chest wall, right lateral anterior chest. Onset: The symptoms/episode began/occurred 1 week(s) ago. The pain does not radiate. Associated signs and symptoms: Pertinent positives: shortness of breath, Pertinent negatives: abdominal pain, cough, diaphoresis, dizziness, near syncope, palpitations. The chest pain is described as sharp, stabbing. Duration: The patient or guardian reports multiple episodes, that are intermittent. Modifying factors: The symptoms are alleviated by remaining still, the symptoms are aggravated by deep breath, palpation of area. Severity of pain: At its worst the pain was moderate in the emergency department the pain is unchanged. The patient has experienced a previous episode. The patient has been recently seen at the [facility] Emergency Department. Patient seen here 6 days ago after large amount of weight landed on his right chest, CT chest performed that day with no acute findings. Patient returns with persistent pain to right side of chest, feels a clicking with deep breath, and sharp pain with deep breath. Given Tylenol with codeine and states pain not improved. No chronic lung problems. Not on any blood thinners.. 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 - Social history:: Smoking status: Patient denies any tobacco usage or history of. - Family history:: not pertinent. - Hospitalizations: : No recent hospitalization is reported. ROS: 16:27 Constitutional: Negative for fever, chills, and weight loss, Eyes: Negative for injury, rn pain, redness, and discharge, Neck: Negative for injury, pain, and swelling, Cardiovascular: Negative for palpitations, and edema, Respiratory: Negative for cough, wheezing Abdomen/GI: Negative for abdominal pain, nausea, vomiting, diarrhea, and constipation, Back: Negative for injury and pain, MS/Extremity: Negative for injury and deformity, Skin: Negative for injury, rash, and discoloration, Neuro: Negative for headache, weakness, numbness, tingling, and seizure. Exam: 16:27 Constitutional: This is a well developed, well nourished patient who is awake, alert, rn and in no acute distress. Patient ambulatory to the room without distress or requiring assistance. Head/Face: Normocephalic, atraumatic. Chest/axilla: Normal chest wall appearance and motion. Positive tenderness right anterolateral chest wall. No crepitus. No ecchymosis. Cardiovascular: Regular rate and rhythm with a normal S1 and S2. No gallops, murmurs, or rubs. Normal PMI, no JVD. No pulse deficits. Respiratory: Diminished breath sounds right lung base but present. No retractions or tachypnea. Abdomen/GI: Soft, nontender Skin: Warm, dry Vital Signs: 15:46 BP 116 / 83; Pulse 57; Resp 18; Temp 97.7; Pulse Ox 99% on R/A; Weight 79.83 kg; Height kg 5 ft. 6 in. (167.64 cm); Pain 9/10; 15:58 BP 125 / 80; Pulse 64; Resp 18; Pulse Ox 100% ; ld1 17:30 BP 128 / 86; Pulse 70; Resp 18; Pulse Ox 100% ; ld1 15:46 Body Mass Index 28.41 (79.83 kg, 167.64 cm) kg MDM: 15:55 Patient medically screened. rn 18:00 Differential diagnosis: Blunt Chest Trauma Chest Wall Contusion Chest Wall Injury rn Pleural Effusion Pneumothorax Pulmonary Contusion Rib Fracture. Data reviewed: vital signs, nurses notes, radiologic studies, CT scan, plain films, and as a result, I will discharge patient. Counseling: I had a detailed discussion with the patient and/or guardian regarding: the historical points, exam findings, and any diagnostic results supporting the discharge/admit diagnosis, radiology results, the need for outpatient follow up, to return to the emergency department if symptoms worsen or persist or if there are any questions or concerns that arise at home. Response to treatment: the patient's symptoms have markedly improved after treatment, and as a result, I will discharge patient. Special discussion: I discussed with the patient/guardian in detail that at this point there is no indication for admission to the hospital. It is understood, however, that if the symptoms persist or worsen the patient needs to return immediately for re-evaluation. ED course: With nondisplaced anterior right sixth rib fracture, no pneumothorax, no oxygen requirement, no pulmonary contusion. Will DC home with incentive spirometer and instructions on how to use.. 01/25 15:23 Order name: XRAY Chest Pa And Lat (2 Views); Complete Time: 16:15 rn 01/25 16:17 Order name: CT Chest For PE Angio; Complete Time: 17:59 rn 01/25 16:17 Order name: IV Start; Complete Time: 16:22 rn 01/25 16:30 Order name: INCENTIVE SPIROMETRY rn Administered Medications: 16:28 Drug: Dilaudid (HYDROmorphone) 1 mg Route: IVP; Site: left forearm; ld1 16:28 Follow up: Response: No adverse reaction ld1 18:12 Drug: Dilaudid (HYDROmorphone) 0.5 mg Route: IVP; Site: right forearm; ld1 18:12 Follow up: Response: No adverse reaction ld1 Disposition Summary: 01/25/21 18:01 Discharge Ordered Location: Home rn Problem: new rn Symptoms: have improved rn Condition: Stable rn Diagnosis - Fracture of one rib, right side rn Followup: rn - With: Private Physician - When: As needed - Reason: Recheck today's complaints, Re-evaluation by your physician Discharge Instructions: - Discharge Summary Sheet rn - Rib Fracture rn - How to Use an Incentive Spirometer rn Forms: - Medication Reconciliation Form rn - Thank You Letter rn - Antibiotic learning coach - Prescription Opioid Use rn Signatures: Dispatcher [employer] Ashkan Rivera MD MD rn Dibbern, Lauren RN RN ld1 Callie Miller RN RN kg
[2021-01-27 11:09] VITALS: TEMP 97.7
[2021-01-27 11:15] VITALS: O2SAT 100
[2021-01-27 11:16] VITALS: BP 128/86
== END 2021-01-25 18:14 | disposition home or self-care (01) ==
LOC: ER 14:27
DX: S22.31XA Fracture of one rib, right side, initial encounter for closed fracture (principal); I25.2 Old myocardial infarction
CPT/HCPCS: 71046; 71275; 82565; J1170; Q9967

== ENCOUNTER 2021-07-31 10:42 | Emergency (ER) | payer SELFPAY ==
--- NOTE | 2021-07-31 12:15 | EDPHYS ---
Physician Documentation [facility] Name: Damian Lee Age: 50 yrs Sex: Male : 1970 Arrival Date: 07/31/2021 Time: 10:44 Bed 11 Private MD: ED Physician Malachi Rosenberg HPI: 07/31 11:11 This 50 yrs old Male presents to ER via Ambulatory with complaints of Hip Pain, COVID +.kb 11:11 The patient has not recently seen a physician. kb 11:11 The patient presents with pain, that is acute. The complaints affect the left leg and kb left gluteus amina. Context: The problem was sustained at home, resulted from an unknown cause, the patient can fully bear weight, the patient is able to ambulate. Onset: The symptoms/episode began/occurred this morning. Modifying factors: The symptoms are alleviated by nothing. the symptoms are aggravated by movement. Associated signs and symptoms: The patient has no apparent associated signs or symptoms. Treatment prior to arrival includes: no previous treatment. Severity of symptoms: At their worst the symptoms were moderate, in the emergency department the symptoms are unchanged. The patient has not experienced similar symptoms in the past. Pt reports burning pain that started at upper left buttock and radiates to foot. States it started at 0200. Concerned about blood clots . 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 - Social history:: Smoking status: Patient denies any tobacco usage or history of. ROS: 11:09 Constitutional: Negative for fever, chills, and weight loss. kb 11:09 MS/extremity: Positive for pain, tingling, of the left leg. 11:09 All other systems are negative. Exam: 11:09 Constitutional: This is a well developed, well nourished patient who is awake, alert, kb and in no acute distress. Head/Face: Normocephalic, atraumatic. ENT: Moist Mucous membranes Cardiovascular: Regular rate and rhythm with a normal S1 and S2. No gallops, murmurs, or rubs. No pulse deficits. Respiratory: Respirations even and unlabored. No increased work of breathing. Talking in full sentences Back: No spinal tenderness. No costovertebral tenderness. Full range of motion. Skin: Warm, dry with normal turgor. Normal color. MS/ Extremity: Pulses equal, no cyanosis. Neurovascular intact. Full, normal range of motion. Neuro: Awake and alert, GCS 15, oriented to person, place, time, and situation. Moves all extremities. Normal gait. Psych: Awake, alert, with orientation to person, place and time. Behavior, mood, and affect are within normal limits. 11:09 Musculoskeletal/extremity: Extremities: grossly normal except: noted in the left gluteus amina: swelling, tenderness, ROM: intact in all extremities, Circulation is intact in all extremities. Sensation intact. Vital Signs: 10:59 BP 124 / 81; Pulse 81; Resp 17; Temp 98.0; Pulse Ox 99% ; Weight 80.74 kg; Height 5 ft. vg1 6 in. (167.64 cm); Pain 4/10; 10:59 Body Mass Index 28.73 (80.74 kg, 167.64 cm) vg1 MDM: 11:02 Patient medically screened. kb 11:09 Data reviewed: vital signs, nurses notes. Data interpreted: Pulse oximetry: on room air kb is 99 %. Interpretation: normal. Counseling: I had a detailed discussion with the patient and/or guardian regarding: the historical points, exam findings, and any diagnostic results supporting the discharge/admit diagnosis, radiology results, the need for outpatient follow up, a family practitioner, to return to the emergency department if symptoms worsen or persist or if there are any questions or concerns that arise at home. 07/31 11:08 Order name: Extremity Venous Unilateral Ltd kb 07/31 11:08 Order name: LE Artery Uni Ltd kb Administered Medications: No medications were administered Disposition Summary: 07/31/21 12:15 Discharge Ordered Location: Home kb Condition: Stable kb Diagnosis - Sciatica, left side kb Followup: kb - With: Emergency Department - When: As needed - Reason: Worsening of condition Followup: kb - With: Private Physician - When: 2 - 3 days - Reason: Recheck today's complaints, Continuance of care, Re-evaluation by your physician Discharge Instructions: - Discharge Summary Sheet kb - Sciatica, [id number] kb - Back Exercises, [id number] kb Forms: - Medication Reconciliation Form kb - Thank You Letter kb - Antibiotic Education kb - Prescription Opioid Use kb Prescriptions: - Cyclobenzaprine 10 mg Oral Tablet - take 1 tablet by ORAL route every 8 hours As needed; 21 tablet; Refills: 0, kb Product Selection Permitted - Diclofenac Sodium 75 mg Oral tablet,delayed release (DR/EC) - take 1 tablet by ORAL route 2 times per day As needed; 30 tablet; Refills: 0, kb Product Selection Permitted Addendum: 08/01/2021 13:22 Co-signature as Attending Physician, Malachi Rosenberg MD I agree with the assessment and c walls plan of care. Signatures: Dispatcher [employer] Leila Vines, SPARE PARTS CLERK-C SPARE PARTS CLERK-Malachi Samaniego MD MD cha Garcia, Victoria, RN RN vg1
--- NOTE | 2021-07-31 12:15 | ER ---
Nurse's Notes [facility] Name: Damian Lee Age: 50 yrs Sex: Male : 1970 Arrival Date: 07/31/2021 Time: 10:44 Bed 11 Private MD: Diagnosis: Sciatica, left side Presentation: 07/31 10:59 Chief complaint: Patient states: states last night around 2 am woke up with Left side vg1 of buttocks in pain that radiates to Left hip and down the Left leg; states pain 'has a burning sensation and my left leg is tingling.' Pt denies any injuries. Pt tested Covid Positive yesterday. Coronavirus screen: Vaccine status: Patient reports being unvaccinated. Client denies travel out of the [place] in the last 14 days. Client reports previous positive COVID test result. Date of collection: July 30, 2021. Ebola Screen: Patient negative for fever greater than or equal to 101.5 degrees Fahrenheit, and additional compatible Ebola Virus Disease symptoms. Initial Sepsis Screen: Does the patient meet any 2 criteria? No. Patient's initial sepsis screen is negative. Does the patient have a suspected source of infection? No. Patient's initial sepsis screen is negative. Risk Assessment: Do you want to hurt yourself or someone else? Patient reports no desire to harm self or others. Onset of symptoms was July 30, 2021. 10:59 Method Of Arrival: Ambulatory vg1 10:59 Acuity: SAMI 4 vg1 Triage Assessment: 11:02 General: Appears uncomfortable, Behavior is calm, cooperative. Pain: Complains of pain vg1 in left lower back, left gluteus amina and left leg Pain currently is 4 out of 10 on a pain scale. Musculoskeletal: Reports 'burning sensation in my left leg and its tingling'. 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 - Social history:: Smoking status: Patient denies any tobacco usage or history of. Screenin:17 Abuse screen: Denies threats or abuse. Nutritional screening: No deficits noted. ll1 Tuberculosis screening: No symptoms or risk factors identified. Fall Risk Total Montgomery Fall Scale indicates No Risk (0-24 pts). Vital Signs: 10:59 BP 124 / 81; Pulse 81; Resp 17; Temp 98.0; Pulse Ox 99% ; Weight 80.74 kg; Height 5 ft. vg1 6 in. (167.64 cm); Pain 4/10; 10:59 Body Mass Index 28.73 (80.74 kg, 167.64 cm) vg1 ED Course: 10:44 Patient arrived in ED. ds1 11:02 Triage completed. vg1 11:02 Le[facility] Cardona [facility]-C [facility] kb 11:02 Malachi Rosenberg MD is Attending Physician. kb 11:02 Arm band placed on. vg1 11:17 Reed Galaviz, RN is Primary Nurse. ll1 11:17 Patient placed in an exam room, on a stretcher. ll1 11:18 Patient has correct armband on for positive identification. Bed in low position. Call ll1 light in reach. Cardiac monitoring not applicable on this patient. 12:20 No provider procedures requiring assistance completed. Patient did not have IV access vg1 during this emergency room visit. 13:23 US Extremity Venous Unilateral Ltd In Process Unspecified. EDMS 13:23 US LE Artery Uni Ltd In Process Unspecified. EDMS Administered Medications: No medications were administered Outcome: 12:15 Discharge ordered by . kb 12:20 Discharged to home ambulatory. vg1 12:20 Condition: good 12:20 Discharge instructions given to patient, Instructed on discharge instructions, follow up and referral plans. medication usage, Demonstrated understanding of instructions, follow-up care, medications, Prescriptions given X 2. 12:21 Patient left the ED. vg1 Signatures: Dispatcher [employer] EDMS Leila Cardona FNP-C FNP-Ckb Sanford, Demi ds1 Alisia Diaz RN RN vg1 Reed Galaviz, MAT RN ll1
[2021-07-31 12:25] VITALS: BP 124/81; TEMP 98; O2SAT 99
--- NOTE | 2021-07-31 13:57 | RAD REPORT ---
EXAM DESCRIPTION: USExtremity Venous Uni Ltd07/31/2021 1:23 pm CLINICAL HISTORY: left leg pain COMPARISON: None. FINDINGS: Left common femoral, superficial femoral, popliteal and posterior tibial veins are compre ssible and demonstrate augmentation. Doppler demonstrates good flow. Grayscale, color and spectral analysis performed on all vessels IMPRESSION: No evidence of deep venous thrombosis involving the left lower extremity.
--- NOTE | 2021-07-31 14:02 | RAD REPORT ---
EXAM DESCRIPTION: US - Lower Extremity Artery Uni Ltd - 07/31/2021 1:23 pm CLINICAL HISTORY: Leg pain and numbness COMPARISON: None FINDINGS: Left common femoral, superficial femoral and popliteal arterial waveforms triphasic. Left posterior tibial and dorsalis pedis arteries demonstrate biphasic waveforms Grayscale, color and spectral analysis performed on all vessels IMPRESSION: Mild distal lower extremity arterial disease. No significant abnormality is displayed
== END 2021-07-31 12:21 | disposition home or self-care (01) ==
LOC: ER 10:42
DX: M54.32 Sciatica, left side (principal); E78.00 Pure hypercholesterolemia, unspecified
CPT/HCPCS: 93926; 93971; 99283

== ENCOUNTER 2022-06-01 11:26 | Emergency (ER) | payer SELFPAY ==
--- NOTE | 2022-06-01 13:51 | RAD REPORT ---
EXAM DESCRIPTION: US - Scrotum Testicles - 06/01/2022 1:38 pm CLINICAL HISTORY: left scotal pain COMPARISON: Pelvis dated 08/22/2019 FINDINGS: The right testicle measures 4.2 x 1.9 x 2.9 cm. No intratesticular masses or evidence of t esticular torsion. Tiny hydrocele. The left testicle measures 2.9 x 1.6 x 2.9 cm. No intratesticular masses or evidence of testicular to rsion. Both epididymides are normal in size and appearance. Left-sided varicocele. IMPRESSION: Bilateral testicular blood flow. Left-sided varicocele.
[2022-06-01 15:23] LABS: Absolute Lymphocytes (CBC) 1.3 K/uL (0.7-4.9); Hematocrit 52.3 % (39.6-49.0); Lymphocytes % 10.7 % (15.3-44.8); MCV 95.7 fL (80-100); MPV 7.9 fL (7.6-11.3); RBC Red Blood Cell Count 5.46 M/uL (4.33-5.43)
[2022-06-01] MEDS ORDERED: NA CHLORIDE 0.9% 1,000 ML ONE (15:30)
[2022-06-01] MEDS ORDERED: ONDANSETRON 4 MG/2 ML VIAL ONE (15:30)
[2022-06-01] MEDS ORDERED: MORPHINE 4 MG/ML SYR ONE ×2 (15:30→17:17)
[2022-06-01 15:42] LABS: Albumin 3.5 g/dL (3.4-5.0); Bilirubin Total 0.6 mg/dL (0.2-1.0); Potassium 4.1 mmol/L (3.5-5.1); Protein, Total 7.2 g/dL (6.4-8.2)
[2022-06-01] MEDS ORDERED: KETOROLAC 30 MG/ML INJ ONE (15:47)
--- NOTE | 2022-06-01 16:59 | RAD REPORT ---
EXAM DESCRIPTION: CTAbdomen Pelvis W Contrast - 06/01/2022 4:45 pm CLINICAL HISTORY: left sided flank pain COMPARISON: 02/27/2020 TECHNIQUE: CT of the abdomen and pelvis was performed. All CT scans are performed using dose optimization technique as appropriate and may include automated exposure control or mA/KV adjustment according to patient size. FINDINGS: Lower chest: No acute abnormality. Liver: Multiple low-density liver lesions which are likely benign. Biliary: Cholecystectomy. Mild extrahepatic biliary duct dilatation is likely related to the postchol ecystectomy state. Stomach: No significant focal abnormality. Duodenum: No significant focal abnormality. Pancreas: No significant abnormality. Spleen: No significant abnormality. Adrenal: No suspicious lesions. Kidney/ureter: No hydronephrosis. No renal calculi. The left distal ureter is obscured by streak alex fact from the hip arthroplasty. No secondary signs of a ureteral calculus though. Retroperitoneum: No retroperitoneal adenopathy. Vascular: No aneurysm. Bowel: No significant focal abnormality. Peritoneum: No ascites or free air. Small fat containing umbilical hernia. Bladder: Grossly unremarkable. Reproductive: No adnexal masses. Bones: No acute fracture. Left hip arthroplasty. Other: n/a IMPRESSION: No acute intra-abdominal or pelvic finding. Incidental findings as noted above.
[2022-06-01 17:27] LABS: Urine Blood Negative (Negative); Urine Glucose Negative (Negative); Urine Protein Negative (Negative)
--- NOTE | 2022-06-01 17:32 | EDPHYS ---
Physician Documentation [facility] Name: Damian Lee Age: 51 yrs Sex: Male : 1970 Arrival Date: 06/01/2022 Time: 11:27 Bed 13 Private MD: ED Physician Gisele Carranza HPI: 06/01 17:30 This 51 yrs old Male presents to ER via Ambulatory with complaints of Possible Kidney jmm Stone. 17:30 Onset: The symptoms/episode began/occurred gradually. jmm 18:50 Is a 51-year-old male with history of chronic pancreatitis, diverticulitis, jmm hyperlipidemia, coronary artery disease who presents emerged part with complaints of left scrotal pain beginning approximately a month ago. Patient also states having multiple episodes of flank pain which radiates into his abdomen. Complains of some nausea but denies any active vomiting. Denies diarrhea. Denies fever.. 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 - Social history:: Smoking status: Patient denies any tobacco usage or history of. ROS: 18:50 Constitutional: Negative for fever, chills, and weight loss, Cardiovascular: Negative jmm for chest pain, palpitations, and edema, Respiratory: Negative for shortness of breath, cough, wheezing, and pleuritic chest pain. 18:50 Abdomen/GI: Positive for abdominal pain. 18:50 : Positive for testicular pain 18:50 All other systems are negative. Exam: 18:50 Constitutional: This is a well developed, well nourished patient who is awake, alert, jmm and in no acute distress. Head/Face: atraumatic. Eyes: EOMI, no conjunctival erythema appreciated ENT: Moist Mucus Membranes Neck: Trachea midline, Supple Chest/axilla: Normal chest wall appearance and motion. Cardiovascular: Regular rate and rhythm. No edema appreciated Respiratory: Normal respirations, no respiratory distress appreciated 18:50 Skin: General appearance color normal MS/ Extremity: Moves all extremities, no obvious deformities appreciated, no edema noted to the lower extremities Neuro: Awake and alert Psych: Behavior is normal, Mood is normal, Patient is cooperative and pleasant 18:50 Abdomen/GI: Inspection: abdomen appears normal, Bowel sounds: normal, Palpation: soft, mild abdominal tenderness, in the left lower quadrant. 18:50 Back: CVA tenderness, that is mild, is noted on the left. 18:50 Musculoskeletal/extremity: ROM: intact in all extremities. Vital Signs: 11:52 BP 124 / 70; Pulse 70; Resp 18; Temp 98.8; Pulse Ox 100% ; Weight 81.65 kg; Height 5 ll1 ft. 6 in. (167.64 cm); Pain 10/10; 15:38 BP 121 / 72; Pulse 74; Resp 16; Pulse Ox 99% on R/A; Pain 10/10; db 16:00 BP 125 / 77; Pulse 70; Resp 16; Pulse Ox 99% on R/A; db 17:00 BP 131 / 93; Pulse 75; Resp 16; Pulse Ox 99% on R/A; db 17:10 Pain 8/10; db 17:30 BP 134 / 80; Pulse 77; Resp 16; Pulse Ox 96% on R/A; Pain 6/10; db 11:52 Body Mass Index 29.05 (81.65 kg, 167.64 cm) ll1 MDM: 11:58 Patient medically screened. [facility] 17:30 Data reviewed: vital signs, nurses notes. Counseling: I had a detailed discussion with [facility] the patient and/or guardian regarding: the historical points, exam findings, and any diagnostic results supporting the discharge/admit diagnosis, the need for outpatient follow up, to return to the emergency department if symptoms worsen or persist or if there are any questions or concerns that arise at home. 06/01 11:58 Order name: CBC with Diff; Complete Time: 15:28 [facility] 06/01 11:58 Order name: CMP; Complete Time: 15:44 [facility] 06/01 11:58 Order name: Lipase; Complete Time: 15:44 [facility] 06/01 11:58 Order name: CT Abd/Pelvis - IV Contrast Only; Complete Time: 17:01 [facility] 06/01 12:49 Order name: US Scrotum Testicles; Complete Time: 13:56 [facility] 06/01 17:27 Order name: Urine Dipstick-Ancillary; Complete Time: 17:29 [facility] 06/01 11:58 Order name: IV Saline Lock; Complete Time: 15:24 [facility] 06/01 11:58 Order name: Labs collected and sent; Complete Time: 15:24 [facility] 06/01 11:58 Order name: Urine Dipstick-Ancillary (obtain specimen); Complete Time: 17:26 [facility] Administered Medications: 15:30 Drug: NS 0.9% 1000 ml Route: IV; Rate: 1 bolus; Site: right antecubital; db 17:10 Follow up: Response: No adverse reaction; IV Status: Completed infusion; IV Intake: db 1000ml 15:30 Drug: Zofran (Ondansetron) 4 mg Route: IVP; Site: right antecubital; db 17:03 Follow up: Response: No adverse reaction db 15:30 Drug: morphine 4 mg Route: IVP; Infused Over: 4 mins; Site: right antecubital; db 17:10 Follow up: Response: No adverse reaction db 15:50 Drug: Ketorolac 30 mg Route: IVP; Site: right antecubital; db 17:15 Follow up: Response: No adverse reaction db 17:18 Drug: morphine 4 mg Route: IVP; Infused Over: 4 mins; Site: right antecubital; db 17:40 Follow up: Response: No adverse reaction db Disposition Summary: 06/01/22 17:31 Discharge Ordered Location: Home [facility] Condition: Stable [facility] Diagnosis - Varicocele [facility] Followup: [facility] - With: Private Physician - When: 2 - 3 days - Reason: Recheck today's complaints, Continuance of care, Re-evaluation by your physician Discharge Instructions: - Discharge Summary Sheet [facility] - Varicocele [facility] Forms: - Medication Reconciliation Form [facility] - Thank You Letter [facility] - Antibiotic Education [facility] - Prescription Opioid Use [facility] Prescriptions: - Diclofenac Sodium 75 mg Oral Tablet Sustained Release - take 1 tablet by ORAL route 2 times per day; 30 tablet; Refills: 0, Product [facility] Selection Permitted Signatures: Dispatcher [employer] EDMS Rambo Mock PA PA jmm Lewis, Lynsay RN RN ll1 Cira Lobato RN RN db
--- NOTE | 2022-06-01 17:32 | ER ---
Nurse's Notes [facility] Name: Damian Lee Age: 51 yrs Sex: Male : 1970 Arrival Date: 06/01/2022 Time: 11:27 Bed 13 Private MD: Diagnosis: Varicocele Presentation: 06/01 11:52 Chief complaint: Patient states: L testicle tender for a couple months. L lower back ll1 pain for 1 week. L flank pain with N/V this week. Coronavirus screen: Vaccine status: Patient reports being unvaccinated. Client denies travel out of the [place] in the last 14 days. At this time, the client does not indicate any symptoms associated with coronavirus-19. Ebola Screen: Patient denies travel to an Ebola-affected area in the 21 days before illness onset. Initial Sepsis Screen: Does the patient meet any 2 criteria? No. Patient's initial sepsis screen is negative. Does the patient have a suspected source of infection? Yes: Other: L flank/L testes. Risk Assessment: Do you want to hurt yourself or someone else? Patient reports no desire to harm self or others. Onset of symptoms was May 25, 2022. 11:52 Method Of Arrival: Ambulatory ll1 11:52 Acuity: [facility]I 3 ll1 Triage Assessment: 11:57 General: Appears uncomfortable, Behavior is cooperative, appropriate for age. Pain: ll1 Complains of pain in back Quality of pain is described as aching. GI: Reports nausea, vomiting. : Reports pain in left testicle. Musculoskeletal: Reports pain in L lower back. 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 - Social history:: Smoking status: Patient denies any tobacco usage or history of. Screenin:15 Abuse screen: Denies threats or abuse. Denies injuries from another. Nutritional db screening: No deficits noted. Tuberculosis screening: No symptoms or risk factors identified. Fall Risk None identified. No fall in past 12 months (0 pts). No secondary diagnosis (0 pts). IV access (20 points). Ambulatory Aid- None/Bed Rest/Nurse Assist (0 pts). Gait- Normal/Bed Rest/Wheelchair (0 pts) Mental Status- Oriented to own ability (0 pts). Total Montgomery Fall Scale indicates No Risk (0-24 pts). Assessment: 15:15 Reassessment: Patient appears in no apparent distress at this time. Patient is alert, db oriented x 3, equal unlabored respirations, skin warm/dry/pink. States has kidney stone pain on left side. General: Appears in no apparent distress. Behavior is calm, cooperative, appropriate for age. 16:30 Reassessment: Patient appears in no apparent distress at this time. Patient and/or db family updated on plan of care and expected duration. Pain level reassessed. Patient is alert, oriented x 3, equal unlabored respirations, skin warm/dry/pink. 17:28 Pain: Complains of pain in abdomen. Neuro: No deficits noted. Level of Consciousness is db awake, alert, obeys commands, Oriented to person, place, time, situation, Appropriate for age. Cardiovascular: No deficits noted. Respiratory: No deficits noted. Airway is patent Respiratory effort is even, unlabored, Respiratory pattern is regular, symmetrical. GI: Bowel sounds present X 4 quads. Abd is soft Abdomen is tender to palpation in left lower quadrant. : No deficits noted. No signs and/or symptoms were reported regarding the genitourinary system. EENT: No deficits noted. No signs and/or symptoms were reported regarding the EENT system. Derm: No deficits noted. No signs and/or symptoms reported regarding the dermatologic system. Musculoskeletal: No deficits noted. No signs and/or symptoms reported regarding the musculoskeletal system. Vital Signs: 11:52 BP 124 / 70; Pulse 70; Resp 18; Temp 98.8; Pulse Ox 100% ; Weight 81.65 kg; Height 5 ll1 ft. 6 in. (167.64 cm); Pain 10/10; 15:38 BP 121 / 72; Pulse 74; Resp 16; Pulse Ox 99% on R/A; Pain 10/10; db 16:00 BP 125 / 77; Pulse 70; Resp 16; Pulse Ox 99% on R/A; db 17:00 BP 131 / 93; Pulse 75; Resp 16; Pulse Ox 99% on R/A; db 17:10 Pain 8/10; db 17:30 BP 134 / 80; Pulse 77; Resp 16; Pulse Ox 96% on R/A; Pain 6/10; db 11:52 Body Mass Index 29.05 (81.65 kg, 167.64 cm) ll1 ED Course: 11:27 Patient arrived in ED. as 11:56 Triage completed. 1 11:57 Rambo Mock PA is PHCP. [facility] 11:57 Gisele Carranza MD is Attending Physician. jmm 11:57 Arm band placed on. ll1 13:40 US Scrotum Testicles In Process Unspecified. EDMS 14:57 Patient placed in an exam room, on a stretcher. iw 14:59 Cira Lobato, RN is Primary Nurse. db 15:15 Patient has correct armband on for positive identification. Bed in low position. Call db light in reach. Side rails up X 1. Pulse ox on. NIBP on. 15:24 Initial lab(s) drawn, by me, sent to lab. Inserted saline lock: 20 gauge in right em1 antecubital area, using aseptic technique. Blood collected. 16:47 CT Abd/Pelvis - IV Contrast Only In Process Unspecified. EDMS 17:30 No provider procedures requiring assistance completed. IV discontinued, intact, db bleeding controlled, No redness/swelling at site. Administered Medications: 15:30 Drug: NS 0.9% 1000 ml Route: IV; Rate: 1 bolus; Site: right antecubital; db 17:10 Follow up: Response: No adverse reaction; IV Status: Completed infusion; IV Intake: db 1000ml 15:30 Drug: Zofran (Ondansetron) 4 mg Route: IVP; Site: right antecubital; db 17:03 Follow up: Response: No adverse reaction db 15:30 Drug: morphine 4 mg Route: IVP; Infused Over: 4 mins; Site: right antecubital; db 17:10 Follow up: Response: No adverse reaction db 15:50 Drug: Ketorolac 30 mg Route: IVP; Site: right antecubital; db 17:15 Follow up: Response: No adverse reaction db 17:18 Drug: morphine 4 mg Route: IVP; Infused Over: 4 mins; Site: right antecubital; db 17:40 Follow up: Response: No adverse reaction db Medication: 15:15 VIS not applicable for this client. db Intake: 17:10 IV: 1000ml; Total: 1000ml. db Outcome: 17:30 Discharged to home ambulatory. db 17:30 Condition: stable 17:30 Discharge instructions given to patient, Instructed on discharge instructions, follow up and referral plans. Prescriptions given X 1. 17:31 Discharge ordered by . richard 17:41 Patient left the ED. db Signatures: Dispatcher [employer] EDMS Rambo Mock PA PA jmm Martinez, Amelia as Williams, Irene, RN Gregorio Springer Reed Larson RN RN 1 Cira Lobato RN RN db
[2022-06-01 17:49] VITALS: TEMP 98.8
[2022-06-01 17:55] VITALS: BP 134/80; O2SAT 96
== END 2022-06-01 17:41 | disposition home or self-care (01) ==
LOC: ER 11:26
DX: I86.1 Scrotal varices (principal)
CPT/HCPCS: 36415; 74177; 76870; 80053; 81003; 83690; 85025; 96361; 96374; 96375; 99284; J2405; J7030; Q9967

== ENCOUNTER 2023-02-08 17:43 | Emergency (ER) | payer SELFPAY ==
[2023-02-08] MEDS ORDERED: MECLIZINE HCL 12.5 MG TAB ONE (18:15)
[2023-02-08] MEDS ORDERED: NA CHLORIDE 0.9% 1,000 ML ONE (18:15)
[2023-02-08] MEDS ORDERED: LIDOCAINE 1% 20 ML MDV ONE (18:15)
[2023-02-08 18:38] LABS: Absolute Lymphocytes (CBC) 1.7 K/uL (0.7-4.9); Hematocrit 48.6 % (39.6-49.0); Lymphocytes % 21.2 % (15.3-44.8); MPV 8.7 fL (7.6-11.3); Platelets 206 thou/uL (152-406); RBC Red Blood Cell Count 5.11 M/uL (4.33-5.43)
[2023-02-08 18:40] LABS: Potassium 3.4 mEq/L (3.5-5.1); Troponin High Sensitivity 3.9 pg/mL (<58.9)
[2023-02-08 18:46] LABS: Protime INR 0.97
--- NOTE | 2023-02-08 19:59 | ER ---
Nurse's Notes [facility] Name: Damian Lee Age: 52 yrs Sex: Male : 1970 Arrival Date: 02/08/2023 Time: 17:43 Bed 12 Private MD: Diagnosis: Dizziness and giddiness;Laceration without foreign body of lower leg-right Presentation: 02/08 17:57 Chief complaint: Patient states: "Around 1330 this afternoon, I cut my right pickering on mb9 glass and it hasn't stopped bleeding. It's keegan making me dizzy" Pt states he has had a Tetanus shot in the past 5 years. Coronavirus screen: Vaccine status: Patient reports receiving the 2nd dose of the covid vaccine. Ebola Screen: No symptoms or risks identified at this time. Complicating Factors: There are no complicating factors for this patient. Initial Sepsis Screen: Does the patient meet any 2 criteria? No. Patient's initial sepsis screen is negative. Does the patient have a suspected source of infection? No. Patient's initial sepsis screen is negative. Risk Assessment: Do you want to hurt yourself or someone else? Patient reports no desire to harm self or others. Onset of symptoms was February 08, 2023. 17:57 Method Of Arrival: Ambulatory 9 17:57 Acuity: SAMI 3 mb9 Triage Assessment: 18:00 General: Appears in no apparent distress. Behavior is calm, cooperative. Pain: mb9 Complains of pain in right leg Pain does not radiate. Neuro: Rodriguez Agitation-Sedation Scale (RASS): 0 - Alert and Calm Level of Consciousness is awake, alert, obeys commands, Oriented to person, place, time, situation, Appropriate for age. Neuro: Reports dizziness. Cardiovascular: Patient's skin is warm and dry. Respiratory: Airway is patent Respiratory effort is even, unlabored, Respiratory pattern is regular, symmetrical. GI: No signs and/or symptoms were reported involving the gastrointestinal system. : No signs and/or symptoms were reported regarding the genitourinary system. Derm: Skin is pink, warm \\T\\ dry. Musculoskeletal: Range of motion: intact in all extremities. Injury Description: Laceration sustained to right leg is clean, 0.5 to 2.5 cm long, bleeding moderately. 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 - Social history:: Smoking status: Patient denies any tobacco usage or history of. Screenin:01 [facility] ED Fall Risk Assessment (Adult) History of falling in the last 3 months, mb9 including since admission No falls in past 3 months (0 pts) Confusion or Disorientation No (0 pts) Intoxicated or Sedated No (0 pts) Impaired Gait No (0 pts) Mobility Assist Device Used No (0 pt) Altered Elimination No (0 pt) Score/Fall Risk Level 0 - 2 = Low Risk Oriented to surroundings, Maintained a safe environment, Educated pt \\T\\ family on fall prevention, incl call for assistance when getting out of bed. Abuse screen: Denies threats or abuse. Nutritional screening: No deficits noted. Tuberculosis screening: No symptoms or risk factors identified. Assessment: 18:15 Reassessment: see triage assessment. mb9 20:00 Reassessment: Patient appears in no apparent distress at this time. Patient and/or pf1 family updated on plan of care and expected duration. Pain level reassessed. Patient is alert, oriented x 3, equal unlabored respirations, skin warm/dry/pink. Patient states feeling better. Patient states symptoms have improved. Vital Signs: 17:57 BP 134 / 86; Pulse 84; Resp 18; Temp 98; Pulse Ox 100% ; Weight 79.38 kg; Height 5 ft. mb9 6 in. ; 20:00 BP 131 / 72; Pulse 79; Resp 18; Temp 98.2(O); Pulse Ox 100% on R/A; Pain 0/10; pf1 17:57 Body Mass Index 28.25 (79.38 kg, 167.64 cm) mb9 20:00 Pain Scale: Adult pf1 ED Course: 17:46 Patient arrived in ED. mg5 17:56 Malachi Tapia PA is PHCP. cp 17:56 Adonay Lawson MD is Attending Physician. cp 17:57 Breneman, Carola, RN is Primary Nurse. mb9 17:57 Arm band placed on. mb9 17:58 Triage completed. mb9 18:01 Bed in low position. Call light in reach. Side rails up X 1. Client placed on mb9 continuous cardiac and pulse oximetry monitoring. NIBP monitoring applied. 18:15 Basic Metabolic Panel Sent. mb9 18:15 CBC with Diff Sent. mb9 18:15 PT-INR Sent. mb9 18:15 Troponin HS Sent. mb9 18:15 Inserted saline lock: 20 gauge in right antecubital area, using aseptic technique. mb9 20:30 Provided Education on: suture removal, medication administration and wound care. pf1 20:30 No provider procedures requiring assistance completed. Patient did not have IV access pf1 during this emergency room visit. Administered Medications: 18:15 Drug: NS 0.9% IV 1000 ml Route: IV; Rate: 1 bolus; Site: right antecubital; mb9 19:20 Follow up: Response: No adverse reaction; Marked relief of symptoms; IV Status: pf1 Completed infusion; IV Intake: 1000ml 18:15 Drug: Meclizine PO 25 mg Route: PO; mb9 19:15 Follow up: Response: No adverse reaction; Marked relief of symptoms pf1 18:41 Drug: Lidocaine-Epinephrine Infiltration -1%: (1:100,000) 5 ml Volume: 20 ml; Route: mb9 Infiltration; 19:20 Follow up: Response: No adverse reaction; Marked relief of symptoms; Pain is decreased pf1 19:17 CANCELLED (Physician Discretion): Potassium PO Effervescent Tablet 50 mEq PO once; cp dissolve in 4 ounces of water or juice 20:00 Drug: Potassium PO Effervescent Tablet 25 mEq Route: PO; pf1 20:20 Follow up: Response: No adverse reaction; Marked relief of symptoms pf1 Medication: 18:01 VIS not applicable for this client. mb9 Intake: 19:20 IV: 1000ml; Total: 1000ml. pf1 Outcome: 19:59 Discharge ordered by . cp 20:30 Discharged to home ambulatory. pf1 20:30 Condition: improved 20:30 Discharge instructions given to patient, Instructed on discharge instructions, follow up and referral plans. wound care, Demonstrated understanding of instructions, follow-up care, medications, Prescriptions given X 1. 20:31 Patient left the ED. pf1 Signatures: Page, Malachi, PA PA cp Breneman, Carola, RN RN mb9 Gogo Bonilla RN RN pf1 Zuleyma Johnson mg5 Corrections: (The following items were deleted from the chart) 18:00 17:58 Home Meds: Ciprofloxacin Opht; mb9 mb9 18:00 17:58 Home Meds: metronidazole Oral; mb9 mb9 18:00 17:58 Home Meds: Nexium 40 mg Oral cpDR 1 cap once daily; mb9 mb9 18:00 17:58 Home Meds: testosterone undecanoate Oral; mb9 mb9 18:01 17:57 Acuity: SAMI 4 9 mb9
--- NOTE | 2023-02-08 19:59 | EDPHYS ---
Physician Documentation [facility] Name: Damian Lee Age: 52 yrs Sex: Male : 1970 Arrival Date: 02/08/2023 Time: 17:43 Bed 12 Private MD: ED Physician Adonay Lawson HPI: 02/08 18:05 This 52 yrs old Male presents to ER via Ambulatory with complaints of Laceration To cp Leg, Dizziness. 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 Patient reports removing glass from skin. Declines xray of right lower leg. Injury occurred this afternoon. Concerned that wound continues to bleed. Reports dizziness and being lightheaded. 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 - Social history:: Smoking status: Patient denies any tobacco usage or history of. ROS: 18:10 Constitutional: Negative for body aches, chills, fever, poor PO intake. cp 18:10 Eyes: Negative for injury, pain, redness, and discharge. cp 18:10 Neck: Negative for pain with movement, pain at rest, stiffness. 18:10 Cardiovascular: Negative for chest pain, palpitations. 18:10 Respiratory: Negative for cough, shortness of breath, wheezing. 18:10 Abdomen/GI: Negative for abdominal pain, vomiting, diarrhea, constipation. 18:10 Back: Negative for pain at rest, pain with movement. 18:10 Skin: Positive for laceration(s), of the anterior aspect right lower leg. 18:10 Neuro: Positive for dizziness, Negative for altered mental status, headache, syncope, weakness. 18:10 All other systems are negative. Exam: 18:15 Constitutional: The patient appears in no acute distress, alert, awake, cp non-diaphoretic, non-toxic, well developed, well nourished. 18:15 Head/Face: Normocephalic, atraumatic. cp 18:15 Eyes: Periorbital structures: appear normal, Pupils: equal, round, and reactive to light and accomodation, Extraocular movements: intact throughout, Conjunctiva: normal, no exudate, no injection, Lids and lashes: appear normal, bilaterally. 18:15 ENT: External ear(s): Nose: is normal, Mouth: Lips: moist, Oral mucosa: moist, Posterior pharynx: is normal, airway is patent, no erythema, no exudate. 18:15 Neck: ROM/movement: is normal, is supple, without pain, no range of motions limitations. 18:15 Chest/axilla: Inspection: normal. 18:15 Cardiovascular: Rate: normal, Rhythm: regular, Edema: is not appreciated, JVD: is not appreciated. 18:15 Respiratory: the patient does not display signs of respiratory distress, Respirations: normal, no use of accessory muscles, no retractions, labored breathing, is not present, Breath sounds: are clear throughout, no decreased breath sounds, no stridor, no wheezing. 18:15 Abdomen/GI: Inspection: abdomen appears normal, Palpation: abdomen is soft and non-tender, in all quadrants. 18:15 Back: pain, is absent, ROM is normal. cp 18:15 Skin: injury, laceration(s), the wound is approximately 1.5 cm(s), of the anterior cp aspect right lower leg, that can be described as no foreign body, linear, with moderate bleeding. 18:15 Neuro: Orientation: to person, place \T\ time. Mentation: is normal, Cerebellar function: Romberg testing is negative, Motor: moves all fours, strength is normal, Sensation: is normal. 18:22 ECG was reviewed by the Attending Physician. cp Vital Signs: 17:57 BP 134 / 86; Pulse 84; Resp 18; Temp 98; Pulse Ox 100% ; Weight 79.38 kg; Height 5 ft. mb9 6 in. ; 20:00 BP 131 / 72; Pulse 79; Resp 18; Temp 98.2(O); Pulse Ox 100% on R/A; Pain 0/10; pf1 17:57 Body Mass Index 28.25 (79.38 kg, 167.64 cm) mb9 20:00 Pain Scale: Adult pf1 Laceration: 19:15 Wound Repair of 1.5cm ( 0.6in ) subcutaneous laceration to right lower leg. Linear cp shaped.. Distal neuro/vascular/tendon intact. Anesthesia: Wound infiltrated with 4 mls of 1% lidocaine. Wound prep: Simple cleansing by me. Skin closed with 4-0 Prolene using cross stitch. Dressed with Bacitracin, 4x4's. Patient tolerated well. MDM: 17:56 Patient medically screened. cp 18:45 Differential diagnosis: superficial laceration, vascular injury, dehydration, anemia, cp vertigo, electrolyte abnormality. 19:56 Data reviewed: vital signs, nurses notes, lab test result(s), EKG. ED course: patient refused CT head and xray of right lower leg at this time. Requesting discharge to home. Reports symptoms improved. 19:58 I considered the following discharge prescriptions or medication management in the emergency department Medications were administered in the Emergency Department. See MAR. 19:58 Independent interpretation of the following test(s) in the Emergency Department EKG: See my EKG interpretation above. Counseling: I had a detailed discussion with the patient and/or guardian regarding: the historical points, exam findings, and any diagnostic results supporting the discharge/admit diagnosis, lab results, to return to the emergency department if symptoms worsen or persist or if there are any questions or concerns that arise at home. Response to treatment: the patient's symptoms have markedly improved after treatment, and as a result, I will discharge patient. 02/08 18:01 Order name: Basic Metabolic Panel; Complete Time: 18:50 02/08 19:16 Interpretation: Normal except: K 3.4; CL 110; GLUC 122; GFR 76; CA 8.4. 02/08 18: Order name: CBC with Diff; Complete Time: 18:50 02/08 18: Order name: PT-INR; Complete Time: 18:50 02/08 18:01 Order name: Troponin HS; Complete Time: 18:50 02/08 18:01 Order name: EKG; Complete Time: 18:02 02/08 18:01 Order name: Cardiac monitoring; Complete Time: 18:02 02/08 18:01 Order name: EKG - Nurse/Tech; Complete Time: 18:15 cp 08/ 18:01 Order name: IV Saline Lock; Complete Time: 18:15 cp 08/ 18:01 Order name: Labs collected and sent; Complete Time: 18:15 cp 08/ 18:01 Order name: O2 Per Protocol; Complete Time: 18:02 cp 08/ 18:01 Order name: O2 Sat Monitoring; Complete Time: 18:02 cp 08 18:02 Order name: Dressing - Wound; Complete Time: 18:22 cp 08 18:02 Order name: Gloves, Sterile; Complete Time: 18:22 cp 08/ 18:02 Order name: Setup Suture Tray; Complete Time: 18:22 cp EC:22 Rate is 63 beats/min. Rhythm is regular. IL interval is normal. QRS interval is normal. cp QT interval is normal. T waves are Inverted in lead aVR. Interpreted by me. Reviewed by me. Administered Medications: 18:15 Drug: NS 0.9% IV 1000 ml Route: IV; Rate: 1 bolus; Site: right antecubital; mb9 19:20 Follow up: Response: No adverse reaction; Marked relief of symptoms; IV Status: pf1 Completed infusion; IV Intake: 1000ml 18:15 Drug: Meclizine PO 25 mg Route: PO; mb9 19:15 Follow up: Response: No adverse reaction; Marked relief of symptoms pf1 18:41 Drug: Lidocaine-Epinephrine Infiltration -1%: (1:100,000) 5 ml Volume: 20 ml; Route: mb9 Infiltration; 19:20 Follow up: Response: No adverse reaction; Marked relief of symptoms; Pain is decreased pf1 19:17 CANCELLED (Physician Discretion): Potassium PO Effervescent Tablet 50 mEq PO once; cp dissolve in 4 ounces of water or juice 20:00 Drug: Potassium PO Effervescent Tablet 25 mEq Route: PO; pf1 20:20 Follow up: Response: No adverse reaction; Marked relief of symptoms pf1 Disposition Summary: 02/08/23 19:59 Discharge Ordered Location: Home cp Problem: new cp Symptoms: have improved cp Condition: Stable cp Diagnosis - Dizziness and giddiness cp - Laceration without foreign body of lower leg - right cp Followup: cp - With: Private Physician - When: 7 - 10 days - Reason: Staple/Suture removal Discharge Instructions: - Discharge Summary Sheet cp - Dizziness cp - Laceration Care, Adult cp Forms: - Medication Reconciliation Form cp - Thank You Letter cp - Antibiotic Education cp - Prescription Opioid Use cp - Patient Portal Instructions cp Prescriptions: - Meclizine 25 mg Oral Tablet - take 1 tablet by ORAL route every 8 hours As needed; 30 tablet; Refills: 0, cp Product Selection Permitted Signatures: Dispatcher [employer] EDMS Malachi Tapia PA PA cp Breneman, Mary Beth RN RN mb9 Gogo Bonilla RN RN pf1 Corrections: (The following items were deleted from the chart) 18:00 17:58 Home Meds: Ciprofloxacin Opht; [facility] mb9 18:00 17:58 Home Meds: metronidazole Oral; [facility] mb9 18:00 17:58 Home Meds: Nexium 40 mg Oral cpDR 1 cap once daily; 9 mb9 18:00 17:58 Home Meds: testosterone undecanoate Oral; [facility] mb9 19:17 19:17 Potassium PO Effervescent Tablet 50 mEq PO once; dissolve in 4 ounces of water or cp juice ordered. cp 20:18 19:17 Head Brain Wo Cont+CT.RAD.BRZ ordered. EDMS EDMS
[2023-02-08] MEDS ORDERED: POTASSIUM 25 MEQ EFFERV TAB ONE (20:17)
[2023-02-08 21:28] VITALS: O2SAT 100
[2023-02-08 21:29] VITALS: BP 131/72; TEMP 98.2
--- NOTE | 2023-02-09 14:12 | EKG ---
Test Date: 2023-02-08 Test Time: 18:19:39 Yard Rigger: MB MEASUREMENT RESULTS: Intervals: Rate: 63 LA: 158 QRSD: 86 QT: 386 QTc: [address]: P: 20 LA: 158 QRS: 43 T: 49 INTERPRETIVE STATEMENTS: Normal sinus rhythm Normal ECG Compared to ECG 01/19/2021 10:45:24 No significant changes Electronically Signed On 02-09-23 14:10:39 CDT by Adair Smith
== END 2023-02-08 20:31 | disposition home or self-care (01) ==
LOC: ER 17:43
PROC: 0HQKXZZ Repair Right Lower Leg Skin, External Approach (ICD-10-PCS; principal; 2023-02-08)
DX: S81.811A Laceration without foreign body, right lower leg, initial encounter (principal); R42 Dizziness and giddiness
CPT/HCPCS: 36415; 80048; 84484; 85025; 85610; 93005; J2001; J7030; J8597

== ENCOUNTER → 2023-09-13 | Emergency (ER) | payer OTHER ==
--- NOTE | 2023-09-13 18:24 | ER ---
Nurse's Notes [facility] Name: Damian Lee Age: 52 yrs Sex: Male : 1970 Arrival Date: 09/13/2023 Time: 18:02 Bed IW9 Private MD: Diagnosis: Encounter for removal of falguni Presentation: 09/12 18:20 Chief complaint: Patient states: Needs falguni removed from head. No redness, swelling, ll1 or fevers. Coronavirus screen: Client denies travel out of the [place] in the last 14 days. At this time, the client does not indicate any symptoms associated with coronavirus-19. Ebola Screen: Patient denies travel to an Ebola-affected area in the 21 days before illness onset. Initial Sepsis Screen: Does the patient meet any 2 criteria? No. Patient's initial sepsis screen is negative. Does the patient have a suspected source of infection? No. Patient's initial sepsis screen is negative. Risk Assessment: Do you want to hurt yourself or someone else? Patient reports no desire to harm self or others. Onset of symptoms was September 05, 2023. 18:20 Method Of Arrival: Ambulatory ll1 18:20 Acuity: SAMI 5 ll1 Triage Assessment: 18:21 General: Appears in no apparent distress. Behavior is calm, cooperative, appropriate ll1 for age. Pain: Denies pain. Derm: Reports needs falguni removed from head. 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 - Social history:: Smoking status: Patient denies any tobacco usage or history of. - Family history:: not pertinent. Screenin:26 [facility] ED Fall Risk Assessment (Adult) History of falling in the last 3 months, ll1 including since admission No falls in past 3 months (0 pts) Confusion or Disorientation No (0 pts) Intoxicated or Sedated No (0 pts) Impaired Gait No (0 pts) Mobility Assist Device Used No (0 pt) Altered Elimination No (0 pt) Score/Fall Risk Level 0 - 2 = Low Risk Maintained a safe environment. Abuse screen: Denies threats or abuse. Nutritional screening: No deficits noted. Tuberculosis screening: No symptoms or risk factors identified. Assessment: 18:22 Reassessment: Dr. Villafuerte removing falguni. Tolerated well. ll1 Vital Signs: 18:20 BP 135 / 86; Pulse 81; Resp 18; Temp 97.5; Pulse Ox 99% ; ll1 ED Course: 18:03 Patient arrived in ED. rg4 18:06 Dutch Villafuerte MD is Attending Physician. rt 18:21 Triage completed. ll1 18:21 Arm band placed on. ll1 18:26 Patient has correct armband on for positive identification. Provided Education on: n/a. ll1 18:26 No provider procedures requiring assistance completed. Patient did not have IV access ll1 during this emergency room visit. Administered Medications: No medications were administered Medication: 18:26 VIS not applicable for this client. ll1 Outcome: 18:24 Discharge ordered by MD. rt 18:26 Patient left the ED. ll1 18:26 Discharged to home ambulatory, ll1 18:26 Condition: stable 18:26 Discharge instructions given to patient, Instructed on discharge instructions, follow up and referral plans. Demonstrated understanding of instructions, follow-up care, Signatures: Cira Diaz rg4 Reed Galaviz RN RN ll1 Dutch Villafuerte MD MD rt
--- NOTE | 2023-09-13 18:24 | EDPHYS ---
Physician Documentation [facility] Name: Damian Lee Age: 52 yrs Sex: Male : 1970 Arrival Date: 09/13/2023 Time: 18:02 Bed IW9 Private MD: ED Physician Dutch Villafuerte HPI: 09/12 18:25 This 52 yrs old Male presents to ER via Ambulatory with complaints of Staple Removal. rt 18:25 Patient presents to the ED requesting suture removal. Reportedly had katey placed 8 rt days ago, states that is healing well. Denies any complications. Symptoms are mild severity, no other aggravating or elevating factors.. 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 - Social history:: Smoking status: Patient denies any tobacco usage or history of. - Family history:: not pertinent. ROS: 18:25 Constitutional: Negative for fever, chills, and weight loss, MS/Extremity: Negative for rt injury and deformity, Neuro: Negative for headache, weakness, numbness, tingling, and seizure, Psych: Negative for depression, anxiety, suicide ideation, homicidal ideation, and hallucinations, 18:25 Skin: Positive for Stable laceration, Exam: 18:25 Constitutional: This is a well developed, well nourished patient who is awake, alert, rt and in no acute distress. Skin: Warm, dry with normal turgor. Normal color with no rashes, no lesions, and no evidence of cellulitis. MS/ Extremity: Pulses equal, no cyanosis. Neurovascular intact. Full, normal range of motion. Neuro: Awake and alert, GCS 15, oriented to person, place, time, and situation. Cranial nerves II-XII grossly intact. Motor strength 5/5 in all extremities. Sensory grossly intact. Cerebellar exam normal. Normal gait. Psych: Awake, alert, with orientation to person, place and time. Behavior, mood, and affect are within normal limits. 18:25 Head/face: Well-healed laceration with 7 katey, no erythema, drainage. Vital Signs: 18:20 BP 135 / 86; Pulse 81; Resp 18; Temp 97.5; Pulse Ox 99% ; ll1 Procedures: 18:25 Suture/Staple removal: Removed 7 katey, from face, site appears well healed, dressed rt with Patient tolerated well. MDM: 18:23 Patient medically screened. rt 18:25 Data reviewed: vital signs, nurses notes. Counseling: I had a detailed discussion with rt the patient and/or guardian regarding the historical points, exam findings, and any diagnostic results supporting the discharge/admit diagnosis, the need for outpatient follow up, to return to the emergency department if symptoms worsen or persist or if there are any questions or concerns that arise at home. Administered Medications: No medications were administered Disposition Summary: 09/13/23 18:24 Discharge Ordered Notes: Location: Home rt Problem: new rt Symptoms: have improved rt Condition: Stable rt Diagnosis - Encounter for removal of katey rt Followup: rt - With: Private Physician - When: As needed - Reason: Discharge Instructions: - Discharge Summary Sheet rt - Sutures, Katey, or Adhesive Wound Closure rt Forms: - Medication Reconciliation Form rt - Thank You Letter rt - Antibiotic Education rt - Prescription Opioid Use rt - Patient Portal Instructions rt - Leadership Thank You Letter rt Signatures: Reed Galaviz RN RN ll1 Dutch Villafuerte MD MD rt
[2023-09-13 18:53] VITALS: BP 135/86; TEMP 97.5; O2SAT 99
== END ==
LOC: ER 18:02
DX: Z48.02 Encounter for removal of sutures (principal)

== ENCOUNTER 2024-08-20 11:35 | Inpatient (IN) | payer OTHER ==
[2024-08-20 12:29] LABS: Absolute Eosinophils 0.1 K/uL (0-0.5); Absolute Lymphocytes (CBC) 1.4 K/uL (0.7-4.9); Absolute Monocytes 0.5 K/uL (0.1-1.3); Absolute Neutrophil 3.5 K/uL (1.8-8.0); Basophils % 0.8 % (0-1.3); Eosinophils % 1.5 % (0-4.4); Hematocrit 48.2 % (39.6-49.0); Lymphocytes % 25.4 % (15.3-44.8); MCH 33.5 pg (27.0-35.0); MCHC 35.2 g/dL (32.0-36.0); MCV 95.1 fL (80-100); MPV 8.5 fL (7.6-11.3); Monocytes % 8.8 % (3.3-12.3); Neutrophils % 63.5 % (41.7-73.7); Platelets 195 thou/uL (152-406); RBC Red Blood Cell Count 5.07 M/uL (4.33-5.43); Red Cell Distribution Width 13.2 % (12.1-15.2)
[2024-08-20] MEDS ORDERED: ONDANSETRON 4 MG/2 ML VIAL ONE ×2 (12:31→14:44)
[2024-08-20] MEDS ORDERED: MORPHINE 4 MG/ML SYR ONE (12:32)
[2024-08-20] MEDS ORDERED: ASPIRIN 81 MG CHEWABLE TABLET ONE (12:32)
[2024-08-20 12:38] LABS: PT Prothrombin Time 10.8 SECONDS (9.4-12.5); Protime INR 1.03
[2024-08-20 12:44] LABS: Albumin 3.7 g/dL (3.4-5.0); Albumin/Globulin Ratio 1.1 (1.1-1.8); Bilirubin Direct 0.2 mg/dL (0-0.2); Bilirubin Indirect, Calculated 0.6 mg/dL (0.2-0.8); Bilirubin Total 0.8 mg/dL (0.2-1.0); Globulin 3.4 g/dL (2.3-3.5); Magnesium 2.1 mg/dL (1.6-2.4); Protein, Total 7.1 g/dL (6.4-8.2); Troponin High Sensitivity 3.4 pg/mL (<58.9)
--- NOTE | 2024-08-20 13:20 | RAD REPORT ---
EXAMINATION: ONE VIEW CHEST XR CLINICAL INDICATION: CHEST PAIN TECHNIQUE: Frontal chest projection is submitted. Examination is limited by patient positioning and t echnique. COMPARISON: 01/25/2021 FINDINGS: The lungs are well inflated and clear. The heart is upper limit of normal in size. No displaced fract ures identified. IMPRESSION: No acute intrathoracic abnormalities.
[2024-08-20] MEDS ORDERED: NITROGLYCERIN 0.4 MG/TAB SL ONE (14:18)
[2024-08-20] MEDS ORDERED: NA CHLORIDE 0.9% 500 ML ONE (14:44)
[2024-08-20] MEDS ORDERED: ACETAMINOPHEN 325 MG TABLET PO PRN (14:49)
[2024-08-20] MEDS ORDERED: ONDANSETRON 4 MG/2 ML VIAL IV PRN (14:49)
--- NOTE | 2024-08-20 14:59 | ER ---
Nurse's Notes [facility] Name: Damian Lee Age: 53 yrs Sex: Male : 1970 Arrival Date: 08/20/2024 Time: 11:35 Bed 3 Private MD: Diagnosis: Chest pain, unspecified Presentation: 08/20 11:45 Chief complaint: Patient states: Chest pain that comes and goes for "a few months", ph today pain didn't go away, was seen at urgent care and told to come to ER for further evaluation. Coronavirus screen: Vaccine status: Patient reports being unvaccinated. Ebola Screen: No symptoms or risks identified at this time. Initial Sepsis Screen: Does the patient meet any 2 criteria? No. Patient's initial sepsis screen is negative. Does the patient have a suspected source of infection? No. Patient's initial sepsis screen is negative. Risk Assessment: Do you want to hurt yourself or someone else? Patient reports no desire to harm self or others. Onset of symptoms was August 20, 2024. 11:45 Method Of Arrival: Ambulatory 11:45 Acuity: SAMI 2 ph Triage Assessment: 11:45 General: Appears in no apparent distress. comfortable, well groomed, Behavior is calm, ph cooperative, appropriate for age. Pain: Complains of pain in anterior aspect of left upper chest Pain does not radiate. Pain began "a few months ago". Neuro: Level of Consciousness is awake, alert, obeys commands, Oriented to person, place, time, situation. Cardiovascular: Reports chest pain, lightheadedness, Chest pain quality is pressure, is located in left anterior chest wall began " a few months ago" episodes are intermittent. Respiratory: Airway is patent Respiratory effort is even, unlabored. Derm: Skin is pink, warm \\T\\ dry. 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 - Infectious Disease History:: Denies. - Social history:: Smoking status: Reported history of juuling and/or vaping. Patient uses alcohol, occasionally. Screenin:23 [facility] ED Fall Risk Assessment (Adult) History of falling in the last 3 months, ph including since admission No falls in past 3 months (0 pts) Confusion or Disorientation No (0 pts) Intoxicated or Sedated No (0 pts) Impaired Gait No (0 pts) Mobility Assist Device Used No (0 pt) Altered Elimination No (0 pt) Score/Fall Risk Level 0 - 2 = Low Risk Oriented to surroundings, Maintained a safe environment, Hourly rounding (assess needs \\T\\ fall precautionary measures) done. Abuse screen: Denies threats or abuse. Denies injuries from another. Nutritional screening: No deficits noted. Tuberculosis screening: No symptoms or risk factors identified. Assessment: 13:00 General: SEE TRIAGE ASSSSMENT. ph 14:25 Reassessment: Pt continues to c/o chest pain, ERP notified, verbal order received for ph SL nitro, see MAR. 14:45 Reassessment: Pt c/o dizziness and nausea, states, " I feel worse." Systolic BP dropped ph from 140s to 86 after SL nitro, ERP notified of VS, verbal order received for fluid bolus and zofran, see MAR. Pt does state that chest pain temporarily improved. Vital Signs: 11:45 BP 127 / 80; Pulse 61; Resp 18; Temp 97.6; Pulse Ox 96% on R/A; Weight 79.38 kg; Height ph 5 ft. 6 in. ; 13:00 BP 145 / 93; Pulse 58; Resp 18; Pulse Ox 99% on R/A; ph 14:22 BP 124 / 83; Pulse 59; Resp 18; Pulse Ox 95% on R/A; ph 14:48 BP 86 / 54; Pulse 55; Resp 18; Pulse Ox 94% on R/A; ph 15:14 BP 91 / 64; Pulse 50; Resp 18; Pulse Ox 95% on R/A; ph 15:55 BP 103 / 72; Pulse 64; Resp 18; Pulse Ox 95% on R/A; ph 11:45 Body Mass Index 28.25 (79.38 kg, 167.64 cm) ph ED Course: 11:36 Patient arrived in ED. im 11:40 Zaida Taveras MD is Attending Physician. sp3 11:47 Regina Lara, RN is Primary Nurse. ph 12:00 Arm band placed on. ph 12:05 Initial lab(s) drawn, by me, sent to lab. EKG done, by ED staff, reviewed by Zaida Taveras MD. Inserted saline lock: 22 gauge in right antecubital area, using aseptic technique. Blood collected. Flushed with 10 mL NS. 12:15 Patient has correct armband on for positive identification. Placed in gown. Bed in low ph position. Call light in reach. Side rails up X2. Client placed on continuous cardiac and pulse oximetry monitoring. NIBP monitoring applied. wealth management manager on. Door closed. Noise minimized. 12:43 Triage completed. ph 13:13 XRAY Chest (1 view) In Process Unspecified. EDMS 14:57 Mello Blackwood is Hospitalizing Provider. sp3 15:55 No provider procedures requiring assistance completed. Patient admitted, IV remains in ph place. Patient maintains SpO2 saturation greater than 95% on room air. Administered Medications: 12:48 Drug: Ondansetron IVP 4 mg IVP once; over 2 minutes Route: IVP; Site: right antecubital;ph 13:00 Follow up: Response: No adverse reaction ph 12:49 Drug: Aspirin PO Chewable Tablet 324 mg PO once; 81 mg tablets x 4 Route: PO; ph 13:10 Follow up: Response: No adverse reaction ph 12:49 Drug: morphine IVP or IV 4 mg IVP once over 4 mins Route: IVP; Infused Over: 4 mins; ph Site: right antecubital; 13:30 Follow up: Response: No adverse reaction; Pain is unchanged, physician notified ph 14:22 Drug: Nitroglycerin Sublingual 0.4 mg Sublingual once Route: Sublingual; ph 15:00 Follow up: Response: Adverse reaction, Physician notified; Blood pressure is lowered; ph Other 14:48 Drug: NS 0.9% IV 500 ml IV at bolus once; to be given as a bolus over 30 minutes Route: ph IV; Rate: bolus; Site: right antecubital; 15:30 Follow up: Response: No adverse reaction; IV Status: Completed infusion; IV Intake: ph 500ml 14:49 Drug: Ondansetron IVP 4 mg IVP once; over 2 minutes Route: IVP; Site: right antecubital;ph 15:00 Follow up: Response: No adverse reaction ph Medication: 14:52 VIS not applicable for this client. ph Intake: 15:30 IV: 500ml; Total: 500ml. ph Outcome: 14:58 Decision to Hospitalize by Provider. sp3 17:30 Admitted to Tele accompanied by tech, via wheelchair, with chart, ph 17:30 Condition: good 17:30 Instructed on the need for admit, 18:17 Patient left the ED. ph Signatures: Dispatcher [employer] Regina Galindo RN RN Zaida Taveras MD MD sp3 Nany Arzate
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
--- NOTE | 2024-08-20 16:37 | P.CNS ---
Date of Consult: 08/20/24 Chief Complaint: chest pain History of Present Illness: Patient with PMH of mild CO per patient almost 5 years ago, presented with worsening chest pain for the last few weeks, pressure in nature, left sided, no radiation, no other cardiac symptoms. 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 moist/pink, EOMI, Sclerae nonicteric Neck: Supple, 2+ carotid pulse no bruit, No LAD, Without JVD or thyroid abnormality Respiratory: Clear to auscultation bilaterally, Normal air movement Cardiovascular: Regular rate/rhythm, Normal S1 S2 Gastrointestinal: Normal bowel sounds, No tenderness Musculoskeletal: No tenderness Integumentary: No rashes Neurological: Normal gait, Normal speech, Normal tone, Normal affect Lymphatics: No axilla or inguinal lymphadenopathy Laboratory Data (last 24 hrs) 08/20/24 08/20/24 08/20/24 12:05 12:05 12:05 WBC 5.50 Hgb 17.0 Hct 48.2 Plt Count 195 PT 10.8 INR 1.03 Sodium 136 Potassium 4.0 BUN 18 Creatinine 0.94 Glucose 99 Magnesium 2.1 Total Bilirubin 0.8 AST 27 ALT 34 Alkaline Phosphatase 49 - Problems (1) Chest pain Onset Date: 05/21/18 Current Visit: No Status: Acute Plan: cardiac enzymes for 3 sets, if negative then exercise nuclear stress test in am (Cardiolite) get echo ASA 81 mg daily Lipitor 40 mg daily Qualifiers: Chest pain type: precordial pain Qualified Code(s): R07.2 - Precordial pain
[2024-08-20] MEDS: ENOXAPARIN 40 MG/0.4 ML SQ SCH (17:00)
[2024-08-20] MEDS ORDERED: HYDROCODONE/APAP 10/325 TAB ONE (17:06)
[2024-08-20] MEDS ORDERED: ENOXAPARIN 40 MG/0.4 ML SQ ONE (17:06)
[2024-08-20] MEDS: HYDROCODONE/APAP 10/325 TAB PO PRN (17:10)
[2024-08-20 17:32] VITALS: BMI 27.2
[2024-08-20] MEDS: TIZANIDINE 4 MG TABLET PO SCH (21:11)
[2024-08-20] MEDS: ATORVASTATIN 40 MG TAB PO SCH (21:11)
[2024-08-20] MEDS: ASPIRIN 81 MG CHEWABLE TABLET PO SCH (21:11)
[2024-08-21 06:27] LABS: Specific Gravity 1.012 (1.005-1.030); Sqamous Epithelial None Seen /HPF (None Seen); Urine Bacteria None Seen /HPF (<20); Urine Bilirubin NEGATIVE (Negative); Urine Blood Negative (Negative); Urine Clarity Clear (Clear); Urine Color Colorless (Yellow); Urine Culture Reflex Order NOT NEEDED; Urine Glucose NEGATIVE (Negative); Urine Ketones NEGATIVE (Negative); Urine Microscopic Reflex YN ORDER UMIC; Urine Nitrite NEGATIVE (Negative); Urine Protein NEGATIVE (Negative); Urine RBC <5 /HPF (None Seen); Urine Urobilinogen Normal (Normal); Urine WBC None Seen /HPF (<5); Urine pH 6.5 (5.0-7.0)
[2024-08-21 06:52] LABS: Absolute Eosinophils 0.1 K/uL (0-0.5); Absolute Lymphocytes (CBC) 1.9 K/uL (0.7-4.9); Absolute Monocytes 0.5 K/uL (0.1-1.3); Absolute Neutrophil 2.5 K/uL (1.8-8.0); Basophils % 0.9 % (0-1.3); Eosinophils % 2.3 % (0-4.4); Hemoglobin 16.4 g/dL (13.6-17.9); MCH 33.4 pg (27.0-35.0); MCHC 34.9 g/dL (32.0-36.0); MCV 95.8 fL (80-100); MPV 8.7 fL (7.6-11.3); Monocytes % 10.5 % (3.3-12.3); Neutrophils % 49.3 % (41.7-73.7); Platelets 189 thou/uL (152-406); RBC Red Blood Cell Count 4.91 M/uL (4.33-5.43); Red Cell Distribution Width 13.3 % (12.1-15.2)
[2024-08-21 06:56] LABS: PT Prothrombin Time 10.7 SECONDS (9.4-12.5); Protime INR 1.02
[2024-08-21 07:15] LABS: Anion Gap 8.9 mEq/L (5.0-15.0); Magnesium 2.2 mg/dL (1.6-2.4); Phosphorus 3.3 mg/dL (2.5-4.9); Potassium 3.9 mEq/L (3.5-5.1); Thyroid Stimulating Hormone 1.48 uIU/mL (0.358-3.740)
[2024-08-21] MEDS ORDERED: PANTOPRAZOLE 40MG TABLET PO SCH (09:00)
[2024-08-21] MEDS ORDERED: HOME MED 1 EA UNK (Esomeprazole Mag Trihydrate [Nexium] 40 MG Capsule.Dr) PO SCH (09:00)
[2024-08-21] MEDS ORDERED: REGADENOSON 0.4 MG/5 ML SYR IV ONE (10:01)
--- NOTE | 2024-08-21 13:02 | RAD REPORT ---
EXAM: Nuclear medicine cardiac perfusion examination with ejection fraction HISTORY: Chest pain Chest pain TECHNIQUE: Rest images: 10.7 mCi technetium 99m sestamibi Stress images: 31.5 mCi of technetium 99m sestamibi COMPARISON: 05/21/2018 FINDINGS: Tomographic images: Mild diminished radiopharmaceutical consolidation seen along the inferior wall wi th stress. This appears superimposed on an area of fixed defect. No finding to suspect hibernating myocardium. Ejection fraction of 59%. EDV: 110 mL ESV: 45 mL LHR: 0.56 TID: 1.03 IMPRESSION: [id number] stress-induced ischemia involving the inferior wall, superimposed on a smaller area of scarring.
[2024-08-22 06:47] LABS: Anion Gap 7.9 mEq/L (5.0-15.0); Potassium 3.9 mEq/L (3.5-5.1)
--- NOTE | 2024-08-22 07:23 | ECHO ---
HEIGHT: 5 ft 6 in WEIGHT: 169 lb 0 oz DATE OF STUDY: 08/21/[address]: Max Quispe 2-DIMENSIONAL: YES M.MODE: YES DOPPLER: YES COLOR FLOW: YES TDS: PORTABLE: YES DEFINITY: BUBBLE STUDY: DIAGNOSIS: CHEST PAIN CARDIAC HISTORY: CATHERIZATION: NO SURGERY: NO PROSTHETIC VALVE: NO PACEMAKER: NO MEASUREMENTS (cm) DIASTOLIC (NORMALS) SYSTOLIC (NORMALS) IVSd 1.1 (0.6-1.2) LA Diam 3.4 (1.9-4.0) LVEF 67% LVIDd 3.7 (3.5-5.7) LVIDs 2.4 (2.0-3.5) %FS 36% LVPWd 1.2 (0.6-1.2) Ao Diam 2.9 (2.0-3.7) 2 DIMENSIONAL ASSESSMENT: RIGHT ATRIUM: NORMAL LEFT ATRIUM: NORMAL RIGHT VENTRICLE: NORMAL LEFT VENTRICLE: NORMAL TRICUSPID VALVE: MILD TRICUSPID REGURGITATION MITRAL VALVE: TRACE MITRAL REGURGITATION PULMONIC VALVE: NORMAL AORTIC VALVE: NORMAL PERICARDIAL EFFUSION: NONE AORTIC ROOT: NORMAL LEFT VENTRICULAR WALL MOTION: NORMAL DOPPLER/COLOR FLOW: SEE BELOW COMMENTS: 1. NORMAL LEFT VENTRICULAR EJECTION FRACTION 60-65% WITH NORMAL WALL MOTION 2. NORMAL DIASTOLIC FUNCTION 3. TRACE MITRAL REGURGITATION 4. MILD TRICUSPID REGURGITATION 5. NORMAL RIGHT VENTRICULAR SYSTOLIC PRESSURE GREATER THAN 25 mmHg TECHNOLOGIST: RENEA RDZ
[2024-08-22] MEDS ORDERED: NA CHLORIDE 0.9% 500 ML ONE (08:07)
--- NOTE | 2024-08-22 08:12 | TREADPHA ---
DX: CHEST PAIN Date of Study: 08/21/2024 Ht: 5' 6 " Wt: 169 lb 0 oz Consulting Physician: LUCIANA MEDICATIONS: TYLENOL, NORCO, ASPIRIN, LIPITO, LOVENOX, ZOFRAN, ZANAFLEX HISTORY: GASTROESPOHAGEAL REFLUX DISEASE PHYSICIAL EXAMINATION: RESTING B.P.: RESTING H.R.: 52 RESTING EKG: NORMAL SINUS RHYTHM PROTOCOL: PHARMACOLOGIC EXERCISE TIME: 3:30 B.P. AT [place] STRESS: 124/62 IMPRESSION: LEXISCAN STRESS PERFORMED ORDERED. CARDIOLITE INJECTED PER PROTOCOL (SEE NUCLEAR MEDICINE REPORT). NO SUPRAVENTRICULAR TACHYCARDIA, VENTRICULAR TACHYCARDIA OR ARRHYTHMIAS NOTED. PATIENT COMPLAINTS OF CHEST PAIN DURING INJECTION. PATIENT STATES CHEST PAIN IS SUBSIDED IN POST PROCEDURE. NO ELECTROCARDIOGRAM CHANGES OF ISCHEMIA WITH LEXISCAN.
[2024-08-22] MEDS ORDERED: LIDOCAINE 1% 20 ML MDV ONE (08:41)
[2024-08-22] MEDS ORDERED: HEPA 1000U/500MLS 2,000 UNIT/1,000 ML BAG IV ONE (08:41)
[2024-08-22] MEDS ORDERED: HEPARIN 10,000 UNIT/10 ML VIAL IV ONE (08:41)
[2024-08-22] MEDS ORDERED: MIDAZOLAM HCL 2 MG/2 ML INJ ONE (08:41)
[2024-08-22] MEDS ORDERED: HEPARIN 5000 UNIT/ML 1 ML VIAL ONE (08:42)
[2024-08-22] MEDS ORDERED: FENTANYL CITR 100 MCG/2 ML ONE (08:42)
[2024-08-22] MEDS ORDERED: ATROPINE SULF 1 MG/10 ML SYR IV ONE (08:42)
[2024-08-22] MEDS ORDERED: CLOPIDOGREL 75 MG TABLET ONE (08:42)
[2024-08-22] MEDS ORDERED: TICAGRELOR 90 MG TABLET PO ONE (08:42)
[2024-08-22] MEDS ORDERED: ASPIRIN 325 MG TAB ONE (08:42)
[2024-08-22] MEDS ORDERED: FLUMAZENIL 0.1 MG/ML (5 mL VIAL) IV ONE (08:59)
[2024-08-22] MEDS ORDERED: NALOXONE 0.4 MG/ML VIAL ONE (08:59)
--- NOTE | 2024-08-22 10:14 | P.PN ---
Subjective Date of Service: 08/22/24 Chief Complaint: chest pain Subjective: No new changes, No C/O voiced, Tolerating diet, Ambulating, Improving Review of Systems 10-point ROS is otherwise unremarkable Physical Examination - Vital Signs Temperature: 97.5 F Blood Pressure: 118/64 Pulse: 63 Respirations: 16 Pulse Ox (%): 98 - Physical Exam General: Alert, In no apparent distress HEENT: Atraumatic, PERRLA, EOMI Neck: Supple, JVD not distended Respiratory: Clear to auscultation bilaterally, Normal air movement Cardiovascular: Regular rate/rhythm, Normal S1 S2 Gastrointestinal: Normal bowel sounds, No tenderness Musculoskeletal: No tenderness Integumentary: No rashes Neurological: Normal speech, Normal tone, Normal affect Lymphatics: No axilla or inguinal lymphadenopathy - Studies Medications List Reviewed: Yes Assessment And Plan - Current Problems (Diagnosis) (1) Chest pain Onset Date: 05/21/18 Current Visit: No Status: Acute Plan: patient stress test was abnormal so coronary angiogram done and shows mild CAD. ASA 81 mg daily Lipitor 40 mg daily Qualifiers: Chest pain type: precordial pain Qualified Code(s): R07.2 - Precordial pain Physician Review: Patient Assessed, Agree with Above Assessment and Plan
--- NOTE | 2024-08-22 11:06 | OP ---
Date of Procedure: 08/22/2024 Surgeon: Vinnie Yuen Procedure Performed: Selective coronary angiogram. Indication For Procedure: Chest pain, abnormal stress test. Complications: None. Estimated Blood Loss: Less than 50 cc. Access: Right radial, closed by TR band. Sedation Time: 20 minutes with 1 of Versed and 25 of fentanyl. Description Of Procedure: After risks, benefits, and alternatives were explained to the patient, the patient agreed to proceed with procedure and signed informed consent. The patient was brought back to the laborer pie bakery, prepped and draped in usual sterile fashion. Time-out was performed. Sedation was administered. Next, the right radial access was obtained using ultrasound-guided micropuncture techn ique. [place] 4 catheter was advanced to the aortic root. Selective angiogram was done using this cat heter. The catheter was later removed over a J-wire. Sheath was removed. TR band was applied. Hem ostasis was achieved. The patient was moved back to recovery in stable condition. Findings: 1. Left main, normal. 2. LAD, large proximal, mild luminal irregularities with mid LAD, mild intramyocardial bridge and the n distal mild luminal irregularities. 3. Left circ, large, dominant, mild luminal irregularities. 4. Left PDA with mild luminal irregularities. 5. RCA, small nondominant, mild luminal irregularities. Assessment/plan: 1. Mid LAD, mild intramyocardial bridge with normal coronaries. 2. Continue medical management. SHELLY/JERONIMO Voice ID: [id number] Report ID: [id number]
[2024-08-22 12:39] VITALS: BP 119/77; TEMP 97.6; O2SAT 99
--- NOTE | 2024-08-22 12:50 | P.DS ---
Admission Date: 08/21/24 Discharge Date: 08/22/24 Disposition: ROUTINE DISCHARGE Discharge Condition: FAIR Reason for Admission: chest pain Brief History of Present Illness: Patient is a 53-year-old male with a past medical history significant for [place], hyperlipidemia, chronic pancreatitis, psoriasis, diverticulitis, vaping disorder, GERD, erectile dysfunction who presents with complaint of chest pain that has been ongoing intermittently for the past couple of months. Patient reported the chest pain has become more frequent and this morning patient started experiencing severe chest pain. Patient reported associated signs and symptoms of palpitations, diaphoresis, dizziness and headache. Patient admitted for ACS rule out. Hospital Course: Chest pain Chronic pain syndrome GERD Patient admitted to the medical floor. Troponin trended negative. Patient was evaluated by cardiology Dr. Yuen who recommended nuclear stress test. Stress test done showed mild to moderate area of reversible ischemia in the inferior portion of the heart. Dr. Yuen performed cardiac catheterization and reported normal coronary arteries. ACS ruled out. Patient is currently asymptomatic with stable vitals. He is discharged with aspirin and Lipitor. Other home medications resumed on discharge. Vital Signs/Physical Exam: Temp Pulse Resp BP Pulse Ox 97.6 F 67 18 119/77 98 08/22/24 12:15 08/22/24 12:15 08/22/24 12:15 08/22/24 12:15 08/22/24 10:14 General: Alert, In no apparent distress, Oriented x3 HEENT: Mucous membr. moist/pink Neck: Supple, JVD not distended Respiratory: Clear to auscultation bilaterally, Normal air movement Cardiovascular: No edema, Regular rate/rhythm, Normal S1 S2 Gastrointestinal: Normal bowel sounds, Soft and benign, Non-distended, No tenderness Musculoskeletal: No swelling, No tenderness Integumentary: No rashes, No cyanosis Neurological: Normal strength at 5/5 x4 extr, Cranial nerves 3-12 intact Laboratory Data at Discharge: WBC 5.00 thou/uL (4.3-10.9) 08/21/24 06:05 Hgb 16.4 g/dL (13.6-17.9) 08/21/24 06:05 Hct 47.0 % (39.6-49.0) 08/21/24 06:05 Plt Count 189 thou/uL (152-406) 08/21/24 06:05 PT 10.7 SECONDS (9.4-12.5) 08/21/24 06:05 INR 1.02 08/21/24 06:05 Sodium 136 mEq/L (136-145) 08/22/24 05:59 Potassium 3.9 mEq/L (3.5-5.1) 08/22/24 05:59 BUN 20 mg/dL (7-18) H 08/22/24 05:59 Creatinine 0.87 mg/dL (0.70-1.30) 08/22/24 05:59 Glucose 95 mg/dL (74-106) 08/22/24 05:59 Phosphorus 3.3 mg/dL (2.5-4.9) 08/21/24 06:05 Magnesium 2.2 mg/dL (1.6-2.4) 08/21/24 06:05 Total Bilirubin 0.8 mg/dL (0.2-1.0) 08/20/24 12:05 AST 27 U/L (15-37) 08/20/24 12:05 ALT 34 U/L (16-61) 08/20/24 12:05 Alkaline Phosphatase 49 U/L (45-117) 08/20/24 12:05 Home Medications: Esomeprazole Mag Trihydrate [Nexium] 40 mg PO DAILY 05/19/18 Tizanidine HCl 4 mg PO 1X 08/20/24 tadalafiL [Cialis] 10 mg PO 1X 08/20/24 Aspirin Chewable [Aspirin Chewable*] 81 mg PO DAILY #30 tab.chew 08/22/24 Atorvastatin Calcium [Lipitor] 40 mg PO BEDTIME #30 tab 08/22/24 New Medications: Aspirin Chewable [Aspirin Chewable*] 81 mg PO DAILY #30 tab.chew Atorvastatin Calcium [Lipitor] 40 mg PO BEDTIME #30 tab Diet: AHA Activity: Ad alfred Followup: To ROWLEY,Caridad Jordan DO [Primary Care Provider] - 1-2 Weeks Time spent managing pt's care (in minutes): 32
--- NOTE | 2024-08-26 12:29 | EKG ---
Test Date: 2024-08-20 Test Time: 11:55:40 Lmft: PH MEASUREMENT RESULTS: Intervals: Rate: 61 ND: 154 QRSD: 78 QT: 384 QTc: 386 [place]inson: P: 33 ND: 154 QRS: 41 T: 40 INTERPRETIVE STATEMENTS: Normal sinus rhythm Early repolarization Normal ECG Compared to ECG 02/08/2023 18:19:39 Early repolarization now present Electronically Signed On 08-26-24 12:17:27 [facility] by Vinnie Yuen
== END 2024-08-22 14:45 | disposition home or self-care (01) | DRG 287 ==
LOC: ER 11:35 → ERHOLD 14:49 → 4TH 17:05 → OBSVTOIN 08-21 19:17
PROVIDERS: ADMIT Internal Medicine; ATTEND Internal Medicine
PROC: 4A023N7 Measurement of Cardiac Sampling and Pressure, Left Heart, Percutaneous Approach (ICD-10-PCS; principal; 2024-08-22)
PROC: B2111ZZ Fluoroscopy of Multiple Coronary Arteries using Low Osmolar Contrast (ICD-10-PCS; 2024-08-22)
DX: R07.2 Precordial pain (principal); K86.1 Other chronic pancreatitis; G89.4 Chronic pain syndrome; E78.00 Pure hypercholesterolemia, unspecified; K21.9 Gastro-esophageal reflux disease without esophagitis; I25.2 Old myocardial infarction; F17.290 Nicotine dependence, other tobacco product, uncomplicated; Z79.82 Long term (current) use of aspirin; Z90.49 Acquired absence of other specified parts of digestive tract; Z96.642 Presence of left artificial hip joint; Z89.022 Acquired absence of left finger(s); Z79.899 Other long term (current) drug therapy
CPT/HCPCS: 36415; 71045; 76937; 78452; 80048; 80061; 80076; 81001; 83735; 83880; 84100; 84439; 84443; 84484; 85025; 85610; 93005; 93017; 93306; 93454; 96361; 96374; 96375; 99152; 99153; 99285; A9500; C1893; G0378; J0461; J1644; J1650; J2003; J2250; J2310; J2405; J2785; J3010; J7040; Q9966